=== PATIENT | female | born 1995 | race Caucasian/White ===

== ENCOUNTER 2024-07-17 09:52 | Outpatient (OUT) | payer BC, SELFPAY ==
--- NOTE | 2024-07-16 14:01 | VEINCLINIC_ITS ---
Vital Signs 07/16/24 14:17 07/17/24 10:15 Height 5 ft 8 in Weight 155 kg BP 138/88 BP Location Right Brachial BP Position Supine BP Cuff Size Large Adult BP Source Automatic Cuff Respiration 18 Pulse 88 Pulse Source Monitor Pulse Oximetry (%) 98 Oxygen Delivery Method Room Air Comment The patient's blood pressure is elevated. Varicose Veins Patient in this day as a referral from Dr. Yanez secondary to wound to right mid medial lower leg which occurred approximately 3 years ago presumably from a bug bite. Patient has had 5 skin grafts since this time along with a wound vac and is still unable to achieve full wound healing. Patient c/o bilateral leg pain and edema. 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 Patient has worn bilateral knee high compression stockings for approximately 3 months with some relief. Patient has not been treated for varicose vein disease in the past, but does have a family history of varicose veins. Patient has a history of DVT and P.E. Jewel Hines MD personally performed the services described in this documentation, as scribed by Oj Garibay RN in my presence and it is both accurate and complete. Oj Hines RN, am scribing for, and in the presence of, Dr. Jewel Ngo and in the presence of the patient. . thigh: bilateral (symptoms equally bilateral), knee: bilateral, calf: bilateral, ankle: bilateral and andersen: bilateral aching, burning, cramping, dull and tender 8 6 months Worsened in recent months: Yes standing compression stockings and exercise Reports muscle spasms of leg, fatigue, heaviness, restless legs, limb pain, edema and leg edema History of lower extremity trauma: No Superficial thrombophlebitis: Yes Family history of varicose veins: yes Has patient had previous lower extremity venous surgery: No Patient has previously received the following treatment(s) for lower extremity varicose veins: Reports none Does patient have a history of : no Does patient intend to have future pregnancies: no Has patient had lower extremity venous scan with relux testing: No Support hose used: Yes Problems walking or doing physical activity: Yes How does it affect you: often has to sit and rest due to pain Do you walk much: Yes Do you stand much: Yes Review of Systems ROS Narrative I, Jewel Ngo MD personally performed the services described in this documentation, as scribed by Oj Garibay RN in my presence and it is both accurate and complete. I, Oj Garibay RN, am scribing for, and in the presence of, Dr. Jewel Ngo and in the presence of the patient. Status of ROS 10 or more systems reviewed and unremark able except as noted in history and below Cardiovascular Reports: edema Integumentary/Breast Reports: skin pain, skin tenderness, skin swelling, non- healing lesion and changes in skin color Neurological Reports: weakness in extremities [facility] Medical History (Updated 07/17/24 @ 10:27 by Oj Garibay) Arthritis of neck ?M47.812 - Spondylosis without myelopathy or radiculopathy, cervical region (ICD-10) Morbid obesity due to excess calories ?E66.01 - Morbid (severe) obesity due to excess calories (ICD-10) Pulmonary embolism ?I26.99 - Other pulmonary embolism without acute cor pulmonale (ICD-10) Anxiety ?F41.9 - Anxiety disorder, unspecified (ICD-10) Depression ?F32.A - Depression, unspecified (ICD-10) Factor 5 Leiden mutation, heterozygous ?D68.51 - Activated protein C resistance (ICD-10) Lymphedema due to venous disease ?I89.0 - Lymphedema, not elsewhere classified (ICD-10) ?I99.9 - Unspecified disorder of circulatory system (ICD-10) Venous insufficiency ?I87.2 - Venous insufficiency (chronic) (peripheral) (ICD-10) Wound of right leg ?S81.801A - Unspecified open wound, right lower leg, initial encounter (ICD- 10) Surgical History (Updated 07/17/24 @ 10:27 by Oj Garibay) H/O skin graft ?Z94.5 - Skin transplant status (ICD-10) Family History (Updated 07/17/24 @ 10:28 by Oj Garibay) Other Family history of cancer Family history of hypertension Family history of stroke Pain due to varicose veins of both lower extremities Social History (Updated 07/17/24 @ 10:29 by Oj Garibay) Within the past year, how often did you have a drink containing alcohol: 2-4 times a month Smoking status: Never smoker Non-prescribed substance use: denies use Meds Home Medications and Allergies Home Medications ?Medication ?Instructions ?Recorded ?Confirmed ?Type cyclobenzaprine 10 mg tablet 10 mg PO BID 07/17/24 07/17/24 History escitalopram oxalate 20 mg tablet 10 mg PO DAILY 07/17/24 07/17/24 History (Lexapro) gabapentin 600 mg tablet 300 mg PO TID 07/17/24 07/17/24 History Allergies Allergy/AdvReac Type Severity Reaction Status Date / Time No Known Drug Allergies Allergy Verified 07/16/24 14:16 Exam Narrative Exam Narrative: Wound to right mid [id number] lower leg [id number] deep Jewel Hines MD personally performed the services described in this documentation, as scribed by Oj Garibay RN in my presence and it is both accurate and complete. Oj Hines RN, am scribing for, and in the presence of, Dr. Jewel Ngo and in the presence of the patient. Constitutional Documenting provider has reviewed patient's vital signs: yes Common normals: oriented x3 Nutritional appearance: overweight Cardio Peripheral pulses: posterior tibial pulses present and dorsalis pedis pulses present Extremity Common normals: normal capillary refill General: calf tenderness and edema Right lower extremity: lower leg Right lower leg: inspection and palpation Left lower extremity: lower leg Left lower leg: inspection and palpation Neuro Common normals: oriented x3 Results Additional Findings Additional findings: Bilateral leg reflux u/s reveals moderate right and severe left great saphenous vein disease along with severe right and milk left small saphenous vein insufficiency along with severe left anterior accessory saphenous vein insufficinecy with dilation in all these vessels. Incompetent perforating vein at wound site, and lastly bilateral leg branch saphenous truncal tributary varicosities. Jewel Hines MD personally performed the services described in this documentation, as scribed by Oj Garibay RN in my presence and it is both accurate and complete. Oj Hines RN, am scribing for, and in the presence of, Dr. Jewel Ngo and in the presence of the patient. Assessment and Plan Assessment and Plan Plan Patient to continue use of bilateral leg knee high compression stockings, rest, and elevation. Patient to return for EVLT of right GSV followed by left GSV followed by right SSV followed by left SSV, followed by left AASV and lastly EVLT of perforating vein to right lower leg at wound site. Once EVLTs are complete, move forward with micorofoam chemical ablation bilateral leg branch saphenous varicosities. IJewel MD personally performed the services described in this documentation, as scribed by Oj Garibay RN in my presence and it is both accurate and complete. I, Oj Garibay RN, am scribing for, and in the presence of, Dr. Jewel Ngo and in the presence of the patient.
--- NOTE | 2024-07-16 14:11 | P.DS_ITS ---
Discharge Plan Discharge Disposition: Home, Self-Care Outpatient Diagnostics: VC Endovenous Ablation 1VeinRT (Routine) Timeframe: 2 Weeks Facility: [facility] - Location: [facility] Center Ordered By: Jameson Seo Plan of Treatment: EVLT of right GSV Patient Instructions: Endovenous Ablation (GEN) Print Language: Lao Discharge Date/Time: 07/17/24 13:55
--- NOTE | 2024-07-17 | VEIN_ITS ---
Patient Name: DARLINE PRESCOTT MR#: [id number] : 1995 Exam Date: 07/17/2024 Ordering Doctor: DR JAMESON SEO M.D. RADIOLOGY REPORT PROCEDURE: [facility] - OFFICE VISIT INITIAL COMPARISON: None. PROGRESS NOTES: 29-year-old female who presents with a 3 year nonhealing wound on her right posterior medial mid calf. The patient has been treated in the wound clinic with 5 vein grafts. 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 She complains of varicose veins pain and swelling. Her symptoms are exacerbated by the prolonged standing and are partially relieved by rest and leg elevation. The patient has worn compression stockings without much relief. The patient has a history of DVT with pulmonary embolus in 2014 thought to be related to an injury and provoked from lack of movement. The patient is not on anticoagulant at this time. The patient denies any signs and symptoms to suggest arterial ischemia. The patient describes a family history significant for varicose veins, cancer, hypertension and stroke. The patient drinks alcohol 2-4 times per month. The patient has never smoked. No illicit drug use. Past medical history significant for arthritis, morbid obesity, anxiety, depression, factor 5 Leiden mutation, lymphedema, venous insufficiency. See separate history and physical for medication list. No prior treatment for varicose or spider veins. The patient has used compression stockings for years. After review of nurse notes, history and physical exam I discussed at length the pathophysiology of venous hypertension and possible treatments, therapies and strategies available. We discussed at length the importance of elevating the lower extremities above the level of the heart, increased physical activity and compression stocking use. We discussed alternatives including conservative therapy with compression stockings surgical intervention with ligation stripping and phlebectomy. We discussed intravenous laser ablation, micro foam chemical ablation length. Risks benefits and alternatives were discussed Ultrasound venous reflux study performed the same day was discussed at length with the patient. The report demonstrates bilateral great, small and left anterior accessory saphenous vein venous insufficiency with dilatation and saphenofemoral/saphenous popliteal junction reflux. Large incompetent perforating vein in the right calf corresponding to the patient's ulceration period bilateral incompetent varicose veins PHYSICAL EXAM: The right leg demonstrates scattered varicose reticular and spider veins. Mild subcutaneous edema below the knee. There is a 6 cm ulceration along the right mid posterior medial calf through the epidermis and dermis with exposed fat layer. The left leg demonstrates scattered varicose, reticular spider veins. Mild subcutaneous edema below the knee. No active ulceration. No hemosiderin staining Both thighs, legs and feet were symmetrically warm to the touch. Good posterior tibial and dorsalis pedis pulses were present bilaterally. VEIN/VC Facility NEW Comprehensive IMPRESSION: 1. Extensive venous insufficiency, bilateral great, bilateral small and left anterior accessory saphenous veins with dilatation and saphenofemoral/saphenous popliteal junction reflux 2. Incompetent perforating vein subjacent to the right calf ulceration. Bilateral incompetent lower extremity varicose veins 3. Mild bilateral lower extremity subcutaneous edema 4. No definite flow significant arterial disease 5. CEAP: C6, Ep, Asp, Pr PLAN: 1. Endovenous laser ablation right great saphenous vein followed by right small saphenous vein followed by right perforating vein. Subsequent treatment of the left great saphenous vein, left small saphenous vein and left anterior accessory saphenous vein 2. Bilateral micro foam chemical ablation of incompetent varicose veins 3. Long-term use of bilateral 20-30 mm compression stockings 4. Leg elevation, weight loss and increased physical activity for symptomatic relief Nurse notes, history and physical were reviewed and confirmed, see attached forms. The nurse was present throughout the physical exam and consultation Dictated by: Jameson Seo MD on 07/17/2024 at 12:12 Approved by: Jameson Seo MD on 07/17/2024 at 12:18
--- NOTE | 2024-07-17 | VEIN_ITS ---
Patient Name: DARLINE PRESCOTT MR#: [id number] : 1995 Exam Date: 07/17/2024 Ordering Doctor: DR JAMESON SEO M.D. RADIOLOGY REPORT PROCEDURE: VC EXT VENOUS REFLUX FRANCESCA LMTD COMPARISON: None. INDICATIONS: I83.813 Bilateral painful varicose veins TECHNIQUE: Duplex imaging of the lower extremity to assess the deep and superficial venous system for the presence of deep or superficial venous incompetence and to document the location and severity of disease. The study includes evaluation of the great saphenous vein (GSV), anterior accessory saphenous vein (AASV) and small saphenous vein (SSV). Patient scanned in reverse Trendelenburg and standing. FINDINGS: RIGHT LOWER EXTREMITY: Saphenofemoral Junction Reflux: Yes 9.9mm 1.3 sec GSV: Diam (mm) Reflux/ Time (sec) Proximal Thigh 10.8 Yes 0.7 Mid Thigh 9.0 Yes 0.6 Distal Thigh 7.6 Yes 0.4 Prox Calf 8.0 Yes 2.3 Mid Calf 5.7 Yes 0.4 Saphenopopliteal Junction Reflux: 8.8mm Yes 2.8 SSV: Proximal Calf 6.2 Yes 3.4 Mid Calf 5.6 Yes 0.9 AASV: Proximal Thigh 4.5 No Mid Thigh 2.8 Yes 0.3 Distal Thigh Thrombi: Remnants of chronic thrombus in popliteal vein. Compressibility: Normal. Flow: Mild deep venous reflux. Preforator: Distal medial lower leg 4.4 mm, 0.6s reflux. Mid posterior calf near wound 4.5 mm with 2.4s reflux. Tech Note: Incompetent varicose vein mid posterior calf near wound measures 5.4 mm with 0.5s reflux. Varicose vein mid medial thigh measures 4.5 mm with 3.6s reflux. Varicose vein proximal medial lower leg measures 4.7 mm with 0.6s reflux. LEFT LOWER EXTREMITY: Saphenofemoral Junction Reflux: Yes 13.3 mm 1.9 sec GSV: Diam (mm) Reflux/Time (sec) Proximal Thigh 9.7 Ye 1.5 Mid Thigh 6.8 Yes 0.5 Distal Thigh 6.4 Yes 0.9 Prox Calf 5.1 Yes 4.7 Mid Calf 4.0 Yes 0.3 Saphenopopliteal Junction Relux 6.9 mm Yes 1.9 SSV: Proximal Calf 5.6 Yes 0.5 Mid Calf 3.3 Yes 0.6 AASV: Proximal Thigh 7.9 Yes 4.0 Mid Thigh 5.1 Yes 3.3 Distal Thigh Thrombi: No acute or chronic thrombus. Compressibility: Normal. Flow: Mild deep venous reflux. Record Systems Analyst: Distal medial lower leg 4.6mm with 0.7s reflux. Tech Note: AASV becomes tortuous approximately 6-8 cm from SFJ. Incompetent varicose vein proximal medial lower leg measures 4.7 mm with 0.8s reflux. Varicose vein mid medial thigh measures 5.2 mm with 0.7s reflux. Varicose vein proximal anterior thigh off of AASV measures 4.5 mm with 3.1s reflux. Varicose vein lateral knee measures 5.8 mm with 1.0s reflux. CONCLUSION: 1. Moderate right and severe left great saphenous vein venous insufficiency with dilatation and saphenofemoral junction reflux 2. Severe right and mild left small saphenous vein venous insufficiency with saphenous popliteal junction reflux 3. Severe left anterior accessory saphenous vein venous insufficiency with dilatation 4. Incompetent perforating vein on the right calf in the region of the patient's large ulceration 5. Bilateral incompetent varicose veins Dictated by: Jameson Seo MD on 07/17/2024 at 11:39 Approved by: Jameson Seo MD on 07/17/2024 at 12:09
[2024-07-17 10:15] VITALS: BP 138/88; PULSE 88; O2SAT 98
--- NOTE | 2024-07-17 15:01 | V.VEINS.HP ---
Vital Signs 07/16/24 14:17 07/17/24 10:15 Height 5 ft 8 in Weight 155 kg BP 138/88 BP Location Right Brachial BP Position Supine BP Cuff Size Large Adult BP Source Automatic Cuff Respiration 18 Pulse 88 Pulse Source Monitor Pulse Oximetry (%) 98 Oxygen Delivery Method Room Air Comment The patient's blood pressure is elevated. [facility] Medical History (Updated 07/17/24 @ 13:54 by Oj Garibay) Varicose veins of bilateral lower extremities with pain ?I83.813 - Varicose veins of bilateral lower extremities with pain (ICD-10) Arthritis of neck ?M47.812 - Spondylosis without myelopathy or radiculopathy, cervical region (ICD-10) Morbid obesity due to excess calories ?E66.01 - Morbid (severe) obesity due to excess calories (ICD-10) Pulmonary embolism ?I26.99 - Other pulmonary embolism without acute cor pulmonale (ICD-10) Anxiety ?F41.9 - Anxiety disorder, unspecified (ICD-10) Depression ?F32.A - Depression, unspecified (ICD-10) Factor 5 Leiden mutation, heterozygous ?D68.51 - Activated protein C resistance (ICD-10) Lymphedema due to venous disease ?I89.0 - Lymphedema, not elsewhere classified (ICD-10) ?I99.9 - Unspecified disorder of circulatory system (ICD-10) Venous insufficiency ?I87.2 - Venous insufficiency (chronic) (peripheral) (ICD-10) Wound of right leg ?S81.801A - Unspecified open wound, right lower leg, initial encounter (ICD-10) Surgical History (Updated 07/17/24 @ 10:27 by Oj Garibay) H/O skin graft ?Z94.5 - Skin transplant status (ICD-10) Family History (Updated 07/17/24 @ 10:28 by Oj Garibay) Other Family history of cancer Family history of hypertension Family history of stroke Pain due to varicose veins of both lower extremities Social History (Updated 07/17/24 @ 10:29 by Oj Garibay) Within the past year, how often did you have a drink containing alcohol: 2-4 times a month Smoking status: Never smoker Non-prescribed substance use: denies use Meds Home Medications and Allergies Home Medications ?Medication ?Instructions ?Recorded ?Confirmed ?Type cyclobenzaprine 10 mg tablet 10 mg PO BID 07/17/24 07/17/24 History escitalopram oxalate 20 mg tablet 10 mg PO DAILY 07/17/24 07/17/24 History (Lexapro) gabapentin 600 mg tablet 300 mg PO TID 07/17/24 07/17/24 History Allergies Allergy/AdvReac Type Severity Reaction Status Date / Time No Known Drug Allergies Allergy Verified 07/16/24 14:16 Exam Constitutional Vital Signs, click to edit/add: Last Vital Signs Pulse 88 07/17/24 10:15 Resp 18 07/17/24 10:15 BP 138/88 07/17/24 10:15 Pulse Ox 98 07/17/24 10:15 Assessment and Plan Assessment and Plan Plan Patient to continue use of bilateral leg knee high compression stockings, rest, and elevation. Patient to return for EVLT of right GSV followed by left GSV followed by right SSV followed by left SSV, followed by left AASV and lastly EVLT of perforating vein to right lower leg at wound site. Once EVLTs are complete, move forward with micorofoam chemical ablation bilateral leg branch saphenous varicosities. IJewel MD personally performed the services described in this documentation, as scribed by Oj Garibay RN in my presence and it is both accurate and complete. IOj RN, am scribing for, and in the presence of, Dr. Jewel Ngo and in the presence of the patient.
[2024-07-17 15:34] VITALS: BP 154/75; PULSE 84; O2SAT 97
== END 2024-07-17 13:55 | disposition home or self-care (01) ==
PROVIDERS: PCP Podiatrist Foot & Ankle Surgery; Visit Provider Radiology Diagnostic Radiology
DX: I83.813 Varicose veins of bilateral lower extremities with pain (principal)
CPT/HCPCS: 93970; G0463

== ENCOUNTER 2024-09-13 09:05 | Outpatient (OUT) | payer BC, SELFPAY ==
--- NOTE | 2024-09-13 07:24 | V.VEINS.HP ---
Vital Signs 09/13/24 09:10 BP 154/77 H BP Location Left Brachial BP Position Sitting BP Cuff Size Large Adult BP Source Automatic Cuff Respiration 18 Pulse 83 Pulse Source Monitor Pulse Oximetry (%) 98 Oxygen Delivery Method Room Air Comment The patient's blood pressure is elevated. Varicose Veins Patient in this day for EVLT of right GSV Jewel Hines MD personally performed the services described in this documentation, as scribed by Oj Garibay RN in my presence and it is both accurate and complete. Oj Hines RN, am scribing for, and in the presence of, Dr. Jewel Ngo and in the presence of the patient. thigh: bilateral (symptoms equally bilateral), knee: bilateral, calf: bilateral, ankle: bilateral and andersen: bilateral aching, burning, cramping, dull and tender 8 6 months Worsened in recent months: Yes standing compression stockings and exercise Reports muscle spasms of leg, fatigue, heaviness, restless legs, limb pain, edema and leg edema History of lower extremity trauma: No Superficial thrombophlebitis: Yes Family history of varicose veins: yes Has patient had previous lower extremity venous surgery: No Patient has previously received the following treatment(s) for lower extremity varicose veins: Reports none Does patient have a history of : no Does patient intend to have future pregnancies: no Has patient had lower extremity venous scan with relux testing: No Support hose used: Yes Problems walking or doing physical activity: Yes How does it affect you: often has to sit and rest due to pain Do you walk much: Yes Do you stand much: Yes Review of Systems ROS Narrative Jewel Hines MD personally performed the services described in this documentation, as scribed by Oj Garibay RN in my presence and it is both accurate and complete. Oj Hines RN, am scribing for, and in the presence of, Dr. Jewel Ngo and in the presence of the patient. Status of ROS 10 or more systems reviewed and unremarkable except as noted in history and below Cardiovascular Reports: edema Integumentary/Breast Reports: skin pain, skin tenderness, skin swelling, non-healing lesion and changes in skin color Neurological Reports: weakness in extremities [facility] Medical History (Updated 09/13/24 @ 07:32 by Oj Garibay) Phlebitis of superficial vein of right lower extremity ?I80.01 - Phlebitis and thrombophlebitis of superficial vessels of right lower extremity (ICD-10) Varicose veins of bilateral lower extremities with pain ?I83.813 - Varicose veins of bilateral lower extremities with pain (ICD-10) Arthritis of neck ?M47.812 - Spondylosis without myelopathy or radiculopathy, cervical region (ICD-10) Morbid obesity due to excess calories ?E66.01 - Morbid (severe) obesity due to excess calories (ICD-10) Pulmonary embolism ?I26.99 - Other pulmonary embolism without acute cor pulmonale (ICD-10) Anxiety ?F41.9 - Anxiety disorder, unspecified (ICD-10) Depression ?F32.A - Depression, unspecified (ICD-10) Factor 5 Leiden mutation, heterozygous ?D68.51 - Activated protein C resistance (ICD-10) Lymphedema due to venous disease ?I89.0 - Lymphedema, not elsewhere classified (ICD-10) ?I99.9 - Unspecified disorder of circulatory system (ICD-10) Venous insufficiency ?I87.2 - Venous insufficiency (chronic) (peripheral) (ICD-10) Wound of right leg ?S81.801A - Unspecified open wound, right lower leg, initial encounter (ICD-10) Surgical History (Updated 09/13/24 @ 09:22 by Oj Garibay) Status post laser ablation of incompetent vein ?Z98.890 - Other specified postprocedural states (ICD-10) S/P sclerotherapy of varicose veins ?Z98.890 - Other specified postprocedural states (ICD-10) ?Z86.79 - Personal history of other diseases of the circulatory system (ICD-10) H/O skin graft ?Z94.5 - Skin transplant status (ICD-10) Family History (Updated 07/17/24 @ 10:28 by Oj Garibay) Other Family history of cancer Family history of hypertension Family history of stroke Pain due to varicose veins of both lower extremities Social History (Updated 07/17/24 @ 10:29 by Oj Garibay) Within the past year, how often did you have a drink containing alcohol: 2-4 times a month Smoking status: Never smoker Non-prescribed substance use: denies use Meds Home Medications and Allergies Home Medications ?Medication ?Instructions ?Recorded ?Confirmed ?Type cyclobenzaprine 10 mg tablet 10 mg PO BID 07/17/24 07/17/24 History escitalopram oxalate 20 mg tablet 10 mg PO DAILY 07/17/24 07/17/24 History (Lexapro) gabapentin 600 mg tablet 300 mg PO TID 07/17/24 07/17/24 History Allergies Allergy/AdvReac Type Severity Reaction Status Date / Time No Known Drug Allergies Allergy Verified 07/16/24 14:16 Results Additional Findings Additional findings: Bilateral leg reflux u/s reveals moderate right and severe left great saphenous vein disease along with severe right and milk left small saphenous vein insufficiency along with severe left anterior accessory saphenous vein insufficinecy with dilation in all these vessels. Incompetent perforating vein at wound site, and lastly bilateral leg branch saphenous truncal tributary varicosities. Jewel Hines MD personally performed the services described in this documentation, as scribed by Oj Garibay RN in my presence and it is both accurate and complete. Oj Hines RN, am scribing for, and in the presence of, Dr. Jewel Ngo and in the presence of the patient. Assessment and Plan Assessment and Plan (1) Varicose veins of bilateral lower extremities with pain: Plan F/u evaluation with physician along with right leg limited u/s Jewel Hines MD personally performed the services described in this documentation, as scribed by Oj Garibay RN in my presence and it is both accurate and complete. Oj Hines RN, am scribing for, and in the presence of, Dr. Jewel Ngo and in the presence of the patient. Procedures Procedure Instructions Procedures Plan of care: Risks and benefits of the procedure were discussed at length and informed written consent was obtained.? Time-out completed for verification of correct patient, procedure and site.? Staff present during time-out: Oj Garibay RN,? Jameson Seo MD, Latosha Anthony RDMS, Time Out Time__909 Patient prepped and procedure performed in usual sterile fashion. Risk of injury related to use of Diode laser and/or laser devices__CR___ ? Serial number of laser used :? [id number] Control panel self test performed, electrical cords in good condition, floor is dry, basin of water available, fire extinguisher in close proximity_CR__ Polycarbonate goggles available and Laser warning signs outside of doors___CR__ Eye protection provided to patient and staff in room_CR___ Use of laser retardant drapes and dull blackened instruments as directed__CR___ Use of nonflammable prep solutions and use of saline soaked sponges to protect tissues as indicated _CR___ Length ___66 cm Laser operated by __Dr. Ngo Physician verbal confirmation laser locked in place__CR__ Laser start time (date and time) __09/13/2024@_0956 Laser stop time(date and time) _09/13/2024@__1003 Chen _8.0___ Average laser use __3280 Joules Average laser use___410 seconds Pulse continuous ___CR_? Pulse intermittent ___ Amount of Tumescent used __275cc____ Evaluated patient for signs and symptoms of electrical injury __CR___ ? Skin clear at insertion site __CR___ Patient tolerated procedure well.? Right leg Coban dressing applied to access site.? Applied right thigh high leg compression stocking. Will return on 09/17/2024 for right leg limited venous ultrasound and exam. IJewel MD personally performed the services described in this documentation, as scribed by Oj Garibay RN in my presence and it is both accurate and complete. I, Oj Garibay RN, am scribing for, and in the presence of, Dr. Jewel Ngo and in the presence of the patient.
--- NOTE | 2024-09-13 07:31 | W.VEIN ---
Discharge Plan Discharge Disposition: Home, Self-Care Outpatient Diagnostics: [facility] Facility EST LMTD (Routine) Timeframe: 2 Weeks Facility: [facility] - Location: [facility] Ordered By: Jameson Seo VC EXT Venous RT LMTD (Routine) Timeframe: 2 Weeks Facility: [facility] - Location: Vein Center Ordered By: Jameson Seo Follow Up Appointments: 09/18/2024 Plan of Treatment: f/u evaluation with physician along with right leg limited u/s Patient Instructions: Endovenous Ablation (DC) Print Language: Hungarian Discharge Date/Time: 09/13/24 09:29
[2024-09-13] MEDS: LIDOCAINE HCL 1% 100 MG/10 ML MDV INJ (09:03)
[2024-09-13] MEDS: 0.9 % SODIUM CHLORIDE 500 ML, LIDOCAINE HCL 20 ML, SODIUM BICARBONATE 10 MEQ INJ (09:04)
--- NOTE | 2024-09-13 09:06 | VEIN_ITS ---
[address] [address] Patient Name: DARLINE PRESCOTT MRN: [id number] date: 1995 Sex: F Assigned Patient Location: Current Patient Location: Accession/Order Number: [id number] Exam Date: 09/13/2024 09:08 Report Date: 09/13/2024 10:56 At the request of: RENA HOYT Procedure: VC Endovenous Ablation 1VeinRT EXAMINATION: VC Endovenous Ablation 1VeinRT HISTORY: I83.813 - Varicose veins of bilateral lower extremities w... The risks and benefits of the procedure had been previously discussed, and were rediscussed at length. Informed written consent was obtained. Oj Garibay RN and Latosha Ramey RDMS assisted. Time out procedure was performed. The right lower extremity was prepared and draped in the usual sterile fashion to allow knee flexion in the sterile field. Duplex ultrasound probe was draped in a sterile cover, sterile transmission gel was used. Venous mapping was performed with the areas of dilation and large tributaries marked. The total length was 66 cm from the entry distal calf to 3 cm below the Saphenofemoral junction. The diameter of the right great saphenous vein ranged from 10.8 mm. A 30 gauge needle and 1% buffered lidocaine was used to anesthetize the entry site. A 4 mm incision was made with a scalpel and the saphenous vein was entered percutaneously under direct ultrasound guidance with a micropuncture set, a single stick was successful in gaining access. A micro-guide wire was inserted and the needle removed. A micro-set including a dilator was inserted over the microwire and the needle and dilator were removed. A guide wire was inserted through the micro-set and guided through the saphenous vein to the saphenofemoral junction. The dilator was removed and an introducer sheath was inserted over the wire until the end of the sheath entered the saphenofemoral junction. The dilator and wire were removed and the 600 micron fiber was introduced and placed and positioned so that it extended beyond the sheath and was 3 cm distal to the saphenofemoral or saphenopopliteal junction. Final position of the fiber was determined by ultrasound guidance and duplex imaging. Tumescent anesthetic was delivered by ultrasound guidance. 275 cc of fluid was delivered along the entire course of the saphenous vein. The solution consisted of 1000 cc of normal saline with 40 mL of 1% lidocaine and 20 mL of sodium bicarbonate. A final positioning check was made. The energy source was turned on by means of the foot pedal and the fiber and sheath were withdrawn. The total number of Joules delivered was 3280. The laser was active for 410 seconds under continuous pulse, average laser use of 8 J. Laser start time: 9:56 AM Laser stop time: 10:03 AM Date: 09/13/2024. A duplex ultrasound revealed compressibility and flow at the saphenofemoral junction immediately after the procedure. Hemostasis at the access site was achieved. The skin incision of the saphenous vein was closed with a 4 x 4. A compression stocking was applied. Postop instructions were given. A follow up appointment was recommended and scheduled. The patient tolerated the procedure well. Electronically authenticated by: ANABELLA DAVISON Date: 09/13/2024 10:56
[2024-09-13 09:10] VITALS: BP 154/77; PULSE 83; O2SAT 98
--- OUTSIDE RECORDS SUMMARY | 2024-09-13 09:26 | XMS_ITS | CCD ---
Author Organization [facility] Care Team Providers Care Fingerprint Expert Name Role Phone RALPH TAN Referring Unavailable Unavailable Primary Care Provider UnavailJazzy Zaragoza Primary Care Provider ALICJA ., DR ESCOBAR Consulting Unavailable ALICJA ., DR ESCOBAR Attending Unavailable ALICJA ., DR ESCOBAR Admitting Unavailable ALICJA ., DR ESCOBAR Consulting Unavailable ALICJA ., DR ESCOBAR Attending Unavailable ALICJA ., DR ESCOBAR Admitting Unavailable Julieta Curtis Primary Care Physician Renata, Emre Charles Admitting Unavailable Dolce, Emre Charles Attending Unavailable KirstenJulieta Attending Unavailable Kirsten, Julieta C Admitting Unavailable Dolce, Emre Charles Admitting Unavailable Dolce, Emre Charles Attending Unavailable Kirsten, Julieta C Admitting Unavailable Kirsten, Julieta C Attending Unavailable Kirsten, Julieta C Referring Unavailable Kirsten, Julieta C Attending Unavailable Kirsten Julieta C Admitting Unavailable Dolce, Emre Charles Attending Unavailable Dolce, Emre Charles Admitting Unavailable Dolce, Emre Charles Admitting Unavailable Dolce, Emre Charles Referring Unavailable Dolce, Emre Charles Attending Unavailable Dolce, Emre Charles Referring Unavailable Dolce, Emre Charles Attending Unavailable Dolce, Emre Charles Admitting Unavailable Dolce, Emre Charles Referring Unavailable Dolce, Emre Charles Attending Unavailable Dolce, Emre Charles Admitting Unavailable POCOS, RENA Elizalde Referring Unavailable POCOS, RENA Elizalde Attending Unavailable SAMANTHA, RENA An Attending Unavailable POCOS, RENA Elizalde Referring Unavailable SAMANTHA, RENA An Attending Unavailable POCOS, RENA Elizalde Referring Unavailable POCOS, RENA Elizalde Attending Unavailable POCOS, RENA Elizalde Referring Unavailable SAMANTHA, RENA An Attending Unavailable POCOS, RENA Elizalde Referring Unavailable POCOS, RENA Elizalde Attending Unavailable POCOS, RENA Elizalde Referring Unavailable DOLCE, EMRE Charles Attending Unavailable DOLCE, EMRE Charles Attending Unavailable Julieta Curtis MD Primary Care Provider Renata, Emre Charles Attending Unavailable Dolce, Emre Charles Attending Unavailable Dolce, Emre Charles Attending Unavailable Dolce, Emre Charles Attending Unavailable Dolce, Rohit R Attending Unavailable Dolce, Emre Charles Attending Unavailable Dolce, Emre Charles Attending Unavailable Julieta Curtis Referring Unavailable Luis Felipe Mack Admitting Unavailable Luis Felipe Mack Attending Unavailable Luis Felipe Mack Attending Unavailable Luis Felipe Mack Referring Unavailable Dolce, Emre Charles Attending Unavailable Dolce, Emre Charles Attending Unavailable Dolce, Emre Charles Attending Unavailable Dolce, Emre Charles Attending Unavailable Dolce, Emre Charles Attending Unavailable Dolce, Rohit R Attending Unavailable Dolce, Rohit R Attending Unavailable Dolce, Rohit R Attending Unavailable Dolce, Rohit R Attending Unavailable Dolce, Rohit R Attending Unavailable Dolce, Rohit R Attending Unavailable Dolce, Rohit R Attending Unavailable April Daniels Admitting Unavailable Frances, April Attending Unavailable Julieta Curtis Referring Unavailable Luis Felipe Mack Attending Unavailable Luis Felipe Mack Referring Unavailable Karthik Johnson Admitting Unavailable Karthik Johnson Attending Unavailable Karthik Johnson Attending Unavailable Dolhermann, Rohit R Attending Unavailable Dolce, Emre Charles Attending Unavailable MoKarthik william Attending Unavailable Dolhermann, Emre Charles Attending Unavailable Dolce, Rohit R Attending Unavailable Dolhermann, Emre Charles Attending Unavailable Luis Felipe Mack Attending Unavailable Luis Felipe Mack Referring Unavailable April Daniels Attending Unavailable Julieta Curtis Referring Unavailable April Daniels Admitting Unavailable Medications Current Medications Medication Drug Class(es) Dates Sig (Normalized) Sig (Original) acetaminophen 325 mg oral tablet (11 sources) Start: 06-26-2024 take 2 tablets by mouth twice daily as needed for pain Tylenol 325 mg Tab 650 mg, Oral, BID, PRN as needed for pain, Refills(s) 0 Start Date: 06/26/24 Status: Ordered acetaminophen 325 mg / oxyCODONE hydrochloride 5 mg oral tablet (8 sources) Opioid Agonist Start: 04-01-2024 take 1 tablet by mouth every six hours as needed for pain Percocet 5 mg-325 mg oral tablet 1 tab(s), Oral, q6hr as needed for pain, Refill(s) 0 Start Date: 04/01/24 Status: Ordered bifidobacterium animalis [id number] unt / lactobacillus acidophilus [id number] unt oral capsule (5 sources) take 1 capsule by mouth once daily Probiotic Product (Probiotic Daily) capsule Take by mouth Active ciprofloxacin 500 mg oral tablet (4 sources) Quinolone Antimicrobial Start: 08-19-2024 End: 08-29-2024 ciprofloxacin 500 mg Tab 500 mg = 1 tab(s), Refills(s) 0 Start Date: 08/27/24 Status: Ordered cyclobenzaprine hydrochloride 10 mg oral tablet (12 sources) Muscle Relaxant Start: 07-01-2024 End: 07-11-2024 take 1 tablet by mouth three times daily as needed for muscle spasms cyclobenzaprine 10 mg Tab 10 mg = 1 tab(s), Oral, TID, PRN for spasm, take as needed for muscle spasms, X 10 day(s), # 30 tab(s), Refills(s) 0, Pharmacy: [facility], 172, cm, 06/26/24 11:30:00 EDT, Height/Length Dosing, 154.4, kg, 06/26/24 11:30:00 EDT, Weight Dosing Start Date: 07/01/24 Stop Date: 07/11/24 Status: Ordered Start: 06-03-2024 End: 06-13-2024 take 1 tablet by mouth three times daily as needed for muscle spasms cyclobenzaprine 10 mg Tab 10 mg = 1 tab(s), Oral, TID, PRN for spasm, take as needed for muscle spasms, X 10 day(s), # 30 tab(s), Refills(s) 0, Pharmacy: [facility] 1986, 172, cm, 05/21/24 12:36:00 EDT, Height/Length Dosing, 154.2, kg, 04/01/24 8:35:00 EDT, Weight Dosing Start Date: 06/03/24 Stop Date: 06/13/24 Status: Ordered Start: 04-26-2024 End: 05-06-2024 take 1 tablet by mouth three times daily as needed for muscle spasms cyclobenzaprine 10 mg Tab 10 mg = 1 tab(s), Oral, TID, PRN for spasm, take as needed for muscle spasms, X 10 day(s), # 30 tab(s), Refills(s) 0, Pharmacy: [facility] 1986, 172, cm, 04/01/24 8:35:00 EDT, Height/Length Dosing, 154.2, kg, 04/01/24 8:35:00 EDT, Weight Dosing Start Date: 04/26/24 Stop Date: 05/06/24 Status: Ordered Start: 04-01-2024 End: 04-11-2024 take 1 tablet by mouth three times daily as needed for muscle spasms cyclobenzaprine 10 mg Tab 10 mg = 1 tab(s), Oral, TID, PRN for spasm, take as needed for muscle spasms, X 10 day(s), # 30 tab(s), Refills(s) 0, Pharmacy: [facility] 1986, 172, cm, 04/01/24 8:35:00 EDT, Height/Length Dosing, 154.2, kg, 04/01/24 8:35:00 EDT, Weight Dosing Start Date: 04/01/24 Stop Date: 04/11/24 Status: Ordered Start: 06-04-2019 take 1 tablet by jerod th three times daily cyclobenzaprine 10 mg Tab 10 mg = 1 tab(s), Oral, TID, # 30 tab(s), Refills(s) 0, Pharmacy: [facility]/pharmacy #[id number] Start Date: 06/04/19 Status: Ordered escitalopram 20 mg oral tablet (20 sources) Serotonin Reuptake Inhibitor Start: 08-27-2024 take 1 tablet by mouth once daily escitalopram 20 mg Tab 20 mg = 1 tab(s), Oral, Daily, Refills(s) 0 Start Date: 08/27/24 Status: Ordered Start: 02-05-2024 take 1 tablet by jerod th once daily escitalopram 5 mg oral tablet 5 mg = 1 tab(s), Oral, Daily, Anxiety Start Date: 02/26/24 Status: Ordered gabapentin 600 mg oral tablet (20 sources) Anti-epileptic Agent Start: 08-02-2024 take 1 tablet by mouth three times daily gabapentin 600 mg Tab 600 mg = 1 tab(s), Oral, TID, # 90 tab(s), Refills(s) 0, Pharmacy: [facility] 1986, 172, cm, 07/22/24 10:56:00 EST, Height/Length Dosing, 154.4, kg, 06/26/24 11:30:00 EDT, Weight Dosing Start Date: 08/02/24 Status: Ordered Start: 06-03-2024 End: 07-31-2024 take 2 capsules by mouth three times daily gabapentin 300 mg Cap 600 mg = 2 cap(s), Oral, TID, X 30 day(s), # 180 cap(s), Refills(s) 0, Pharmacy: Replaced By [facility] 1986, 172, cm, 06/26/24 11:30:00 EDT, Height/Length Dosing, 154.4, kg, 06/26/24 11:30:00 EDT, Weight Dosing Start Date: 07/01/24 Stop Date: 07/31/24 Status: Ordered Start: 04-01-2024 End: 05-26-2024 take 2 capsules by mouth three times daily gabapentin 300 mg Cap 600 mg = 2 cap(s), Oral, TID, X 30 day(s), # 180 cap(s), Refills(s) 0, Pharmacy: Replaced By [facility] 1986, 172, cm, 04/01/24 8:35:00 EDT, Height/Length Dosing, 154.2, kg, 04/01/24 8:35:00 EDT, Weight Dosing Start Date: 04/26/24 Stop Date: 05/26/24 Status: Ordered ibuprofen 800 mg oral tablet (5 sources) Nonsteroidal Anti-inflammatory Drug Start: 06-04-2019 take 1 tablet by mouth every eight hours ibuprofen 800 mg Tab 800 mg = 1 tab(s), Oral, q8hr, # 30 tab(s), Refills(s) 0, Pharmacy: [facility]/pharmacy #[id number] Start Date: 06/04/19 Status: Ordered naproxen sodium 220 mg oral capsule (20 sources) Nonsteroidal Anti-inflammatory Drug Start: 04-01-2024 take 1 capsule by mouth once daily as needed for pain Aleve Liquid Gels 220 mg oral capsule 220 mg = 1 cap(s), Oral, Daily, PRN as needed for pain, Refills(s) 0 Start Date: 04/01/24 Status: Ordered vitamin b6 100 mg oral tablet (5 sources) Start: 10-27-2023 pyridoxine (Vitamin B-6) 100 MG tablet 10/27/2023 Active Problems Active Problems Problem Classification Problem Date Documented Da te Episodic/Chronic Other nutritional; endocrine; and metabolic disorders (20 sources) Morbid obesity 09-29-2014 Chronic Other screening for suspected conditions (not mental disorders or infectious disease) (20 sources) Encounter for screening for malignant neoplasm of cervix; Translations: [No current problems or disability] Onset: 11-14-2022 Episodic Phlebitis; thrombophlebitis and thromboembolism (20 sources) Deep venous thrombosis 06-09-2015 Episodic Pulmonary heart disease (20 sources) Pulmonary embolism 06-09-2015 Episodic Skin and subcutaneous tissue infections (1 source) Cellulitis of right lower limb; Translations: [Cellulitis of right lower limb] 08-19-2024 Episodic Past or Other Problems Problem Classification Problem Date Documented Date Episodic/Chronic Immunizations and screening for infectious disease (3 sources) Contact with or exposure to other viral diseases; Translations: [Encounter for screening for human papillomavirus (HPV)] Onset: 05-15-2022 Episodic Results Test Name Value Interpretation Reference Range Facility Main OR Intraoperative Recor don 09-05-2024 Main OR Intraoperative Record Main OR Intraoperative Record IntraOp Document Type FTPM Summary Primary Physician: Luis Felipe Mack DO Finalized Date/Time: 09/05/24 14:44:26 Pt. Name: CHAU MOISE/Sex: 1995 Female Med Rec #: [id number] Physician: Luis Felipe Mack DO Financial #: [id number] Pt. Type: P Room/Bed: / Admit/Disch: 09/05/24 13:55:29 - Institution: Case Times FTPM Entry 1 Patient Times In Room 09/05/24 14:38:00 Out Room 09/05/24 14:45:00 Procedure Times Start 09/05/24 14:41:00 Stop 09/05/24 14:44:00 Anesthesia Times Last Modified By: Caro Culp RN 09/05/24 14:44:20 Case Attendance FTPM Entry 1 Entry 2 Entry 3 Case Attendee Luis Felipe Mack DO, RN, Caro Balderrama RN, Marah Javier Role Performed Surgeon - Primary Estimator Jewelry - Primary Scrub - Primary Time In 09/05/24 14:38:00 09/05/24 14:38:00 09/05/24 14:38:00 Time Out 09/05/24 14:45:00 09/05/24 14:45:00 09/05/24 14:45:00 Procedure CERVICAL EPIDURAL CERVICAL EPIDURAL CERVICAL EPIDURAL STEROID INJECTION(.) STEROID INJECTION(.) STEROID INJECTION(.) Comments Last Modified By: Robbi NIELSEN, Caro Culp RN, Caro Culp RN, Caro Nails 09/05/24 14:44:21 09/05/24 14:44:21 09/05/24 14:44:21 Entry 4 Entry 5 Case Attendee Donavan NIELSEN, Kishore Frankel Role Performed Scrub - Relief Manager Deli Time In 09/05/24 14:38:00 09/05/24 14:38:00 Time Out 09/05/24 14:45:00 09/05/24 14:45:00 Procedure CERVICAL EPIDURAL CERVICAL EPIDURAL STEROID INJECTION(.) STEROID INJECTION(.) Comments Last Modified By: Robbi NIELSEN, Caro Culp RN, Caro Nails 09/05/24 14:44:21 09/05/24 14:44:21 Perioperative Protocols FTPM Pre-Care Text: Implements protective measures prior to operative or invasive procedure, confirms identity before the operative or invasive procedure, verifies operative procedure, surgical site, and laterality Entry 1 Procedure(s) CERVICAL EPIDURAL Patient Identity Birthday, ID Band STEROID INJECTION(.) Verified (select at Check, Patient least 2): Participation Consents / H and P H&P, Surgery/Procedure Operative Site Present Verified Consent Marking Verified Surgical Site Yes Laterality Verified Yes Verified Procedure Verified Yes Correct Patient Yes Position Verified Availability Equipment, Medication, Prep Dry Yes Verified (If X-ray Applicable) PreOp Antibiotic No Time Out Robbi NIELSEN, Dmitry Brice RN, Karena Zeng DO, Bradford A., Harvey RN, Roddy Ray Bryce Time Out Complete 09/05/24 14:38:00 Outcomes Met? Yes Last Modified By: Caro Culp RN 09/05/24 14:39:33 Post-Care Text: The patient is free from signs and symptoms of injury caused by extraneous objects Allergy Information FTPM Pre-Care Text: Verifies allergies Entry 1 Allergies Reviewed? Yes Allergies Reviewed Self/Patient With Outcomes Met? Yes Last Modified By: Caro Culp RN 09/05/24 14:37:24 Post-Care Text: The patient received appropriate medication(s) safely administered during the perioperative period Surgical Procedures FTPM Entry 1 Procedure Description Procedure CERVICAL EPIDURAL Modifiers . STEROID INJECTION Surgeon Description C6-7 CATIE Primary Procedure Yes Primary Surgeon Luis Felipe Mack DO Start 09/05/24 14:41:00 Stop 09/05/24 14:44:00 Anesthesia Type None Surgical Service Pain Management Wound Class 1 - Clean Last Modified By: Caro Culp RN 09/05/24 14:44:23 General Case Data FTPM Pre-Care Text: Classifies surgical wound, implements aseptic technique, initiates traffic control Entry 1 Case Information OR Pain Proc Room Case Level Level 2 Wound Class 1 - Clean Specialty Pain Management Preop Diagnosis M54.12 Postop Same As Preop Yes Postop Diagnosis M54.12 Outcomes Met? Yes Last Modified By: Caro Culp RN 09/05/24 14:40:00 Post-Care Text: The patient is free from signs and symptoms of infection Skin Assessment (Pre Procedure) FTPM Pre-Care Text: Implements protective measures to prevent skin/ tissue injury due to thermal or mechanical sources Evaluates for signs and symptoms of physical injury to skin and tissue Entry 1 Skin Integrity Intact, [place], Warm, & Skin Abnormality No Dry Outcomes Met? Yes Last Modified By: Caro Culp RN 09/05/24 14:37:31 Post-Care Text: The patient is free from signs and symptoms of injury caused by extraneous objects Patient Positioning FTPM Pre-Care Text: Identifies physical alterations that require additional precautions for procedure-specific positioning, verifies presence of prosthetics or corrective devices, positions the patient, evaluates the patient for signs and symptoms of injury as a result of positioning Entry 1 Procedure CERVICAL EPIDURAL Body Position Prone STEROID INJECTION(.) Feet Uncrossed? Yes Left Arm Position Resting at Side Right Arm Position Resting at Side Left Leg Position Ext (more content not included)... Normal [facility] Main OR Preoperative Recordo n 09-05-2024 Main OR Preoperative Record Main OR Preoperative Record Holding Area Document Type FTPM Summary Primary Physician: Luis Felipe Mack DO Finalized Date/Time: 09/05/24 14:01:14 Pt. Name: CLINT MOISELO Lema/Sex: 1995 Female Med Rec #: [id number] Physician: Luis Felipe Mack DO Financial #: [id number] Pt. Type: P Room/Bed: / Admit/Disch: 09/05/24 13:55:29 - Institution: Case Times Holding FTPM Pre-Care Text: Verifies consent for planned procedure, identifies individual values and wishes concerning care, includes family members in perioperative teaching Secures patient's records' belongings, and valuables, maintains patient's dignity and privacy, and maintains patient confidentiality Entry 1 In Holding 09/05/24 13:58:00 Outcomes Met? Yes Last Modified By: Amanda White RN 09/05/24 13:58:10 Post-Care Text: The patient participates in decisions affecting his or her perioperative plan of care The patient's right to privacy is maintained Surgery Checklist FTPM Entry 1 Patient Birthday, ID Band Procedure History and Physical, Identification: Check, Patient Verification: Surgical Consent, With Participation Patient NPO after Midnight: No Date/Time: 09/05/24 10:30:00 Personal Items: Glasses, Jewelry Personal Items earrings , bar Comment: Complaints of Pain: Yes Pain Comment: 05/07 right neck shoulder and arm Operative Site Yes Marked By: karena Marking: Location: neck Availability Equipment, X-Ray Verified: Does Patient Smoke No Patient states Yes Comment - Adult friend amanda postop adult Supervision supervision available Case Cancelled in No Holding Area see comments below for reason Last Modified By: Amanda White RN 09/05/24 14:01:09 General Comments: beef and energy drink Finalized By: Amanda White RN Document Signatures Signed By: Amanda White RN 09/05/24 14:01 Normal [facility] C WOUNDon 08-16-2024 [facility] WOUND CULTURE Microbiology PROCEDURE: Wound Culture [R1] SOURCE: Wound BODY SITE: Leg R COLLECTED DATE/TIME: 08/14/2024 11:15 EST RECEIVED DATE/TIME: 08/14/2024 14:26 EST START DATE/TIME: 08/14/2024 14:26 EST FREE TEXT SOURCE: Right Calf Dolce DPM, Rohit R Dolce DPM, Rohit R FINAL REPORTS Final Report [] Verified Date/Time: 08/16/2024 13:56 EST 2+ Staphylococcus aureus 1+ Gram Positive Rods resembling diphtheroids STAINS Gram Stain Report [] Verified Date/Time: 08/15/2024 11:55 EST 2+ White Blood Cells 2+ Gram Positive Cocci SUSCEPTIBILITY RESULTS LEGEND: S=Susceptible, N/R=Not Reported, Blank=Data not available, or drug not advisable or tested, I=Intermediate, ESBL=Extended spectrum beta-lactamase, R=Resistant, TFG=Thymidine-depende nt strain, KENNY=Beta-lactamase positive, GUERRERO=mcg/m;(mg/L), S*=Predicted susceptible interp, R*=Predicted resistant interp SA Antibiotic GUERRERO Dilutn GUERRERO Interp Amoxicillin/ <=4/2 S Clavulanate Ampicillin/ <=8/4 S Sulbactam Azithromycin <=2 S Cefazolin <=8 S Ceftaroline <=0.5 S Ciprofloxacin <=1 S Clindamycin 0.5 S Daptomycin <=1 S Erythromycin <=0.5 S Gentamicin <=4 S Levofloxacin <=1 S Linezolid <=2 S Oxacillin <=0.25 S Penicillin <=0.03 S Rifampin <=1 S Tetracycline <=4 S Trimethoprim/ <=0.5/9.5 S Sulfa Vancomycin 1 S Performing Locations R1: This test was performed at: [facility], [address] [place] [address], [id number] , , [facility] Original Ordering Provider: ZEFERINO MARTNIEZ [facility] Main OR Intraoperative Recor don 07-22-2024 Main OR Intraoperative Record Main OR Intraoperative Record IntraOp Document Type FTPM Summary Primary Physician: Luis Felipe Mack DO Finalized Date/Time: 07/22/24 11:50:08 Pt. Name: CHAU MOISE/Sex: 1995 Female Med Rec #: [id number] Physician: Luis Felipe Mack DO Financial #: [id number] Pt. Type: P Room/Bed: / Admit/Disch: 07/22/24 10:11:11 - Institution: Case Times FTPM Entry 1 Patient Times In Room 07/22/24 11:37:00 Out Room 07/22/24 11:49:00 Procedure Times Start 07/22/24 11:40:00 Stop 07/22/24 11:48:00 Anesthesia Times Last Modified By: Ryan Go RN 07/22/24 11:50:03 Case Attendance FTPM Entry 1 Entry 2 Entry 3 Case Attendee Luis Felipe Mack DO, RN, Ryan Mc RN, Mindi Elizalde Role Performed Surgeon - Primary Estimator Jewelry - Primary GUITAR INSTRUCTOR Time In 07/22/24 11:37:00 07/22/24 11:37:00 07/22/24 11:37:00 Time Out 07/22/24 11:49:00 07/22/24 11:49:00 07/22/24 11:49:00 Procedure MEDIAL BRANCH MEDIAL BRANCH MEDIAL BRANCH BLOCK(Bilateral) BLOCK(Bilateral) BLOCK(Bilateral) Comments Last Modified By: Donavan NIELSEN, Ryan Go RN, Ryan Morton RN 07/22/24 11:50:04 M 07/22/24 11:50:04 07/22/24 11:50:04 Entry 4 Case Attendee Amanda Patel Role Performed Manager Deli Time In 07/22/24 11:37:00 Time Out 07/22/24 11:49:00 Procedure MEDIAL BRANCH BLOCK(Bilateral) Comments Last Modified By: Ryan Go RN 07/22/24 11:50:04 Perioperative Protocols FTPM Pre-Care Text: Implements protective measures prior to operative or invasive procedure, confirms identity before the operative or invasive procedure, verifies operative procedure, surgical site, and laterality Entry 1 Procedure(s) MEDIAL BRANCH Patient Identity Birthday, ID Band BLOCK(Bilateral) Verified (select at Check, Patient least 2): Participation Consents / H and P H&P, Surgery/Procedure Operative Site Present Verified Consent Marking Verified Surgical Site Yes Laterality Verified Yes Verified Procedure Verified Yes Correct Patient Yes Position Verified Availability Equipment, Medication, Prep Dry Yes Verified (If X-ray Applicable) PreOp Antibiotic No Time Out Ryan Go RN , Luis Felipe Mack DO, Ott, Amy Time Out Complete 07/22/24 11:37:00 Outcomes Met? Yes Last Modified By: Ryan Go RN 07/22/24 11:38:32 Post-Care Text: The patient is free from signs and symptoms of injury caused by extraneous objects Allergy Information FTPM Pre-Care Text: Verifies allergies Entry 1 Allergies Reviewed? Yes Allergies Reviewed Self/Patient With Outcomes Met? Yes Last Modified By: Ryan Go RN 07/22/24 11:38:39 Post-Care Text: The patient received appropriate medication(s) safely administered during the perioperative period Surgical Procedures FTPM Entry 1 Procedure Description Procedure MEDIAL BRANCH BLOCK Modifiers Bilateral Surgeon Description MBB COVERING C3-5 FACET JTS Primary Procedure Yes Primary Surgeon Luis Felipe Mack DO Start 07/22/24 11:40:00 Stop 07/22/24 11:48:00 Anesthesia Type None Surgical Service Pain Management Wound Class 1 - Clean Last Modified By: Ryan Go RN 07/22/24 11:50:05 General Case Data FTPM Pre-Care Text: Classifies surgical wound, implements aseptic technique, initiates traffic control Entry 1 Case Information OR Pain Proc Room Case Level Level 2 Wound Class 1 - Clean Specialty Pain Management Preop Diagnosis M47.812 Postop Same As Preop Yes Postop Diagnosis M47.812 Outcomes Met? Yes Last Modified By: Ryan Go RN 07/22/24 11:38:53 Post-Care Text: The patient is free from signs and symptoms of infection Skin Assessment (Pre Procedure) FTPM Pre-Care Text: Implements protective measures to prevent skin/ tissue injury due to thermal or mechanical sources Evaluates for signs and symptoms of physical injury to skin and tissue Entry 1 Skin Integrity Intact, [place], Warm, & Skin Abnormality Yes Dry Outcomes Met? Yes Last Modified By: Ryan Go RN 07/22/24 11:39:05 Post-Care Text: The patient is free from signs and symptoms of injury caused by extraneous objects Patient Positioning FTPM Pre-Care Text: Identifies physical alterations that require additional precautions for procedure-specific positioning, verifies presence of prosthetics or corrective devices, positions the patient, evaluates the patient for signs and symptoms of injury as a result of positioning Entry 1 Procedure MEDIAL BRANCH Body Position Prone BLOCK(Bilateral) Feet Uncrossed? Yes Left Arm Position Resting at Side Right Arm Position Resting at Side Left Leg Position Extended Right Leg Position Extended Positioning Device Pillow Under Head Large, Safety Strap, Pillow Large Under Knees Press Points Checked Yes By Ryan Go RN Outcomes Met? Yes Last Modified (more content not included)... Normal [facility] Main OR Preoperative Recordo n 07-22-2024 Main OR Preoperative Record Main OR Preoperative Record Holding Area Document Type FTPM Summary Primary Physician: Luis Felipe Mack DO Finalized Date/Time: 07/22/24 10:52:30 Pt. Name: CHAU MOISE/Sex: 1995 Female Med Rec #: [id number] Physician: Luis Felipe Mack DO Financial #: [id number] Pt. Type: P Room/Bed: / Admit/Disch: 07/22/24 10:11:11 - Institution: Case Times Holding FTPM Pre-Care Text: Verifies consent for planned procedure, identifies individual values and wishes concerning care, includes family members in perioperative teaching Secures patient's records' belongings, and valuables, maintains patient's dignity and privacy, and maintains patient confidentiality Entry 1 In Holding 07/22/24 10:49:00 Outcomes Met? Yes Last Modified By: Carmella Sol RN 07/22/24 10:49:25 Post-Care Text: The patient participates in decisions affecting his or her perioperative plan of care The patient's right to privacy is maintained Surgery Checklist FTPM Entry 1 Patient Birthday, ID Band Procedure History and Physical, Identification: Check, Patient Verification: Surgical Consent, With Participation Patient NPO after Midnight: Yes Date/Time: 07/22/24 10:49:00 Results Reviewed 914 wolof toast and Personal Items: Jewelry Comments: gatorade Personal Items Pt. wearing three Complaints of Pain: Yes Comment: earrings. Pain Comment: 03/06 upper back pain Operative Site Yes that radiates down left Marking: arm Marked By: Dr. Mack Location: C3-C5 Availability Equipment, X-Ray Verified: Does Patient Smoke No Patient states Yes Comment - Adult Friend-Amanda postop adult Supervision supervision available Case Cancelled in No Holding Area see comments below for reason Last Modified By: Carmella Sol RN 07/22/24 10:52:23 Finalized By: Carmella Sol RN Document Signatures Signed By: Carmella Sol RN 07/22/24 10:52 Normal [facility] XR Chest 2 Viewson XR Chest 2 Views Exam Date/Time: 05/24/2024 08:40 EDT Reason for Exam: I87.2 Report IMPRESSION: NO RADIOGRAPHIC EVIDENCE OF ACTIVE DISEASE IN THE CHEST. CLINICAL INFORMATION: I87.2 COMPARISON: None available. FINDINGS: Two views of the chest were obtained. Heart and mediastinum appear normal. The lungs appear clear. Visualized bony thorax and remainder of the chest appears unremarkable. Ordering Provider: Karthik Johnson FINAL REPORT Dictated: 05/24/2024 11:26 am Jacob Padilla MD Signed (Electronic Signature): 05/24/2024 11:26 am Signed by: Jacob Padilla MD Transcribed by: SANGEETA Technologist: EDMUND Technical Comments Radiation Dose: Ka,r in mGy = na DAP = na Normal [facility] C WOUNDon 05-23-2024 [facility] WOUND CULTURE Microbiology PROCEDURE: Wound Culture [R1] SOURCE: Wound BODY SITE: Leg R COLLECTED DATE/TIME: 05/21/2024 15:30 EDT RECEIVED DATE/TIME: 05/21/2024 16:09 EDT START DATE/TIME: 05/21/2024 16:09 EDT FREE TEXT SOURCE: Wound Culture Right Leg Dolce DPM, Emre D Dolce DPM, Emre D FINAL REPORTS Final Report [] Verified Date/Time: 05/23/2024 08:57 EDT 1+ Staphylococcus aureus 1+ Gram Positive Rods resembling diphtheroids STAINS Gram Stain Report [] Verified Date/Time: 05/22/2024 12:56 EDT Occasional White Blood Cells Occasional Gram Positive Cocci Occasional Gram Positive Rods SUSCEPTIBILITY RESULTS LEGEND: S=Susceptible, N/R=Not Reported, Blank=Data not available, or drug not advisable or tested, I=Intermediate, ESBL=Extended spectrum beta-lactamase, R=Resistant, TFG=Thymidine-depende nt strain, KENNY=Beta-lactamase positive, GUERRERO=mcg/m;(mg/L), S*=Predicted susceptible interp, R*=Predicted resistant interp SA Antibiotic GUERRERO Dilutn GUERRERO Interp Amoxicillin/ <=4/2 S Clavulanate Ampicillin/ <=8/4 S Sulbactam Azithromycin <=2 S Cefazolin <=8 S Ceftaroline <=0.5 S Ciprofloxacin <=1 S Clindamycin <=0.25 S Daptomycin <=1 S Erythromycin <=0.5 S Gentamicin <=4 S Levofloxacin <=1 S Linezolid <=2 S Oxacillin <=0.25 S Penicillin <=0.03 S Rifampin <=1 S Tetracycline <=4 S Trimethoprim/ <=0.5/9.5 S Sulfa Vancomycin 1 S Performing Locations R1: This test was performed at: [facility], [address] [place] [address], [address] [place] [address], [facility] Original Ordering Provider: ZEFERINO Pina [facility] Main OR Intraoperative Recor don 05-21-2024 Main OR Intraoperative Record Main OR Intraoperative Record IntraOp Document Type FTPM Summary Primary Physician: Luis Felipe Mack DO Finalized Date/Time: 05/21/24 13:43:12 Pt. Name: CHAU MOISE/Sex: 1995 Female Med Rec #: [id number] Physician: Luis Felipe Mack DO Financial #: [id number] Pt. Type: P Room/Bed: / Admit/Disch: 05/21/24 12:12:26 - Institution: Case Times FTPM Entry 1 Patient Times In Room 05/21/24 13:35:00 Out Room 05/21/24 13:43:00 Procedure Times Start 05/21/24 13:38:00 Stop 05/21/24 13:42:00 Anesthesia Times Last Modified By: Caro Culp RN 05/21/24 13:42:57 Case Attendance FTPM Entry 1 Entry 2 Entry 3 Case Attendee Luis Felipe Mack DO, RN, Caro White RN, Amanda Role Performed Surgeon - Primary Estimator Jewelry - Primary Scrub - Primary Time In 05/21/24 13:35:00 05/21/24 13:35:00 05/21/24 13:35:00 Time Out 05/21/24 13:43:00 05/21/24 13:43:00 05/21/24 13:43:00 Procedure CERVICAL EPIDURAL CERVICAL EPIDURAL CERVICAL EPIDURAL STEROID INJECTION(.) STEROID INJECTION(.) STEROID INJECTION(.) Comments Last Modified By: Caro Culp RN, RN, Caro Ndiaye RN 05/21/24 13:42:59 05/21/24 13:42:59 05/21/24 13:42:59 Entry 4 Case Attendee Kishore Pereyra Role Performed Manager Deli Time In 05/21/24 13:35:00 Time Out 05/21/24 13:43:00 Procedure CERVICAL EPIDURAL STEROID INJECTION(.) Comments Last Modified By: Caro Culp RN 05/21/24 13:42:59 Perioperative Protocols FTPM Pre-Care Text: Implements protective measures prior to operative or invasive procedure, confirms identity before the operative or invasive procedure, verifies operative procedure, surgical site, and laterality Entry 1 Procedure(s) CERVICAL EPIDURAL Patient Identity Birthday, ID Band STEROID INJECTION(.) Verified (select at Check, Patient least 2): Participation Consents / H and P H&P, Surgery/Procedure Operative Site Present Verified Consent Marking Verified Surgical Site Yes Laterality Verified Yes Verified Procedure Verified Yes Correct Patient Yes Position Verified Availability Equipment, Medication, Prep Dry Yes Verified (If X-ray Applicable) PreOp Antibiotic No Time Out Caro Culp RN, Dmitry White RN, Karena Patel DO, Bradford A., Hargrove, Bryce Time Out Complete 05/21/24 13:35:00 Outcomes Met? Yes Last Modified By: Caro Culp RN 05/21/24 13:35:48 Post-Care Text: The patient is free from signs and symptoms of injury caused by extraneous objects Allergy Information FTPM Pre-Care Text: Verifies allergies Entry 1 Allergies Reviewed? Yes Allergies Reviewed Self/Patient With Outcomes Met? Yes Last Modified By: Caro Culp RN 05/21/24 13:35:10 Post-Care Text: The patient received appropriate medication(s) safely administered during the perioperative period Surgical Procedures FTPM Entry 1 Procedure Description Procedure CERVICAL EPIDURAL Modifiers . STEROID INJECTION Surgeon Description C7/T1 CATIE Primary Procedure Yes Primary Surgeon Luis Felipe Mack DO Start 05/21/24 13:38:00 Stop 05/21/24 13:42:00 Anesthesia Type None Surgical Service Pain Management Wound Class 1 - Clean Last Modified By: Caro Culp RN 05/21/24 13:43:10 General Case Data FTPM Pre-Care Text: Classifies surgical wound, implements aseptic technique, initiates traffic control Entry 1 Case Information OR Pain Proc Room Case Level Level 2 Wound Class 1 - Clean Specialty Pain Management Preop Diagnosis M54.12 Postop Same As Preop Yes Postop Diagnosis M54.12 Outcomes Met? Yes Last Modified By: Caro Culp RN 05/21/24 13:36:05 Post-Care Text: The patient is free from signs and symptoms of infection Skin Assessment (Pre Procedure) FTPM Pre-Care Text: Implements protective measures to prevent skin/ tissue injury due to thermal or mechanical sources Evaluates for signs and symptoms of physical injury to skin and tissue Entry 1 Skin Integrity Intact, [place], Warm, & Skin Abnormality No Dry Outcomes Met? Yes Last Modified By: Caro Culp RN 05/21/24 13:35:17 Post-Care Text: The patient is free from signs and symptoms of injury caused by extraneous objects Patient Positioning FTPM Pre-Care Text: Identifies physical alterations that require additional precautions for procedure-specific positioning, verifies presence of prosthetics or corrective devices, positions the patient, evaluates the patient for signs and symptoms of injury as a result of positioning Entry 1 Procedure CERVICAL EPIDURAL Body Position Prone STEROID INJECTION(.) Feet Uncrossed? Yes Left Arm Position Resting at Side Right Arm Position Resting at Side Left Leg Position Extended Right Leg Position Extended Positioning Device Pillow Under Head Large, Safety Strap, Pillow Large Under Knees Press Points Checked Yes By Caro Culp RN Outcomes Met? Y (more content not included)... Normal [facility] Main OR Preoperative Recordo n 05-21-2024 Main OR Preoperative Record Main OR Preoperative Record Holding Area Document Type FTPM Summary Primary Physician: Luis Felipe Mack DO Finalized Date/Time: 05/21/24 12:46:37 Pt. Name: CHAU MOISE/Sex: 1995 Female Med Rec #: [id number] Physician: Luis Felipe Mack DO Financial #: [id number] Pt. Type: P Room/Bed: / Admit/Disch: 05/21/24 12:12:26 - Institution: Case Times Holding FTPM Pre-Care Text: Verifies consent for planned procedure, identifies individual values and wishes concerning care, includes family members in perioperative teaching Secures patient's records' belongings, and valuables, maintains patient's dignity and privacy, and maintains patient confidentiality Entry 1 In Holding 05/21/24 12:42:00 Outcomes Met? Yes Last Modified By: Carmella Sol RN 05/21/24 12:42:41 Post-Care Text: The patient participates in decisions affecting his or her perioperative plan of care The patient's right to privacy is maintained Surgery Checklist FTPM Entry 1 Patient Birthday, ID Band Procedure History and Physical, Identification: Check, Patient Verification: Surgical Consent, With Participation Patient NPO after Midnight: No Date/Time: 05/21/24 12:42:00 Results Reviewed 0900 cup of coffee and Personal Items: Jewelry Comments: muffin Personal Items Pt. wearing a pair of Complaints of Pain: Yes Comment: earrings. Pain Comment: 04/06 upper back pain Operative Site Yes Marking: Marked By: Dr. Mack Location: C7-T1 Availability Equipment, X-Ray Verified: Does Patient Smoke No Patient states Yes Comment - Adult aunt-Reina postop adult Supervision supervision available Case Cancelled in No Holding Area see comments below for reason Last Modified By: Carmella Sol RN 05/21/24 12:44:39 Finalized By: Carmella Sol RN Document Signatures Signed By: Carmella Sol RN 05/21/24 12:46 Normal [facility] Operative Reporton Operative Report Operative Report SURGERY DATE: 02/27/2024 PULP HOUSE SUPERVISOR: None PREOPERATIVE DIAGNOSES: 1. Nonhealing wound right leg measuring 2.5 x 3 x 1 cm deep to the level of muscle 2. Venous stasis disease right 3. Diabetes with neuropathy POSTOPERATIVE DIAGNOSES: 1. Nonhealing wound right leg measuring 2.5 x 3 x 1 cm deep to the level of muscle 2. Venous stasis disease right 3. Diabetes with neuropathy OPERATION: 1. Wound preparation for wound VAC right leg via the Versajet 2. Wound biopsy right leg 3. Application of Mack compressive dressing ANESTHESIA: Monitored anesthesia care with local sedation of 10 cc 2% lidocaine plain PACKIN/4-inch iodoform NuGauze COMPLICATIONS: None ESTIMATED BLOOD LOSS: Minimal HEMOSTASIS: None INDICATION FOR PROCEDURE: The patient has had a nonhealing wound at the posterior aspect of the right leg complicated by diabetes and venous stasis disease. The wound has been opened greater than two years according to the patient. She underwent debridement in the office but will require a wound VAC. Today we are planning to prep and irrigate the wound for a wound VAC in the Operating Room today as well as biopsy the wound for malignant transformation as the patient has had this wound greater than two years. All possible risks and complications were explained to the patient including but not limited to pain, swelling, numbness, tingling, infection, need for additional surgery, recurrence of the condition, deep vein thrombosis, development of complex regional pain syndrome, limb loss. She understood all possible risks and complications and she has consented for the above-stated procedure. PROCEDURE: The patient was taken from the Preoperative Holding Area and placed on the Operating Room table in a supine position. After the administration of general anesthesia, a block to the wound itself of the right leg was performed with 10 cc of 2% lidocaine plain. The right foot and leg were prepped and draped in the usual sterile manner. At this time, utilizing a curette and a #15 blade, the wound was debrided to remove any fibrosis noted in the wound itself. At this time we took a large sample of the wound down to the level of muscle and sent it for pathological examination as a biopsy. We then utilized the Versajet to irrigate, debride, and prepare the wound for a wound VAC which will be performed. We also refreshed all the wound edges as well in preparation for the wound VAC. We then took cultures and sensitivities after irrigation and packed the wound with 1/4-inch iodoform NuGauze, Betadine-soaked Adaptic, 4x4's, Opal, Kerlix, and a below-knee Mack compressive dressing. The patient tolerated the procedure and anesthesia well and left the Operating Room for Post-Anesthesia Care Unit with vital signs stable and vascular status intact. In the Postanesthesia Care Unit the patient was given written and homegoing instructions and will follow up in the office in four days. Emre Pina DPM ca Dictated: 02/27/2024 [id number] Transcribed: 02/27/2024 [facility] Comment on above: Result Comment: Elec tronically Signed By: Emre Pina DPM\.br\Date and Time Signed: 03/05/24 13:23 EDT Surgical Pathology Reporton 03-05-2024 Surgical Pathology Report [facility] [address] [place] [address]- Surgical Pathology Report Collected Date/Time: 02/27/2024 13:15 EDT Pathologist: Aravind Collins MD Received Date/Time: 02/28/2024 08:27 EDT Emre Pina DPM, DPM, Marc D 07 Surgical Pathology Report - 03/05/2024 09:37 EDT - Auth (Verified) Final Diagnosis RIGHT LEG, WOUND/DEBRIDEMENT, BIOPSY: - Consistent with venous stasis dermatitis with ulcer, neovascular proliferation and hemosiderin deposits. - No evidence of malignancy identified. - See Comment. (Electronic Signature) Yan. Karina MD 03/05/2024 09:37 Diagnosis Comment Immunohistochemical stains were performed on the tissue block with appropriate staining controls. AE1/AE3, Melan A, S100, SOX-10 and P63 stain negatively in the ulcer while CD34 highlights neovascular proliferation. Immunostains support the above diagnosis. Recommend clinical correlation. Clinical Information Wound right leg Pre-Op Diagnosis: Wound right leg Procedure: I & D right leg wound and biopsy Post-Op Diagnosis: 1. Nonhealing wound right leg measuring 2.5 x 3 x 1 cm deep to the level of muscle 2. Venous stasis disease right 3. Diabetes with neuropathy Specimen(s) Received Biopsy wound right leg Gross Description Received in formalin labeled with patient name, number, and biopsy wound right leg are four fragments of arevalo/pink/reddish-brow n skin and soft tissue fragments measuring in aggregate 1.5 x 1.2 x 0.5 cm. The skin surface has a arevalo, wrinkled, rough, thickened appearance. Skin segment is serially sectioned and the specimen is entirely submitted in one cassette. (DC) DC:[facility] Microscopic Description Microscopic examination performed unless gross only specified. The use of one or more reagents in the above tests is regulated as an analyte specific reagent (ASR). The test or tests are ordered following initial H&E microscopic examination. The performance characteristics were determined by the Laboratory of [facility]. They have not been cleared or approved by the US Food and Drug Administration. The FDA has determined that such clearance or approval is not necessary. These tests are used for clinical purposes. They should not be regarded as investigational or for research. Appropriate positive and negative controls are performed and are acceptable. Normal [facility] Comment on above: Performed By: #### [id number] #### [facility] [address] [place] [address] Main OR Intraoperative Recor don 02-28-2024 Main OR Intraoperative Record Main OR Intraoperative Record IntraOp Document Type FT Summary Primary Physician: Emre Pina DPM Finalized Date/Time: 02/28/24 13:57:27 Pt. Name: MOISECHAU/Sex: 1995 Female Med Rec #: [id number] Physician: Emre Pina DPM Financial #: [id number] Pt. Type: A Room/Bed: [place] [address] Admit/Disch: 02/27/24 10:12:05 - 02/27/24 15:05:00 Institution: Case Times FT Entry 1 Patient Times In Room 02/27/24 12:36:00 Out Room 02/27/24 13:29:00 Procedure Times Start 02/27/24 13:11:00 Stop 02/27/24 13:19:00 Anesthesia Times Start 02/27/24 12:36:00 Stop 02/27/24 13:29:00 Last Modified By: Alo Sims 02/27/24 13:37:45 General Comments: 02/28/24 Chart opened to review and send charges [facility]oth [facility]FA Case Attendance FT Entry 1 Entry 2 Entry 3 Case Attendee aKrthik Martinez DPM, Marc D Percevel CST, Wolf M Role Performed Anesthesiologist Surgeon - Primary AMPOULE EXAMINER/SA Senior Net Developer Time In 02/27/24 12:36:00 02/27/24 12:36:00 02/27/24 12:36:00 Time Out 02/27/24 13:29:00 02/27/24 13:20:00 02/27/24 13:29:00 Procedure FOOT I and D OF FOOT I and D OF FOOT I and D OF WOUND(Right) WOUND(Right) WOUND(Right) Comments DR JADE SUPERVISING Last Modified By: Alo Sims Terry T Sweene, Terry T 02/27/24 13:37:46 02/27/24 13:37:46 02/27/24 13:37:46 Entry 4 Entry 5 Entry 6 Case Attendee Alo Sims Alejandro Dellinger, Sydney A Role Performed Estimator Jewelry - Primary Staff - Other Scrub - Primary Time In 02/27/24 12:36:00 02/27/24 12:36:00 02/27/24 12:36:00 Time Out 02/27/24 13:29:00 02/27/24 13:29:00 02/27/24 13:29:00 Procedure FOOT I and D OF FOOT I and D OF FOOT I and D OF WOUND(Right) WOUND(Right) WOUND(Right) Comments ROOM ASSIST HAZEL KLEIN - STUDENT Last Modified By: Alo Sims Terry T Sweene, Terry T 02/27/24 13:37:46 02/27/24 13:37:46 02/27/24 13:37:46 Perioperative Protocols FT Pre-Care Text: Implements protective measures prior to operative or invasive procedure, confirms identity before the operative or invasive procedure, verifies operative procedure, surgical site, and laterality Entry 1 Procedure(s) FOOT I and D OF Patient Identity Birthday, ID Band WOUND(Right) Verified (select at Check, Patient least 2): Participation Consents / H and P Anesthesia Consent, Operative Site Present Verified HandP, Surgery/Procedure Marking Verified Consent Surgical Site Yes Laterality Verified Yes Verified Procedure Verified Yes Correct Patient Yes Position Verified Availability Equipment, Medication Prep Dry n/a Verified (If Applicable) PreOp Antibiotic Yes Time Out Karthik Martinez, Given Participants Renata MCGARRY, Emre Charles, Zayra AMPOULE EXAMINER, Edel Wan Alejandro, Sweene, Terry T, Dellinger, Sydney A Time Out Complete 02/27/24 13:09:00 Outcomes Met? Yes Last Modified By: Alo Sims 02/27/24 13:38:16 Post-Care Text: The patient is free from signs and symptoms of injury caused by extraneous objects Allergy Information FT Pre-Care Text: Verifies allergies Entry 1 Allergies Reviewed? Yes Allergies Reviewed Self/Patient With Outcomes Met? Yes Last Modified By: Alo Sims 02/27/24 12:56:37 Post-Care Text: The patient received appropriate medication(s) safely administered during the perioperative period Surgical Procedures FT Entry 1 Procedure Description Procedure FOOT I and D OF WOUND Modifiers Right Surgeon Description RIGHT LEG I and D WOUND PREPARATION FOR WOUND VAC AND BIOPSY Primary Procedure Yes Primary Surgeon Emre Pina DPM Start 02/27/24 13:11:00 Stop 02/27/24 13:19:00 Anesthesia Type MAC Surgical Service Podiatry Wound Class 4 - Dirty Last Modified By: Alo Sims 02/27/24 13:50:14 General Case Data FT Pre-Care Text: Classifies surgical wound, implements aseptic technique, initiates traffic control Entry 1 Case Information OR OR 6 FT Case Level Level 2 Wound Class 4 - Dirty Specialty Podiatry ASA Class 3 Preop Diagnosis ABSCESS RIGHT LEG Postop Same As Preop Yes Postop Diagnosis ABSCESS RIGHT LEG Outcomes Met? Yes Last Modified By: Alo Sims 02/27/24 12:57:15 Post-Care Text: The patient is free from signs and symptoms of infection Skin Assessment (Pre Procedure) FT Pre-Care Text: Implements protective measures to prevent skin/ tissue injury due to thermal or mechanical sources Evaluates for signs and symptoms of physical injury to skin and tissue Entry 1 Skin Integrity Intact, [place], Warm, and Skin Abnormality No Dry Outcomes Met? Yes Last Modified By: Alo Sims 02/27/24 12:57:25 Post-Care Text: The patient is free from signs and symptoms of injury caused by extraneous objects Patient Positioning FT Pre-Care Text: Identifies physical alterations that require additional precautions for procedure-specific positioning, verifies presence of prosthetics or corrective devices, positions (more content not included)... Normal [facility] Discharge Instructionson Discharge Instructions Discharge Instructions CHAU MOISE :1995 Visit Date:02/27/2024 Inpatient Discharge Instructions Your Care Team Admitting Physician - Emre Pina DPM Referring Physician - Emre Pina DPM Reason for Your Visit ABSCESS RIGHT LEG Tests Performed Culture Wound -- Results Pending -- Pathology Tissue Exam -- Results Pending -- Please visit your patient portal for your results or contact your primary care physician. This Is Your Medications List escitalopram (escitalopram 5 mg oral tablet) Procedure History Denies. What to do next Previously Scheduled Follow-Up Appointments Monday 12:30 PM EDT With: Emre Pina DPM Where: [facility] Likely New Follow Up Appointments after Discharge Follow Up with Emre Pina When: In 1 week 03/05/2024 EDT Where: [facility] [address] [place] [address] [address] [facility] (1) [facility]: c/o [address] [place], [place] [address] (1) Medications What How Much When Instructions Next Dose Unchanged escitalopram (escitalopram 5 mg oral tablet) 1 Tablets By Mouth Every day [employer] [place], [place] Emre Pina DPM, FACFAS POST OPERATIVE INSTRUCTIONS Keep bandage clean and dry and DO NOT REMOVE Keep foot elevated on white foam pillow Apply cryocuff to top of ankle, one hour on one hour off, until first office visit Non weight bearing on operative foot. Take pain medications as directed Do not be alarmed if you notice slight bleeding on the bandage, this is normal Report any increase in swelling to Dr. Pina immediately Resume regular diet. Call the office if you develop: persistent bleeding temperature above 100 degrees persistent vomiting calf pain or shortness of breath redness or pus at operative site Call the office tomorrow for 1st post-operative dressing change appointment. If you have any problems or questions, feel free to call the doctor at: [phone] or [phone] Pina paged. Patient signature Date Dr. Emre Pina, DPM, FACFAS Date Revised: 10-05 Common Emergency Awareness Tips IS IT A STROKE? Act FAST and Check for these signs: FACE Does the face look uneven? ARM Does one arm drift down? SPEECH Does their speech sound strange? TIME Call at any sign of stroke Heart Attack Signs Chest discomfort: Most heart attacks involve discomfort in the center of the chest and lasts more than a few minutes, or goes away and comes back. It can feel like uncomfortable pressure, squeezing, fullness or pain. Discomfort in upper body: Symptoms can include pain or discomfort in one or both arms, back, neck, jaw or stomach. Shortness of breath: With or without discomfort. Other signs: Breaking out in a cold sweat, nausea, or lightheaded. Remember, MINUTES DO MATTER. If you experience any of these heart attack warning signs, call to get immediate medical attention! Patient Survey You may receive a survey in the mail asking you about your stay with us. We want to hear from you, please share your experience with us by completing your survey. Thank you for choosing [facility]. Jony Award Nomination The JONY (Diseases Attacking the Immune SYstem) Award is an international recognition program that honors and celebrates the skillful, compassionate care nurses provide every day. Anyone who experiences or observes amazing care being provided by a nurse is encouraged to submit a nomination. To nominate your nurse, use your smart phone to scan the QR code below. Patient Portal You may access all of your results and other medical record information on our secure patient portal. If you are not signed up for this yet, please contact [employer] at [phone] to get signed up today. Patient Name: CLINT MOISELO I have received this information and my questions have been answered. Patient/Representativ e Name: Patient/Representativ e Signature: Relationship to Patient: Witness Name/Signature: Date: Normal [facility] Comment on above: Result Comment: Elec tronically Signed By: Kalpesh NIELSEN, Maximilian Oconnor\.br\Date and Time Signed: 02/27/24 14:31 EDT Inpatient Patient Summaryon 02-27-2024 Inpatient Patient Summary Inpatient Patient Summary [address] [address] [facility] Clinical Discharge Instructions PERSON INFORMATION Name: CHAU MOISE [facility]#:[id number] PHYSICIANS Admitting Physician: Emre Pina DPM Attending Physician: Emre Pina DPM PCP: Julieta Curtis DO Discharge Diagnosis: Comment: PATIENT EDUCATION INFORMATION Instructions: Renata - Post Operative Instructions (Revised 04/24/14) (Custom) Medication Leaflets: Follow up: With: Address: When: Emre PULIDO - [facility], [facility], [address], [place] [address] 0 Business (1) [facility]: c/o [facility], [address] [place] [address], [place] [address] 0 Business (1) In 1 week 03/05/2024 Type Location Start [place] [place] New Patient 30 (FT) FT.WOUND CLINIC 03/05/2024 12:30 PM 03/05/2024 1:30 PM Confirmed MEDICATION LIST Medications to Continue with No Changes Other Medications escitalopram (escitalopram 5 mg oral tablet) 1 Tablets By Mouth every day. Comment: [facility] Main OR PACU I Recordon Main OR PACU I Record Main OR PACU I Rec ord PACU Phase I Document Type FT Summary Primary Physician: Emre Pina DPM Finalized Date/Time: 02/27/24 14:21:46 Pt. Name: CHAU MOISE./Sex: 1995 Female Med Rec #: [id number] Physician: Emre Pina DPM Financial #: [id number] Pt. Type: A Room/Bed: [place] [address] Admit/Disch: 02/27/24 10:12:05 - Institution: Case Times PACU I FT Pre-Care Text: Identifies barriers to communication and implements measures to provide psychological support Develops individualized plan of care, and ensures continuity of care Maintains patient's dignity and privacy, and maintains patient confidentiality Identifies and reports philosophical, cultural, and spiritual beliefs and values Identifies individual values and wishes concerning care Implements aseptic technique, and administers prescribed antibiotic therapy and immunizing agents as ordered Evaluates postoperative tissue perfusion Implements thermoregulation measures, and monitors body temperature Evaluates postoperative respiratory status Evaluates postoperative cardiac status Evaluates postoperative neurological status Assesses pain control, collaborated in initiating patient-controlled analgesia and implements alternative methods of pain control Verifies allergies, administers prescribed medications and solutions, evaluates response to medications Entry 1 In PACU I 02/27/24 13:30:00 Discharge from PACU 02/27/24 14:00:00 I Outcomes Met? Yes Last Modified By: Kathi Sánchez I 02/27/24 14:21:27 Post-Care Text: The patient demonstrates knowledge of the expected response to the operative or invasive procedure The patient's care is consistent with the individualized perioperative plan of care The patient's right to privacy is maintained The patient's value system, lifestyle, ethnicity, and culture are considered, respected, and incorporated into the perioperative plan of care The patient participates in decisions affecting his or her perioperative plan of care The patient is free from signs and symptoms of infection The patient has wound/tissue perfusion consistent with or improved from baseline levels established preoperatively The patient is at or returning to normothermia at the conclusion of the immediate postoperative period The patient's respiratory function is consistent with or improved from baseline levels established preoperatively The patient's cardiovascular status is consistent with or improved from baseline levels established preoperatively The patient's cardiovascular status is consistent with or improved from baseline levels established preoperatively The patient demonstrates and/or reports adequate pain control throughout the perioperative period The patient received appropriate medication(s), safely administered during the perioperative period Acuity Level PACU I FT Entry 1 Start Time 02/27/24 13:30:00 Stop Time 02/27/24 14:00:00 Acuity Level Acuity Level I Last Modified By: Kathi Sánchez I 02/27/24 14:21:41 Finalized By: Kathi Sánchez I Document Signatures Signed By: Kathi Sánchez I 02/27/24 14:21 Normal [facility] Main OR PACU II Recordon Main OR PACU II Record Main OR PACU II Record PACU Phase II Document Type FT Summary Primary Physician: Emre Pina DPM Finalized Date/Time: 02/27/24 15:14:43 Pt. Name: CHAU MOISE/Sex: 1995 Female Med Rec #: [id number] Physician: Emre Pina DPM Financial #: [id number] Pt. Type: A Room/Bed: [place] [address] Admit/Disch: 02/27/24 10:12:05 - Institution: Case Times PACU II FT Pre-Care Text: Identifies barriers to communication and implements measures to provide psychological support and determines knowledge level Develops individualized plan of care, and ensures continuity of care Maintains patient's dignity and privacy, and maintains patient confidentiality Identifies and reports philosophical, cultural, and spiritual beliefs and values Identifies individual values and wishes concerning care administers prescribed antibiotic therapy and immunizing agents as ordered, Evaluates postoperative tissue perfusion Implements thermoregulation measures, and monitors body temperature Evaluates postoperative respiratory status Evaluates postoperative cardiac status Evaluates postoperative neurological status Assesses pain control, collaborated in initiating patient-controlled analgesia and implements alternative methods of pain control Verifies allergies, administers prescribed medications and solutions, evaluates response to medications Entry 1 In PACU II 02/27/24 14:05:00 Discharge from PACU 02/27/24 13:05:00 II Outcomes Met? Yes Last Modified By: Maximilian Posey RN 02/27/24 15:14:42 Post-Care Text: The patient demonstrates knowledge of the expected response to the operative or invasive procedure The patient's care is consistent with the individualized perioperative plan of care The patient's right to privacy is maintained The patient's value system, lifestyle, ethnicity, and culture are considered, respected, and incorporated into the perioperative plan of care The patient participates in decisions affecting his or her perioperative plan of care. The patient is free from signs and symptoms of infection The patient has wound/tissue perfusion consistent with or improved from baseline levels established preoperatively The patient is at or returning to normothermia at the conclusion of the immediate postoperative period The patient's respiratory function is consistent with or improved from baseline levels established preoperatively The patient's cardiovascular status is consistent with or improved from baseline levels established preoperatively The patient's neurological status is consistent with or improved from baseline levels established preoperatively The patient demonstrates and/or reports adequate pain control throughout the perioperative period The patient received appropriate medication(s), safely administered during the perioperative period Finalized By: Maximilian Posey RN Document Signatures Signed By: Maximilian Posey RN 02/27/24 15:14 Normal [facility] Main OR Preoperative Recordo n 02-27-2024 Main OR Preoperative Record Main OR Preoperative Record PreOp Document Type FT Summary Primary Physician: Emre Pina DPM Finalized Date/Time: 02/27/24 12:45:36 Pt. Name: CHAU MOISE/Sex: 1995 Female Med Rec #: [id number] Physician: Emre Pina DPM Financial #: [id number] Pt. Type: A Room/Bed: [facility] Admit/Disch: 02/27/24 10:12:05 - Institution: Case Times PreOp FT Pre-Care Text: Verifies consent for planned procedure, identifies individual values and wishes concerning care, includes family members in perioperative teaching Entry 1 Patient Times. In Pre Surgery 02/27/24 10:15:00 Out Pre Surgery 02/27/24 12:34:00 Outcomes Met? Yes Last Modified By: Alo Sims 02/27/24 12:45:34 Post-Care Text: The patient participates in decisions affecting his or her perioperative plan of care Finalized By: Alo Sims Document Signatures Signed By: Alo Sims 02/27/24 12:45 Normal [facility] Outpatient Surgery Discharge Instructionon 02-27-2024 Outpatient Surgery Discharge Instruction Outpatient Surgery Discharge Instruction [address] [address] Patient Discharge Instructions PERSON INFORMATION Name: MOISECHAU Date of : 1995 Current Date: 02/27/2024 13:33:22 PHYSICIANS Admitting Physician: Emre Pina DPM Discharge Diagnosis: CHAU MOISE has been given the following list of follow-up instructions, prescriptions, and patient education materials: IF UNABLE TO CONTACT YOUR PHYSICIAN AND YOU FEEL IT IS AN EMERGENCY, GO TO THE NEAREST EMERGENCY ROOM OR CALL 911 IKENYON LEE-ANN, have received the attached patient education materials/instruction s and have verbalized understanding: May we do a follow up call? Yes No I was present when discharge instructions were given Patient Signature Date Clinican/Nurse Signature Date Follow up: With: Address: When: Emre PULIDO [facility], [facility], [address], [place] [address] 0 Business (1) [facility]: c/o [facility], [address] [place] [address], [place] [address] 0 Business (1) In 1 week 03/05/2024 Type Location Start [facility] New Patient 30 (FT) FT.WOUND CLINIC 03/05/2024 12:30 PM 03/05/2024 1:30 PM Confirmed Pharmacy Information: You may receive a survey from [employer] asking you to rate your care experience. Your feedback is important and will help us understand what we do well and how we can improve the quality of care we provide to you, your loved ones and our community. It?s an honor to serve you. Thank you for choosing [facility] HERE ARE THE MEDICATION CHANGES THAT OCCURRED DURING YOUR HOSPITAL STAY Medications to Continue with No Changes Other Medications escitalopram (escitalopram 5 mg oral tablet) 1 Tablets By Mouth every day. PATIENT EDUCATION INFORMATION Instructions: [place], [place] Emre Pina DPM, FACFAS POST OPERATIVE INSTRUCTIONS Keep bandage clean and dry and DO NOT REMOVE Keep foot elevated on white foam pillow Apply cryocuff to top of ankle, one hour on one hour off, until first office visit Non weight bearing on operative foot. Take pain medications as directed Do not be alarmed if you notice slight bleeding on the bandage, this is normal Report any increase in swelling to Dr. Pina immediately Resume regular diet. Call the office if you develop: persistent bleeding temperature above 100 degrees persistent vomiting calf pain or shortness of breath redness or pus at operative site Call the office tomorrow for 1st post-operative dressing change appointment. If you have any problems or questions, feel free to call the doctor at: [phone] or [phone] Renata carr. Patient signature Date Dr. Emre Pina, DPM, FACFAS Date Revised: 10-05 Medication Leaflets: Normal [facility] SEROLOGYOrdered By: Joan Tejada on 02-27-2024 HCG.beta subunit (U) [Moles/Vol] Negative Normal [facility] Man Sero U BetaHcg Qualon 02-27-2024 HCG.beta subunit (U) [Moles/Vol] Negative Normal [facility] Comment on above: Performed By: #### [id number] #### [facility] [address] [place] [id number] Coding Summary.on 02-21-2024 Coding Summary. BZXVGnoh10BRn0iHk+PG h lYWQ+CO1ETGCmO87qhICn rW4jJ4TNECyKAupbICTZC RkHSgQdjbCcZT3wxGUxOO Ju IC8+HA8lXIJhNrmkjTStc 6O0lEU8Y29maj7dHYyozQ Q6OWPeKtMuhgvbl4zwaQu 6IDcuNmluOyBt YUOrjS00NYE2oZ24Nn63g PZzdNPyc3lpxCi4PmCmYI TtMCV6eQcsDLrih3LmIKZ rU62pxMUqs0M8 RLBhsOlzcJCsJfEbtOX6q Y4vBLtggnkam6goajgfXc m3yk98tXWvx2J1dNI8P0W yqbK8TPEtvHSb AittdJDRjU0sgykuu1phx gsnSaKyMDVnRWi4QGv1GD YcoOhlHjDcII46CIQ5MPS bseQfD0CjZHNv ePsaYeQ0a6A9Ce5CC8ASO qbkN1QMPDQIFZbnbIT+PC 08ym69H9CuPkvhEpc0VGG oCLJ7qNU9qR9j OJSxQOtdy5I5yXD7T8Slk oPecs8cj8ztQCOxHScpU8 5imGNsa8V4HYQhlDH9QPM cvAykYnOewE99 Oyc+LUEwpOcoj0ObWsfda 3brc3catZc7BxscITWgkv FhvLswOAU4m8ElUz0mYMI txWM5hKC9rB7n SnPhWgZ6NDioA238SrWtj VMxEedpH50oF3GfvYF+PH DaCns4GKVodWmvJG6mZ3L hZGRpbmctbGVm wBsnJX2jGPWrvmdbNSTqj U2dMKMsX5k3BpKmAuA8TE ntH8ZsVYCpbluuAa50zV7 nSrHsGlU3REmj I7YntmG9FSNnhUXfVPktV MZ3R66ib4G5FWNpZYYwKN A7hKL4iW3irHksbkapnCX mdDsgdmVydGlj RLswWIaeO124XXCxcQphM kNvZGluZyBEYXRlOiAgMD YvMjYvMjAyNDwvdGQ+PHR vQJK7dRpaMQAv hCLxYBvoTv7pwAcifNfaE V5qPBIqgngiESDjoP8fZC ZkxLNhhHtwTB0nKRHffdq fg678QaFuNUS8 QVNfmMMgN5VakD3gSwMxQ WTfLPZaL2BbtQCaKFuyR9 12NZznQqT4LKEkaxNoQ8X sLWFsaWduOiB0 j4D2Sa4Bh0YstulwY5Zmq PLnVlBwHpioWXo4J9QrJi wvdHI+CY45ZYDlKX69WEp 3WTU9hRfeJPwk WLJhO1KayD0jWbPiOWZnR GRkOyc+PHRhYmxlIHdpZH RoPScxMDAlJyBzdHlsZT0 hNr8qAAEqLRMe jAagoQRtKpUmb6agFIZuW EtnBV1ivHngP5QwvEW0RO Lbo5b7He93A61gY5OtoSL +UDWbpUG7nAI0 xY8rAkJoMzA9NIaaO731K oGhzSFfRiimz4lon7uixO p0SnF7HGJvuvPheQgqDXG 2u5ZuBb27U28t IHdpZHRoPSIxNSUiIHZhb Goujo8baV3jMr9+PGNvbC D5mYP9oV9bEfBaLwR9AIf pT840XyMqnAKt Hjrxc3cis3cvwLw6FyFlY HMrogBgaMghGWP2m0GwXe 83D9RlgLtzt9VgQzu1mt9 3wTYsc9T2uBO5 S6SdSAMnipcnrTHwyHbbT W4hRRUieiwzCAKocZ5tST PdB4q0MjTdBhF8GTydY9T oppY7SAWpsCHo RQWasXYUoN0ycihjv7wrk ndqOkXgDYYgBAf3WHy9QC GzxUgkKxNaPVX0HgB4SJP 0cDQkhW4ctMmu caewpW6jTou+RCW5rGGry SHTSD2sFyphsGD+PHRkIH K8pIccZBtiYTWzxM3fIVT iE6d1SjMgRfR9 ACfoX5XlheF9NANhyRPlD MSyrNCQrX3nkdblc5umok wzPpDzKLRnWYg9QWq4ERO saWduOiBsZWZ0 UpR3FSC8uNZnhO2sxNavm clftJ2qDlm+QmlydGggRG R4GZk2F1NqJev8AQXgnIj yZN2ioDPhMWff Yu7mdSwrgBgbVB6mVMSwm rcnp549ObNcv6rnZKEldT YdUPslREU1H66ye2M1HXN zNFNiVDT4hHR7 mE0nsGvscfzjeAXrrFjsl pTqcYiyVQewLNkeJ842NB ZweTdlOwTsTTs2D9MePew 8OFIxvYtuKF2x pHCwGAwuIh7twXecvDooU I1nCHUxkazwm079XjPre4 gdSSTwmHWmCUnzZCM8T96 xn8L9OZMvUNDg QQS8uBN4tV8uvLgwxjrtl GVmdDsgdmVydGljYWwtYW gfK652JABuaHeuLeRzxEu 1O4AmUsf1UKZn sPrrTN6fcZFmOJktJj6eq WhymAsbKU0pVJKdaelkx4 24ZpEvz2bbBPQmfBAaYPq rBRG3S21vj6G4 ZNOgRYJwSZZ3gKX4gF5aj GlnbjogbGVmdDsgdmVydG ujOHbfFXpgM692ZAWpcTt nPlBhdGllbnQg CGksFEt9W9BrEconaAX+P G82ZRNcUS58iQHjhMOln6 kpkSv8GdBtZLQvSOI5bEl kHRlje6EiCFRp B86urWNom6M2VFKjzFdja QFxVwYuqQS6pF7oBUxjfz rlq2qazckhYszkf5qsjx0 6zP82Y32nMPbg ZHRoPSIzMCUiIHZhbGlnb f9fcL0lVu7+QJTltTJ0iO Y3tM5xUXEoMhZ5CVdtO74 9InRvcCIvPjxj s7itq2uxlAa0PdC4QEIty vNlvKdfCGR3p0WoFf38T2 9sIHdpZHRoPSIyMCUiIHZ hmHorwd8tkP0t Ii8+XYTcoPQ6tZC3qI2bN rFxArI5MIjsT162NaAabJ WyHamsV28bV0JyyKZ+PHR zHtv7SVGroUuw SX9usVKoMOxxPg6sJBL3W pLtHrYqQEkvC1KpUJSyrz npvjkttFY3HLLsKDTeeV3 3Rw6vnQzoAYNr oIAKqI8ltpicm2txufvbY pQaUGKnQKa1EPq9DTSytC aqYlGqCCW6QmF7JUB9pRG scJ0geAmiemlw dU6fR8RcXCIugqwqSi65j R1oChBmPfM8CQjeHmg+TU 9OVEdPTUVSWSwgTEVFLUF OTjwvdGQ+PHRk VGR0sCvxKNyfCFMzwD9pB QTcR4u4EoCzYaN8QXfsB8 AcPEPhcphjKn68iK0qZhO wAxK7YWqrK1Pq veO2UZVxlTXjRNpgKRG5T 38yg9T0SSHnVOKjOPW4oP X1aF0hwGhmbxysdKCtnMm gdmVydGljYWwt VZptR131CWHiyAboXnN1E aGiAwX7WNT5H7GjTjm7VD VmxSwgOP2jfKXnWIlaZe9 taLctuKodKE8s XBCzsrahGNOntX8tQSWgw PGqqYdpAG5qTGKbkhwxf3 87EiSoBCH4RSVtdXTzW6D rnA2aRkZvYGPo DCUbA9NrvODxBUvoR691E NyaIbQ8BETejmWjY4UaQA NliZhqWoP5b9U6Zf7aWQP ZZWFyczwvdGQ+ DOUlAFL3xUroEHhlBFMma D4cDAXcL7t6NmBmIbO8JQ gsW2JtBAJkprdvKh69dA7 jWdYwLqU0PZcy F2YsxaL1UDWdkTTfLGmnF UH0L28pp6H5HFVlGTJmAX N8fAR2oM8jsRrayrvhaSW mdDsgdmVydGlj VRohVWrlP470ANQnjKpdN kZlbWFsZTwvdGQ+PHRkIH P5rYecSFlpSYXlaK7kERA hM6e6WxRxJqI0 GZypH7KaQEFhxjcmHc51j T0jGuGbJaO5LGicW6Fvlv E0ZWKaqVAaHXqqWQB8A51 no1P2DUDcFHCn QOF4hYF7vP5qpTneztdjf GVmdDsgdmVydGljYWwtYW ioQ929FBIeeFrlDl73rPM aySpytnY2L1Ez PjwvdHI+QP64NGVgMS68d BTvlLUex1ddqIt7RiVwZU GtDJQ6oTjtOVvqj9WgBKQ cO73qoFOjy1R5 WLXycAfhfMJnJwVwzZT2h V2kNDvvniess8vjhkheZs hfj7ikag77sL57X89pJDt pZHRoPSIzMCUi EXKvuLlfka2wgJ8pWp2+P YEymKW4zZD7yS1zVwPmMl L6RYdrR756OmFioJBqRbd li6txe7wcjBn1 ElJqDUOxikCuxHmfEFL1y 0WgOt98T79aBExhVYVeKF SbLPEqWFBhjTewfo5saN0 wIi8+JT1um3cp fv35yT47sCF+YTHnXEM0q FaoUNgmOAJdpF6sEVswZp Y5CZBlNuCarP15cKJbAQn yGk1niUcerFxx DN3uOUGfpfshm458UuJxw 5wkTQDgzQDkTJrvCHG3S5 5bz1P5GVBsDNAiQSI0kGH 4wH4chJwlfqjh bGVmdDsgdmVydGljYWwtY RrxB263QTDtuPfwZzLncV XgU2ubamMVCZ1yIbuijIY +EEIeAIT4sMje FAfwAAWztO1cPOQvQ2h6H jQzJbN0SCnyG8MqawC2OJ WftCNpZSNwuRKGkK6usrx lg8hkjbalYvKk FRDySFf1KSf9VHQoqKkyW wUyQMT7ImK6TMP0bRFgcV 3dyUjhwocfaP0fYyw+Rkl OOjwvdGQ+PHRk RNM7rBuuYLxlTFLlgD4jY DSeZ6b9GcXhPnQ8TFyqW5 FxitM5WXMucETkKFKygDT ZiR9fijkmy7bf lggeNjZwWFGaQSu6APf9Q NQldVwlVeNuJFQ8GeN2ZJ T9hTZujA6ukMarzheunZ2 wOyc+TVJOOjwv dGQ+RFBjTAI2tNcqXRulP FUonP6qGTAqN7t7UbBxXt B9GVpfU4TbqfL8QIPltTV xAAQceOSWiG7n lnnwf4hrnhhqGsFyVMChX Dj1FYb0CWAxbZxpCjOyFJ G1RoS2GRM5wLVtaO6ywDz jbvhjaB7eUth+ HZQ7ORM4TX89BT41L5YkD jwvdGFibGU+PHRhYmxlIH dpZHRoPScxMDAlJyBzdHl cON4gXg8pJWZi LWNvbGxhcHNlO (more content not included)... Normal [facility] Coding Summary.on 02-20-2024 Coding Summary. GYGJQexa35NWl6cVt+PG h lYWQ+IE4SAKBsA21mrORx uE5cJ6UTLCyYSuujYKIBO AvWPhQmmzMsWL3lmEJuUG Ju IC8+GL4fCUEhGbeebYZjx 2N0hXT3L99yep4lCAufaD M7HHSsLsCzumpgt7rwrXv 6IDcuNmluOyBt SMJpkZ89AZJ5kA94Np76b MKfjGEvm9jmpKq5AjMmXA XbLIQ3eHgeHDxnt5SiMXV jU32lhFWve6V2 DSEyuWtyaYNmExMbaTQ4x B9fPAdxngmas7pqpuuuXb c0kv39eLBry2A9xQG0S2R iykX6YPKuhRDx OrakmGNBjL1iodpyc0chw ingMmUlIWTzWKr3WRr4NL FcbAbuVmKzUN94TAS1SWS imtXpR2ZbWXVg fJyxSzO4t0X5Qt3DF7BIA ffbF5PCLMYVQWlfmDF+PC 65qg35Q3JkGqhvSfn9TIL bDKX9yAR4xS2a UMAiMAdmb8V2bYZ1H5Wcn tFdsn1ti5qhDFDdWEckN6 3azTFwb3W4FQZwhYQ7KWD pfGyiPzCikQ00 Oyc+UMXqdShse0VfFwaoi 9bzx0hptXc4TgvpJNQqex WjzFveIJL0s0TsMo6hWEW xcCQ5hYZ5hR3z AnSkFpM7BFnhR284AvWvt CQnRgdlU71zB6QcjED+PH FcIry8REDowPbtEZ4rV6S hZGRpbmctbGVm jWewCF6rTOJfcpnkBXPuz F6hSIWiM7u1RzTgGlQ8MI qvF0PuRMMzimoyRn07jG3 nAaTtWxZ6SDfx U9FwysB4NEKzsTYdVGywH SM2V18jv2Y1GNIuVXMyZW J3xLQ9lA9hbPiysxxeuDU mdDsgdmVydGlj XZbdMNhzL718JUHxeBswJ kNvZGluZyBEYXRlOiAgMD YvMjUvMjAyNDwvdGQ+PHR hAHX8iWajVXFm vSUnDFdyNo2ltWofwNgxK Q1cLNSophftWCIxeQ7rRU SamHCyvCrfHB8zYJEadtz fe825IlDlIVX0 BDUcsQObW9ClpJ8mFyFcM VTwTXRfR0NccGSsBBpcF2 99TPptPmI2TAZsswLcT0C sLWFsaWduOiB0 w1H9Hv5Bk8NsofoyO5Vqw XYaPuEmXefsCNl0V7GuGi wvdHI+HT64NKUqGU46SVk 6VLT3fMymGTqa YZQtU7XylY4sIcLlOIRzG GRkOyc+PHRhYmxlIHdpZH RoPScxMDAlJyBzdHlsZT0 rLm0wFZMkWGHk uUwpdXYyDoAer8bxZIEgY JyrWY4ivJnzW1OmxYE3PG Omi1o3Hz12Z21iM1UfeRO +CFJhtJA5wRW5 wS3gNnZnCaQ7ARkaB340N uAqoSQrWnbgy8tgk4tiqA b1DuT8DEVldrNdmOyyQCU 9u0XtOm15F86j IHdpZHRoPSIxNSUiIHZhb Ldtjx4ajS9zSx3+PGNvbC A5vSJ0jU8jJhCmAhX4CRl nA761HsZnaVZi Ipdxw3iyu6iztOw6LtUbB RUicjAzmVxaIMX2h3HaDb 76B5BglKeot1ZeCfq2rf9 7tWEnl2E7bIJ1 U8MtXNZzevrxxEIowHtmD Z1oAJYneukuAGEvgM2dCP WxM2s9StTlSpI9USlwJ6T fjlI4VNFfhZEc RQGyaORSlD7azhzgg0zus fprFhAqFOLrISh6SXs2AI SupQoaCkBmSZF8ZvD0AVR 0yZQpmF3kiLmk mkpddI1pMhj+UUW6sSMtq QGEUE9pQulcnEN+PHRkIH B3dDdeZHufEADohY6pFFX xN6q4VpOpWfB7 YSfuK3WhrtH4VUEbtYHkS ZTtkVBJkD4poklzz6mbyq sbKsNvMLCjLSf1AXj2ZPF saWduOiBsZWZ0 MvG2UFS4kFFuaX9qjGmxs kiblB3nHjz+QmlydGggRG J6DDm8O9DhSud4YAXubEe vVW9myPWpXBhi Ug9lwFqreVppUI0fQMTcu lbus528DmDnj1akLSOclI SqDCsxVGN7Y96ap6A6DSQ pKOFtWER2hZD0 jP5swEjukwjgoTQepYvey zEpaHvhMBdcJHpiD313ZO VuoKdgTtQjTNy2I6EyYap 8KVRkdVgzJP3b fMOhUPejUr0ykByxmLzfG X7nFSVgabzut574UsImi6 sdKEQvrDXnXYkcAZN3F65 cf7T1IYWfTWPc KRQ3yCO4sQ5hkMivgaara GVmdDsgdmVydGljYWwtYW urJ223HAYrdAzpQcGkfBy 5F8RiNom3SUCy cBsmGL5bfUBrASoyXd9gp RrgeGjlLX7jPBZjafffb4 68EeZnt0vkRKFijSVeCRt oRVF0R19dw0S1 STXqBKUbUUN7uNC7xZ6jp GlnbjogbGVmdDsgdmVydG iwJRikUZvbG956RJOmcNe nPlBhdGllbnQg IByrMUi8U1LbLjlrjII+P F88QBPwTN66mVDkgXOgx5 vvgCh1MkWpISTrVHT0vQd tVLneo9BsHXVl I63yyMDhs0F1ESZzsIejw LSiZjTvgUJ8oA1kJOmrkv yso8xtynwwIgryp4dcbg1 5lG99H73wDDkv ZHRoPSIzMCUiIHZhbGlnb z0orV7lSy0+XFSfdMV0fK C7oT6pQZVnYbA6ONeuR36 9InRvcCIvPjxj u1nbm2lskZd8IsP1FIHcc fQutUpjHEJ1w8PkKv35C1 9sIHdpZHRoPSIyMCUiIHZ ibRlmvx5lvU6c Ii8+EUQkxTS9nZA5bD5eL yNkAzU1EHyoI214StCyqN BqQvgyF84oX4OuwJY+PHR wGjf4IAFuwDqf FH2jnADeOAdiDr8lMIT6M dRfPyXbIXyeP9SlFALcgd jjyxxlgJR2UORtDFZgwW7 6Iy6cvGdwXINt qLZArU9syitaj7qjqdauF dSoOUNaLYd6NOc2UMVhbS frIiViTAJ7BtW6AJC9dUK tyP7mzIxjcjby nR2rI6MqKKKgwrvhYo27c C6lEmVoRaQ3ACkrOoc+TU 9OVEdPTUVSWSwgTEVFLUF OTjwvdGQ+PHRk MHQ4rTcvYJvpOPRfgT2yC IRcC3k9PpOiWxD1FKbpV0 MuTNJczuzsPk98vU8kDcD wOiS1KRipI8Ox efK1WBOmmXVcNAxmEFH6S 16ef0X4IFLmFATfAPT3nE S2rY4ptRbvyhpbvDQirKt gdmVydGljYWwt ZOvzL725ZIEdhPfpVyR3O tOzWqC5PTR5A6TiEzl5GA QzuJgrRX2cvUKfQGsoJm9 ycNgicDxmWI3i JVXwldehBJBbdI9hXCZob WOpwQmuSP4nDMDuvlpyy0 42XpHzMWE7MLTuaCViL9G hvI8qKwUqBDYm FATzH5TtgPOhQFbkQ100R HzdMaP2WLYwkwCoE3WmON HgoIcsEdA7p4V7Vn2xRFV ZZWFyczwvdGQ+ NECnHIA7rSeoPPxhOFLws H1hOODwV8p2HqMkGnB7CS ajC2TzVGZnbwiyQi75wS9 zAkSbRwM6RLmj Z2TohbW3WMLajBEjQYzwF JF1E41vu5R7VXHwDVPsLI I4yHZ1sZ2vyJejoyzkwDD mdDsgdmVydGlj QSinSGsqQ326YKYgyOmkE kZlbWFsZTwvdGQ+PHRkIH O5yXidOEtpWSSvsQ8gKZP cZ8t7FrRfCbN7 FRelN6HpEETfebcjWw82o P9jXcAvCmI7SHgaI2Bppl X7DWAxyVRuDGjoTRU0F70 ud2B6QVCoZDQu OKG1qUM6hN2bxObpmbclp GVmdDsgdmVydGljYWwtYW eaO020RLLnyAndWx33bTG mpXqrclE5N0Yl PjwvdHI+AE06ADQpBB71f GFbgMSvh9gthAf3GeOjOP JmWUJ0kPplBDnxp3ZlNKF mT55lnYVhb1O5 SPFobXnenEMlXzUmgNC0p G9nJIgnclsrl8dcobntCr kvu8zsdh76sR73O11pULx pZHRoPSIzMCUi UJRxbNjvjv3vhM7zCg9+P GRgbVI0qFG1pW7bYvUcGp N9JWkjK356AxKhqCVhWey pe7fdx7txnXo2 TmExNNYbtpQhbQvdLMY5y 2AcQn21A52nXZvbEGRqNV PhYDXsJFJsoWukeq6oiZ9 wIi8+DH2ly5zd dy18lC29qPV+VMWhKTE3c DlpTFopPTUvkZ9xVRyxTb Q3KCVbBaCwdJ21wSDkAVz mYw9taDvcvWzw WS4zJLDkljzpp802MrUjn 0cmWXSueBBhTOfyJXF8C6 7hb3N9CEMiXPJdDLZ9rZS 9aB4hkYzsbbha bGVmdDsgdmVydGljYWwtY EpxE914UFEhxAggHvOlvA AbB6orziRTGE7bNilwaKD +CBZpUMP4cWfq VUtePNQwzV3wBXGbY7q0A hBsCxG0KIofH1HybjO4BO ZvbRHqKPPozXUEtA6gbnh hk1iabaebBbYp WJRhMUv2JKi8KMQclYziZ tSdWBK5PqZ0CEN9oDGtoI 6mlCkaqogekI6lJud+Rkl OOjwvdGQ+PHRk YDX7vIrvBWqhDNRalE5hP OSqV1h3XiNeUmN7CFcsF4 GwviC4TXIvuNDtWNIyvOP RsB5ccvral5ef jzmhYdFwDXMeKFy4SGq8U MFfwFnjQdUdFJK1IcS8ID C8gHOmbC6aeUxyfbtezB7 wOyc+TVJOOjwv dGQ+JVUfERB8sLokRNerG RVhsZ0xFJFiX0d1BhFuJe F1ZAtvE4SpgeL2KYPenMX iHQNtuNEEyW3b vzwbz8tlfnrdLfZsJZQiJ Xz2TYq7KITtgPgbVvAbLK P9YqF9TDM8vCJuxX8nwIk apacubW6tXkl+ RQY0ANF3UJ15KT01U3RrK jwvdGFibGU+PHRhYmxlIH dpZHRoPScxMDAlJyBzdHl hLR6vUm3lBPOp LWNvbGxhcHNlO (more content not included)... Normal [facility] Coding Summary. FHWMXebt04NJf1yWs+PG h lYWQ+ZA6GEJCcT39nsFFd hF8gH6SIISzQPlqiRHLTJ IwTEcHuooHgXI7mbLOdTL Ju IC8+PN5uLRFrMeatdBEpq 3B0yWB0R96drf6wEKyrnE V7IHBgTxGelozid7cejEj 6IDcuNmluOyBt REKyvJ50JRW9eW71Nl97g SIyaYIuf4zuqNh6IrAxDJ DnFIC9pIwgOBfnt2QmPVX hP56teJSsp2I0 ZNZvaBgciXHtEmAmtNY2o N2gDOtgzwatl6gphdkuSv q8bb76pRVyv3I7cAE8O2V jmxF6HTFddQUf KhndwNYNqY3pocmbp8xtn npjQyHkFZQrSMw6JOp3ZG OecSjfSjVvVJ17RNL8QOH andWqZ0JiMVSv vWkjIbD8l4O6Xv5MK7PEC lnoK3QLIFJFVRzzzLQ+PC 03zd36H2JhLlvsWob7OEN tOSH2zXX7iQ7s NMFyWYzwm1Z2xVE2R9Zcz oEzvo9uz6izQDFlMMrsF3 0jkDMml3Y6JXMdxGI0BUI uiDukOtOdlS31 Oyc+XLVpxDrxg8CfFyoxn 3jdr3iycEa9TbvrRJYnfw UmoRyeFGT1u2XuHr2wVBS qiFD3uVG1zN1b UjNvFwO9ZQwlQ210CpUjc UFbIxzhW78aM0IltBI+PH NaOdf8LZGuqAppUD0xD0I hZGRpbmctbGVm oUoxDB5fOUJlhamgMERyw R9oQTLkU9o3RfLrOdR3CE etB6YdLZCujhbxQa39wO2 kGzOsVfY3HSpv O2TfjxB2QOMwtNQeMUlvC AD7A87tb8M4ROCuTYRgHV Y0aUI0wN4tqKqrbewkaGS mdDsgdmVydGlj TJecSNyjL658CYPzuSrgJ kNvZGluZyBEYXRlOiAgMD YvMjUvMjAyNDwvdGQ+PHR pQVB9fGvnOJVl hEDsNGzkCz5iiIpdaRpmP O3kRYQqmszdOVRksE9dUV WtqBNcwGlnTY9lLOOsfbn pn000BxGgEZZ9 BYHeoCMvX2GcrK6oVtAzL YLjTNCjH1UhvNUyAPfzU6 80QAfcTpV7SRNvkcWmG5L sLWFsaWduOiB0 i0I4Sd6Sf7UlxdenI1Vai KGzXjShYcfkXQe6U3WsNv wvdHI+DE71LTLaXY41UZf 9MUM2qUegUTqv HQKdV1FdeO9yRdHyNDWlZ GRkOyc+PHRhYmxlIHdpZH RoPScxMDAlJyBzdHlsZT0 mGn0eMWXeUWCk lXavvGCfDpBqg6dsCVFgC VedGA1dqHerF5CqgRB3FS Bpp4b9Pk34Z14bR8DppOV +KFMiuEV8aVU8 dU0xYyNhPlG8OGogB506E rZagMAbNuhya2sug8togS s2GhU0GQYtesUvgLpkFER 8o9VuPd49I20i IHdpZHRoPSIxNSUiIHZhb Hztty6qxH7wBi1+PGNvbC H1gZI9fG3mEsCxPjX0YOn jC130TqSojNFm Yubec6diu4tkoGq6YlAkJ OBopyGagDnwULX7b8LvSm 20Z2FkiEgtw6CbKea0ph3 1dNYmi1Z6aVA4 P6XkCBFutpdldNHzhHruB M4yJPWugvkrTBOeeR8mAC NoL3n8JhKbRbL4MFhaE6I zsoB4YXDkoTYw SZEpmQMSkV5cnxvhy3xmn kosHoDdSNPvJJv4VCo4OP VamTidKcFfNBK4ZzA8DAK 1pGLraP6qbFgi cnwwxS4iSis+LGZ9rXExy HIRMX9xVlatrPC+PHRkIH X2jAezVZpgHFHwyM7wXNS lK9f5WeLfGeY7 CRziM5NqdmV2IVOtzLVaY FMruXHJxB9rjqcez5hahr meLpGoWBQoREn6VPg6EUV saWduOiBsZWZ0 NkK4ZVO4sBRuyJ4ikPeul wgsvS0pHwp+QmlydGggRG A0YAc7B9VsDlo8NUVsuQr xZQ8aaKKcFZzw Nf6ajZskbNxeWT9dUGMoo awid443RjRct7zdQBJdaD VhLNduWBG8E42yj2E5IDS dMSLfEMX8vVY4 iJ4spZchdskcoPZxpHjei jNozUxzWEojSNqhH341CK FriNdyMlLeNQd7U5DmVmi 0TDZjfMlzNY5g pKUmEZgsJh2sgEgrcWpcC V8eJHZhatnch947DqPqh5 ltSIAyfLWqHMbzSUU2X61 vo5R7TQFtSPKg WAX0tZA9yY9dkFagscktj GVmdDsgdmVydGljYWwtYW uhY348RJJdjXcbHlZvvZb 1F8CkOnl6KGBj fNxaNH9dvDZkJEuzDu0yw XchkPxmCA1mJZDrglomw6 94KzEjd2aqLHUtsXFqWHc pODC8J41ih1F7 TAQbYFUmTFI8rVT2yJ2lo GlnbjogbGVmdDsgdmVydG mlJIihXPgoY532NQVvlUu nPlBhdGllbnQg GBtpENl9J1XfUwquwHM+P R61OMNlIO37uSCchGBpt6 cqzVx3OxAgXITqIEK1rPb mSRjhy1HzFQJg O20lkYKdm2D7AYVcwSohk KSyTbIfjKC7fW1sSPncaw bas8ifvoioKgeuw1aylk0 7iV32M30dWUrn ZHRoPSIzMCUiIHZhbGlnb a1ubI3iMg3+GBIkaVT0aL Q6sM9bRTWyIjI8AJxaE83 9InRvcCIvPjxj v6rwk9fzjRi4GhR1TMTdq mQazYzhZLY7x1TdXs41E9 9sIHdpZHRoPSIyMCUiIHZ lmAgeuq9vpH8n Ii8+DVBpeXB0rMV9eV0wO sUmJhX9IHvvA236QaLdmO YhPnjsD62aC9AucHS+PHR tFdu9NSBegWad NV4tyMOgHTxtIo0tUYJ2A hGgDfReVKbbS5OuIASoyt ytmfjicQM8AXFwHIEgfR5 6Co6vlQkeEHIq gBZIwG0tpljuf5zoiednL lFfWRPcGLf2AFh8UXTwdI csNhPiVDN5XsQ7FOT2jST zwZ6hnDvsnbmw xP1sX5SfFPKucdtjTo36s B2rYkEqCyX6IKexQgo+TU 9OVEdPTUVSWSwgTEVFLUF OTjwvdGQ+PHRk DSD1lWvfOJuvIFRqmV8wI SGpL5r2XxPvVoI0QFctB3 ZvEQRtqvbkFp21vZ4rLgY nBdB0OYdkS2Bq zgA2PYJmfFLxLOrhHMG4Y 74ci5T2TFUkZSPwJKT6gF Y2zB8liXhcasrpjUSuuLz gdmVydGljYWwt FQicT231CYYjkThhLzP6S xSgRvI5KQH9D8LwBru7MI KimSewFI6ofAEdGDfsAg9 oaHmwsGdhYB8t NOOxeguqPJPryF1rYGIur GMscXfzIE9oXDSehjcsb9 05RyDxNRT5MZRnpWOyX3C qbY3xRwUyQWCi ZZQiS6KmlTVoWLumJ400W WcsLkF4GLDlrbYiS1GsPM FwsOioUyD1t6S8Xy8oQIY ZZWFyczwvdGQ+ NTYeHBP7jGqwQLfmEYGct J7yHYXjG0x4QmCvTaD9YL fjF6ZjBSKuabfeVy36oI9 cQyGyOiJ9WLhb I9BksbV5BGMzkZXdWVrhB CX7F85pg5X2FTNzUBNbFP S2wUM7gB8ldEszhcohcOG mdDsgdmVydGlj TVwaPDgeU061PFXauRudC kZlbWFsZTwvdGQ+PHRkIH O0fWdvFRlxTZOegU9hMUO hF2w3JfGjDsD8 TPpaW1OgENBfgqdzTu60b C8vLfQpZsR3ERlfK8Ffuy G5IMPfhXFjOTbxKUA9B50 kw8E3UVHrOZQy EOU2kMX4hM5neIccmcowj GVmdDsgdmVydGljYWwtYW dgH723NZOneLtbIcdpJwZ Zwb8gKD8vBbfm dGQ+ES98oa29R3UiEjyuA lh3TVNaODM8vJP4kG2hIJ SkPXjcf4Y4eVQ7Z7NmkcK pup2xe1fzIJSz WBuvM14hvTPog1W1MOCjx RS0LZHkdOdlJdDuiO98Df c+BPWtkEfxb1VmKlrmk7x id2femLx0GoFe ELBkglKciHjuION8h8AsN b96C42bIGogTUCkKMJqOH WrQHJmbBbwso6fwM4iMc5 +OGUjtZV0eAR2 pQ0zByPyQbJ5CSzeY555B zGtoRArZwqng6jym5geoY f3DbRtSLBzvmBmpExjZIH 8i0CyAh35G7Mu oGhxf5FiEls3mf08wBIal 5V5uPP7M8BkSAPhzkthnR CkpWvkNY5sMUBrbhiwMNS koU7iYIAgF9m1 ObJjQtX2RFuqN4TikuV4Z KPrdEAvSLJevHWSiU7btz vpw0xthmzrYlFtTCGhFTj 5ODl0JLIlnCpe IdUgKTB6KtM3UYN9dKYpt O1nsFmtajvrwZ2bMcc+UG m1s5zzxTVtJM2tmCV6RA1 1JX55bTHul8W1 bWW0G3ZcSVYjuecnqfabg SZ4VOYnKMXjcC95Vd7vnK igHt5eHKGwMFS3WTSulQN gF9LimU8jYgKe FMXhXONqR6YbrNDcUKshL 274HRfsWmM7ESMhqyRxQ3 VrLJOlvCwoDuJ5a2C5Qi3 HOD07NA63NA41 aEGym4I3aSN0C1DhPMBnt jmxcvbmaAV8LSYgEOUkzC 18Rd9ikMmyMy9oSWOxEII 1IJUusNVeX9Ut fO1lLfRvSSUhLFBqD0Vej SQrXPvqT153SUogVdZ3JW AujcXlN0DoCERghEyzQxB 5t1D7Ez3EFu29 KX37XZ37sPWyy4Z2hIJ9M 8GyWCUmgunvxjovqKZ6LA AvTDUpuS92Ns8stNkhYu7 pUXXqFRM8TEAd pHWiG7DlfM0nVxUmLHSeW LQdA2OltJXpGHznH745WD mcAfT0NFHyxeLeB4XgHUT pnPqlXqH5f2F8 Bm5TBKiivlg5L3ImZexti HI+KI95WQNkKZ62mCPolS Asc4wrzJy4VfErRVMqRYC 4hFguKSbfs2Of TIXtM50thNErf (more content not included)... Normal [facility] MRI Tibia/Fibula w/ + w/o Co ntrast Righton 02-19-2024 MRI Tibia/Fibula w/ + w/o Contrast Right Exam Date/Time: 02/15/2024 09:34 EDT Reason for Exam: [id number], [id number] Report IMPRESSION: No evidence for osteomyelitis. No loculated collection. HISTORY: Right lower leg and medial calf wound. TECHNIQUE: Routine MRI of the right tibia/fibula, with and without contrast. Given 10 mL of intravenous Vueway. COMPARISON: None RESULT: Bone Marrow: No evidence for fracture or marrow replacing process. Areas of heterogeneous marrow signal, suggestive of red marrow and may represent red marrow reconversion. No evidence for osteomyelitis. Joint: Large huqtb-vt-hakm imaging of the knee and ankle is grossly unremarkable within limitations of the study. Muscle: Grossly normal signal intensity and morphology of the visualized musculature. Tendon: Visualized tendons are intact. Subcutaneous Tissue: Areas of skin thickening with focal area of irregularity, within the mid calf medially/posteriorly, probably correlating with the reported ulceration/wound. No associated loculated collection. Areas of diffuse subcutaneous edema. Varicose vessels. Other: No other significant abnormality. Ordering Provider: Emre Pina FINAL REPORT Dictated: 02/19/2024 2:21 pm Gadiel Brooke MD Signed (Electronic Signature): 02/19/2024 2:21 pm Signed by: Gadiel Brooke MD Transcribed by: SANGEETA Technologist: BIRGIT Technical Comments Vueway Contrast amount in ml's: 10 Normal [facility] Consent for Treatmenton 01-27 Consent for Treatment [id number]#1 .00TIFF Normal [facility] RAD - MRI Screening Formon 0 02-15-2024 RAD - MRI Screening Form [id number]# 1.00TIFF Normal [facility] Physician Orderon 02-14-2024 Physician Order [id number]#1 .00TIFF Normal [facility] BMPon 02-13-2024 Anion gap [Moles/Vol] 12 mmol/L Normal 6-16 [facility] Comment on above: Performed By: #### 2 [id number] #### [facility] [address] [place] [address] Calcium [Mass/Vol] 8.8 mg/dL Low 8.9-11.1 [facility] Comment on above: Performed By: #### 2 [id number] #### [facility] [address] [place] [address] Chloride [Moles/Vol] 105 mmol/L Normal 101-111 [facility] Comment on above: Performed By: #### 2 [id number] #### [facility] [address] [place] [address] CO2 [Moles/Vol] 25 mmol/L Normal 21-31 [facility] Comment on above: Performed By: #### 2 [id number] #### [facility] [address] [place] [address] Creatinine [Mass/Vol] 0.8 mg/dL Normal 0.5-1.3 [facility] Comment on above: Performed By: #### 2 [id number] #### [facility] [address] [place] [address] Glucose [Mass/Vol] 106 mg/dL Normal 55-199 [facility] Comment on above: Performed By: #### 2 [id number] #### [facility] [address] [place] [address] Potassium [Moles/Vol] 4.1 mmol/L Normal 3.5-5.3 [facility] Comment on above: Performed By: #### 2 [id number] #### [facility] [address] [place] [address] Sodium [Moles/Vol] 138 mmol/L Normal 135-145 [facility] Comment on above: Performed By: #### 2 [id number] #### [facility] [address] [place] [address] Urea nitrogen [Mass/Vol] 17 mg/dL Normal 5-21 [facility] Comment on above: Performed By: #### 2 [id number] #### [facility] [address] [place] [address] Urea nitrogen/Creatinine [Mass ratio] 21 No Units High 10-20 [facility] Comment on above: Performed By: #### 2 [id number] #### [facility] [address] [place] [address] CBC w/ Auto Diffon 4 Basophils/100 WBC (Bld) 0.4 % Normal 0.0-2.0 [facility] Comment on above: Performed By: #### 2 [id number] #### [facility] [address] [place] [address] Basophils/Leukocytes Auto (Bld) [Pure # fraction] 0.0 E9/L Normal 0.0-0.2 [facility] Comment on above: Performed By: #### 2 [id number] #### [facility] [address] [place] [address] Eosinophils (Bld) [#/Vol] 0.3 E9/L Normal 0.0-0.5 [facility] Comment on above: Performed By: #### 2 [id number] #### [facility] [address] [place] [address] Eosinophils/100 WBC (Bld) 2.7 % Normal 0.0-8.0 [facility] Comment on above: Performed By: #### 2 [id number] #### [facility] [address] [place] [address] Erythrocyte distribution width (RBC) [Ratio] 13.6 % Normal 10.9-14.2 [facility] Comment on above: Performed By: #### 2 077921 #### [facility] [address] [place] [address] Hematocrit (Bld) [Volume fraction] 41.5 % Normal 34.0-46.0 [facility] Comment on above: Performed By: #### 2 [id number] #### [facility] [address] [place] [address] Hemoglobin (Bld) [Mass/Vol] 14.3 g/dL Normal 12.0-16.0 [facility] Comment on above: Performed By: #### 2 [id number] #### [facility] [address] [place] [address] Lymphocytes (Bld) [#/Vol] 2.7 E9/L Normal 1.0-4.0 [facility] Comment on above: Performed By: #### 2 [id number] #### [facility] [address] [place] [address] Lymphocytes/100 WBC (Bld) 23.8 % Normal 14.0-50.0 [facility] Comment on above: Performed By: #### 2 [id number] #### [facility] [address] [place] [address] MCH (RBC) [Entitic mass] 30.9 pg Normal 27.0-34.0 [facility] Comment on above: Performed By: #### 2 [id number] #### [facility] [address] [place] [address] MCHC (RBC) [Mass/Vol] 34.5 g/dL Normal 31.4-36.0 [facility] Comment on above: Performed By: #### 2 [id number] #### [facility] [address] [place] [address] MCV (RBC) [Entitic vol] 89.6 fL Normal 80.0-100.0 [facility] Comment on above: Performed By: #### 2 807404 #### [facility] [address] [place] [address] Monocytes (Bld) [#/Vol] 0.7 E9/L Normal 0.2-1.0 [facility] Comment on above: Performed By: #### 2 [id number] #### [facility] [address] [place] [address] Neutrophils (Bld) [#/Vol] 7.4 E9/L Normal 2.0-7.5 [facility] Comment on above: Performed By: #### 2 [id number] #### [facility] [address] [place] [address] Neutrophils/100 WBC (Bld) 66.5 % Normal 36.0-75.0 [facility] Comment on above: Performed By: #### 2 [id number] #### [facility] [address] [place] [address] Platelet mean volume (Bld) [Entitic vol] 8.5 fL Normal 6.4-10.8 [facility] Comment on above: Performed By: #### 2 [id number] #### [facility] [address] [place] [address] Platelets (Bld) [#/Vol] 234.0 E9/L Normal 150.0-500.0 [facility] Comment on above: Performed By: #### 2 [id number] #### [facility] [address] [place] [address] RBC (Bld) [#/Vol] 4.6 E12/L Normal 4.3-5.9 [facility] Comment on above: Performed By: #### 2 [id number] #### [facility] [address] [place] [address] WBC corrected for nucl RBC Auto (Bld) [#/Vol] 11.2 E9/L High 4.0-11.0 [facility] Comment on above: Performed By: #### 2 [id number] #### [facility] [address] [place] [address] CHEMISTRYOrdered By: SYSTEM SYSTEM on 02-13-2024 Anion gap [Moles/Vol] 12 mmol/L Normal 6 - 16 mEq/L [facility] Calcium [Mass/Vol] 8.8 mg/dL Low 8.9 - 11. 1 mg/dL [facility] Chloride [Moles/Vol] 105 mmol/L Normal 101 - 1 11 mmol/L [facility] CO2 [Moles/Vol] 25 mmol/L Normal 21 - 31 mmol/L [facility] Creatinine [Mass/Vol] 0.8 mg/dL Normal 0.5 - 1.3 mg/dL [facility] eGFR 102 mL/min/1.73 m2 Normal >=59mL/mi n/1. 73 m2 [facility] Free T4 [Mass/Vol] 0.78 ng/dL Normal 0.58 - 1. 64 ng/dL [facility] Glucose [Mass/Vol] 106 mg/dL Normal 55 - 199 mg/dL [facility] Potassium [Moles/Vol] 4.1 mmol/L Normal 3.5 - 5.3 mmol/L [facility] Sodium [Moles/Vol] 138 mmol/L Normal 135 - 145 mmol/L [facility] TSH Qn 13.62 m[IU]/L High 0.34 - 5.60 mcIU/mL [facility] Urea nitrogen [Mass/Vol] 17 mg/dL Normal 5 - 21 mg/dL [facility] Urea nitrogen/Creatinine [Mass ratio] 21 mg/mg High 10 - 20 [facility] Coding Summary.on 02-13-2024 Coding Summary. STSUOtbk78TWd2nPj+PG h lYWQ+GN5JNSOjD31jpCRc tW1zL1KOCLbFXvdfDDUZZ VtXDmCrbqDlGF0jbQAhYB Ju IC8+JN2gYMAyCktldLQjb 2C3rYS0F97jfk8jPJymtK Z7AJLmIiYfuzgsd6vcoFr 6IDcuNmluOyBt PIFvdA83GKE0jS86Ol84l BRpmPWhs1iduQn1VkQjGV AeEPT2yOemXSklg9CaRIM uF24zfTCbr1P5 HTMxsIpoiAEfMhJscYB5v V0sZSqaelyqg3xxmxavMu c6md93vEMfd6Q9pEA8C3F bhdS0MKRsbLXz VzxvvBIZdZ9rbpmbe7aus pruUkMgYJTbJVx8NSp9TT GobQnjMiWzXD19WHI3KSB ykrAzJ7KqIMHo aQmuUxN8y8V5Vm3NI4CBG ciiN2RKCFMNCSyljFX+PC 10bi42M3SpLgubPvf9SFR sVIS3bHC0eC8v DPHjPVpuf1B3bRR6E7Nzu vIzom3rh2ufOBFrKIkaJ9 1wkKUze2D5KYGgkVQ4XBP kqZbvReZweF07 Oyc+PNSqrXmah6OuMewsh 7zus7olqHd0BiigPCHgrp DneTtcCLZ2a8HuCs1sXVH wxZB7iIJ2hJ2d BwZbDyR6RVswA105YjQfx ZRkWbzrX19pZ7IitHG+PH ZfAxr1WOSusTnuGB6lS5C hZGRpbmctbGVm qXmmHN9pBTLfbuyeHWWfl T7nGNAhJ8r6GgUaLkD4VA koW3XfXFTzaluyQb67mC5 iVlCfFzG3HAcr Q7TnegL3CSKnlUOqVWqcQ YN3Z85ah4H7LYRaYNGmQS O1yXL0uQ7vgDlzbnjtqFA mdDsgdmVydGlj ERwcMShrD993KOLreLdvB kNvZGluZyBEYXRlOiAgMD YvMTgvMjAyNDwvdGQ+PHR rEBD8fAduCIJk xPVaFPqySv3ssWyqdIdbZ P9hEDEyzgiqYXElmM8oGF VrpFEkjZfiIA5nRQVypua yt157TbZkFAK0 IKMvoSUaS3DacC1kSyAsM CEvCJSvW9JmoTKzMMmlD9 77GSrqOaP9JSDxgiQdH6F sLWFsaWduOiB0 y9I4Sp6Kt9SftpjnP3Pyq EMnWnUqGvsnTLw1H4GcUw wvdHI+VI46TUQyPC88DOy 0KMK4sVqdZBev OECwY1FcfX6zLwBdNBLlV GRkOyc+PHRhYmxlIHdpZH RoPScxMDAlJyBzdHlsZT0 pOs1lCTSiIBLo kIcgcOThSvJzp4whDZPxZ OohMK1hzCvbK8XfyHO2NY Wkb9b6Og22F60lX1YwhVV +WWQrdUT3rKJ6 uY7oMgAtFaL2XZbmD489N rFwcWLsJbrma0ewg6uytX q8GyH2BBNfwxPxgGspUUS 4d7BzGy01E39l IHdpZHRoPSIxNSUiIHZhb Dpclw3xxA7jVy2+PGNvbC L3gTP6fG2pTcOdLtM1BDx eJ412QuPygIVw Khrpg9cil3hxzQn8MmXeZ UAmobGpqTirWQC1p7TqOg 81I3FjlFttn6SpZdy2dk1 9nEGgj9G1bWS2 L0JeNBTqnpocoKOxuXjnB V4eEYQzouwmUEVmkB7pBC SwB7g4OhGjJnH7HPaqD6O wmiS6LSNafEIa WYMrzDHQvH9wkpmiy1vra nvvFyQnJNMjPMg5TAn8AB JrvUunJeHuKGE8EyC0MMN 5mMRzfE8nmRpc fijrpB8jWip+RGT4eEMza UICBN4qOherkQU+PHRkIH Y9mAluQHduGGPgaS2aCEJ pL7d2HlChYiA8 QKyqR5QhbbK8IYKxhHRzQ XGtrSNNpX3vgsijc0fqdd vlTxVnKLTrPJq8EXn4JOH saWduOiBsZWZ0 MhP1KTR4ySHciL6fgOsdd jnbcV1gUbr+QmlydGggRG N1NEy2S5IfKtl1GXYmaGz cQG4qnJDeFUnv Xp4fyUyfdLdtLE3xZJCwd akuv401HeYlc5xjJPVqrY JtYUmhCBB6U86ky7J9HXX bJRKpNHE5eNQ2 jA6waQqqvyreeCGqjHixv yZpeFyrUSrzZIecD848HR CnsLlaZwTnHJy4E0BhBvj 8LNHvlLsoVX1y iHOuRZyoBd7ezCrucVqfM F6lPENhdmizc005MkKvh1 dwDHYcuEPnMSngXPL4H90 mo6Q8KNLsYAQb KZN4kTE2nB8anZteouapn GVmdDsgdmVydGljYWwtYW mtM877UIEucFrrZqDynZa 1T1CmDhs8VBKc bFvhAO7hzFDsTVokWn7cb TfxpLnqFJ5rUOOqxwith9 36WfGzm5ebQBMgmZHdNFh jRZC9T15sn7X7 WZXsTFFqQTO7jZR7vW9il GlnbjogbGVmdDsgdmVydG ulVTnmZEtrL580XFHuhPr nPlBhdGllbnQg SQeqLLy2S9DaWihafAO+P R95PVZxPA74hQQfnUKsh4 fitZe1RdZwVNOxGEC7bUt bEPypz2CfWSJg M33vtPTtd7V0HVJyqVkha IClUjGlyVL5xG1vRFoahb pyw8bkfjzwPajcu8mokc7 2vK33T09yRYeb ZHRoPSIzMCUiIHZhbGlnb l6uwG8dAf1+TRQdpZC5oN B5tZ8fKFNfXyH8GUvzM99 9InRvcCIvPjxj u9kwg9afhYf6FwY4YQUdg sDbgIppZDA1h3TsNt06O7 9sIHdpZHRoPSIyMCUiIHZ hjKxuog9luE9x Ii8+PJAwtWC6qJW9kC4pD xHxIeN0USxuX164ZfRpdB AcAjlmP02jE3NhlLK+PHR nXeg5RUKhdTle KS6ddQDpXEsuPi6cLAG0L lOfOlHuKUxeB0TiOFZprl vmcduosRH7LGJyPAAmkC6 7Kj0qzCztXJGx bGZTeC3gxnrwl0jgwayoE wSfQYHsYFh2BPg6ZSAfjM ekEbTySFP3SpJ5UCJ6kEP ceO9gpWndewks qB7fR5FqGLZmmyvbIv22n N4cQvZqQyJ4OEvuCsz+TU 9OVEdPTUVSWSwgTEVFLUF OTjwvdGQ+PHRk IRI5pNbhIDgiUVVquW4fQ QPmF8x2VwDqLkQ5UGxoY4 UfCQZpvaazQy69jC0tNvN zAbX5CXzfJ9Sl ihQ0GUVcjXXyPHpiHPZ5H 15jm5K3YIEzWYApDTV4zE X8mX7doXbpsurbmTGcpKk gdmVydGljYWwt NOzhE214IDZapOahXoA2S aLhUwY7YDU8O5RiIpf2DF FvxPjuLN6ihROkZSqiCk4 esGnbqTlyDS6h MJEarkvsWRAhlT9fODYhb EUhwAqoXV7rTIPrdziln1 36ZzEiKKI4JRDgpTJyI1X joO3nWvOpQIGy FTXpA9LdfBJfZSmbP092K YhpFhK8UJGlwsHjJ0VpHL HpuUxaIaS4p9K0Gm8hCON ZZWFyczwvdGQ+ AAEhFEY0cKzoHWjcWWGoy V4kGDFlP9e0CrUxNrQ5KM gsN1OxLVSvpwamXa09cQ2 aBbFuVjJ0WUrg X8OjdxN5WMCjaHBmLYezB LW0A27yy7V7DPZlDWYqES I3dDQ7pD3ffCjivfnccQM mdDsgdmVydGlj RQplZLixY953MMDwiGjdA kZlbWFsZTwvdGQ+PHRkIH S0qEtiDLaoYHDjdW9fBMU oG4x2SxYuEyA0 DAvmM6RdWYMtmexxJu15n Y0cWbPhRvX7VKjzG4Hxdl S4ONIzhBBaNIunWMU9P78 bg0R0TLHjDMVv BQD3wAB3sF6hlStgkeckf GVmdDsgdmVydGljYWwtYW fnE282OBQggFsnJm86hJX qwIiocjU3V8Uf PjwvdHI+UV14TIExXT93r WThgXOhr1daiYu2ZwVnZO YrRBV2gOmtIPvbc9LbASO fE64tbPNuu9V7 ECHbeUyceZIvEnTijTD2j U6vUVxrzqswn6dyugwwPy rkp6ztvc18wE25L44mSPf pZHRoPSIzMCUi IHSgvUysqy5uiM6qKw4+P JFqyKW3fLZ6bL1pOkHgOw W5GHtqR592QyOvmARdFcv uk5gel7xzwXo0 UcWmSSDvizVvhCkfMAZ5q 9AlKr11Z92rLBtmPQBkJI FdWICyNMLokXfzpn1ncE2 wIi8+MW2di4wl br40cT44aQV+KVZkUXE1b XtmCHooEMVknT8gVBnbBf W0RRQvAqNwcK19aEKtBZl yAr3biTccaXrd CB2vOGHsppgnw061IvLzz 7vhQJIojDDzHEftNNT9D3 8nd3B0LQFfZHLhFSE4sBJ 6vO9itDzylecq bGVmdDsgdmVydGljYWwtY EfuA376UQLkfFsoMfFpxS ObQ1ahbsWOXW3cOenmjTR +LTYbIKM4kXlg ZXsmXDRivN3cYFGwI1q0D rLgUxX3KRpcK6KojqC3XE WqdWPdUMNdnNPQgT1rlrq gy8isffvpPiVh IIDuAWo7RAa3RLNcfJeaX kByROE8LaX8FYA5dGIncM 9sdSfdjgcyrT1qUyh+Rkl OOjwvdGQ+PHRk QDK8nTikSMidYGMoqG9xL GVrE9n4SyZyKcM2NHskY8 YnqdO3GUIqvQZeJFYhaBB MrA3bgftcc3qa csmfLbQzPSBjVPx0OEu8B OOtgCcpTxXbNMF6PhD7RN T8jNEklB3gbBdzazgyyR8 wOyc+TVJOOjwv dGQ+JFEpJNP7zTmbLIdmV ODfdI0hUGBgW6d4AgDiMs Q4BQhxF4ZgxbZ4EFSbfNH gMFNdfLRPjS0e vfzzs7jjutxzSxBcNWPpQ Yl8CSd9ZCYnuUobMfAyRD L0HkK1ZYJ4oZNxbM5avRb wigpedV0xBvf+ XXJ6QDP0DU17GF71W8IxG jwvdGFibGU+PHRhYmxlIH dpZHRoPScxMDAlJyBzdHl dLO4nYw6iQBTg LWNvbGxhcHNlO (more content not included)... Normal [facility] Consent for Treatmenton 01-26 Consent for Treatment [id number]#1 .00TIFF Normal [facility] Consent for Treatment [id number]#1 .00TIFF Normal [facility] Free T4on 02-13-2024 Free T4 [Mass/Vol] 0.78 ng/dL Normal 0.58-1.64 [facility] Comment on above: Performed By: #### [id number] #### [facility] [address] [place] [id number] HEMATOLOGYOrdered By: SYSTEM SYSTEM on 02-13-2024 Basophils/100 WBC (Bld) 0.4 % Normal 0.0 - 2.0 % [facility] Basophils/Leukocytes Auto (Bld) [Pure # fraction] 0.0 E9/L Normal 0.0 - 0.2 E9/L [facility] Eosinophils (Bld) [#/Vol] 0.3 E9/L Normal 0.0 - 0.5 E9/L [facility] Eosinophils/100 WBC (Bld) 2.7 % Normal 0.0 - 8.0 % [facility] Erythrocyte distribution width (RBC) [Ratio] 13.6 % Normal 10.9 - 14.2 % [facility] Hematocrit (Bld) [Volume fraction] 41.5 % Normal 34.0 - 46.0 % [facility] Hemoglobin (Bld) [Mass/Vol] 14.3 g/dL Normal 12.0 - 16.0 gm/dL [facility] Lymphocytes (Bld) [#/Vol] 2.7 E9/L Normal 1.0 - 4.0 E9/L [facility] Lymphocytes/100 WBC (Bld) 23.8 % Normal 14.0 - 50.0 % [facility] MCH (RBC) [Entitic mass] 30.9 pg Normal 27.0 - 34.0 pg [facility] MCHC (RBC) [Mass/Vol] 34.5 g/dL Normal 31.4 - 36.0 gm/dL [facility] MCV (RBC) [Entitic vol] 89.6 fL Normal 80.0 - 100.0 fL [facility] Monocytes (Bld) [#/Vol] 0.7 E9/L Normal 0.2 - 1.0 E9/L [facility] Monocytes/100 WBC (Bld) 6.6 % Normal 4.0 - 14.0 % [facility] Neutrophils (Bld) [#/Vol] 7.4 E9/L Normal 2.0 - 7.5 E9/L [facility] Neutrophils/100 WBC (Bld) 66.5 % Normal 36.0 - 75.0 % [facility] Platelet mean volume (Bld) [Entitic vol] 8.5 fL Normal 6.4 - 10.8 fL [facility] Platelets (Bld) [#/Vol] 234.0 E9/L Normal 150.0 - 500.0 E9/L [facility] RBC (Bld) [#/Vol] 4.6 E12/L Normal 4.3 - 5.9 E12/L [facility] WBC corrected for nucl RBC Auto (Bld) [#/Vol] 11.2 E9/L High 4.0 - 11.0 E9/L [facility] Physician Orderon 02-13-2024 Physician Order [id number]#1. 00TIFF Normal [facility] Physician Order [id number]#1. 00TIFF Normal [facility] TSHon 02-13-2024 TSH Qn 13.62 m[IU]/L High 0.34-5.60 [facility] Comment on above: Performed By: #### [id number] #### [facility] [address] [place] [address] eGFRon 02-13-2024 eGFR 102 mL/min/1.73 m2 Normal >=59 [facility] Comment on above: Order Comment: Order added by Discern Expert. Performed By: #### [id number] #### [facility] [address] [place] [address] Physician Orderon 02-12-2024 Physician Order [id number]# 1.00TIFF Normal [facility] US LE Venous Duplex Righton 02-06-2024 US LE Venous Duplex Right Exam Date/Time: 02/05/2024 21:28 EDT Reason for Exam: [id number] Report IMPRESSION: NO RIGHT LOWER EXTREMITY DVT IDENTIFIED. EXAM: US LE Venous Duplex Right DATE: 02/05/2024 9:04 PM CLINICAL HISTORY: L97.918. COMPARISON: 05/07/2018. TECHNIQUE: Grayscale, compression, color and waveform Doppler analysis of the right lower extremity venous systems was performed with augmentation. Spectral Doppler waveforms were evaluated for spontaneity, phasicity and appropriate augmentation. FINDINGS: The study is limited by the patient's body habitus and lower extremity edema, with nonvisualization of the right calf veins. There is no deep or superficial venous thrombosis, abnormal masses, organized fluid collections, or other findings of concern identified within the right lower extremity. No DVT present within the visualized left common femoral vein. Ordering Provider: Julieta Curtis FINAL REPORT Dictated: 02/06/2024 7:46 am Joao Pepe MD Signed (Electronic Signature): 02/06/2024 7:46 am Signed by: Joao Pepe MD Transcribed by: SANGEETA Technologist: JAKE Normal [facility] Consent for Treatmenton 01-26 Consent for Treatment [id number]#1 .00TIFF [facility] Physician Orderon 02-05-2024 Physician Order [id number]#1 .00TIFF [facility] MR CERVICAL SPINE WO CONTRAS Ton 01-23-2024 MR CERVICAL SPINE WO CONTRAST EXAM: MR CERVICAL SPINE WO CONTRAST History: Neck pain with right-sided radiculopathy. Technique: Multiplanar multisequence MRI of the cervical spine was performed without contrast. Comparison: Cervical spine radiographs December 01, 2023 Findings: Craniocervical junction is within normal limits. No cervical cord signal abnormality is identified. No aggressive bone marrow signal abnormality. Slight straightening of the cervical lordosis. Intervertebral disc heights are preserved. C2-C3: No significant disc bulge. Mild right uncovertebral hypertrophy. Moderate right neuroforaminal stenosis. No spinal canal stenosis. C3-C4: No significant disc bulge. Mild uncovertebral hypertrophy. Mild bilateral neural foraminal stenosis. No spinal canal stenosis. C4-C5: Small disc bulge. Moderate bilateral uncovertebral hypertrophy. Moderate bilateral neural foraminal stenosis, right greater than left. No spinal canal stenosis. C5-C6: Small disc bulge. Mild uncovertebral hypertrophy. No neural foraminal or spinal canal stenosis. C6-C7: Small disc bulge. Mild spinal canal stenosis. No neuroforaminal stenosis. C7-T1: No significant disc bulge, spinal canal or neuroforaminal stenosis. Visualized paravertebral soft tissues are grossly unremarkable. IMPRESSION: Degenerative changes of the cervical spine as detailed. ELECTRONICALLY SIGNED BY: Francisco Bond, DO Normal Not Available Comment on above: Order Comment: Previ ous MRI - 12 years ago Pap IG, rfx Aptima HPV, rfx 16/18,45on 11-22-2022 . . Normal [facility] Comment on above: Result Comment: Perf ormed at: [facility] Performed By: #### P [id number] #### [facility] [facility] [address] [address] [address] Jaya Alan DIAGNOSIS: Comment Normal [facility] Comment on above: Result Comment: NEGA TIVE FOR INTRAEPITHELIAL LESION OR MALIGNANCY. Performed at: WB Performed By: #### P APHR2A #### [facility] [address] [address] [address] Jaya Alan HPV Aptima Negative Normal Negative [facility] Comment on above: Result Comment: This nucleic acid amplification test detects fourteen high-risk HPV types (16,18,31,33,35,39,45,51,52,56,58,59,66,68) without differentiation. Performed at: =G Performed By: #### P APHR2A #### [facility] [address] [address] [address] Jaya Alan HPV Genotype Reflex Comment Normal [facility] Comment on above: Result Comment: Crit eria not met, HPV Genotype not performed. Performed at: WB Performed By: #### P APHR2A #### [facility] [address] [address] [address] Jaya Alan Methodology: Comment Normal [facility] Comment on above: Result Comment: This liquid based ThinPrep(R) pap test was screened with the use of an image guided system. Performed at: WB Performed By: #### P APHR2A #### [facility] [address] [address] [address] Jaya Alan Note: Comment Normal [facility] Comment on above: Result Comment: The Pap smear is a screening test designed to aid in the detection of premalignant and malignant conditions of the uterine cervix. It is not a diagnostic procedure and should not be used as the sole means of detecting cervical cancer. Both false-positive and false-negative reports do occur. . Performed at: WB Performed By: #### P APHR2A #### [facility] [address] [address] [address] Jaya Alan Performed by: Comment Normal [facility] Comment on above: Result Comment: Anastasiya Patel, Disposal Operator (ASCP) Performed at: WB Performed By: #### P APHR2A #### [facility] [address] [address] [address] Jaya Alan Specimen adequacy: Comment Normal [facility] Comment on above: Result Comment: Sati sfactory for evaluation. Endocervical and/or squamous metaplastic cells (endocervical component) are present. Performed at: WB Performed By: #### P APHR2A #### [facility] [address] [place] [address] Dr. Jaya Alan Pap IG, rfx Aptima HPV ASCUo n 05-18-2022 . . Normal [facility] Comment on above: Performed By: #### P APHR7A #### [facility] [address] [place] [address] Dr. Jaya Alan DIAGNOSIS: Comment [facility] Comment on above: Result Comment: NEGA TIVE FOR INTRAEPITHELIAL LESION OR MALIGNANCY. Performed By: #### P APHR7A #### [facility] [address] [place] [address] Dr. Jaya Alan Methodology: Comment [facility] Comment on above: Result Comment: This liquid based ThinPrep(R) pap test was screened with the use of an image guided system. Performed By: #### P APHR7A #### [facility] [address] [place] [address] Dr. Jaya Alan Note: Comment [facility] Comment on above: Result Comment: The Pap smear is a screening test designed to aid in the detection of premalignant and malignant conditions of the uterine cervix. It is not a diagnostic procedure and should not be used as the sole means of detecting cervical cancer. Both false-positive and false-negative reports do occur. . Performed By: #### P APHR7A #### [facility] [address] [place] [address] Dr. Jaya Alan Performed by: Comment Normal [facility] Comment on above: Result Comment: Inocente Mcwilliams Disposal Operator (ASCP) Performed By: #### P APHR7A #### [facility] [address] [place] [address] Dr. Jaya Alan Reflex Criteria: Comment Normal [facility] Comment on above: Result Comment: The HPV DNA reflex criteria were not met with this specimen result therefore, no HPV testing was performed. . Performed By: #### P APHR7A #### [facility] [address] [address] [address] Jaya Alan Specimen adequacy: Comment Normal [facility] Comment on above: Result Comment: Sati sfactory for evaluation. Endocervical and/or squamous metaplastic cells (endocervical component) are present. Performed By: #### P APHR7A #### [facility] [address] [place] [address] Dr. [facility] CLINT MOISE ([id number]) 1995 F Date Time Provider Department 04/06/21 SUHAIL PANTOJA HEMASA During your visit today, we recorded the following information about you: Lawanda Gibbs MA 04/06/2021 1:55 PM Signed Please sign pending lab orders for 04/12/21, Thanks. Lawanda Gibbs MA Allergies As of Date: 04/06/2021 (No Known Allergies) Date Reviewed: 04/06/2021 Reviewed by: Jaquelin Tolentino APRN.RELAYS DRAFTSPERSON - Fully Assessed Reason for Visit: Lab Orders [9158] Primary Visit Diagnosis:Primary hypercoagulable state (HCC) [D68.59] Order(s):COMP METABOLIC PANEL [SQCMP] Order #: [id number] CBC + DIFF (FOR REMOTE [facility] USE) [[id number]] Order #: [id number] Prescriptions as of 04/06/2021 - acetaminophen (TYLENOL 8 HOUR ORAL) Take by mouth. Problem List As Of Date: 04/06/2021 (None) Encounter Status:Closed by JAQUELIN TOLENTINO on 04/06/21 [facility] Jose M 01-27-2021 CNPN Telephone (NCCAP) CLINT MOISE ([id number]) 1995 F Date Time Provider Department 01/27/21 SUHAIL PANTOJA During your visit today, we recorded the following information about you: Nabila Houston 01/27/2021 2:24 PM Signed Faxed referral to [facility] for Sleep study consult They will call the patient to schedule. Nabila Houston 01/28/2021 3:35 PM Signed Spoke with Sleep study at [facility]. They are waiting on precert from the insurance co and then they will call [facility] to schedule. Allergies As of Date: 01/27/2021 (No Known Allergies) Date Reviewed: 01/18/2021 Reviewed by: Suhail Pantoja MD - Fully Assessed Reason for Visit: Future Appointment [256] Prescriptions as of 01/27/2021 Sig: TYLENOL 8 HOUR ORAL Take by mouth. Problem List As Of Date: 01/27/2021 (None) Encounter Status:Closed by NABILA PASCUAL on 01/27/21 [facility] CNOVSPon 01-18-2021 CNOVSP Visit (SP) Office (HEMASA) CLINT MOISE ([id number]) 1995 F Date Time Provider Department 01/18/21 3:15 PM SUHAIL PANTOJA During your visit today, we recorded the following information about you: Temperature Pulse Respiration Blood pressure 97.2 degrees 70/minute 18/minute 127/76 Weight Height Last Period 138.9 kg 1.702 m 12/28/20 Suhail Pantoja MD 01/19/2021 9:49 AM Signed NAME: Clint Moise CLINIC NO.: [id number] DATE OF SERVICE: January 18, 2021 Referring Provider: Venkata Grajeda DO. Consultation requested by Dr. Grajeda for an opinion regarding Ms. Clint Moise, and my final recommendations will be communicated back to the requesting physician by way of shared medical record or letter via US mail. Additional Clinicians involved in Clint Moise's care: CC: History of DVT and pulmonary embolus in 2015, hypercoagulable state. 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 DVT was previously associated with oral contraceptive pills. She currently has plans for an IUD placement. PLAN: Overall, is to decrease her reversible risk factors. 1. Consult our [employer] for aggressive weight loss 2. Sleep Study [facility] 3. Compression socks - Try [employer] HPI: Initial Visit, January 18, 2021: Clint Moise presents today Hematology and Oncology evaluation. She is a 25 year old female who has a prior history of pulmonary embolus in 2015 was found to be heterozygous for factor V Leiden. It appears that she developed a right DVT lower extremities on 09/29/2014 when she developed swelling. Thrombosis involving popliteal vein of the right deep venous system. On the same date she had CT angiogram that demonstrated bilateral pulmonary emboli and follow-up CT scan in May 2015 showed resolution of the bilateral pulmonary emboli. 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 She has been referred from Dr. Grajeda's office because of her history as well as concern for needing control. Current plan is to place an IUD. Works at [employer] with [employer] recently and is starting to lose weight. Needs a sleep study - many people in her family have sleep apnea but she only snores and has variable wakefulness during the day. Understands that this will help mitigate her risk. REVIEW OF SYSTEMS Per HPI and otherwise negative by full review of organ systems. ECOG PERFORMANCE STATUS: 0 PHYSICAL EXAMINATION: Vitals: BP 127/76 Pulse 70 Temp (Src) 97.2 (Temporal) Resp 18 Ht 5' 7 (1.70m) Wt 306 lb 3.2 oz (138.9kg) SpO2 98% LMP 12/28/2020 BMI 47.95 kg/(m2). Body surface area is 2.56 meters squared. Exam limited to gross visualization where appropriate due to COVID-19. Gen.: This is an age-appropriate patient in no acute distress. Head: Appears atraumatic with no visible lesions. Eyes: Pupils equally round and reactive to light, extraocular muscles are intact. Neck: Supple. Mouth: Mucous membranes appeared to be moist. Respiratory: Appears to be respiring comfortably. Neurologic: Nonfocal to gross visualization. Alert and oriented ?3. Psychiatric: No evidence of inappropriate anxiety or depression. Skin: Visible areas of skin without rash, lesions, wounds or petechiae. ALLERGIES: ALLERGIES No Known Allergies MEDICATIONS: No prescriptions on file. LABORATORY VALUES: No results found for: WBC, RBC, HB, HCT, MCV, MCH, MCHC, RDWCV, PLT, MPV, GLUC, BUN, CREAT, NA, K, CHLOR, CO2, TPROT, ALB, CA, ALKPHOS, TBILI, AST, ALT, CHOL, TG, BETAMM DIAGNOSIS: (D68.59) Primary hypercoagulable state (HCC) (primary encounter diagnosis) Plan: CONSULT TO NUTRITION THERAPY, CONSULT TO SLEEP MEDICINE - ADULT, POLYSOMNOGRAM (PSG) (E66.01, Z68.42) Class 3 severe obesity due to excess calories with serious comorbidity and body mass index (BMI) of 45.0 to 49.9 in adult (HCC) Plan: CONSULT TO NUTRITION THERAPY, CONSULT TO SLEEP MEDICINE - ADULT, POLYSOMNOGRAM (PSG) PAST MEDICAL HISTORY Diagnosis Date - History of blood clots - Pulmonary embolism (HCC) No past surgical history on file. Social History Tobacco Use - Smoking status: Never Smoker - Smokeless tobacco: Never Used Substance Use Topics - Alcohol use: Not Currently - Drug use: Not Currently FAMILY HISTORY Problem Relation Age of Onset - Cancer Father - Cancer Paternal Grandfather Suhail Pantoja MD, CPE [place], [place] CC: Venkata Grajeda, DO [address] [place] [address] Jazzy Le, DO [address] [place] [address] Referring Provider: VENKATA GRAJEDA [[id number]] Allergies As of Date: 01/18/2021 (No Known Allergies) Date Reviewed: 01/18/2021 (more content not included)... Normal [facility] [id number] 09-13-2020 SARS-CoV-2 Detected Abnormal Not Detected [facility] Comment on above: Result Comment: (NOT E) This nucleic acid amplification test was developed and its performance characteristics determined by [employer]. Nucleic acid amplification tests include PCR and TMA. This test has not been FDA cleared or approved. This test has been authorized by FDA under an Emergency Use Authorization (EUA). This test is only authorized for the duration of time the declaration that circumstances exist justifying the authorization of the emergency use of in vitro diagnostic tests for detection of SARS-CoV-2 virus and/or diagnosis of COVID-19 infection under section 564(b)(1) of the Act, 21 U.S.C. 360bbb-3(b) (1), unless the authorization is terminated or revoked sooner. When diagnostic testing is negative, the possibility of a false negative result should be considered in the context of a patient's recent exposures and the presence of clinical signs and symptoms consistent with COVID-19. An individual without symptoms of COVID- 19 and who is not shedding SARS-CoV-2 virus would expect to have a negative (not detected) result in this assay. Performed At: [facility] [address] [facility], [place] [id number] Jose Luis Elizalde MD Ph:[phone] Performed By: #### A COV #### [facility] [address] [place] [address] Paper Machine Operator: Wesley Evans MD Vital Signs Date Time Vital Sign Value Performing Clinician Leydi segundo 09-05-2024 14:46-0500 Heart rate 79 /min Luis Felipe Mack [facility] 09-05-2024 14:46-0500 SaO2% (BldA) [Mass fraction] 98 % Luis Felipe Mack [facility] 09-05-2024 14:46-0500 Diastolic blood pressure 80 mm[Hg] Luis Felipe Mack [facility] 09-05-2024 14:46-0500 Mean blood pressure 96 mm[Hg] Luis Felipe Mack [facility] 09-05-2024 14:46-0500 Systolic blood pressure 129 mm[Hg] Luis Felipe Mack [facility] 09-05-2024 14:46-0500 Respiratory rate 20 /min Luis Felipe Mack [facility] 09-05-2024 14:41-0500 Diastolic blood pressure 68 mm[Hg] Luis Felipe Mack [facility] 09-05-2024 14:41-0500 Heart rate 84 /min Luis Felipe Mack [facility] 09-05-2024 14:41-0500 SaO2% (BldA) [Mass fraction] 97 % Luis Felipe Mack [facility] 09-05-2024 14:41-0500 Systolic blood pressure 130 mm[Hg] Luis Felipe Mack [facility] 09-05-2024 14:04-0500 Heart rate 79 /min Luis Felipe Mack [facility] 09-05-2024 14:04-0500 SaO2% (BldA) [Mass fraction] 96 % Briscoe Karena [facility] 09-05-2024 14:04-0500 Body temperature 97.88 [degF] Luis Felipe Mack [facility] 09-05-2024 14:04-0500 Diastolic blood pressure 82 mm[Hg] Luis Felipe Mack [facility] 09-05-2024 14:04-0500 Mean blood pressure 99 mm[Hg] Luis Felipe Mack [facility] 09-05-2024 14:04-0500 Systolic blood pressure 133 mm[Hg] Luis Felipe Mack [facility] 09-05-2024 14:03-0500 Respiratory rate 18 /min Luis Felipe Mack [facility] 08-27-2024 10:03-0500 Diastolic blood pressure 88 mm[Hg] April Daniels [facility] 08-27-2024 10:03-0500 Heart rate 86 /min April Daniels [facility] 08-27-2024 10:03-0500 Mean blood pressure 108 mm[Hg] April Daniels [facility] 08-27-2024 10:03-0500 Systolic blood pressure 149 mm[Hg] Aprilveronique Daniels [facility] 07-22-2024 11:54-0500 Heart rate 79 /min Luis Felipe Mack [facility] 07-22-2024 11:54-0500 SaO2% (BldA) [Mass fraction] 98 % Luis Felipe Mack [facility] 07-22-2024 11:54-0500 Diastolic blood pressure 70 mm[Hg] Luis Felipe Mack [facility] 07-22-2024 11:54-0500 Mean blood pressure 93 mm[Hg] Luis Felipe Mack [facility] 07-22-2024 11:54-0500 Systolic blood pressure 138 mm[Hg] Briscoe Mack [facility] 07-22-2024 11:54-0500 Respiratory rate 16 /min Briscoe Karena [facility] 07-22-2024 11:40-0500 Diastolic blood pressure 102 mm[Hg] Luis Felipe Mack [facility] 07-22-2024 11:40-0500 Heart rate 77 /min Luis Felipe Mack [facility] 07-22-2024 11:40-0500 Respiratory rate 18 /min Luis Felipe Mack [facility] 07-22-2024 11:40-0500 SaO2% (BldA) [Mass fraction] 97 % Luis Felipe Mack [facility] 07-22-2024 11:40-0500 Systolic blood pressure 113 mm[Hg] Luis Feliep Mack [facility] 07-22-2024 10:56-0500 Heart rate 85 /min Luis Felipe Mack [facility] 07-22-2024 10:56-0500 SaO2% (BldA) [Mass fraction] 97 % Luis Felipe Mack [facility] 07-22-2024 10:55-0500 Diastolic blood pressure 72 mm[Hg] Luis Felipe Mack [facility] 07-22-2024 10:55-0500 Mean blood pressure 82 mm[Hg] Luis Felipe Mack [facility] 07-22-2024 10:55-0500 Systolic blood pressure 101 mm[Hg] Luis Felipe Mack [facility] 07-22-2024 10:55-0500 Body temperature 98.24 [degF] Luis Felipe Mack [facility] 07-22-2024 10:54-0500 Respiratory rate 15 /min Luis Felipe Mack [facility] 06-26-2024 11:21-0400 Diastolic blood pressure 109 mm[Hg] April Daniels [facility] 06-26-2024 11:21-0400 Heart rate 90 /min April Daniels [facility] 06-26-2024 11:21-0400 Mean blood pressure 127 mm[Hg] April Daniels [facility] 06-26-2024 11:21-0400 Respiratory rate 18 /min April Daniels [facility] 06-26-2024 11:21-0400 Systolic blood pressure 162 mm[Hg] April Daniels [facility] 05-21-2024 13:47-0400 Heart rate 78 /min Luis Felipe Mack [facility] 05-21-2024 13:47-0400 SaO2% (BldA) [Mass fraction] 100 % Luis Felipe Mack [facility] 05-21-2024 13:47-0400 Diastolic blood pressure 83 mm[Hg] Luis Felipe Mack [facility] 05-21-2024 13:47-0400 Mean blood pressure 98 mm[Hg] Luis Felipe Mack [facility] 05-21-2024 13:47-0400 Systolic blood pressure 128 mm[Hg] Luis Felipe Mack [facility] 05-21-2024 13:47-0400 Respiratory rate 20 /min Luis Felipe Mack [facility] 05-21-2024 13:39-0400 Diastolic blood pressure 87 mm[Hg] Luis Felipe Mack [facility] 05-21-2024 13:39-0400 Heart rate 74 /min Luis Felipe Mack [facility] 05-21-2024 13:39-0400 SaO2% (BldA) [Mass fraction] 100 % Luis Felipe Mack [facility] 05-21-2024 13:39-0400 Systolic blood pressure 131 mm[Hg] Luis Felipe Mack [facility] 05-21-2024 12:35-0400 Heart rate 80 /min Luis Felipe Mack [facility] 05-21-2024 12:35-0400 SaO2% (BldA) [Mass fraction] 98 % Luis Felipe Mack [facility] 05-21-2024 12:35-0400 Diastolic blood pressure 83 mm[Hg] Luis Felipe Mack [facility] 05-21-2024 12:35-0400 Mean blood pressure 98 mm[Hg] Luis Felipe Mack [facility] 05-21-2024 12:35-0400 Systolic blood pressure 130 mm[Hg] Luis Felipe Mack [facility] 05-21-2024 12:35-0400 Body temperature 98.06 [degF] Luis Felipe Mack [facility] 05-21-2024 12:35-0400 Respiratory rate 20 /min Luis Felipe Mack [facility] 04-01-2024 08:32-0400 Diastolic blood pressure 97 mm[Hg] Luis Felipe Mack [facility] 04-01-2024 08:32-0400 Heart rate 75 /min Luis Felipe Mack [facility] 04-01-2024 08:32-0400 Mean blood pressure 110 mm[Hg] Luis Felipe Mack [facility] 04-01-2024 08:32-0400 Respiratory rate 20 /min Luis Felipe Mack [facility] 04-01-2024 08:32-0400 Systolic blood pressure 136 mm[Hg] Luis Felipe Mack [facility] 02-27-2024 14:57-0400 Heart rate 68 /min Em[facility] 02-27-2024 14:57-0400 SaO2% (BldA) [Mass fraction] 94 % Em[facility] 02-27-2024 14:56-0400 Diastolic blood pressure 89 mm[Hg] Emre [facility] 02-27-2024 14:56-0400 Mean blood pressure 108 mm[Hg] Emre [facility] 02-27-2024 14:56-0400 Systolic blood pressure 146 mm[Hg] Emre [facility] 02-27-2024 14:08-0400 Heart rate 63 /min Em[facility] 02-27-2024 14:08-0400 SaO2% (BldA) [Mass fraction] 97 % Em[facility] 02-27-2024 14:08-0400 Blood Pressure Location Emre [facility] 02-27-2024 14:08-0400 Diastolic blood pressure 88 mm[Hg] Em[facility] 02-27-2024 14:08-0400 Mean blood pressure 102 mm[Hg] Emre [facility] 02-27-2024 14:08-0400 Respiratory rate 18 /min Emre [facility] 02-27-2024 14:08-0400 Systolic blood pressure 130 mm[Hg] mEre [facility] 02-27-2024 13:55-0400 Body temperature 97.16 [degF] Em[facility] 02-27-2024 13:55-0400 Diastolic blood pressure 82 mm[Hg] Emre [facility] 02-27-2024 13:55-0400 Heart rate 68 /min [facility] 02-27-2024 13:55-0400 Mean blood pressure 96 mm[Hg] Emre [facility] 02-27-2024 13:55-0400 [facility] rate 16 /[facility] 02-27-2024 13:55-0400 SaO2% (BldA) [Mass fraction] 96 % [facility] 02-27-2024 13:55-0400 Systolic blood pressure 124 mm[Hg] [facility] 02-27-2024 13:45-0400 Mean blood pressure 99 mm[Hg] [facility] 02-27-2024 13:45-0400 Respiratory rate 20 /min [facility] 02-27-2024 13:40-0400 Mean blood pressure 87 mm[Hg] [facility] 02-27-2024 13:40-0400 Respiratory rate 19 /min [facility] 02-27-2024 13:30-0400 Body temperature 97.34 [degF] [facility] 02-27-2024 13:20-0400 Body temperature 96.8 [degF] [facility] 02-27-2024 10:37-0400 Mean blood pressure 101 mm[Hg] [facility] 02-27-2024 10:36-0400 Body temperature 98.06 [degF] [facility] Encounters Encounter Date Encounter Type Care Provider Facility Start: 09-05-2024 End: 09-05-2024 ambulatory Luis Felipe Mack Facility:[facility] Start: 09-05-2024 End: 09-05-2024 Pain Management Luis Felipe Mack [facility] Start: 09-04-2024 End: 09-04-2024 ambulatory Rohit Pina Facility:[facility] Start: 09-04-2024 End: 09-04-2024 Patient encounter procedure Rohitkelly Pina [facility] Start: 08-27-2024 End: 08-27-2024 ambulatory April Daniels Facility:[facility] Start: 08-27-2024 End: 08-27-2024 Patient encounter procedure April Daniels [facility] Start: 08-22-2024 End: 08-23-2024 Pre-admission assessment Rohit Pina [facility] Start: 08-19-2024 End: 08-19-2024 Telephone encounter Rohit R Dolce DPM [facility] Work Phone: [facility] Start: 08-14-2024 End: 08-16-2024 Clinisync Result Encounter Rohit R Dolce DPM [facility] Work Phone: [facility] Unsolicited Start: 08-14-2024 End: 08-16-2024 Clinisync Result Encounter Rohit R Dolce DPM [facility] Work Phone: [facility] Unsolicited Start: 08-14-2024 End: 08-14-2024 ambulatory Rohit R Dolce Facility:[facility] Start: 08-14-2024 End: 08-14-2024 Patient encounter procedure Rohit Tiffany Pina [facility] Start: 08-07-2024 End: 08-07-2024 ambulatory Rohit R Dolce Facility:[facility] Start: 07-31-2024 End: 07-31-2024 ambulatory Rohit R Dolce Facility:[facility] Start: 07-31-2024 End: 07-31-2024 Patient encounter procedure Rohit R Dolce [facility] Start: 07-22-2024 End: 07-22-2024 ambulatory Luis Felipe Mack Facility:[facility] Start: 07-22-2024 End: 07-22-2024 Pain Management Luis Felipe Mack [facility] Start: 07-10-2024 End: 07-10-2024 ambulatory Rohit R Dolce Facility:[facility] Start: 07-10-2024 End: 07-10-2024 Patient encounter procedure Rohit Pina [facility] Start: 07-03-2024 End: 07-03-2024 ambulatory Rohit Tiffany Pina Facility:[facility] Start: 07-03-2024 End: 07-03-2024 Patient encounter procedure Rohit Pina [facility] Start: 06-26-2024 End: 06-26-2024 ambulatory April Daniels Facility:[facility] Start: 06-26-2024 End: 06-26-2024 Patient encounter procedure April Daniels [facility] Start: 06-26-2024 End: 06-26-2024 ambulatory Rohit Tiffany Pina Facility:[facility] Start: 06-26-2024 End: 06-26-2024 Patient encounter procedure Rohit Pina [facility] Start: 06-19-2024 End: 06-19-2024 ambulatory Rohit R Renata [facility] [facility] Start: 06-19-2024 End: 06-19-2024 Patient encounter procedure Rohit Pina [facility] Start: 06-11-2024 End: 06-11-2024 ambulatory Emre D Efraince Facility:[facility] Start: 06-11-2024 End: 06-11-2024 Patient encounter procedure Emre Pina [facility] Start: 06-07-2024 End: 06-07-2024 Bamboo flowsheet Yuni Cisneros CCC-A Work Phone: [facility] Start: 06-07-2024 End: 06-07-2024 Bamboo flowsheet Yuni Cisneros CCC-A Work Phone: [facility] Start: 06-04-2024 End: 06-04-2024 ambulatory Emre D Efraince Facility:[facility] Start: 06-04-2024 End: 06-04-2024 Patient encounter procedure Emre Pina [facility] Start: 05-29-2024 End: 05-31-2024 ambulatory Karthik Johnson Facility:[facility] Start: 05-28-2024 End: 05-28-2024 ambulatory Emre Zunigahermann Facility:[facility] Start: 05-28-2024 End: 05-28-2024 Patient encounter procedure Emre Pina [facility] Start: 05-28-2024 End: 05-29-2024 Pre-admission assessment Karthik Johnson [facility] Start: 05-24-2024 End: 05-24-2024 ambulatory Karthik Johnson Facility:[facility] Start: 05-24-2024 End: 05-24-2024 Patient encounter procedure Karthik Johnson [facility] Start: 05-23-2024 End: 05-23-2024 ambulatory Karthik Johnson Facility:[facility] Start: 05-23-2024 End: 05-23-2024 Patient encounter procedure Karthik Johnson [facility] Start: 05-21-2024 End: 05-21-2024 ambulatory Emre Pina Facility:[facility] Start: 05-21-2024 End: 05-21-2024 Patient encounter procedure Emre Pina [facility] Start: 05-21-2024 End: 05-23-2024 Clinisync Result Encounter Emre Zunigahermann DPM FACFAS Work Phone: [facility] Unsolicited Start: 05-21-2024 End: 05-23-2024 Clinisync Result Encounter Emre Zunigahermann DPM FACFAS Work Phone: [facility] Unsolicited Start: 05-21-2024 End: 05-21-2024 ambulatory Luis Felipe Mack Facility:[facility] Start: 05-21-2024 End: 05-21-2024 Pain Management Luis Felipe Mack [facility] Start: 05-16-2024 End: 05-17-2024 Pre-admission assessment Emre Pina [facility] Start: 05-07-2024 End: 05-07-2024 ambulatory Emre Pina Facility:[facility] Start: 05-07-2024 End: 05-07-2024 Patient encounter procedure Emre Pina [facility] Start: 04-30-2024 End: 04-30-2024 ambulatory Emre Pina Facility:[facility] Start: 04-30-2024 End: 04-30-2024 Patient encounter procedure Emre Pina [facility] Start: 04-24-2024 End: 04-24-2024 ambulatory Rohit Tiffany Efrainhermann Facility:[facility] Start: 04-24-2024 End: 04-24-2024 Patient encounter procedure Rohit Tiffany Renata [facility] Start: 04-16-2024 End: 04-16-2024 ambulatory Emre Pina Facility:[facility] Start: 04-16-2024 End: 04-16-2024 Patient encounter procedure Emre Pina [facility] Start: 04-12-2024 End: 04-13-2024 ambulatory Emre Pina Facility:[facility] Start: 04-12-2024 End: 04-13-2024 Pre-admission assessment Emre Pina [facility] Start: 04-03-2024 End: 04-03-2024 ambulatory Rohit R Efraince Facility:[facility] Start: 04-03-2024 End: 04-03-2024 Patient encounter procedure Rohit Tiffany Renata [facility] Start: 04-01-2024 End: 04-01-2024 ambulatory Julieta Curtis Facility:[facility] Start: 04-01-2024 End: 04-01-2024 Pain Management Luis Felipe Mack [facility] Start: 03-26-2024 End: 03-26-2024 ambulatory Emre Pina Facility:[facility] Start: 03-26-2024 End: 03-26-2024 Patient encounter procedure Emre Pina [facility] Start: 03-22-2024 End: 03-23-2024 ambulatory Emre Pina Facility:[facility] Start: 03-22-2024 End: 03-23-2024 Pre-admission assessment Emre Pina [facility] Start: 03-19-2024 End: 03-19-2024 ambulatory Emre Pina Facility:[facility] Start: 03-19-2024 End: 03-19-2024 Patient encounter procedure Emre Pina [facility] Start: 03-15-2024 End: 03-16-2024 ambulatory Emre Pina Facility:[facility] Start: 03-15-2024 End: 03-16-2024 Pre-admission assessment Emre Pina [facility] Start: 03-12-2024 End: 03-12-2024 ambulatory Emre Pina Facility:[facility] Start: 03-12-2024 End: 03-12-2024 Patient encounter procedure Emre Pina [facility] Start: 03-08-2024 End: 03-09-2024 ambulatory Emre Pina Facility:[facility] Start: 03-08-2024 End: 03-09-2024 Pre-admission assessment Emre Pina [facility] Start: 03-05-2024 End: 03-05-2024 Patient encounter procedure Emre Pina [facility] Start: 02-27-2024 End: 02-27-2024 Admission to same day surgery center Emre Pina [facility] Start: 02-27-2024 End: 02-27-2024 ambulatory Emre Pina Facility:[facility] Start: 02-20-2024 End: 02-20-2024 ambulatory EMRE PINA Not Available Start: 02-15-2024 End: 02-15-2024 ambulatory Emre Pina Facility:[facility] Start: 02-15-2024 End: 02-15-2024 Patient encounter procedure Emre Pina [facility] Start: 02-13-2024 End: 02-13-2024 ambulatory Julieta Curtis Facility:[facility] Start: 02-13-2024 End: 02-13-2024 Patient encounter procedure Julieta Curtis [facility] Start: 02-12-2024 End: 02-12-2024 ambulatory EMRE PINA Not Available Start: 02-12-2024 End: 02-12-2024 ambulatory Emre Pina Facility:[facility] Start: 02-12-2024 End: 02-12-2024 Lab Drop off Emre Pina [facility] Start: 02-05-2024 End: 02-05-2024 ambulatory Julietatrey Curtis Facility:[facility] Start: 02-05-2024 End: 02-05-2024 Patient encounter procedure Julieta Concepcion Curtis [facility] Start: 01-23-2024 End: 01-23-2024 ambulatory RYLIE POCOS Not Available Start: 01-01-2024 End: 01-01-2024 ambulatory RYLIE POCOS Not Available Start: 12-20-2023 End: 12-20-2023 ambulatory RENA B SAMANTHA Not Available Start: 12-01-2023 End: 12-01-2023 ambulatory RENA Elizalde POCOS Not Available Start: 11-24-2023 End: 11-24-2023 ambulatory RENA An SAMANTHA Not Available Start: 11-16-2023 End: 11-16-2023 ambulatory RENA An SAAMNTHA Not Available Start: 10-30-2023 End: 10-30-2023 ambulatory RENA Elizalde POCOS Not Available Start: 10-30-2023 End: 10-30-2023 ambulatory RENA Elizalde POCOS Not Available Start: 11-14-2022 End: 11-14-[address] VENKATA GRAJEDA . Facility:[facility] Start: 05-15-2022 Encounter for cervic al smear to confirm findings of recent normal smear following initial abnormal smear DR VENKATA GRAJEDA . [facility] Start: 05-12-2022 End: 05-12-[address] VENKATA GRAJEDA . Facility:[facility] Start: 05-12-2022 End: 05-12-2022 Encounter for cervical smear to confirm findings of recent normal smear following initial abnormal smear DR VENKATA GRAJEDA . Facility: Start: 12-31-2020 End: 12-31-2020 Chart abstracting Suhail Pantoja MD Work Phone: Hematology/Oncology Start: 12-29-2020 End: 12-29-2020 Patient encounter procedure External Provider EXTERNAL-NON [facility] Start: 12-29-2020 Results Only External Provider Exter nal-Non[facility] Start: 09-10-2020 End: 09-11-2020 Patient encounter procedure [facility] Start: 09-10-2020 End: 09-10-2020 Subsequent hospital visit by physician [facility] Laboratory Comment on above: Suspected COVID-19 v irus infection; Exposure to COVID-19 virus Procedures Date Procedure Procedure Detail Performing Clinician Start: 08-14-2024 [facility] C WOUND Rohit stauffer DPM FACFAS Work Phone: Start: 07-22-2024 Injection of facet j oint using fluoroscopic guidance April Daniels Comment on above: Bilateral C3/4, C4/5 MBB Start: 05-21-2024 [facility] C WOUND Emre D Dol ce DPM FACFAS Work Phone: Start: 05-21-2024 Epidural injection o f cervical spine using fluoroscopic guidance Rohit Pina Comment on above: C7-T1 Start: 02-27-2024 Incision AND drainage Kelly Pina Start: 12-29-2020 End: 12-29-2020 EXTERNAL IMAGING External Provider Start: 12-29-2020 EXTERNAL LAB External P rovider Start: 08-28-2012 Structure of wisdom tooth (body structure) Luis Felipe Mack Idalia Curtis Plan of Treatment Date Care Activity Detail Author Start: 06-10-2024 End: 06-10-2024 Patient encounter procedure 06/10/2024 1:10 PM EDT Office Visit [facility] [address] [place] [address] Alondra Hernandez MD [address] [address] [place] [address] [facility] Start: 04-28-2021 Influenza vaccination INFLUENZ A (Season Ended) [facility] Start: 04-28-2020 Influenza vaccination Flu vaccine (# 1) [place], [place] Start: 2016 PAP TESTING PAP TESTING [facility] Start: 2016 Screening for malign ant neoplasm of cervix Cervical cancer screen [place], [place] Start: 2014 DTaP/Tdap/Td vaccine (1 - Tdap) DTaP/Tdap/Td vaccine (1 - Tdap) [place] Start: 2014 Urine microalbumin profile DTAP,TDAP,TD (1 - Tdap) [facility] Start: 2013 HEPATITIS C SCREENING HEPATITIS C SC BARBARA [facility] Start: 2013 HIV SCREENING HIV SCREENING [facility] Start: 2010 HIV screening HIV screen [place], [place] Start: 2007 Adult depression screening assessment DEPRESSION SCREENING [facility] Start: 2006 HPV vaccine (1 - 2-d ose series) HPV vaccine (1 - 2-dose series) [place], [place] Start: 1996 Varicella vaccine (1 of 2 - 2-dose childhood series) Varicella vaccine (1 of 2 - 2-dose childhood series) [place] Start: 1995 Hepatitis C screening Hepatitis C sc indiana [place] End: 09-10-2020 COVID-19 Ambulatory COVID-19 Ambulatory Lab Routine Suspected COVID-19 virus infection Exposure to COVID-19 virus 1 Occurrences starting 09/10/2020 until 09/10/2020 [place] Comment on above: 1 Occurrences starti ng 09/10/2020 until 09/10/2020 COVID-19 Ambulatory COVID-19 Amb ulatory Lab Routine Suspected COVID-19 virus infection Exposure to COVID-19 virus 09/10/2020 12:16 PM EST [facility] Payers Date Payer Category Payer [facility] BCBS [id number] 2023 Unknown [facility] BCBS [id number] 2023-Present [phone] [address] [place] [address] [id number] [id number] 2023 Unknown [id number] 2020 Private Health Insurance [facility] CHOICE PLUS [id number] 2020-Present HMO [id number] [id number] 1995 Unknown [id number] 2.16.840.1.044156.3.579. 2.174 1995 Unknown [id number] 2.16.840.1.421600.3.579. 2.593 1995 Unknown [id number] 2.16.840.1.322953.3.579. 2.593 1995 Unknown [id number] 2.16.840.1.049959.3.579. 2.727 1995 Unknown [id number] 2.16.840.1.881066.3.579. 2.72 1995 Unknown [id number] 2.16.840.1.753090.3.579. 2.72 1995 Unknown [id number] 2.16840.1.541611.3.579. 2.72 1995 Unknown [id number] 2.16840.1.477664.3.579. 2.72 1995 Unknown [id number] 2.16.840.1.077862.3.579. 2.72 1995 Unknown [id number] 2.16840.1.576439.3.579. 2.72 1995 Unknown [id number] 2.16840.1.419646.3.579. 2.125 1995 Unknown [id number] 2.16.840.1.204288.3.579. 2.1258 1995 Unknown [id number] 2.16.840.1.125069.3.579. 2.1258 1995 Unknown [id number] 2.16.840.1.904659.3.579. 2.1258 1995 Unknown [id number] 2.16.840.1.789776.3.579. 2.1258 1995 Unknown [id number] 2.16.840.1.137481.3.579. 2.1258 1995 Unknown [id number] 2.16.840.1.701720.3.579. 2.1258 1995 Unknown [id number] 2.16.840.1.486423.3.579. 2.1258 1995 Unknown [id number] 2.16.840.1.282872.3.579. 2.1258 1995 Unknown [id number] 2.16.840.1.010051.3.579. 2.1258 1995 Unknown [id number] 2.16.840.1.302257.3.579. 2.1258 1995 Unknown [id number] 2.16.840.1.383527.3.579. 2. 1995 Unknown [id number] 2.16.840.1.707962.3.579. 2. 1995 Unknown [id number] 2.16.840.1.559889.3.579. 2. 1995 Unknown [id number] 2.16.840.1.856396.3.579. 2. 1995 Unknown [id number] 2.16.840.1.040207.3.579. 2. 1995 Unknown [id number] 2.16.840.1.313892.3.579. 2. 1995 Unknown [id number] 2.16.840.1.713673.3.579. 2. 1995 Unknown [id number] 2.16.840.1.221774.3.579. 2. 1995 Unknown [id number] 2.16.840.1.263812.3.579. 2. 1995 Unknown [id number] 2.16.840.1.813285.3.579. 2. 1995 Unknown [id number] 2.16.840.1.851301.3.579. 2 1995 Unknown [id number] 2.16.840.1.987541.3.579. 2 1995 Unknown [id number] 2.16.840.1.772059.3.579. 2 1995 Unknown [id number] 2.16.840.1.006050.3.579. 2 1995 Unknown [id number] 2.16.840.1.848970.3.579. 2 1995 Unknown [id number] 2.16.840.1.475422.3.579. 2 1995 Unknown [id number] 2.16.840.1.704952.3.579. 2 1995 Unknown [id number] 2.16.840.1.852052.3.579. 2 1995 Unknown [id number] 2.16.840.1.411695.3.579. 2 1995 Unknown [id number] 2.16.840.1.441025.3.579. 2 1995 Unknown [id number] 2.16.840.1.701736.3.579. 2 1995 Unknown [id number] 2.16.840.1.236634.3.579. 2 1995 Unknown [id number] 2.16.840.1.842048.3.579. 2 1995 Unknown [id number] 2.16.840.1.082628.3.579. 2 1995 Unknown [id number] 2.16.840.1.046052.3.579. 2 1995 Unknown [id number] 2.16.840.1.377571.3.579. 2 1995 Unknown [id number] 2.16.840.1.609071.3.579. 2.727 1995 Unknown [id number] 2.16.840.1.352034.3.579. 2.727 1995 Unknown [id number] 2.16.840.1.907065.3.579. 2.727 1995 Unknown [id number] 2.16.840.1.918875.3.579. 2.727 1995 Unknown [id number] 2.16.840.1.616489.3.579. 2.727 1995 Unknown [id number] 2.16.840.1.600801.3.579. 2.727 1995 Unknown [id number] 2.16.840.1.264350.3.579. 2.727 1959 Private Health Insurance [id number] Social History Date Type Detail Facility Start: 06-04-2019 End: 09-10-2020 Tobacco smoking status NHIS Never smoker [facility] Comment on above: denies Start: 09-10-2020 End: 10-30-2023 Tobacco use and exposure Never used [place] Start: 09-10-2020 Alcohol intake Lifetime non-d boris (finding) [place] Start: 09-10-2020 History SDOH Alcohol Frequency 1 [place] Start: 09-10-2020 History SDOH Alcohol Std Drinks 99 [place], [place] Start: 1995 Sex Assigned At Not on file [place] Exposure to SARS-CoV -2 (event) Not sure [facility] Start: 12-31-2020 Alcohol intake Ex-drinker (finding) [facility] Start: 02-20-2024 Sex Assigned At Female F [facility] Start: 02-20-2024 Alcoholic beverage intake Current drinker of alcohol (finding) [facility] Start: 02-20-2024 Alcoholic beverage intake [facility] Start: 10-30-2023 Alcohol Comment monthly [facility] Start: 1995 Sex assigned at Female [facility] Start: 11-24-2023 Gender identity Identifies as female gender (finding) [facility] Start: 11-24-2023 Sexual orientation Heterosexual (fin ding) [facility] Functional Status Date Assessment Result Facility 09-05-2024 Functional Status N/A [facility] 08-27-2024 Functional Status N/A [facility] 07-22-2024 Functional Status N/A [facility] 06-26-2024 Functional Status N/A [facility] 05-21-2024 Functional Status N/A [facility] 04-01-2024 Functional Status N/A [facility] 02-26-2024 Functional Status No [facility] Clinical Notes 01-18-2021 to 09-05-2024 Note Date & Type Note Facility 09-05-2024 Note Operative Report Diagnosis: M54.12, cervical radiculopathy Procedure: C6/7 cervical interlaminar epidural steroid injection under fluoroscopic guidance Anesthesia: Local Complications: none A 5 inch Touhy needle was utilized to achieve appropriate anatomic positioning due to patient habitus. After informed consent was obtained, the patient was brought to the procedure suite and placed in the prone position. Pulse oximetry and blood pressure were monitored throughout. Upper neck/cervical areas prepped and draped in the usual sterile fashion. Using fluoroscopic guidance, the skin and subcutaneous tissue overlying the needle trajectory were anesthetized with 2% lidocaine. A 17-gauge Touhy needle was inserted and directed by fluoroscopy. Entry into the epidural space was confirmed using the fkcr-gx-lnanatgpyh technique and 2 cc of air. Injection of contrast revealed appropriate epidural spread without vascular uptake. Confirmation achieved with at least two fluoroscopic views. 3 mL of normal saline plus 40 mg of methylprednisolone was then injected. The needle was removed and the patient was then transferred to the cover room in stable condition. The patient tolerated the procedure well. There were no apparent complications. Follow-up: The patient will update us on the response to this procedure, and agrees to continue currently prescribed/recommended therapies. [facility] Comment on above: Result Comment: Elec tronically Signed By: Mack DO, Briscoe A.\.br\Date and Time Signed: 09/05/24 14:45 EST 09-05-2024 Evaluation + Plan note Extrac riccardo from: Title:C6/7 interlaminar epid ural steroid injection under fluoroscopic guidance Author:Luis Felipe Mack DO Date:09/05/24 Diagnosis: M54.12, cervical radiculopathy Procedure: C6/7 cervical interlaminar epidural steroid injection under fluoroscopic guidance Anesthesia: Local Complications: none A 5 inch Touhy needle was utilized to achieve appropriate anatomic positioning due to patient habitus. After informed consent was obtained, the patient was brought to the procedure suite and placed in the prone position. Pulse oximetry and blood pressure were monitored throughout. Upper neck/cervical areas prepped and draped in the usual sterile fashion. Using fluoroscopic guidance, the skin and subcutaneous tissue overlying the needle trajectory were anesthetized with 2% lidocaine. A 17-gauge Touhy needle was inserted and directed by fluoroscopy. Entry into the epidural space was confirmed using the kvwn-nt-ecubyxiiyz technique and 2 cc of air. Injection of contrast revealed appropriate epidural spread without vascular uptake. Confirmation achieved with at least two fluoroscopic views. 3 mL of normal saline plus 40 mg of methylprednisolone was then injected. The needle was removed and the patient was then transferred to the cover room in stable condition. The patient tolerated the procedure well. There were no apparent complications. Follow-up: The patient will update us on the response to this procedure, and agrees to continue currently prescribed/recommended therapies. Future Appointments Appointment Date:09/18/2024 10:30:00 AM Scheduled Provider:Rohit Pina DPM Location[facility] Appointment Type: Follow Up Visit (FT) Appointment Date:10/04/2024 10:30:00 AM Scheduled Provider:April Daniels PA-C Location:[facility] Appointment Type:Pain Management - Follow Up (FT) [facility] 12-31-2024 Evaluation + Plan noteExtracted from: Title:Pain Managment Follow up Author:April Wilder Date:08/27/24 Impression and Plan Patient is a 29-year-old female with a past medical history significant for neck pain, cervical spondylosis, cervical stenosis and cervical neuritis. Which, recent major branch block did not give her any significant relief. In fact, she is once again noticing neck pain but she is also once again noticing her radicular symptoms. These were previously improved with an epidural. At this time, based on her imaging finds, her pain pattern, her failure to improve with conservative treatment which has previously included a full course of physical therapy and the symptoms she is experiencing I recommended to patient a C6-7 epidural steroid injection to be done under fluoroscopy for both diagnostic and therapeutic purposes. Procedure was discussed. Risks of benefits were discussed. Patient is agreeable. She will follow-up 2 weeks after the injection for reevaluation. Call the clinic sooner if needed. ROSE Score 36%. OARRS was reviewed. In regard to her gabapentin due to a low bit of tiredness she is to start taking 600 mg morning and 900 mg at night. Future Appointments Appointment Date:09/04/2024 11:30:00 AM Scheduled Provider:Rohit Pina DPM [facility] Appointment Type: Follow Up Visit (FT) [facility] 12-31-2024 NoteConsultation Note Patient: CHAU MOISE Age: 29 years Sex: Female : 1995 Associated Diagnoses: None Author: April Daniels PA-C Subjective Chief complaint 08/27/2024 10:03 EST Cervical pain . Patient is a 29-year-old female. She is following up today after undergoing bilateral medial branchblock covering the C3-5 facet joints. She in fact did not feel that it gave her much by the way of relief. She still had a lot of neck pain. She then over last few weeks has started to notice that her bilateral hands have a lot of upper extremity weakness and tingling. She also is noticing some twitching. She had this before her previous C7-T1 epidural steroid injection. The previous injection done on 05/21/2024 gave her 95% relief up until recently when the pain started to return. She is here today to once again discuss her options. She has neck pain with hand and arm numbness, tingling and weakness. This affects her quality life. Affects her active. Therapy did not help. Anti-inflammatory medication did not help. Gabapentin does but she tends to miss the midday dose because she takes 600mg 3 times a day. Health Status Allergies: Allergic Reactions (Selected) No Known Allergies, Allergies (1) Active Severity Reaction No Known Allergies None Documented Current medications: (Selected) Prescriptions Prescribed gabapentin 600 mg Tab: 600 mg = 1 tab(s), Oral, TID, # 90 tab(s), Refills(s) 0, Pharmacy: [facility], 172, cm, 07/22/24 10:56:00 EST, Height/Length Dosing, 154.4, kg, 06/26/24 11:30:00 EDT, Weight Dosing Documented Medications Documented Tylenol 325 mg Tab: 650 mg, Oral, BID, PRN as needed for pain, Refills(s) 0 ciprofloxacin 500 mg Tab: 500 mg = 1 tab(s), Refills(s) 0 escitalopram 20 mg Tab: 20 mg = 1 tab(s), Oral, Daily, Refills(s) 0 Problem list: All Problems Extreme obesity / SNOMED CT [id number] / Confirmed Resolved: denies / SNOMED CT [id number] Resolved: Pulmonary embolism / SNOMED CT [id number] Resolved: DVT (deep venous thrombosis) / SNOMED CT [id number] Objective Vital Signs 08/27/2024 10:03 EST Peripheral Pulse Rate 86 bpm Systolic Blood Pressure 149 mmHg HI Diastolic Blood Pressure 88 mmHg Mean Arterial Pressure, Cuff 108 mmHg General: Alert and oriented, No acute distress. Eye: Normal conjunctiva. HENT: Normocephalic, Normal hearing. Cardiovascular: No edema. Musculoskeletal Normal range of motion. Normal strength. 5-5 strength Integumentary: Warm, Dry, [place]. Neurologic: Alert, Oriented. Psychiatric: Cooperative, Appropriate mood & affect. 14 point review of systems was negative unless otherwise noted. Results Review Cervical MRI report reviewed. Impression and Plan Patient is a 29-year-old female with a past medical history significant for neck pain, cervical spondylosis, cervical stenosis and cervical neuritis. Which, recent major branch block did not give herany significant relief. In fact, she is once again noticing neck pain but she is also once again noticing her radicular symptoms. These were previously improved with an epidural. At this time, based on her imaging finds, her pain pattern, her failure to improve with conservative treatment which haspreviously included a full course of physical therapy and the symptoms she is experiencing I recommended to patient a C6-7 epidural steroid injection to be done under fluoroscopy for both diagnostic and therapeutic purposes. Procedure was discussed. Risks of benefits were discussed. Patient is agreeable. She will follow-up 2 weeks after the injection for reevaluation. Call the clinic sooner if needed. ROSE Score 36%. OARRS was reviewed. In regard to her gabapentin due to a low bit of tiredness she is to start taking 600 mg morning and 900 mg at night.[facility] CampusComment on above:Result Comment: Electronically Signed By: April Daniels PA-C\.br\Date and Time Signed: 08/27/24 10:27 [id number] Telephone encounter Note* Telephone Encounter - ZEFERINO Bello - 08/19/2024 9:30 AM EST Culture results and management [facility] [id number] Miscellaneous Notes* Telephone Encounter - ZEFERINO Bello - 08/19/2024 9:30 AM EST Culture results and management documented in this encounterNOCass [facility] [id number] Telephone encounter Note* Telephone Encounter - ZEFERINO Bello - 08/19/2024 9:29 AM EST Will call in pt cipro from wound culture results [facility] [id number] Miscellaneous Notes* Telephone Encounter - ZEFERINO Bello - 08/19/2024 9:29 AM EST Will call in pt cipro from wound culture results documented in this [facility]12-20-2024 NoteMicrobiology PROCEDURE: Wound Culture [R1] SOURCE: Wound BODY SITE: Leg R COLLECTED DATE/TIME: 08/14/2024 11:15 EST RECEIVED DATE/TIME: 08/14/2024 14:26 EST START DATE/TIME: 08/14/2024 14:26 EST FREE TEXT SOURCE: Right Calf Rohit Pina DPM, DPM, Rohit Allen FINAL REPORTS Final Report [] Verified Date/Time: 08/16/2024 13:56 EST 2+ Staphylococcus aureus 1+ Gram Positive Rods resembling diphtheroids STAINS Gram Stain Report [] Verified Date/Time: 08/15/2024 11:55 EST 2+ White Blood Cells 2+ Gram Positive Cocci SUSCEPTIBILITY RESULTS LEGEND: S=Susceptible, N/R=Not Reported, Blank=Data not available, or drug not advisable or tested, I=Intermediate, ESBL=Extended spectrum beta-lactamase, R=Resistant, TFG=Thymidine-dependent strain, KENNY=Beta-lactamase positive, GUERRERO=mcg/m;(mg/L), S*=Predicted susceptible interp, R*=Predicted resistant interp SA Antibiotic GUERRERO Dilutn GUERRERO Interp Amoxicillin/ <=4/2 S Clavulanate Ampicillin/ <=8/4 S Sulbactam Azithromycin <=2 S Cefazolin <=8 S Ceftaroline <=0.5 S Ciprofloxacin <=1 S Clindamycin 0.5 S Daptomycin <=1 S Erythromycin <=0.5 S Gentamicin <=4 S Levofloxacin <=1 S Linezolid <=2 S Oxacillin <=0.25 S Penicillin <=0.03 S Rifampin <=1 S Tetracycline <=4 S Trimethoprim/ <=0.5/9.5 S Sulfa Vancomycin 1 S Performing Locations R1: This test was performed at: [facility], [address] [place] [address], [address], QriysaTrinity Health System [facility] CampusComment on above:Performed By: #### [id number] #### [facility] [address] [place] [address] [id number] Evaluation + Plan noteExtracted from: Title:Bilateral cervical med ial branch blocks target the C3/4 and C4/5 facets #1 Author:Luis Felipe Mack DO Date:07/22/24 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 The neck area is prepped and draped in usual sterile fashion. Using fluoroscopic guidance skin and subcutaneous tissue overlying needle trajectories to the target sites were anesthetized with 2% lidocaine. 22- gauge needles were advanced under fluoroscopic guidance to the appropriate anatomic landmarks. Needle tip position was confirmed on both sides. Injection of small amount of contrast each needle tip revealed appropriate spread without vascular take. Subsequently, 0.3 mL of 0.5% bupivacaine was injected at each needle tip. The needles were removed. The patient was then transferred to the recovery room in stable condition. Follow-up: Should the patient have pain relief, the patient may be a candidate for radiofrequency lesioning. The patient agrees to continue currently prescribed/recommended therapies. Addendum by Gabrielle Mack DO, rd on July 22, 2024 11:51 EST 5 inch spinal needles were utilized to achieve appropriate anatomic positioning due to patient habitus. 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 The neck area is prepped and draped in usual sterile fashion. Using fluoroscopic guidance skin and subcutaneous tissue overlying needle trajectories to the target sites were anesthetized with 2% lidocaine. 22-gauge needles were advanced under fluoroscopic guidance to the appropriate anatomic landmarks. Needle tip position was confirmed on both sides. Injection of small amount of contrast each needle tip revealed appropriate spread without vascular take. Subsequently, 0.3 mL of 0.5% bupivacaine was injected at each needle tip. The needles were removed. The patient was then gagnon sferred to the recovery room in stable condition. Follow-up: Should the patient have pain relief, the patient may be a candidate for radiofrequency lesioning. The patient agrees to continue currently prescribed/recommended therapies. 5 inch spinal needles were utilized to achieve appropriate anatomic positioning due to patient habitus.[facility] CampusComment on above:Result Comment: Electronically Signed By: Luis Felipe Mack DO\.br\Date and Time Signed: 07/22/24 11:51 [id number] NoteConsultation Note Diagnosis: M54.12, cervical radiculopathy Procedure: C7/T1 cervical interlaminar epidural steroid injection under fluoroscopic guidance Anesthesia: Local Complications: none 5 inch Touhy was utilized due to patient habitus. After informed consent was obtained, the patient was brought to the procedure suite and placed in the prone position. Pulse oximetry and blood pressure were monitored throughout. Upper neck/cervical areas prepped and draped in the usual sterile fashion. Using fluoroscopic guidance, the skin and subcutaneous tissue overlying the needle trajectory were anesthetized with 2% lidocaine. A 17-gauge Touhy needle was inserted and directed by fluoroscopy. Entry into the epidural space was confirmed using the rjit-vy-mgbnxrljjh technique and 2 cc of air. Injection of contrast revealed appropriate spread without vascular uptake. Confirmation achieved with at least two fluoroscopic views. 3 mL of normal saline plus 40 mg of methylprednisolone was then injected. The needle was removed and the patient was then transferred to the cover room in stable condition. The patient tolerated the procedure well. There were no apparent complications. Follow-up: The patient will update us on the response to this procedure, and agrees to continue currently prescribed/recommended therapies. Operative Report Note type [facility] HealthcareComment on above:Result Comment: Electronically Signed By: Luis Felipe Mack DO\.br\Date and Time Signed: 06/27/24 13:53 [id number] Evaluation + Plan noteExtracted from: Title:Pain Managment Follow up Author:April Wilder Date:06/26/24 Impression and Plan Patient is a 29-year-old female with a past medical history significant for cervical neuritis and cervical spondylosis. Her radicular symptoms are significantly improved following her recent C7-T1 epidural steroid injection. This has given her 95% relief. She states that her arm symptoms are much better. Unfortunate, she still having neck pain that on physical examination appears facet mediated. We reviewed her MRI. We discussed different options. It should be noted that she has previously trialed and failed all other reasonable conservative treatments. At this time, based on her MRI, her pain pattern and her failure to improve with conservative treatments I recommended to patient bilateral medial branch block covering the C3-5 facet joints. This will be done under fluoroscopy for diagnostic purposes. If she get significant short-term relief she may be a future candidate for RFA. Procedure was discussed. Risks and benefits were discussed. Patient is agreeable. She will follow-up 1 week after the injection for reevaluation. Call clinic sooner if necessary. ROSE score: 32%. Future Appointments Appointment Date:07/03/2024 11:00:00 AM Scheduled Provider:Rohit Pina DPM Location[facility] Appointment Type: Follow Up Visit (FT) [facility] 10-30-2024 NoteConsultation Note Patient: CHAU MOISE Age: 29 years Sex: Female : 1995 Associated Diagnoses: None Author: April Daniels PA-C Subjective Chief complaint 06/26/2024 11:21 EDT Neck pain . Patient is a 29-year-old female. She presents today for follow-up after undergoing a C7-T1 epiduralsteroid injection. This was done on 05/21/2024. It gave her 95% relief. Her radicular symptoms are better. Unfortunately, she still has a lot of neck pain. This goes up into her head. It affects her ability to turn her head. Affects her ability to do certain things. Affects her quality of life and affects her activities. She has done therapy in the past that has not helped. She has used meloxicam including Aleve in the past without relief. She uses gabapentin with some relief and not enough. Shewonders if there are any other options for the neck pain as this is her rate limiting factor at this time. She is pleased that her radicular symptoms are better now she is once to get her neck pain better under control. Health Status Allergies: Allergic Reactions (Selected) No Known Allergies, Allergies (1) Active Severity Reaction No Known Allergies None Documented Current medications: (Selected) Prescriptions Prescribed gabapentin 300 mg Cap: 600 mg = 2 cap(s), Oral, TID, X 30 day(s), # 180 cap(s), Refills(s) 0, Pharmacy: [facility], 172, cm, 05/21/24 12:36:00 EDT, Height/Length Dosing, 154.2, kg, 04/01/24 8:35:00 EDT, Weight Dosing Documented Medications Documented Tylenol 325 mg Tab: 650 mg, Oral, BID, PRN as needed for pain, Refills(s) 0 escitalopram 5 mg oral tablet: 5 mg = 1 tab(s), Oral, Daily, Anxiety Problem list: All Problems Extreme obesity / SNOMED CT [id number] / Confirmed Resolved: denies / SNOMED CT [id number] Resolved: Pulmonary embolism / SNOMED CT 14290650 Resolved: DVT (deep venous thrombosis) / SNOMED CT [id number] Objective Vital Signs 06/26/2024 11:21 EDT Peripheral Pulse Rate 90 bpm Respiratory Rate 18 br/min Systolic Blood Pressure 162 mmHg HI Diastolic Blood Pressure 109 mmHg HI Mean Arterial Pressure, Cuff 127 mmHg General: Alert and oriented, No acute distress. Eye: Normal conjunctiva. HENT: Normocephalic, Normal hearing. Cardiovascular: No edema. Musculoskeletal Normal range of motion. Normal strength. 5/5 strength Pain with compression of the bilateral cervical facet joints Increased neck pain with facet loading Integumentary: Warm, Dry, [place]. Neurologic: Alert, Oriented. Psychiatric: Cooperative, Appropriate mood & affect. 14 point review of systems was negative unless otherwise noted. Results Review Cervical MRI reviewed Impression and Plan Patient is a 29-year-old female with a past medical history significant for cervical neuritis and cervical spondylosis. Her radicular symptoms are significantly improved following her recent C7-T1 epidural steroid injection. This has given her 95% relief. She states that her arm symptoms are much better. Unfortunate, she still having neck pain that on physical examination appears facet mediated. We reviewed her MRI. We discussed different options. It should be noted that she has previously trialed and failed all other reasonable conservative treatments. At this time, based on her MRI, her pain pattern and her failure to improve with conservative treatments I recommended to patient bilateral medial branch block covering the C3-5 facet joints. This will be done under fluoroscopy for diagnostic purposes. If she get significant short-term relief she may be a future candidate for RFA. Procedure was discussed. Risks and benefits were discussed. Patient is agreeable. She will follow-up 1 week after the injection for reevaluation. Call clinic sooner if necessary. ROSE score: 32%.[facility] CampusComment on above:Result Comment: Electronically Signed By: April Daniels PA-C\.lucrecia\Date and Time Signed: 06/26/24 11:38 [id number] NoteMicrobiology PROCEDURE: Wound Culture [R1] SOURCE: Wound BODY SITE: Leg R COLLECTED DATE/TIME: 05/21/2024 15:30 EDT RECEIVED DATE/TIME: 05/21/2024 16:09 EDT START DATE/TIME: 05/21/2024 16:09 EDT FREE TEXT SOURCE: Wound Culture Right Leg Dolce DPM, Emre D Dolce DPM, Emre D FINAL REPORTS Final Report [] Verified Date/Time: 05/23/2024 08:57 EDT 1+ Staphylococcus aureus 1+ Gram Positive Rods resembling diphtheroids STAINS Gram Stain Report [] Verified Date/Time: 05/22/2024 12:56 EDT Occasional White Blood Cells Occasional Gram Positive Cocci Occasional Gram Positive Rods SUSCEPTIBILITY RESULTS LEGEND: S=Susceptible, N/R=Not Reported, Blank=Data not available, or drug not advisable or tested, I=Intermediate, ESBL=Extended spectrum beta-lactamase, R=Resistant, TFG=Thymidine-dependent strain, KENNY=Beta-lactamase positive, GUERRERO=mcg/m;(mg/L), S*=Predicted susceptible interp, R*=Predicted resistant interp SA Antibiotic GUERRERO Dilutn GUERRERO Interp Amoxicillin/ <=4/2 S Clavulanate Ampicillin/ <=8/4 S Sulbactam Azithromycin <=2 S Cefazolin <=8 S Ceftaroline <=0.5 S Ciprofloxacin <=1 S Clindamycin <=0.25 S Daptomycin <=1 S Erythromycin <=0.5 S Gentamicin <=4 S Levofloxacin <=1 S Linezolid <=2 S Oxacillin <=0.25 S Penicillin <=0.03 S Rifampin <=1 S Tetracycline <=4 S Trimethoprim/ <=0.5/9.5 S Sulfa Vancomycin 1 S Performing Locations R1: This test was performed at: [facility], [address] [place] [address], [id number] , , NmsvhuTr[facility] CampusComment on above:Performed By: #### [id number] #### [facility] [address] [place] [address] [id number] Evaluation + Plan noteExtracted from: Title:Cervical epidural steroid injection Author :Luis Felipe Mack DO Date:05/21/24 Diagnosis: M54.12, cervical radiculopathy Procedure: C7/T1 cervical interlaminar epidural steroid injection under fluoroscopic guidance Anesthesia: Local Complications: none 5 inch Touhy was utilized due to patient habitus. After informed consent was obtained, the patient was brought to the procedure suite and placed in the prone position. Pulse oximetry and blood pressure were monitored throughout. Upper neck/cervical areas prepped and draped in the usual sterile fashion. Using fluoroscopic guidance, the skin and subcutaneous tissue overlying the needle trajectory were anesthetized with 2% lidocaine. A 17-gauge Touhy needle was inserted and directed by fluoroscopy. Entry into the epidural space was confirmed using the uenw-oq-stywsrvjuf technique and 2 cc of air. Injection of contrast revealed appropriate spread without vascular uptake. Confirmation achieved with at least two fluoroscopic views. 3 mL of normal saline plus 40 mg of methylprednisolone was then injected. The needle was removed and the patient was then transferred to the cover room in stable condition. The patient tolerated the procedure well. There were no apparent complications. Follow-up: The patient will update us on the response to this procedure, and agrees to continue currently prescribed/recommended therapies. Future Appointments Appointment Date:05/23/2024 11:15:00 AM Scheduled Provider:Karthik Johnson MD Location:[facility] Appointment Type: HBO Eval - Established (FT) Appointment Date:05/28/2024 08:30:00 AM Scheduled Provider: Location:.[facility] Appointment Type: HBO (FT) Appointment Date:05/28/2024 09:00:00 AM Scheduled Provider: Location:.[facility] Appointment Type: Assessment (FT) Appointment Date:05/31/2024 08:30:00 AM Scheduled Provider: Location:[facility] Appointment Type: HBO (FT) Appointment Date:06/17/2024 08:00:00 AM Scheduled Provider:April Daniels PA-C Location:FT.[facility] [place] Appointment Type:Pain Management - Follow Up (FT) [facility] 09-24-2024 NoteConsultation Note Diagnosis: M54.12, cervical radiculopathy Procedure: C7/T1 cervical interlaminar epidural steroid injection under fluoroscopic guidance Anesthesia: Local Complications: none 5 inch Touhy was utilized due to patient habitus. After informed consent was obtained, the patient was brought to the procedure suite and placed in the prone position. Pulse oximetry and blood pressure were monitored throughout. Upper neck/cervical areas prepped and draped in the usual sterile fashion. Using fluoroscopic guidance, the skin and subcutaneous tissue overlying the needle trajectory were anesthetized with 2% lidocaine. A 17-gauge Touhy needle was inserted and directed by fluoroscopy. Entry into the epidural space was confirmed using the qbfz-ao-zthanqxrsp technique and 2 cc of air. Injection of contrast revealed appropriate spread without vascular uptake. Confirmation achieved with at least two fluoroscopic views. 3 mL of normal saline plus 40 mg of methylprednisolone was then injected. The needle was removed and the patient was then transferred to the cover room in stable condition. The patient tolerated the procedure well. There were no apparent complications. Follow-up: The patient will update us on the response to this procedure, and agrees to continue currently prescribed/recommended therapies.[facility] Comment on above:Result Comment: Electronically Signed By: Luis Felipe Mack DO\Date and Time Signed: 05/21/24 13:47 [id number] Evaluation + Plan note Extracted from: Title:chronic pain Author:Luis Felipe Mack DO. Date:04/01/24 Patient is presenting with c omplaints of neck pain and radicular symptoms worse on the right than the left in her bilateral upper extremities. She rates her neck pain as a 3/10 but be a 5-8/10 acutely when exacerbated. This is worse with twisting her head which causes axial pain only. However when she is active with her bilateral upper extremities causes shooting pain down upper extremities predominantly on the right all the way to her hand occasionally on the left. Her upper extremity pain is described as sharp/stabbing sensation that can be numbness/tingling as well. We did review her cervical spine MRI and discussed that she has a disc bulge at C5/6 that is likely causing mild to moderate central canal stenosis with foraminal stenosis at this level as well. She also has multilevel degenerative changes in her cervical spine at the facet level. She also has neck stiffness. She has tried a significant number of items in the past as this pain has been going on for over 1 year, she has tried a full course of physical therapy which actually made her symptoms worse. She is participating in home stretching and strengthening exercises unabated daily basis. 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 She has tried NSAIDs such as Aleve without relief. Tylenol is provided minimal relief. Muscle relaxants provided mild relief in the past. However nothing has helped most recently and she would like to know what else can be done at this time. ROSE Score: 26% PHQ-2: 3 Patient denies any symptoms of progressively worsening upper/lower extremity weakness, progressively worsening gait abnormality, new onset bowel/bladder incontinence/ urinary retention, or saddle anesthesia. No new or worsening symptoms of fever, chills, night sweats. 14 Point Review of systems negative unless otherwise noted. General: No acute distress. Patient appears well-nourished. HEENT: Head is normocephalic and external ears are normal in appearance. Cardiovascular: No signs of poor perfusion and no peripheral edema Pulmonary: Nonlabored breathing, symmetric chest movement. GI: Abdomen nondistended Integumentary: No lesions Neurologic: Alert, oriented x3. 5/5 strength grossly in the bilateral upper extremities. Sensation intact to light touch in the bilateral upper extremities. 5/5 strength grossly in the bilateral lower extremities. MSK/Special Testing: Negative Edna sign bilaterally, Spurling sign reproduces radicular symptoms bilaterally, facet loading in the cervical spine reproduce axial pain bilaterally. History, physical examination, and personal review of pertinent imaging results indicate a diagnosis of: -Cervical radiculopathy -Cervical spondyloarthropathy -Myofascial pain Plan: -We lengthy discussion about her current symptoms appears to the radicular component of her symptoms with most significant to her we will plan to perform a C7/T1 interlaminar epidural steroid injection fluoroscopic guidance -Will start her on gabapentin and titrate to a goal dose of 600 mg 3 times daily -Will add Flexeril 10 mg 3 times daily to be taken as needed for muscle spasms -We also discussed that component of her pain appears to be spondyloarthropathy in nature and if this axial pain persist and we can resolve her radicular symptoms we can consider cervical medial branch blocks to target the C3/4 and C4/5 facets under fluoroscopic guidance in anticipation of radiofrequency ablation effective -Follow-up in 1 month Patient was counseled on the above diagnosis and treatment, all questions were answered and patient agrees to adhere to the plan above. Risk and benefits of appropriate procedures and medications were reviewed as well with patient, who voiced understanding and agreeance. Patient was counseled on appropriate use of opioids if prescribed or renewed today and naloxone was offered to patient if opioids were prescribed or maintained at this visit. PHQ-2 scoring reviewed with patient and discussed seeking treatment for depression or mood disorder as appropriate. Patient was counseled on smoking cessation and/or continuing to abstain from nicotine/tobacco products as appropriate based on history; as smoking/nicotine can contribute to increased pain overall and decreased wound healing. Patient counseled on maintaining a healthy BMI as part of the total treatment of their pain and to reduce stress/strain on joints. Patient invited to return or call with any questions or concerns that arise. Future Appointments Appointment Date:04/03/2024 09:45:00 AM Scheduled Provider:Rohit Pina DPM Location[facility] Appointment Type: Follow Up Visit (FT) [facility] 08-05-2024 NoteConsultation Note Patient is presenting with complaints of neck pain and radicular symptoms worse on the right than the left in her bilateral upper extremities. She rates her neck pain as a 3/10 but be a 5-8/10 acutely when exacerbated. This is worse with twisting her head which causes axial pain only. However when she is active with her bilateral upper extremities causes shooting pain down upper extremities predominantly on the right all the way to her hand occasionally on the left. Her upper extremity pain is described as sharp/stabbing sensation that can be numbness/tingling as well. We did review her cervical spine MRI and discussed that she has a disc bulge at C5/6 that is likely causing mild to moderate central canal stenosis with foraminal stenosis at this level as well. She also has multilevel degenerative changes in her cervical spine at the facet level. She also has neck stiffness. She has tried a significant number of items in the past as this pain has been going on for over 1 year, she has tried a full course of physical therapy which actually made her symptoms worse. She is participatingin home stretching and strengthening exercises unabated daily basis. 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 She has tried NSAIDs such as Aleve without relief. Tylenol is providedminimal relief. Muscle relaxants provided mild relief in the past. However nothing has helped most r ecently and she would like to know what else can be done at this time. ROSE Score: 26% PHQ-2: 3 Patient denies any symptoms of progressively worsening upper/lower extremity weakness, progressively worsening gait abnormality, new onset bowel/bladder incontinence/ urinary retention, or saddle anesthesia. No new or worsening symptoms of fever, chills, night sweats. 14 Point Review of systems negative unless otherwise noted. General: No acute distress. Patient appears well-nourished. HEENT: Head is normocephalic and external ears are normal in appearance. Cardiovascular: No signs of poor perfusion and no peripheral edema Pulmonary: Nonlabored breathing, symmetric chest movement. GI: Abdomen nondistended Integumentary: No lesions Neurologic: Alert, oriented x3. 5/5 strength grossly in the bilateral upper extremities. Sensation intact to light touch in the bilateral upper extremities. 5/5 strength grossly in the bilateral lower extremities. MSK/Special Testing: Negative Edna sign bilaterally, Spurling sign reproduces radicular symptoms bilaterally, facet loading in the cervical spine reproduce axial pain bilaterally. History, physical examination, and personal review of pertinent imaging results indicate a diagnosis of: -Cervical radiculopathy -Cervical spondyloarthropathy -Myofascial pain Plan: -We lengthy discussion about her current symptoms appears to the radicular component of her symptoms with most significant to her we will plan to perform a C7/T1 interlaminar epidural steroid injection fluoroscopic guidance -Will start her on gabapentin and titrate to a goal dose of 600 mg 3 times daily -Will add Flexeril 10 mg 3 times daily to be taken as needed for muscle spasms -We also discussed that component of her pain appears to be spondyloarthropathy in nature and if this axial pain persist and we can resolve her radicular symptoms we can consider cervical medial branch blocks to target the C3/4 and C4/5 facets under fluoroscopic guidance in anticipation of radiofrequency ablation effective -Follow-up in 1 month Patient was counseled on the above diagnosis and treatment, all questions were answered and patientagrees to adhere to the plan above. Risk and benefits of appropriate procedures and medications were reviewed as well with patient, who voiced understanding and agreeance. Patient was counseled on appropriate use of opioids if prescribed or renewed today and naloxone was offered to patient if opioids were prescribed or maintained at this visit. PHQ-2 scoring reviewed with patient and discussed seeking treatment for depression or mood disorder as appropriate. Patient was counseled on smoking cessation and/or continuing to abstain from nicotine/tobacco products as appropriate based on history; as smoking/nicotine can contribute to increased pain overall and decreased wound healing. Patient counseled on maintaining a healthy BMI as part of the total treatment of their pain and to reduce stress/strain on joints. Patient invited to return or call with any questions or concerns that arise.[facility] CampusComment on above:Result Comment: Electronically Signed By: Luis Felipe Mack DO.br\Date and Time Signed: 04/01/24 09:34 [id number] Note Microbiology PROCEDURE: Wound Culture [R1] SOURCE: Wound BODY SITE: Leg R COLLECTED DATE/TIME: 02/27/2024 13:18 EDT RECEIVED DATE/TIME: 02/27/2024 14:29 EDT START DATE/TIME: 02/27/2024 14:29 EDT FREE TEXT SOURCE: Culture right leg wound Emre Pina DPM, DPM, Emre Charles FINAL REPORTS Final Report [] Verified Date/Time: 02/29/2024 10:35 EDT Scant growth of Staphylococcus species coagulase negative STAINS Gram Stain Report [] Verified Date/Time: 02/28/2024 08:25 EDT No organisms seen. Performing Locations R1: This test was performed at: [facility], [address] [place] [address], [id number] , , YltjwtTrinity Health System West CampusComment on above:Performed By: #### [id number] #### [facility] [address] [place] [address] [id number] Hospital Discharge instructions Patient Education 02/27/2024 14:30:11 Post Op Patient Instructions - FT (CUSTOM) 02/27/2024 13:33:18 Dolhermann - Post Operative Instructions (Revised 04/24/14) (Custom) [place], [place] Emre Pina, ZEFERINO, FACFAS POST OPERATIVE INSTRUCTIONS Keep bandage clean and dry and DO NOT REMOVE Keep foot elevated on white foam pillow Apply cryocuff to top of ankle, one hour on one hour off, until first office visit Non weight bearing on operative foot. Take pain medications as directed Do not be alarmed if you notice slight bleeding on the bandage, this is normal Report any increase in swelling to Dr. Pina immediately Resume regular diet. Call the office if you develop: persistent bleeding temperature above 100 degrees persistent vomiting calf pain or shortness of breath redness or pus at operative site Call the office tomorrow for 1st post-operative dressing change appointment. If you have any problems or questions, feel free to call the doctor at: [phone] or [phone] Pina paged. Patient signatureDate Dr. Emre Pina DPKelly, FACFASDate Revised: 208 Follow Up Care 02/21/2024 09:38:20 With:Emre Pina Address: [facility] [address] [place] [address]- 0 Business (1) [facility]: c/o [address] [place] [address]- 0 Business (1) When:03/05/2024 [facility]07-02-2024 NoteProgress Note-Physician Patient: CHAU MOISE Age: 28 years Sex: Female : 1995 Associated Diagnoses: None Author: Yasmany SEGOVIA, Joe Castellanos Postoperative Information Postoperative disposition: Postoperative disposition: To PACU. Optimetrix number: Optimetrix number [id number]. Anesthetic utilized: Monitored anesthesia care. Health Status Allergies: Allergic Reactions (Selected) No Known Allergies Physical Examination Vital Signs 02/27/2024 14:08 EDT Heart Rate Monitored 63 bpm SpO2 97 % 02/27/2024 14:08 EDT Respiratory Rate 18 br/min Systolic Blood Pressure 130 mmHg Diastolic Blood Pressure 88 mmHg Blood Pressure Location Right arm Mean Arterial Pressure, Monitered 102 mmHg 02/27/2024 13:55 EDT Temperature Temporal Artery 36.2 DegC LOW Heart Rate Monitored 68 bpm Respiratory Rate Monitored 16 br/min Systolic Blood Pressure 124 mmHg Diastolic Blood Pressure 82 mmHg Mean Arterial Pressure, Cuff 96 mmHg SpO2 96 % 02/27/2024 13:45 EDT Heart Rate Monitored 71 bpm Respiratory Rate Monitored 20 br/min Systolic Blood Pressure 123 mmHg Diastolic Blood Pressure 87 mmHg Mean Arterial Pressure, Cuff 99 mmHg SpO2 96 % 02/27/2024 13:40 EDT Heart Rate Monitored 81 bpm Respiratory Rate Monitored 19 br/min Systolic Blood Pressure 96 mmHg Diastolic Blood Pressure 82 mmHg Mean Arterial Pressure, Cuff 87 mmHg SpO2 95 % 02/27/2024 13:35 EDT Heart Rate Monitored 78 bpm Respiratory Rate Monitored 17 br/min Systolic Blood Pressure 119 mmHg Diastolic Blood Pressure 76 mmHg Mean Arterial Pressure, Cuff 90 mmHg SpO2 96 % 02/27/2024 13:30 EDT Temperature Axillary 36.3 DegC Heart Rate Monitored 75 bpm Respiratory Rate Monitored 19 br/min Systolic Blood Pressure 118 mmHg Diastolic Blood Pressure 75 mmHg Mean Arterial Pressure, Cuff 89 mmHg SpO2 98 % Pain Assessment: Controlled. General: Awake, Appropriate. Respiratory: Adequate air exchange. Cardiovascular: Stable. Neurological Assessment Anesthetic outcome No anesthetic complications noted. Adequate pain relief. Review / Management Condition: Stable. Plan Transfer/Discharge: Transfer/Discharge Discharge when meets criteria ( To home ).[facility] CampusComment on above:Result Comment: Electronically Signed By: Joe Jade MD\.br\Date and Time Signed: 02/27/24 14:30 EDT 02-27-2024 NotePatient Education - Text [place], [place] Emre Pina DPM, FACFAS POST OPERATIVE INSTRUCTIONS Keep bandage clean and dry and DO NOT REMOVE Keep foot elevated on white foam pillow Apply cryocuff to top of ankle, one hour on one hour off, until first office visit Non weight bearing on operative foot. Take pain medications as directed Do not be alarmed if you notice slight bleeding on the bandage, this is normal Report any increase in swelling to Dr. Pina immediately Resume regular diet. Call the office if you develop: persistent bleeding temperature above 100 degrees persistent vomiting calf pain or shortness of breath redness or pus at operative site Call the office tomorrow for 1st post-operative dressing change appointment. If you have any problems or questions, feel free to call the doctor at: [phone] or [phone] Pina paged. Patient signature Date Dr. Emre Pina DPM, FACFAS Date Revised: 10-05[facility] Evaluation + Plan note Extracted from: Title:ANES Post-operative Note---General Author: Joe Jade MD Date:02/27/24 Plan Transfer/Discharge: Transfer/Discharge Discharge when meets criteria ( To home ). Extracted from: Title:ANES Pre-operative Note 2022 Author:Joe Sifuentes. Date:02/27/24 Plan [place] [employer] Anesthesiologists (ASA) physical status classification: Class III. Anesthetic Preoperative Plan: Anesthesia Monitored anethesia care. Future Appointments Appointment Date:03/05/2024 12:30:00 PM Scheduled Provider:Emre Pina DPM Location:FT.WOUND CLINIC Appointment Type: New Patient 30 (FT) Diagnostic Tests Pending * Wound Culture 02/27/24 [facility]07-02-2024 NoteProgress Note-Physician Patient: CHAU MOISE Age: 28 years Sex: Female : 1995 Associated Diagnoses: None Author: Emre Pina DPM Postoperative Information Preoperative Diagnosis: non healing wound right leg > 2 years olce. Postoperative Diagnosis: same. Performed by: Emre Pina DPM Complications: None. wound prep for vac right leg wound biopsy right [facility]:Result Comment: Electronically Signed By: Emre Pina DPM\.br\Date and Time Signed: 02/27/24 13:32 [id number] NoteProgress Note-Physician Patient: CHAU MOISE Age: 28 years Sex: Female : 1995 Associated Diagnoses: None Author: Joe Jade MD Preoperative Information Anesthesia Preop Info: Time patient last ate or drank 01/30/2024 00:00:00. Anesthesia history: Patient history: None. Family history+: None. Informed consent: Signed by patient. Re-evaluation prior to induction: Initial evaluation reviewed: No significant change. Review of Systems Eye Ear/Nose/Mouth/Throat Respiratory: No shortness of breath, No cough. Cardiovascular: Negative, No chest pain. Gastrointestinal: No heartburn. Musculoskeletal Neurologic Health Status Allergies: Allergic Reactions (Selected) No Known Allergies, Allergies (1) Active Severity Reaction No Known Allergies None Documented Current medications: (Selected) Inpatient Medications Ordered Lactated Ringers IV Donna 1000 mL 1,000 mL: 1,000 mL, IV, 150 mL/hr, Routine, Start date 02/27/24 10:15:00 EDT, 6.7 hour(s), Total volume (mL): 1,000 Documented Medications Documented escitalopram 5 mg oral tablet: 5 mg = 1 tab(s), Oral, Daily, Anxiety, Home Medications (1) Active escitalopram 5 mg oral tablet 5 mg = 1 tab(s), Oral, Daily , Medications (1) Active Scheduled: (0) Continuous: (1) Lactated Ringers 1,000 mL 1,000 mL, IV, 150 mL/hr PRN: (0) Problem list: All Problems Extreme obesity / SNOMED CT [id number] / Confirmed Resolved: denies / SNOMED CT 401228286 Resolved: DVT (deep venous thrombosis) / SNOMED CT [id number] Resolved: Pulmonary embolism / SNOMED CT 26242014, Active Problems (1) Extreme obesity , Factor V Leiden deficiency Histories Past Medical History: Resolved denies (174778448): Resolved. Pulmonary embolism (86061668): Resolved. DVT (deep venous thrombosis) ([id number]): Resolved. Family History: Primary malignant neoplasm of lung Father Depression Father Mother Procedure history: Denies. Social History Social & Psychosocial Habits Alcohol 02/27/2024 Risk Assessment: No Risk Comment: dende - 05/07/2018 15:52 Padmaja Lara RN Substance Abuse 02/27/2024 Risk Assessment: No Risk Comment: idalia - 05/07/2018 15:Padmjaa Witt RN Tobacco 02/27/2024 Risk Assessment: Denies Tobacco Use 02/27/2024 Tobacco Use: Never (less than 100 in l Ready to change: No Concerns about tobacco use in household: No Comment: idalia - 05/07/2018 15:53 Padmaja Lara RN . Physical Examination No qualifying data available Airway: Mallampati classification: II (soft palate, fauces, uvula visible). Respiratory: Lungs are clear to auscultation, Respirations are non-labored, adequate air exchange. Cardiovascular: Regular rhythm, No murmur, no edema. Review / Management Results review: No qualifying data available . Plan [place] [employer] Anesthesiologists (ASA) physical status classification: Class III. Anesthetic Preoperative Plan: Anesthesia Monitored anethesia care.[facility] CampusComment on above:Result Comment: Electronically Signed By: Yasmany SEGOVIA, Joe Castellanos\.br\Date and Time Signed: 02/27/24 12:00 [id number] Note [id number] [place] [facility] NoteMicrobiology PROCEDURE: Wound Culture [R1] SOURCE: Abscess BODY SITE: Leg R COLLECTED DATE/TIME: 02/12/2024 08:35 EDT RECEIVED DATE/TIME: 02/12/2024 11:47 EDT START DATE/TIME: 02/12/2024 11:47 EDT FREE TEXT SOURCE: Renata MCGARRY, Emre Pina DPM, Emre Charles FINAL REPORTS Final Report [] Verified Date/Time: 02/14/2024 12:36 EDT 1+ Staphylococcus species coagulase negative STAINS Gram Stain Report [] Verified Date/Time: 02/13/2024 07:03 EDT No organisms seen. Performing Locations R1: This test was performed at: [facility], [address] [place] [address], [id number] [place] [address], YyvfcnTrinity Health System West CampusComment on above:Performed By: #### [id number] #### [facility] [address] [place] [address] [id number] Evaluation + Plan note Diagnostic Tests Pending * Wound Culture 02/12/24 [facility]06-02-2021 NoteHNO ID: [id number] Author: Michelle Purcell RD Service: ? Author Type: Registered Dietitian Type: Progress Notes Filed: 01/29/2021 1:13 PM Note Text: Nutrition Therapy Initial Assessment RECOMMENDED MALNUTRITION DIAGNOSIS: NO MALNUTRITION IDENTIFIED Patient states reason for visit: hypercoagulation, obesity Patient's symptoms are: GI: constipation and gas Behavioral: altered appetite Weight Concerns: weight loss Diet History: states trying to put more focus on fiber d/t hx of constipation Breakfast: peanut butter/almond cereal bar, bang (not typical) Lunch: varies- left over ribs, trail mix OR wrap (whole wheat) w/ cheese/meat, sometimes lettuce, water OR sugar free flavored water Dinner: varies- meat/starch/veg OR pastas OR homemade chicken pot pie Snack(s): n/a Fluids: 64 oz water Nutrition Diagnosis: Problem, Etiology and Signs/Symptoms: Obesity related to excessive energy intakes and lack of PA as evidenced by BMI 47.9 Nutrition Intervention: -continue with 3 meals/day and snacks as needed -discussed plate method for meals -select lean protein/fruit/vegetables/whole grains -discussed meal prep -continue with light activity such as yoga and walking -aim for 64 oz non-caffeine containing beverages -discussed keeping a food log -provider contact information provided for follow up questions/concerns Nutrition Monitoring AND Evaluation: 1. PO Intake 2. Wt status 3. Biochemical Markers 4. Plan of care HT/WT/BMI 01/18/2021 HEIGHT 5' 7 WEIGHT 138.891 kg BODY MASS INDEX 47.96 Per HPI: Clint Moise presents today Hematology and Oncology evaluation. She is a 25 year old female who has a prior history of pulmonary embolus in 2014 was found to be heterozygous for factor V Leiden. ? It appears that she developed a right DVT lower extremities on 09/29/2014 when she developed swelling. Thrombosis involving popliteal vein of the right deep venous system. On the same date she had CT angiogram that demonstrated bilateral pulmonary emboli and follow-up CT scan in May 2015 showed resolution of the bilateral pulmonary emboli. ? 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 She has been referred from Dr. Grajeda's office because of her history as well as concern for needing control. Current plan is to place an IUD. I have confirmed and edited as necessary the HPI obtained by Dr. Faustin on 01/18/2021 and all reflect current status. Anthropometrics: Height: Last 1 Encounter Ht Readings: Date: Ht: 01/18/2021 170.2 cm (5' 7 ) Current weight: Last 1 Encounter Wt Readings: Date: Wt: 01/18/2021 138.9 kg (306 lb 3.2 oz) Estimated body mass index is 47.96 kg/m? as calculated from the following: Height as of 01/18/21: 170.2 cm (5' 7 ). Weight as of 01/18/21: 138.9 kg (306 lb 3.2 oz). Resting Metabolic Rate: 2167 Weight Loss: Pt reports 15# in past 1 month. She states this was stressed induced and she had very little desire to eat. [place] Body Weight: 61.6kg Estimated kilocalorie needs: 1848 kilocalories determined by 30 kcal/kg Estimated protein needs: 62-74 grams determined by 1.0-1.2 g/kg [place] weight Estimated fluid needs: 1848 milliliters based on 1 mL per kcal Educational materials provided: Healthy Lunch/Dinner Plate, Healthy Snacks, Healthy Meal Options READINESS TO LEARN Cognitive ability: Alert and oriented Motivation to learn: Interested Family support: Unable to assess - Family not present Instruction provided to: Patient Patient learns best by: Individual Instruction Factors affecting learning: None Physical limitations affecting learning: None Pt presents for nutrition counseling for obesity. Pt with hx of hypercoagulable state. She states she has attempted wt loss in the past with the Keto diet, but feels this does not work well for her. She has also tried exercise, but admits she she inconsistent. She does state she gets discouraged easily. Pt reports during the month of December, she had a lot of stress and emotions after her and her fiance broke up. During this time she lost desire to eat and states she lost 15#. She does report now being in a better mental state and has started to consider how to make healthier choices and lifestyle changes for sustainable, healthy weight loss. Pt was educated on healthy, balanced diet to promote weight loss and healthy changes. Problem solved with pt on ways to meet recommendations. Pt receptive and verbalized understanding. Thank you for allowing me to participate in the care of this pt. Allergies: Patient has no known allergies. Medications: Current Outpatient Medications Medication Sig Dispense Refill - acetaminophen (TYLENOL 8 HOUR ORAL) Take by mouth. No current facility-administered medications for this visit. Need for Follow up: 1 month Referred/Supervised by: Dr. Faustin/Dr. Faustin MNT Billing Type: Ini (more content not included)...[facility] 01-27-2021 NoteEducation (NUTRSA) CLINT MOISE ([id number]) 1995 F Date Time Provider Department 01/27/21 9:45 AM MICHELLE PURCELL Reason for Visit: Nutrition Assessment [9601] Progress Notes: Michelle Purcell RD 01/29/2021 1:13 PM Signed Nutrition Therapy Initial Assessment RECOMMENDED MALNUTRITION DIAGNOSIS: NO MALNUTRITION IDENTIFIED Patient states reason for visit: hypercoagulation, obesity Patient's symptoms are: GI: constipation and gas Behavioral: altered appetite Weight Concerns: weight loss Diet History: states trying to put more focus on fiber d/t hx of constipation Breakfast: peanut butter/almond cereal bar, bang (not typical) Lunch: varies- left over ribs, trail mix OR wrap (whole wheat) w/ cheese/meat, sometimes lettuce, water OR sugar free flavored water Dinner: varies- meat/starch/veg OR pastas OR homemade chicken pot pie Snack(s): n/a Fluids: 64 oz water Nutrition Diagnosis: Problem, Etiology and Signs/Symptoms: Obesity related to excessive energy intakes and lack of PA as evidenced by BMI 47.9 Nutrition Intervention: -continue with 3 meals/day and snacks as needed -discussed plate method for meals -select lean protein/fruit/vegetables/whole grains -discussed meal prep -continue with light activity such as yoga and walking -aim for 64 oz non-caffeine containing beverages -discussed keeping a food log -provider contact information provided for follow up questions/concerns Nutrition Monitoring AND Evaluation: 1. PO Intake 2. Wt status 3. Biochemical Markers 4. Plan of care HT/WT/BMI 01/18/2021 HEIGHT 5' 7 WEIGHT 138.891 kg BODY MASS INDEX 47.96 Per HPI: Clint Moise presents today Hematology and Oncology evaluation. She is a 25 year old female who has a prior history of pulmonary embolus in 2015 was found to be heterozygous for factor V Leiden. ? It appears that she developed a right DVT lower extremities on 09/29/2014 when she developed swelling. Thrombosis involving popliteal vein of the right deep venous system. On the same date she had CT angiogram that demonstrated bilateral pulmonary emboli and follow-up CT scan in May 2015 showed resolution of the bilateral pulmonary emboli. ? 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 She has been referred from Dr. Grajeda's office because of her history as well as concern for needing control. Current plan is to place an IUD. I have confirmed and edited as necessary the HPI obtained by Dr. Faustin on 01/18/2021 and all reflect current status. Anthropometrics: Height: Last 1 Encounter Ht Readings: Date: Ht: 01/18/2021 170.2 cm (5' 7 ) Current weight: Last 1 Encounter Wt Readings: Date: Wt: 01/18/2021 138.9 kg (306 lb 3.2 oz) Estimated body mass index is 47.96 kg/m? as calculated from the following: Height as of 01/18/21: 170.2 cm (5' 7 ). Weight as of 01/18/21: 138.9 kg (306 lb 3.2 oz). Resting Metabolic Rate: 2167 Weight Loss: Pt reports 15# in past 1 month. She states this was stressed induced and she had very little desire to eat. [place] Body Weight: 61.6kg Estimated kilocalorie needs: 1848 kilocalories determined by 30 kcal/kg Estimated protein needs: 62-74 grams determined by 1.0-1.2 g/kg [place] weight Estimated fluid needs: 1848 milliliters based on 1 mL per kcal Educational materials provided: Healthy Lunch/Dinner Plate, Healthy Snacks, Healthy Meal Options READINESS TO LEARN Cognitive ability: Alert and oriented Motivation to learn: Interested Family support: Unable to assess - Family not present Instruction provided to: Patient Patient learns best by: Individual Instruction Factors affecting learning: None Physical limitations affecting learning: None Pt presents for nutrition counseling for obesity. Pt with hx of hypercoagulable state. She states she has attempted wt loss in the past with the Keto diet, but feels this does not work well for her. She has also tried exercise, but admits she she inconsistent. She does state she gets discouraged easily. Pt reports during the month of December, she had a lot of stress and emotions after her and her fiance broke up. During this time she lost desire to eat and states she lost 15#. She does report now being in a better mental state and has started to consider how to make healthier choices and lifestyle changes for sustainable, healthy weight loss. Pt was educated on healthy, balanced diet to promote weight loss and healthy changes. Problem solved with pt on ways to meet recommendations. Pt receptive and verbalized understanding. Thank you for allowing me to participate in the care of this pt. Allergies: Patient has no known allergies. Medications: Current Outpatient Medications Medication Sig Dispense Refill - acetaminophen (TYLENOL 8 HOUR ORAL) Take b (more content not included)... [facility]05-24-2021 NoteHNO ID: [id number] Author: Suhail Pantoja MD Service: ? Author Type: Physician Type: Progress Notes Filed: 01/19/2021 9:49 AM Note Text: NAME: Clint Moise [facility] NO.: [id number] DATE OF SERVICE: January 18, 2021 Referring Provider: Venkata Grajeda DO. Consultation requested by Dr. Grajeda for an opinion regarding Ms. Clint Moise, and my final recommendations will be communicated back to the requesting physician by way of shared medical record or letter via US mail. Additional Clinicians involved in Clint Moise's care: CC: History of DVT and pulmonary embolus in 2015, hypercoagulable state. 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 DVT was previously associated with oral contraceptive pills. She currently has plans for an IUD placement. PLAN: Overall, is to decrease her reversible risk factors. 1. Consult our [facility] for aggressive weight loss 2. Sleep Study [facility] 3. Compression socks - Try [employer] HPI: Initial Visit, January 18, 2021: Clint Moise presents today Hematology and Oncology evaluation. She is a 25 year old female who has a prior history of pulmonary embolus in 2015 was found to be heterozygous for factor V Leiden. It appears that she developed a right DVT lower extremities on 09/29/2014 when she developed swelling. Thrombosis involving popliteal vein of the right deep venous system. On the same date she had CT angiogram that demonstrated bilateral pulmonary emboli and follow-up CT scan in May 2015 showed resolution of the bilateral pulmonary emboli. 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 She has been referred from Dr. Grajeda's office because of her history as well as concern for needing control. Current plan is to place an IUD. Works at [employer] with [employer] recently and is starting to lose weight. Needs a sleep study - many people in her family have sleep apnea but she only snores and has variable wakefulness during the day. Understands that this will help mitigate her risk. REVIEW OF SYSTEMS Per HPI and otherwise negative by full review of organ systems. ECOG PERFORMANCE STATUS: 0 PHYSICAL EXAMINATION: Vitals: BP 127/76 Pulse 70 Temp (Src) 97.2 (Temporal) Resp 18 Ht 5' 7 (1.70m) Wt 306 lb 3.2 oz (138.9kg) SpO2 98% LMP 12/28/2020 BMI 47.95 kg/(m2). Body surface area is 2.56 meters squared. Exam limited to gross visualization where appropriate due to COVID-19. Gen.: This is an age-appropriate patient in no acute distress. Head: Appears atraumatic with no visible lesions. Eyes: Pupils equally round and reactive to light, extraocular muscles are intact. Neck: Supple. Mouth: Mucous membranes appeared to be moist. Respiratory: Appears to be respiring comfortably. Neurologic: Nonfocal to gross visualization. Alert and oriented ?3. Psychiatric: No evidence of inappropriate anxiety or depression. Skin: Visible areas of skin without rash, lesions, wounds or petechiae. ALLERGIES: ALLERGIES No Known Allergies MEDICATIONS: No prescriptions on file. LABORATORY VALUES: No results found for: WBC, RBC, HB, HCT, MCV, MCH, MCHC, RDWCV, PLT, MPV, GLUC, BUN, CREAT, NA, K, CHLOR, CO2, TPROT, ALB, CA, ALKPHOS, TBILI, AST, ALT, CHOL, TG, BETAMM DIAGNOSIS: (D68.59) Primary hypercoagulable state (HCC) (primary encounter diagnosis) Plan: CONSULT TO NUTRITION THERAPY, CONSULT TO SLEEP MEDICINE - ADULT, POLYSOMNOGRAM (PSG) (E66.01, Z68.42) Class 3 severe obesity due to excess calories with serious comorbidity and body mass index (BMI) of 45.0 to 49.9 in adult (HCC) Plan: CONSULT TO NUTRITION THERAPY, CONSULT TO SLEEP MEDICINE - ADULT, POLYSOMNOGRAM (PSG) PAST MEDICAL HISTORY Diagnosis Date - History of blood clots - Pulmonary embolism (HCC) No past surgical history on file. Social History Tobacco Use - Smoking status: Never Smoker - Smokeless tobacco: Never Used Substance Use Topics - Alcohol use: Not Currently - Drug use: Not Currently FAMILY HISTORY Problem Relation Age of Onset - Cancer Father - Cancer Paternal Grandfather Suhail Pantoja MD, CPE [place], [place] CC: Venkata Grajeda, DO [address] [place] [id number] Jazzy Le, DO [address] [place] [id number] + Plan note No data available for this section [facility] Future Appointments Appointment Date:03/08/2024 10:00:00 AM Scheduled Provider: [facility] Appointment Type:WC Assessment (FT) Appointment Date:03/12/2024 02:00:00 PM Scheduled Provider:Emre Pina DPM [facility] Appointment Type:WC [facility] (FT[facility] Future Appointments Appointment Date:03/12/2024 08:30:00 AM Scheduled Provider: [facility] Appointment Type:WC Assessment (FT) Appointment Date:03/12/2024 02:00:00 PM Scheduled Provider:Emre Pina DPM [facility] Appointment Type:WC Follow Up Visit (FT) Appointment Date:03/15/2024 08:30:00 AM Scheduled Provider: [facility] Appointment Date:03/15/2024 08:30:00 AM Scheduled Provider: [facility] Appointment Type:WC Assessment (FT) Appointment Date:03/19/2024 02:15:00 PM Scheduled Provider:Emre Pina DPM [facility] Appointment Type:WC Follow Up Visit (FT) Appointment Date:04/01/2024 08:45:00 AM Scheduled Provider:Luis Felipe Mack DO Location:[facility] Appointment Type:Pain Management - New (FT) [facility] Future App[facility]ments Appointment Date:03/19/2024 02:15:00 PM Scheduled Provider:Emre Pina DPM [facility] Appointment Type:WC Follow Up Visit (FT) Appointment Date:04/01/2024 08:45:00 AM Scheduled Provider:Luis Felipe Mack DO Location:[facility] Appointment Type:[facility] Management - New ([facility]) [facility] Future App[facility]ments Appointment Date:03/22/2024 08:30:00 AM Scheduled Provider: [facility] Appointment Type:WC Assessment (FT) Appointment Date:03/26/2024 08:30:00 AM Scheduled Provider: [facility] Appointment Type:WC Assessment (FT) Appointment Date:04/01/2024 08:45:00 AM Scheduled Provider:Luis Felipe Mack DO Location:[facility] Appointment Type:Pain Management - New (FT) Appointment Date:04/02/2024 12:30:00 PM Scheduled Provider:Emre Pina DPM [facility] Appointment Type:WC [facility] Up [facility] ([facility] Future App[facility]ments Appointment Date:03/26/2024 08:30:00 AM Scheduled Provider: [facility] Appointment Type:WC Assessment (FT) Appointment Date:04/01/2024 08:45:00 AM Scheduled Provider:Luis Felipe Mack DO Location:[facility] Appointment Type:Pain Management - New (FT) Appointment Date:04/02/2024 12:30:00 PM Scheduled Provider:Emre Pina DPM [facility] Appointment Type:WC Follow Up Visit (FT) [facility] Evaluation + Plan note Future Appointments Appointment Date:04/01/2024 08:45:00 AM Scheduled Provider:Luis Felipe Mack DO Location:[facility] [place] Appointment Type:Pain Management - New (FT) Appointment Date:04/02/2024 12:30:00 PM Scheduled Provider:Emre Pina DPM [facility] Appointment Type:WC Follow Up Visit (FT) [facility] evaluation + Plan note Future Appointments Appointment Date:04/12/2024 11:00:00 AM Scheduled Provider: [facility] Appointment Type:WC Assessment (FT) Appointment Date:04/16/2024 04:15:00 PM Scheduled Provider:Emre Pina DPM [facility] Appointment Type:WC Follow Up Visit (FT) [facility] Evaluation + Plan note Future Appointments Appointment Date:04/16/2024 04:15:00 PM Scheduled Provider:Emre Pina DPM [facility] Appointment Type:WC Follow Up Visit (FT) [facility] Evaluation + Plan note Future Appointments Appointment Date:04/24/2024 02:00:00 PM Scheduled Provider: [facility] Appointment Type:WC Assessment (FT) Appointment Date:04/30/2024 12:30:00 PM Scheduled Provider:Emre Pina DPM [facility] Appointment Type:WC Follow Up Visit (FT) [facility] Evaluation + Plan note Future Appointments Appointment Date:04/30/2024 12:30:00 PM Scheduled Provider:Emre Pina DPM [facility] Appointment Type:WC Follow Up Visit (FT) [facility] evaluation + Plan note Future Appointments Appointment Date:05/07/2024 01:45:00 PM Scheduled Provider:Emre Pina DPM [facility] Appointment Type:WC Follow Up Visit (FT) Appointment Date:05/21/2024 01:30:00 PM Scheduled Provider: Location:[facility] Appointment Type:Surgery FT Appointment Date:06/17/2024 08:00:00 AM Scheduled Provider:April Daniels PA-C Location:[facility] [place] Appointment Type:Pain Management - Follow Up (FT) [facility] + Plan note Future Appointments Appointment Date:05/15/2024 01:00:00 PM Scheduled Provider: [facility] Appointment Type:WC Assessment (FT) Appointment Date:05/21/2024 01:30:00 PM Scheduled Provider: Location:[facility] Appointment Type:Surgery FT Appointment Date:05/21/2024 03:00:00 PM Scheduled Provider:Emre Pina DPM [facility] Appointment Type:WC Follow Up Visit (FT) Appointment Date:06/17/2024 08:00:00 AM Scheduled Provider:April Daniels PA-C Location:[facility] [place] Appointment Type:Pain Management - Follow Up (FT) [facility] + Plan note Future Appointments Appointment Date:05/21/2024 01:30:00 PM Scheduled Provider: Location:[facility] Appointment Type:Surgery FT Appointment Date:05/21/2024 03:00:00 PM Scheduled Provider:Emre Pina DPM [facility] Appointment Type:WC Follow Up Visit (FT) Appointment Date:05/23/2024 11:45:00 AM Scheduled Provider:Karthik Johnson MD Location[facility] Appointment Type:WC HBO Eval - Established (FT) Appointment Date:05/28/2024 08:30:00 AM Scheduled Provider: [facility] Appointment Type:WC HBO (FT) Appointment Date:05/31/2024 08:30:00 AM Scheduled Provider: [facility] Appointment Type:WC HBO (FT) Appointment Date:06/17/2024 08:00:00 AM Scheduled Provider:April Daniels PA-C Location:[facility] [place] Appointment Type:Pain Management - Follow Up (FT) [facility] + Plan note Future Appointments Appointment Date:05/23/2024 11:15:00 AM Scheduled Provider:Karthik Johnson MD [facility] Appointment Type:WC HBO Eval - Established (FT) Appointment Date:05/28/2024 08:30:00 AM Scheduled Provider: [facility] Appointment Type:WC HBO (FT) Appointment Date:05/28/2024 09:00:00 AM Scheduled Provider: [facility] Appointment Type:WC Assessment (FT) Appointment Date:05/31/2024 08:30:00 AM Scheduled Provider: [facility] Appointment Type:WC HBO (FT) Appointment Date:06/17/2024 08:00:00 AM Scheduled Provider:April Daniels PA-C Location:[facility] [place] Appointment Type:Pain Management - Follow Up (FT) Diagnostic Tests Pending * Wound Culture 05/21/24 [facility] Evaluation + Plan note Future Appointments Appointment Date:05/28/2024 09:00:00 AM Scheduled Provider: [facility] Appointment Type:WC Assessment (FT) Appointment Date:05/31/2024 08:30:00 AM Scheduled Provider: [facility] Appointment Type:WC HBO (FT) Appointment Date:06/03/2024 08:30:00 AM Scheduled Provider: [facility] Appointment Type:WC HBO (FT) Appointment Date:06/04/2024 08:30:00 AM Scheduled Provider: [facility] Appointment Type:WC HBO (FT) Appointment Date:06/05/2024 01:00:00 PM Scheduled Provider: [facility] Appointment Type:WC HBO (FT) Appointment Date:06/07/2024 08:30:00 AM Scheduled Provider: [facility] Appointment Type:WC HBO (FT) Appointment Date:06/10/2024 11:45:00 AM Scheduled Provider:Karthik Johnson MD [facility] Appointment Type:WC HBO Re-Eval (FT) Appointment Date:06/12/2024 01:00:00 PM Scheduled Provider: [facility] Appointment Type:WC HBO (FT) Appointment Date:06/14/2024 08:30:00 AM Scheduled Provider: [facility] Appointment Type:WC HBO (FT) Appointment Date:06/17/2024 08:00:00 AM Scheduled Provider:April Daniels PA-C Location[facility] [place] Appointment Type:Pain Management - Follow Up (FT) Appointment Date:06/19/2024 01:00:00 PM Scheduled Provider: [facility] Appointment Type:WC HBO (FT) Appointment Date:06/21/2024 08:30:00 AM Scheduled Provider: [facility] Appointment Type:WC HBO (FT) Appointment Date:06/26/2024 01:00:00 PM Scheduled Provider: [facility] Appointment Type:WC HBO (FT) [facility] Evaluation + Plan note Future Appointments Appointment Date:05/31/2024 08:30:00 AM Scheduled Provider: [facility] Appointment Type:WC HBO (FT) Appointment Date:06/03/2024 08:30:00 AM Scheduled Provider: [facility] Appointment Type:WC HBO (FT) Appointment Date:06/04/2024 08:30:00 AM Scheduled Provider: [facility] Appointment Type:WC HBO (FT) Appointment Date:06/04/2024 03:30:00 PM Scheduled Provider:Emre Pina DPM [facility] Appointment Type:WC Follow Up Visit (FT) Appointment Date:06/05/2024 01:00:00 PM Scheduled Provider: [facility] Appointment Type:WC HBO (FT) Appointment Date:06/07/2024 08:30:00 AM Scheduled Provider: [facility] Appointment Type:WC HBO (FT) Appointment Date:06/10/2024 11:45:00 AM Scheduled Provider:Karthik Johnson MD Location[facility] Appointment Type:WC HBO Re-Eval (FT) Appointment Date:06/12/2024 01:00:00 PM Scheduled Provider: [facility] Appointment Type:WC HBO (FT) Appointment Date:06/14/2024 08:30:00 AM Scheduled Provider: [facility] Appointment Type:WC HBO (FT) Appointment Date:06/17/2024 08:00:00 AM Scheduled Provider:April Daniels PA-C Location:[facility] Appointment Type:Pain Management - Follow Up (FT) Appointment Date:06/19/2024 01:00:00 PM Scheduled Provider: [facility] Appointment Type:WC HBO (FT) Appointment Date:06/21/2024 08:30:00 AM Scheduled Provider: [facility] Appointment Type:WC HBO (FT) Appointment Date:06/26/2024 01:00:00 PM Scheduled Provider: [facility] Appointment Type:WC HBO (FT) [facility] Evaluation + Plan note Future Appointments Appointment Date:06/05/2024 01:00:00 PM Scheduled Provider: [facility] Appointment Type:WC HBO (FT) Appointment Date:06/07/2024 08:30:00 AM Scheduled Provider: [facility] Appointment Type:WC HBO (FT) Appointment Date:06/10/2024 11:45:00 AM Scheduled Provider:Karthik Johnson MD Location[facility] Appointment Type:WC HBO Re-Eval (FT) Appointment Date:06/11/2024 04:15:00 PM Scheduled Provider:Emre Pina DPM [facility] Appointment Type:WC Follow Up Visit (FT) Appointment Date:06/12/2024 01:00:00 PM Scheduled Provider: [facility] Appointment Type:WC HBO (FT) Appointment Date:06/14/2024 08:30:00 AM Scheduled Provider: [facility] Appointment Type:WC HBO (FT) Appointment Date:06/17/2024 08:00:00 AM Scheduled Provider:April Daniels PA-C Location:[facility] [place] Appointment Type:Pain Management - Follow Up (FT) Appointment Date:06/19/2024 01:00:00 PM Scheduled Provider: [facility] Appointment Type:WC HBO (FT) Appointment Date:06/21/2024 08:30:00 AM Scheduled Provider: [facility] Appointment Type:WC HBO (FT) Appointment Date:06/26/2024 01:00:00 PM Scheduled Provider: [facility] Appointment Type:WC HBO (FT) [facility] Evaluation + Plan note Future Appointments Appointment Date:06/17/2024 08:00:00 AM Scheduled Provider:April Daniels PA-C Location:[facility] Appointment Type:Pain Management - Follow Up (FT) Appointment Date:06/19/2024 11:30:00 AM Scheduled Provider:Rohit Pina DPM [facility] Appointment Type:WC Follow Up Visit (FT) [facility] evaluation + Plan note Future Appointments Appointment Date:06/26/2024 09:00:00 AM Scheduled Provider:Rohit Pina DPM [facility] Appointment Type:WC Follow Up Visit (FT) Appointment Date:06/26/2024 11:15:00 AM Scheduled Provider:April Daniels PA-C Location:[facility] Appointment Type:Pain Management - Follow Up (FT) [facility] Evaluation + Plan note Future Appointments Appointment Date:07/03/2024 11:00:00 AM Scheduled Provider:Rohit Pina DPM [facility] Appointment Type:WC Follow Up Visit (FT) [facility] Evaluation + Plan note Future Appointments Appointment Date:07/10/2024 08:45:00 AM Scheduled Provider:Rohit Pina DPM [facility] Appointment Type:WC Follow Up Visit (FT) Appointment Date:07/22/2024 11:15:00 AM Scheduled Provider: Location:[facility] Appointment Type:Surgery FT Appointment Date:08/06/2024 01:30:00 PM Scheduled Provider:April Daniels PA-C Location:[facility] Appointment Type:Pain Management - Follow Up (FT) [facility] evjared + Plan note Future Appointments Appointment Date:07/22/2024 11:15:00 AM Scheduled Provider: Location:[facility] Appointment Type:Surgery FT Appointment Date:07/31/2024 09:15:00 AM Scheduled Provider:Rohit Pina DPM [facility] Appointment Type:WC Follow Up Visit (FT) Appointment Date:08/06/2024 01:30:00 PM Scheduled Provider:April Daniels PA-C Location:[facility] Appointment Type:Pain Management - Follow Up (FT) [facility] evaluation + Plan note Future Appointments Appointment Date:08/06/2024 01:30:00 PM Scheduled Provider:April Daniels PA-C Location:[facility] Appointment Type:Pain Management - Follow Up (FT) Appointment Date:08/07/2024 10:00:00 AM Scheduled Provider:Rohit Pina DPM [facility] Appointment Type:WC Follow Up Visit (FT) [facility] evaluation + Plan note Future Appointments Appointment Date:08/22/2024 08:30:00 AM Scheduled Provider: [facility] Appointment Type:WC Assessment (FT) Appointment Date:08/27/2024 10:15:00 AM Scheduled Provider:April Daniels PA-C Location:[facility] Appointment Type:Pain Management - Follow Up (FT) Appointment Date:09/04/2024 11:30:00 AM Scheduled Provider:Rohit Pina DPM [facility] Appointment Type:WC Follow Up Visit (FT) Diagnostic Tests Pending * Wound Culture 08/14/24 [facility] + Plan note Future Appointments Appointment Date:08/27/2024 10:15:00 AM Scheduled Provider:April Daniels PA-C Location:[facility] [place] Appointment Type:Pain Management - Follow Up (FT) Appointment Date:09/04/2024 11:30:00 AM Scheduled Provider:Rohit Pina DPM [facility] Appointment Type:WC Follow Up Visit (FT) [facility] evaluation + Plan note Future Appointments Appointment Date:09/05/2024 03:00:00 PM Scheduled Provider: Location:[facility] Appointment Type:Surgery FT Appointment Date:09/18/2024 10:30:00 AM Scheduled Provider:Rohit Pina DPM [facility] Appointment Type:WC Follow Up Visit (FT) Appointment Date:10/04/2024 12:45:00 PM Scheduled Provider:April Daniels PA-C Location:[facility] [place] Appointment Type:Pain Management - Follow Up (FT) [facility] Evaluation note* Diagnosis Cellulitis of right leg- [facility] No data available for this section [facility] No data available for this section [facility] Summary Purpose Family History No Family History Records FoundNo Family History Records FoundNo Family History Records Found No data available for this section No Family History Records Found No data available for this section No data available for this section No data available for this section No Family History Records FoundNo Family History Records FoundNo Family History Records Found No data available for this section No Family History Records FoundNo Family History Records Found No data available for this section No Family History Records FoundNo Family History Records FoundNo Family History Records Found No data available for this section No data available for this section No data available for this section No data available for this section No data available for this section No data available for this section No data available for this section No data available for this section No data available for this section No data available for this section No data available for this section No data available for this section No data available for this section No data available for this section No data available for this section No data available for this section No data available for this section No data available for this section No data available for this section No data available for this section No data available for this section No data available for this section No Family History Records Found No data available for this section No data available for this section No data available for this section No data available for this section No Family History Records Found No data available for this section No data available for this section No data available for this section No data available for this section No data available for this section No data available for this section No data available for this section No data available for this section No data available for this section No Family History Records FoundNo Family History Records Found Advance Directives No Advanced Directives Records FoundNo Advanced Directives Records FoundNo Advanced Directives Records FoundNo Advanced Directives Records FoundNo Advanced Directives Records FoundNo Advanced Directives Records FoundNo Advanced Directives Records FoundNo Advanced Directives Records FoundNo Advanced Directives Records FoundNo Advanced Directives Records FoundNo Advanced Directives Records FoundNo Advanced Directives Records FoundNo Advanced Directives Records FoundNo Advanced Directives Records FoundNo Advanced Directives Records FoundNo Advanced Directives Records Found Assessments Diagnosis Suspected COVID-19 virus infection Exposure to COVID-19 virus Additional Source Comments INFORMATION SOURCE (unrecogn ized section and content) DATE CREATED AUTHOR 09/17/2020 [facility] DATE CREATED AUTHOR AUTHOR'S ORGANIZ ATION 09/28/2021 [facility] DATE CREATED AUTHOR AUTHOR'S ORGANIZ ATION 11/25/2022 [facility] DATE CREATED AUTHOR AUTHOR'S ORGANIZ ATION 02/13/2024 [facility] DATE CREATED AUTHOR AUTHOR'S ORGANIZ ATION 02/14/2024 [facility] DATE CREATED AUTHOR AUTHOR'S ORGANIZ ATION 02/15/2024 [facility] DATE CREATED AUTHOR AUTHOR'S ORGANIZ ATION 02/22/2024 [facility] DATE CREATED AUTHOR AUTHOR'S ORGANIZ ATION 02/23/2024 [facility] DATE CREATED AUTHOR AUTHOR'S ORGANIZ ATION 02/28/2024 [facility] DATE CREATED AUTHOR AUTHOR'S ORGANIZ ATION 03/01/2024 [facility] DATE CREATED AUTHOR AUTHOR'S ORGANIZ ATION 06/10/2024 [facility] DATE CREATED AUTHOR AUTHOR'S ORGANIZ ATION 06/29/2024 [facility] DATE CREATED AUTHOR AUTHOR'S ORGANIZ ATION 09/10/2024 [facility] Source Comments (unrecognize d section and content) In the event this informatio n is protected by the Federal Confidentiality of Alcohol and Drug Abuse Patient Records regulations: The Federal rules restrict any use of the information to criminally investigate or prosecute any alcohol or drug abuse patient.[facility] the event this information is protected by the Federal Confidentiality of Alcohol and Drug Abuse Patient Records regulations: The Federal rules restrict any use of the information to criminally investigate or prosecute any alcohol or drug abuse patient.[facility] Hospital[facility] the event this information is protected by the Federal Confidentiality of Alcohol and Drug Abuse Patient Records regulations: The Federal rules restrict any use of the information to criminally investigate or prosecute any alcohol or drug abuse patient.[facility] Hospital[facility] the event this information is protected by the Federal Confidentiality of Alcohol and Drug Abuse Patient Records regulations: The Federal rules restrict any use of the information to criminally investigate or prosecute any alcohol or drug abuse patient.[facility] Patient Care team informatio n (unrecognized section and content) Fingerprint Expert Relationship Specialty Start Date End Date Julieta Curtis MD [address] [place] [phone] PCP - [facility] 10/06/23 Fingerprint Expert Relationship Specialty Start Date End Date Julieta Curtis MD [address] [place] [phone] PCP - [facility] 10/06/23 Fingerprint Expert Relationship Specialty Start Date End Date Julieta Curtis MD [address] [place] [phone] PCP - [facility] 10/06/23 Fingerprint Expert Relationship Specialty Start Date End Date Julieta Curtis MD [address] [place] [phone] PCP - [facility] 10/06/23 FOR RECORDS PERTAINING TO PATIENTS WHO ARE OR HAVE BEEN ENROLLED IN A CHEMICAL DEPENDENCY/SUBSTANCEABUSE PROGRAM, SOME INFORMATION MAY BE OMITTED. This clinical summary was aggregated from multiple sources. Caution should be exercised in using it in the provision of clinical care. This summary normalizes information from multiple sources, and as a consequence, information in this document may materially change the coding, format and clinical context of patient data. In addition, data may be omitted in some cases. CLINICAL DECISIONS SHOULD BE BASED ON THE PRIMARY CLINICAL RECORDS. [facility] [employer] [facility]. provides no warranty or guarantee of the accuracy or completeness of information in this document.
== END 2024-09-13 09:29 | disposition home or self-care (01) ==
LOC: VC 09:05
PROVIDERS: PCP Podiatrist Foot & Ankle Surgery; Visit Provider Radiology Diagnostic Radiology
DX: I83.813 Varicose veins of bilateral lower extremities with pain (principal)
CPT/HCPCS: 36478

== ENCOUNTER 2024-09-18 09:10 | Outpatient (OUT) | payer BC, SELFPAY ==
[2024-09-18 07:47] VITALS: BMI 52.0
--- NOTE | 2024-09-18 07:47 | V.VEINS.HP ---
Vital Signs 09/18/24 07:47 Height 5 ft 8 in Weight 155 kg BMI 52.0 Varicose Veins Patient in today for follow up ultrasound of right lower extremity following EVLT of right GSV completed on 09/13/24. Jewel Hines MD personally performed the services described in this documentation, as scribed by Latosha Anthony RDMS in my presence and it is both accurate and complete. Latosha Hines RDMS, am scribing for, and in the presence of, Dr. Jewel Ngo and in the presence of the patient. thigh: bilateral (symptoms equally bilateral), knee: bilateral, calf: bilateral, ankle: bilateral and andersen: bilateral aching, burning, cramping, dull and tender 8 6 months Worsened in recent months: Yes standing compression stockings and exercise Reports muscle spasms of leg, fatigue, heaviness, restless legs, limb pain, edema and leg edema History of lower extremity trauma: No Superficial thrombophlebitis: Yes Family history of varicose veins: yes Has patient had previous lower extremity venous surgery: No Patient has previously received the following treatment(s) for lower extremity varicose veins: Reports none Does patient have a history of : no Does patient intend to have future pregnancies: no Has patient had lower extremity venous scan with relux testing: No Support hose used: Yes Problems walking or doing physical activity: Yes How does it affect you: often has to sit and rest due to pain Do you walk much: Yes Do you stand much: Yes Review of Systems ROS Narrative Jewel Hines MD personally performed the services described in this documentation, as scribed by Latosha Anthony RDMS in my presence and it is both accurate and complete. Latosha Hines RDMS, am scribing for, and in the presence of, Dr. Jewel Ngo and in the presence of the patient. Status of ROS 10 or more systems reviewed and unremarkable except as noted in history and below Cardiovascular Reports: edema Integumentary/Breast Reports: skin pain, skin tenderness, skin swelling, non-healing lesion and changes in skin color Neurological Reports: weakness in extremities [facility] Medical History (Updated 09/13/24 @ 07:32 by Oj Garibay) Phlebitis of superficial vein of right lower extremity ?I80.01 - Phlebitis and thrombophlebitis of superficial vessels of right lower extremity (ICD-10) Varicose veins of bilateral lower extremities with pain ?I83.813 - Varicose veins of bilateral lower extremities with pain (ICD-10) Arthritis of neck ?M47.812 - Spondylosis without myelopathy or radiculopathy, cervical region (ICD-10) Morbid obesity due to excess calories ?E66.01 - Morbid (severe) obesity due to excess calories (ICD-10) Pulmonary embolism ?I26.99 - Other pulmonary embolism without acute cor pulmonale (ICD-10) Anxiety ?F41.9 - Anxiety disorder, unspecified (ICD-10) Depression ?F32.A - Depression, unspecified (ICD-10) Factor 5 Leiden mutation, heterozygous ?D68.51 - Activated protein C resistance (ICD-10) Lymphedema due to venous disease ?I89.0 - Lymphedema, not elsewhere classified (ICD-10) ?I99.9 - Unspecified disorder of circulatory system (ICD-10) Venous insufficiency ?I87.2 - Venous insufficiency (chronic) (peripheral) (ICD-10) Wound of right leg ?S81.801A - Unspecified open wound, right lower leg, initial encounter (ICD-10) Surgical History (Updated 09/13/24 @ 09:22 by Oj Garibay) Status post laser ablation of incompetent vein ?Z98.890 - Other specified postprocedural states (ICD-10) S/P sclerotherapy of varicose veins ?Z98.890 - Other specified postprocedural states (ICD-10) ?Z86.79 - Personal history of other diseases of the circulatory system (ICD-10) H/O skin graft ?Z94.5 - Skin transplant status (ICD-10) Family History (Updated 07/17/24 @ 10:28 by Oj Garibay) Other Family history of cancer Family history of hypertension Family history of stroke Pain due to varicose veins of both lower extremities Social History (Updated 07/17/24 @ 10:29 by Oj Garibay) Within the past year, how often did you have a drink containing alcohol: 2-4 times a month Smoking status: Never smoker Non-prescribed substance use: denies use Meds Home Medications and Allergies Home Medications ?Medication ?Instructions ?Recorded ?Confirmed ?Type cyclobenzaprine 10 mg tablet 10 mg PO BID 07/17/24 07/17/24 History escitalopram oxalate 20 mg tablet 10 mg PO DAILY 07/17/24 07/17/24 History (Lexapro) gabapentin 600 mg tablet 300 mg PO TID 07/17/24 07/17/24 History aspirin 325 mg capsule 325 mg PO DAILY 09/18/24 09/18/24 History Allergies Allergy/AdvReac Type Severity Reaction Status Date / Time No Known Drug Allergies Allergy Verified 07/16/24 14:16 Exam Narrative Exam Narrative: Tenderness and swelling to medial right foot. Jewel Hines MD personally performed the services described in this documentation, as scribed by Latosha Anthony RDMS in my presence and it is both accurate and complete. Latosha Hines RDMS, am scribing for, and in the presence of, Dr. Jewel Ngo and in the presence of the patient. Constitutional Documenting provider has reviewed patient's vital signs: yes Common normals: oriented x3 Nutritional appearance: overweight Cardio Peripheral pulses: posterior tibial pulses present and dorsalis pedis pulses present Extremity Common normals: normal capillary refill General: calf tenderness and edema Right lower extremity: lower leg Right lower leg: inspection and palpation Left lower extremity: lower leg Left lower leg: inspection and palpation Neuro Common normals: oriented x3 Results Imaging Venous US: Radiologist's impression: Heat induced thrombus in right GSV 0.5 cm from SFJ and extends to mid foot. Jewel Hines MD personally performed the services described in this documentation, as scribed by Latosha Anthony RDMS in my presence and it is both accurate and complete. Latosha Hines RDMS, am scribing for, and in the presence of, Dr. Jweel Ngo and in the presence of the patient. Assessment and Plan Assessment and Plan (1) Phlebitis of superficial vein of right lower extremity: Plan Plan is for patient to start on Aspirin therapy (325 mg PO daily) and to return for EVLT of right SSV on 09/23/24. Jewel Hines MD personally performed the services described in this documentation, as scribed by Latosha Anthony RDMS in my presence and it is both accurate and complete. I, Latosha Anthony RDMS, am scribing for, and in the presence of, Dr. Jewel Ngo and in the presence of the patient.
--- NOTE | 2024-09-18 09:12 | VEIN_ITS ---
Patient Name: DARLINE PRESCOTT MR#: [id number] : 1995 Exam Date: 09/18/2024 Ordering Doctor: DR RENA HOYT M.D. RADIOLOGY REPORT PROCEDURE: FACILITY EST LMTD VEIN CENTER - OFFICE VISIT FOLLOW UP COMPARISON: None. PROGRESS NOTES: The patient reports improvement in leg symptoms. There has been interval reduction in varicosities. The patient has followed our recommendations to walk 20-30 minutes once or twice per day since the procedure. Physical exam demonstrates decrease in varicosities of the leg. Persistent varicosities are identified along the legs bilaterally. Large medial right calf ulcer, but slightly improved in appearance. Review of the ultrasound performed the same day demonstrates occlusive thrombus extending throughout the treated vein(s), see separate report, consistent with a successful ablation. Thrombus extends slightly more proximal and distal than expected (patient has factor 5 deficiency). No thrombus extending into or beyond the saphenofemoral junction. The patient expressed a desire to proceed with treatment of remaining incompetent varicosities. The patient was informed that treatment was a process and would require several procedures/sessions. VEIN/ Facility EST LMTD IMPRESSION: 1. Successful ablation of the right great saphenous vein(s). 2. Slightly greater proximally distal extension of bland thrombus. 3. Persistent superficial varicose veins and lower extremity symptoms. 4. Persistent medial right calf ulcer; slightly improved in appearance. PLAN: 1. 325 mg aspirin once per day for 2 weeks. 2. Endovenous laser ablation of right small saphenous vein. Nurse notes, history and physical were reviewed and confirmed, see attached forms. The nurse was present throughout the physical exam and consultation Dictated by: Jewel Ngo M.D. on 09/18/2024 at 09:50 Approved by: Jewel Ngo M.D. on 09/18/2024 at 09:53
--- NOTE | 2024-09-18 09:12 | VEIN_ITS ---
Patient Name: DARLINE PRESCOTT MR#: [id number] : 1995 Exam Date: 09/18/2024 Ordering Doctor: DR RENA HOYT M.D. RADIOLOGY REPORT PROCEDURE: VC EXT VENOUS RT LMTD COMPARISON: None. INDICATIONS: I80.01 - Phlebitis and thrombophlebitis of superficial veins right leg TECHNIQUE: Lower extremity spring scale and Duplex Doppler evaluation of the deep venous system from the inguinal ligament through the calf veins. FINDINGS: REGION: Right lower extremity. THROMBI: Negative for DVT. Heat induced thrombus in right GSV 5.1 mm from SFJ and extends to medial foot. COMPRESSIBILITY: Non-compressible segments corresponding to thrombus FLOW: Areas of no flow corresponding to thrombus OTHER: CONCLUSION: 1. Successful post ablation occlusion of right great saphenous vein. 2. Slightly greater proximal and distal extension of the clot than expected. Patient has factor 5 deficiency. Dictated by: Jewel Ngo M.D. on 09/18/2024 at 09:49 Approved by: Jewel Ngo M.D. on 09/18/2024 at 09:50
--- NOTE | 2024-09-18 09:53 | W.VEIN ---
Discharge Plan Discharge Disposition: Home, Self-Care Outpatient Diagnostics: VC Endovenous Ablation 1VeinRT (Routine) Timeframe: 2 Weeks Facility: [facility] - Location: Vein Center Ordered By: Jewel Ngo Follow Up Appointments: 09/23/24 Plan of Treatment: EVLT of right SSV EVLT Tumescent Anesthesia: 500 mL 0.9% NS with 20 mL 1% Lidocaine and 10 mL 8.4% NAHCO3 Buffered Local Anesthesia: 10 mL of 1% Lidocaine Buffered Print Language: Cuban Discharge Date/Time: 09/18/24 09:54
== END 2024-09-18 09:54 | disposition home or self-care (01) ==
PROVIDERS: PCP Podiatrist Foot & Ankle Surgery; Visit Provider Radiology Diagnostic Radiology
DX: I80.01 Phlebitis and thrombophlebitis of superficial vessels of right lower extremity (principal)
CPT/HCPCS: 93971; G0463

== ENCOUNTER 2024-09-23 14:16 | Outpatient (OUT) | payer BC, SELFPAY ==
--- NOTE | 2024-09-20 08:20 | V.VEINS.HP ---
Vital Signs 09/23/24 14:23 BP 134/78 BP Location Left Brachial BP Position Sitting BP Cuff Size Large Adult BP Source Automatic Cuff Respiration 18 Pulse 100 H Pulse Source Monitor Pulse Oximetry (%) 98 Oxygen Delivery Method Room Air Comment The patient's blood pressure is elevated. Varicose Veins Patient in today for EVLT of right SSV Jewel Hines MD personally performed the services described in this documentation, as scribed by Oj Garibay RN in my presence and it is both accurate and complete. IOj RN, am scribing for, and in the presence of, Dr. Jewel Ngo and in the presence of the patient. thigh: bilateral (symptoms equally bilateral), knee: bilateral, calf: bilateral, ankle: bilateral and andersen: bilateral aching, burning, cramping, dull and tender 8 6 months Worsened in recent months: Yes standing compression stockings and exercise Reports muscle spasms of leg, fatigue, heaviness, restless legs, limb pain, edema and leg edema History of lower extremity trauma: No Superficial thrombophlebitis: Yes Family history of varicose veins: yes Has patient had previous lower extremity venous surgery: No Patient has previously received the following treatment(s) for lower extremity varicose veins: Reports none Does patient have a history of : no Does patient intend to have future pregnancies: no Has patient had lower extremity venous scan with relux testing: No Support hose used: Yes Problems walking or doing physical activity: Yes How does it affect you: often has to sit and rest due to pain Do you walk much: Yes Do you stand much: Yes Review of Systems ROS Narrative Jameson Hines MD personally performed the services described in this documentation, as scribed by Oj Garibay RN in my presence and it is both accurate and complete. Oj Hines RN, am scribing for, and in the presence of, Dr. Jameson Seo and in the presence of the patient. Status of ROS 10 or more systems reviewed and unremarkable except as noted in history and below Cardiovascular Reports: edema Integumentary/Breast Reports: skin pain, skin tenderness, skin swelling, non-healing lesion and changes in skin color Neurological Reports: weakness in extremities [facility] Medical History (Updated 09/13/24 @ 07:32 by Oj Garibay) Phlebitis of superficial vein of right lower extremity ?I80.01 - Phlebitis and thrombophlebitis of superficial vessels of right lower extremity (ICD-10) Varicose veins of bilateral lower extremities with pain ?I83.813 - Varicose veins of bilateral lower extremities with pain (ICD-10) Arthritis of neck ?M47.812 - Spondylosis without myelopathy or radiculopathy, cervical region (ICD-10) Morbid obesity due to excess calories ?E66.01 - Morbid (severe) obesity due to excess calories (ICD-10) Pulmonary embolism ?I26.99 - Other pulmonary embolism without acute cor pulmonale (ICD-10) Anxiety ?F41.9 - Anxiety disorder, unspecified (ICD-10) Depression ?F32.A - Depression, unspecified (ICD-10) Factor 5 Leiden mutation, heterozygous ?D68.51 - Activated protein C resistance (ICD-10) Lymphedema due to venous disease ?I89.0 - Lymphedema, not elsewhere classified (ICD-10) ?I99.9 - Unspecified disorder of circulatory system (ICD-10) Venous insufficiency ?I87.2 - Venous insufficiency (chronic) (peripheral) (ICD-10) Wound of right leg ?S81.801A - Unspecified open wound, right lower leg, initial encounter (ICD-10) Surgical History (Updated 09/23/24 @ 14:42 by Oj Garibay) Status post laser ablation of incompetent vein ?Z98.890 - Other specified postprocedural states (ICD-10) Status post laser ablation of incompetent vein ?Z98.890 - Other specified postprocedural states (ICD-10) S/P sclerotherapy of varicose veins ?Z98.890 - Other specified postprocedural states (ICD-10) ?Z86.79 - Personal history of other diseases of the circulatory system (ICD-10) H/O skin graft ?Z94.5 - Skin transplant status (ICD-10) Family History (Updated 07/17/24 @ 10:28 by Oj Garibay) Other Family history of cancer Family history of hypertension Family history of stroke Pain due to varicose veins of both lower extremities Social History (Updated 07/17/24 @ 10:29 by Oj Garibay) Within the past year, how often did you have a drink containing alcohol: 2-4 times a month Smoking status: Never smoker Non-prescribed substance use: denies use Meds Home Medications and Allergies Home Medications ?Medication ?Instructions ?Recorded ?Confirmed ?Type cyclobenzaprine 10 mg tablet 10 mg PO BID 07/17/24 07/17/24 History escitalopram oxalate 20 mg tablet 10 mg PO DAILY 07/17/24 07/17/24 History (Lexapro) gabapentin 600 mg tablet 300 mg PO TID 07/17/24 07/17/24 History aspirin 325 mg capsule 325 mg PO DAILY 09/18/24 09/18/24 History Allergies Allergy/AdvReac Type Severity Reaction Status Date / Time No Known Drug Allergies Allergy Verified 07/16/24 14:16 Exam Narrative Exam Narrative: Jewel Hines MD personally performed the services described in this documentation, as scribed by Oj Garibay RN in my presence and it is both accurate and complete. Oj Hines RN, am scribing for, and in the presence of, Dr. Jewel Ngo and in the presence of the patient. Constitutional Documenting provider has reviewed patient's vital signs: yes Common normals: oriented x3 Nutritional appearance: overweight Cardio Peripheral pulses: posterior tibial pulses present and dorsalis pedis pulses present Extremity Common normals: normal capillary refill General: calf tenderness and edema Right lower extremity: lower leg Right lower leg: inspection and palpation Left lower extremity: lower leg Left lower leg: inspection and palpation Neuro Common normals: oriented x3 Assessment and Plan Assessment and Plan (1) Varicose veins of bilateral lower extremities with pain: Plan f/u evaluation with physician along with right leg limited u/s Jewel Hines MD personally performed the services described in this documentation, as scribed by Oj Garibay RN in my presence and it is both accurate and complete. Oj Hines RN, am scribing for, and in the presence of, Dr. Jewel Ngo and in the presence of the patient. Procedures Procedure Instructions Procedures Plan of care: Risks and benefits of the procedure were discussed at length and informed written consent was obtained.? Time-out completed for verification of correct patient, procedure and site.? Staff present during time-out: Oj Garibay RN,? Jameson Seo MD, Latosha Anthony RDMS, Time Out Time_[id number] Patient prepped and procedure performed in usual sterile fashion. Risk of injury related to use of Diode laser and/or laser devices__CR___ ? Serial number of laser used :? [id number] Control panel self test performed, electrical cords in good condition, floor is dry, basin of water available, fire extinguisher in close proximity_CR__ Polycarbonate goggles available and Laser warning signs outside of doors___CR__ Eye protection provided to patient and staff in room_CR___ Use of laser retardant drapes and dull blackened instruments as directed__CR___ Use of nonflammable prep solutions and use of saline soaked sponges to protect tissues as indicated _CR___ Length ___26___ cm Laser operated by __Dr. Ngo Physician verbal confirmation laser locked in place__CR__ Laser start time (date and time) __09/23/2024@_1457 Laser stop time(date and time) 09/23/2024@_1500 Chen _8.0___ Average laser use __1409 Joules Average laser use__176 seconds Pulse continuous ___CR_? Pulse intermittent ___ Amount of Tumescent used _125cc Evaluated patient for signs and symptoms of electrical injury __CR___ ? Skin clear at insertion site __CR___ Patient tolerated procedure well.? Right leg Coban dressing applied to access site.? Applied right thigh high leg compression stocking. Will return on 09/27/2024 for right leg limited venous ultrasound and exam. IJewel MD personally performed the services described in this documentation, as scribed by Oj Garibay RN in my presence and it is both accurate and complete. I, Oj Garibay RN, am scribing for, and in the presence of, Dr. Jewel Ngo and in the presence of the patient..
--- NOTE | 2024-09-20 08:30 | W.VEIN ---
Discharge Plan Discharge Disposition: Home, Self-Care Outpatient Diagnostics: VC Facility EST LMTD (Routine) Timeframe: 2 Weeks Facility: [facility] - Location: Vein Center Ordered By: Jameson Seo VC EXT Venous RT LMTD (Routine) Timeframe: 2 Weeks Facility: [facility] - Location: Vein Center Ordered By: Jameson Seo Follow Up Appointments: 09/27/2024 Plan of Treatment: f/u evaluation with physician along with right leg limited u/s Patient Instructions: Endovenous Ablation (DC) Print Language: Latvian Discharge Date/Time: 09/23/24 14:50
--- NOTE | 2024-09-23 14:17 | VEIN_ITS ---
The [address] [address] Patient Name: DARLINE PRESCOTT MRN: [id number] date: 1995 Sex: F Assigned Patient Location: Current Patient Location: Accession/Order Number: [id number] Exam Date: 09/23/2024 14:21 Report Date: 09/23/2024 15:09 At the request of: ANABELLA DAVISON Procedure: VC Endovenous Ablation 1VeinRT EXAMINATION: VC Endovenous Ablation 1VeinRT HISTORY: I83.813 - Varicose veins of bilateral lower extremities w... The risks and benefits of the procedure had been previously discussed, and were rediscussed at length. Informed written consent was obtained. Oj Garibay RN and Latosha Ramey RDMS assisted. Time out procedure was performed. The right lower extremity was prepared and draped in the usual sterile fashion to allow knee flexion in the sterile field. Duplex ultrasound probe was draped in a sterile cover, sterile transmission gel was used. Venous mapping was performed with the areas of dilation and large tributaries marked. The total length was 26 cm from the entry 4 cm above the ankle to 3 cm below the thigh extension junction. The diameter of the right small saphenous vein ranged from 6.2 mm. A 30 gauge needle and 1% buffered lidocaine was used to anesthetize the entry site. A 4 mm incision was made with a scalpel and the saphenous vein was entered percutaneously under direct ultrasound guidance with a micropuncture set, a single stick was successful in gaining access. A micro-guide wire was inserted and the needle removed. A micro-set including a dilator was inserted over the microwire and the needle and dilator were removed. A guide wire was inserted through the micro-set and guided through the saphenous vein to the saphenofemoral junction. The dilator was removed and an introducer sheath was inserted over the wire until the end of the sheath entered the saphenofemoral junction. The dilator and wire were removed and the 600 micron fiber was introduced and placed and positioned so that it extended beyond the sheath and was 3 cm distal to the saphenofemoral or saphenopopliteal junction. Final position of the fiber was determined by ultrasound guidance and duplex imaging. Tumescent anesthetic was delivered by ultrasound guidance. 125 cc of fluid was delivered along the entire course of the saphenous vein. The solution consisted of 1000 cc of normal saline with 40 mL of 1% lidocaine and 20 mL of sodium bicarbonate. A final positioning check was made. The energy source was turned on by means of the foot pedal and the fiber and sheath were withdrawn. The total number of Joules delivered was 1409. The laser was active for 176 seconds under continuous pulse, average laser use of 8 J. Laser start time: 2:57 PM Laser stop time: 3:00 PM Date: 09/23/2024. A duplex ultrasound revealed compressibility and flow at the saphenofemoral junction immediately after the procedure. Hemostasis at the access site was achieved. The skin incision of the saphenous vein was closed with a 4 x 4. A compression stocking was applied. Postop instructions were given. A follow up appointment was recommended and scheduled. The patient tolerated the procedure well. Electronically authenticated by: ANABELLA DAVISON Date: 09/23/2024 15:09
[2024-09-23] MEDS: 0.9 % SODIUM CHLORIDE 500 ML, LIDOCAINE HCL 20 ML, SODIUM BICARBONATE 10 MEQ INJ (14:18)
[2024-09-23] MEDS: LIDOCAINE HCL 1% 100 MG/10 ML MDV INJ (14:18)
[2024-09-23 14:23] VITALS: BP 134/78; PULSE 100; O2SAT 98
== END 2024-09-23 14:50 | disposition home or self-care (01) ==
LOC: VC 14:16
PROVIDERS: PCP Podiatrist Foot & Ankle Surgery; Visit Provider Radiology Diagnostic Radiology
DX: I83.813 Varicose veins of bilateral lower extremities with pain (principal)
CPT/HCPCS: 36478

== ENCOUNTER 2024-09-27 08:58 | Outpatient (OUT) | payer BC, SELFPAY ==
--- NOTE | 2024-09-27 08:58 | VEIN_ITS ---
Patient Name: DARLINE PRESCOTT MR#: [id number] : 1995 Exam Date: 09/27/2024 Ordering Doctor: DR JAMESON SEO M.D. RADIOLOGY REPORT PROCEDURE: [facility] - OFFICE VISIT FOLLOW UP [facility] PROGRESS NOTES: The patient reports some right leg swelling following intravenous laser ablation of the right small saphenous vein. The patient has continued to use her lymphatic pumps and wear her compression stocking. The patient has continued her daily 325 milligram aspirin. She has not required additional oral analgesics. Stable right subcutaneous edema below the knee. There is a 3 cm full-thickness wound medial posterior mid right lower leg with surrounding erythema this appears improved from her initial exam. The small saphenous and great saphenous vein cannot be palpated likely related to patient body habitus. No areas of erythema or warmth to suggest cellulitis or thrombophlebitis. Review of the ultrasound performed the same day demonstrates occlusive thrombus extending throughout the treated right small saphenous vein extending to but not into the popliteal vein. There has been interval retraction of clot in the right great saphenous vein now 1.7 cm from the saphenofemoral junction. The patient expressed a desire to proceed with treatment of the left great saphenous vein with intravenous laser ablation. VEIN/[facility] EST LMTD IMPRESSION: 1. Successful ablation of the right small saphenous vein 2. Persistent incompetent left great saphenous. PLAN: Intravenous laser ablation left great saphenous vein Nurse notes, history and physical were reviewed and confirmed, see attached forms. The nurse was present throughout the physical exam and consultation Dictated by: Jameson Seo MD on 09/27/2024 at 09:39 Approved by: Jameson Seo MD on 09/27/2024 at 09:41
--- NOTE | 2024-09-27 08:58 | VEIN_ITS ---
Patient Name: DARLINE PRESCOTT MR#: [id number] : 1995 Exam Date: 09/27/2024 Ordering Doctor: DR JAMESON SEO M.D. RADIOLOGY REPORT PROCEDURE: [facility] EXT VENOUS RT LMTD COMPARISON: [facility] EXT VENOUS RT LMTD, 09/18/2024. INDICATIONS: I80.01 - Phlebitis and thrombophlebitis of superficial veins right leg TECHNIQUE: Lower extremity spring scale and Duplex Doppler evaluation of the deep venous system from the inguinal ligament through the calf veins. FINDINGS: REGION: Right lower extremity. THROMBI: Negative for DVT. Heat induced thrombus in right SSV up to but not into the popliteal vein and extends to the posterior/lateral part of the heel. COMPRESSIBILITY: Non-compressible segments corresponding to thrombus FLOW: Areas of no flow corresponding to thrombus CONCLUSION: Post ablation occlusion of the small saphenous vein up to but not into popliteal vein Retraction of clot in the great saphenous vein now 1.7 cm from the saphenofemoral junction Dictated by: Jameson Seo MD on 09/27/2024 at 09:29 Approved by: Jameson Seo MD on 09/27/2024 at 09:33
--- OUTSIDE RECORDS SUMMARY | 2024-09-27 09:11 | XMS_ITS | CCD ---
Author Organization [facility] Care Team Providers Care Puppet Maker Name Role Phone RALPH TAN Referring Unavailable Unavailable Primary Care Provider UnavailJazzy Zaragoza Primary Care Provider [phone] ALICJA ., DR ESCOBAR Consulting Unavailable ALICJA [...] Unavailable Julieta Curtis MD Primary Care Provider [phone] Renata, Emre Charles Attending Unavailable Dolce, Emre [...] Attending Unavailable Dolce, Rohit R Attending Unavailable pAril Daniels Admitting Unavailable Frances, April Attending Unavailable Julieta Curtis Referring Unavailable Luis Felipe Mack Attending Unavailable Luis Felipe Mack Referring Unavailable Karthik Johnson Admitting Unavailable Karthik Johnson Attending Unavailable Karthik Johnson Attending Unavailable Dolhermann, Rohit R Attending Unavailable Dolce, Emre Charles Attending Unavailable MoKarthik william Attending Unavailable Dolce, Emre Charles Attending Unavailable Dolce, Rohit R Attending Unavailable Dolhermann, Emre Charles Attending Unavailable Luis Felipe Mack Referring Unavailable Luis Felipe Mack Attending Unavailable Renata, Rohit R Attending Unavailable Julieta Curtis Referring Unavailable April Daniels Attending Unavailable April Daniels Admitting Unavailable Medications Current Medications Medication Drug Class(es) Dates Sig (Normalized) Sig (Original) acetaminophen 325 mg oral tablet (12 sources) Start: 06-26-2024 take 2 tablets by [...] Start Date: 04/01/24 Status: Ordered bifidobacterium animalis [id number] unt / lactobacillus acidophilus [id number] unt oral capsule (5 sources) take 1 [...] day(s), # 30 tab(s), Refills(s) 0, Pharmacy: [facility], 172, cm, 06/26/24 11:30:00 EDT, Height/Length [...] day(s), # 30 tab(s), Refills(s) 0, Pharmacy: [facility], 172, cm, 05/21/24 12:36:00 [...] day(s), # 30 tab(s), Refills(s) 0, Pharmacy: [facility], 172, cm, 04/01/24 8:35:00 [...] day(s), # 30 tab(s), Refills(s) 0, Pharmacy: [facility], 172, cm, 04/01/24 8:35:00 EDT, Height/Length Dosing, 154.2, kg, 04/01/24 8:35:00 EDT, Weight Dosing Start Date: 04/01/24 Stop Date: 04/11/24 Status: Ordered Start: 06-04-2019 take 1 tablet by jerod th three times daily cyclobenzaprine 10 mg Tab 10 mg = 1 tab(s), Oral, TID, # 30 tab(s), Refills(s) 0, Pharmacy: [facility]/pharmacy #[id number] Start Date: 06/04/19 Status: Ordered [...] oral tablet (20 sources) Anti-epileptic Agent Start: 09-23-2024 End: 10-23-2024 take 1 tablet by mouth three times daily gabapentin 600 mg Tab 600 mg = 1 tab(s), Oral, TID, X 30 day(s), # 90 tab(s), Refills(s) 0, Pharmacy: [facility], 172, cm, 09/05/24 14:04:00 EST, Height/Length Dosing, 161.2, kg, 08/27/24 10:16:00 EST, Weight Dosing Start Date: 09/23/24 Stop Date: 10/23/24 Status: Ordered Start: 08-02-2024 take 1 tablet by jerod th three times daily gabapentin 600 mg Tab 600 mg = 1 tab(s), Oral, TID, # 90 tab(s), Refills(s) 0, Pharmacy: [facility], 172, cm, 07/22/24 10:56:00 EST, Height/Length Dosing, 154.4, kg, 06/26/24 11:30:00 EDT, Weight Dosing Start Date: 08/02/24 Status: Ordered Start: 06-03-2024 End: 07-31-2024 take 2 capsules by mouth three times daily gabapentin 300 mg Cap 600 mg = 2 cap(s), Oral, TID, X 30 day(s), # 180 cap(s), Refills(s) 0, Pharmacy: [facility], 172, cm, 06/26/24 11:30:00 EDT, Height/Length Dosing, 154.4, kg, 06/26/24 11:30:00 EDT, Weight Dosing Start Date: 07/01/24 Stop Date: 07/31/24 Status: Ordered Start: 04-01-2024 End: 05-26-2024 take 2 capsules by mouth three times daily gabapentin 300 mg Cap 600 mg = 2 cap(s), Oral, TID, X 30 day(s), # 180 cap(s), Refills(s) 0, Pharmacy: [facility], 172, cm, 04/01/24 8:35:00 EDT, Height/Length Dosing, 154.2, kg, 04/01/24 8:35:00 EDT, Weight Dosing Start Date: 04/26/24 Stop Date: 05/26/24 Status: Ordered ibuprofen 800 mg oral tablet (5 sources) Nonsteroidal Anti-inflammatory Drug Start: 06-04-2019 take 1 tablet by mouth every eight hours ibuprofen 800 mg Tab 800 mg = 1 tab(s), Oral, q8hr, # 30 tab(s), Refills(s) 0, Pharmacy: [facility]/pharmacy #[id number] Start Date: 06/04/19 Status: Ordered [...] CHAU MOISE/Sex: 1995 Female Med Rec #: [id number] Physician: Luis Felipe Mack DO Financial #: [id number] Pt. Type: P Room/Bed: / Admit/Disch: 09/05/24 13:55:29 - Institution: Case Times FTPM Entry 1 Patient Times In Room 09/05/24 14:38:00 Out Room 09/05/24 14:45:00 Procedure Times Start 09/05/24 14:41:00 Stop 09/05/24 14:44:00 Anesthesia Times Last Modified By: Robbi NIELESN, Caro Nails 09/05/24 14:44:20 Case Attendance FTPM Entry 1 Entry 2 Entry 3 Case Attendee Karena CHAVIS, Luis Felipe Culp RN, Caro Balderrama RN, Marah Javier Role Performed Surgeon - Primary Dredge Mechanic - Primary Scrub - Primary Time In [...] Kishore Frankel Role Performed Scrub - Relief Electrocardiographic Technician Time In 09/05/24 14:38:00 09/05/24 14:38:00 Time [...] Antibiotic No Time Out Caro Culp RN, Given Participants Tacos NIELSEN, Karena Zeng DO, Bradford A., Donavan NIELSEN, Roddy Ray Bryce Time Out Complete 09/05/24 [...] Class 1 - Clean Last Modified By: Crao Culp RN 09/05/24 14:44:23 General Case Data [...] and tissue Entry 1 Skin Integrity Intact, Cedro, Warm, & Skin Abnormality No Dry Outcomes [...] Position Ext (more content not included)... Normal [facility] Main OR Preoperative Recordo n 09-05-2024 Main OR Preoperative Record Main OR Preoperative Record Holding Area Document Type FTPM Summary Primary Physician: Luis Felipe Mack DO Finalized Date/Time: 09/05/24 14:01:14 Pt. Name: CHAU MOISE/Sex: 1995 Female Med Rec #: [id number] Physician: Luis Felipe Mack DO Financial #: [id number] Pt. Type: P Room/Bed: / Admit/Disch: 09/05/24 [...] Signed By: Amanda White RN 09/05/24 14:01 [facility] C WOUNDon 08-16-2024 [facility] WOUND CULTURE Microbiology PROCEDURE: Wound [...] Locations R1: [facility] at: [facility], [address] [place] [address], [address] [place] [address], [facility] Original [facility]ing [facility]: [facility] Main [facility] Intraoperative Recor don 07-22-2024 Main OR Intraoperative Record Main OR Intraoperative Record IntraOp Document Type FTPM Summary Primary Physician: Luis Felipe Mack DO Finalized Date/Time: 07/22/24 11:50:08 Pt. Name: CHAU MOISE/Sex: 1995 Female Med Rec #: [id number] Physician: Luis Felipe Mack DO Financial #: [id number] Pt. Type: P Room/Bed: / Admit/Disch: 07/22/24 [...] Mindi Elizalde Role Performed Surgeon - Primary Dredge Mechanic - Primary HYDRAULIC CORRUGATING MACHINE OPERATOR Time In 07/22/24 11:37:00 07/22/24 11:37:00 07/22/24 11:37:00 Time Out 07/22/24 11:49:00 07/22/24 11:49:00 07/22/24 11:49:00 Procedure MEDIAL BRANCH MEDIAL BRANCH MEDIAL BRANCH BLOCK(Bilateral) BLOCK(Bilateral) BLOCK(Bilateral) Comments Last Modified By: Ryan Go RN, RN, Ryan Morton RN 07/22/24 11:50:04 M 07/22/24 11:50:04 07/22/24 11:50:04 Entry 4 Case Attendee Amanda Patel Role Performed Electrocardiographic Technician Time In 07/22/24 11:37:00 Time Out 07/22/24 [...] PreOp Antibiotic No Time Out Ryan Go RN, Jones DO, Bradford A., Ott, Amy Time Out Complete 07/22/24 11:37:00 [...] and tissue Entry 1 Skin Integrity Intact, Cedro, Warm, & Skin Abnormality Yes Dry Outcomes [...] Last Modified (more content not included)... Normal [facility] Main OR Preoperative Recordo n 07-22-2024 Main OR Preoperative Record Main OR Preoperative Record Holding Area Document Type FT Summary Primary Physician: Luis Felipe Mack DO Finalized Date/Time: 07/22/24 10:52:30 Pt. Name: CLINT MOISELO Ron./Sex: 1995 Female Med Rec #: [id number] Physician: Luis Felipe Mack DO Financial #: [id number] Pt. Type: P Room/Bed: / Admit/Disch: 07/22/24 [...] Midnight: Yes Date/Time: 07/22/24 10:49:00 Results Reviewed 0915 afghan toast and Personal Items: Jewelry Comments: gatorade [...] Signed By: Carmella Sol RN 07/22/24 10:52 [facility] XR Chest 2 Viewson XR Chest 2 [...] mGy = na DAP = na Normal [facility] C WOUNDon 05-23-2024 [facility] WOUND CULTURE Microbiology PROCEDURE: Wound Culture [R1] SOURCE: Wound BODY SITE: Leg R COLLECTED DATE/TIME: 05/21/2024 15:30 EDT RECEIVED DATE/TIME: 05/21/2024 16:09 EDT START DATE/TIME: 05/21/2024 16:09 EDT FREE TEXT SOURCE: Wound Culture Right Leg Renata MCGARRY, Emre Yanez DPM, Emre Charles FINAL REPORTS Final Report [...] Locations R1: This test was performed at: [facility], [address] [place] [address], [facility] Original Ordering Provider: ZEFERINO Yanez [facility] Main OR Intraoperative Recor don 05-21-2024 Main OR Intraoperative Record Main OR Intraoperative Record IntraOp Document Type FTPM Summary Primary Physician: Luis Felipe Mack DO Finalized Date/Time: 05/21/24 13:43:12 Pt. Name: CHAU MOISE/Sex: 1995 Female Med Rec #: [id number] Physician: Luis Felipe Mack DO Financial #: [id number] Pt. Type: P Room/Bed: / Admit/Disch: 05/21/24 12:12:26 - Institution: Case Times FTPM Entry 1 Patient Times In Room 05/21/24 13:35:00 Out Room 05/21/24 13:43:00 Procedure Times Start 05/21/24 13:38:00 Stop 05/21/24 13:42:00 Anesthesia Times Last Modified By: Caro Culp RN 05/21/24 13:42:57 Case Attendance FTPM Entry 1 Entry 2 Entry 3 Case Attendee Karena CHAVIS, Luis Felipe Culp RN, Caro White RN, Amanda Role Performed Surgeon - Primary Dredge Mechanic - Primary Scrub - Primary Time In 05/21/24 13:35:00 05/21/24 13:35:00 05/21/24 13:35:00 Time Out 05/21/24 13:43:00 05/21/24 13:43:00 05/21/24 13:43:00 Procedure CERVICAL EPIDURAL CERVICAL EPIDURAL CERVICAL EPIDURAL STEROID INJECTION(.) STEROID INJECTION(.) STEROID INJECTION(.) Comments Last Modified By: Robbi NIELSEN, Caro Culp RN, Caro Ndiaye RN 05/21/24 13:42:59 05/21/24 13:42:59 05/21/24 13:42:59 Entry 4 Case Attendee Kishore Pereyra Role Performed Electrocardiographic Technician Time In 05/21/24 13:35:00 Time Out 05/21/24 [...] Out Robbi NIELSEN, Dmitry Brice RN, Karena Patel DO, Bradford A., [place], [...] and tissue Entry 1 Skin Integrity Intact, Cedro, Warm, & Skin Abnormality No Dry Outcomes [...] Met? Y (more content not included)... Normal [facility] Main OR Preoperative Recordo n 05-21-2024 Main OR Preoperative Record Main OR Preoperative Record Holding Area Document Type FTPM Summary Primary Physician: Luis Felipe Mack DO Finalized Date/Time: 05/21/24 12:46:37 Pt. Name: CLINT MOISELO Lema/Sex: 1995 Female Med Rec #: [id number] Physician: Luis Felipe Mack DO Financial #: [id number] Pt. Type: P Room/Bed: / Admit/Disch: 05/21/24 [...] By: Carmella Sol RN 05/21/24 12:46 Normal [facility] Operative Reporton 07-09-202 4 Operative Report Operative Report SURGERY DATE: 02/27/2024 PUTTY TINTER MAKER: None PREOPERATIVE DIAGNOSES: 1. Nonhealing wound right [...] in the office in four days. Emre Yanez DPM ca Dictated: 02/27/2024 [id number] Transcribed: 02/27/2024 Normal [facility] Comment on above: Result Comment: Elec tronically Signed By: Renata MCGARRY, Emre Charles\.br\Date and Time Signed: 03/05/24 13:23 EDT Surgical Pathology Reporton 03-05-2024 Surgical Pathology Report [facility] [address] [place] [address]- Surgical Pathology Report Collected Date/Time: 02/27/2024 13:15 EDT Pathologist: Aravind Collins MD Received Date/Time: 02/28/2024 08:27 EDT Emre Yanez DPM, DPM, Emre Charles 07 Surgical Pathology Report - 03/05/2024 09:37 [...] is entirely submitted in one cassette. (DC) DC:[facility] Microscopic Description Microscopic examination performed unless gross only specified. The use of one or more reagents in the above tests is regulated as an analyte specific reagent (ASR). The test or tests are ordered following initial H&E microscopic examination. The performance characteristics were determined by the Laboratory of [facility]. They have not been cleared or approved by the US Food and Drug Administration. The FDA has determined that such clearance or approval is not necessary. These tests are used for clinical purposes. They should not be regarded as investigational or for research. Appropriate positive and negative controls are performed and are acceptable. Normal [facility] Comment on above: Performed By: #### [id number] #### [facility] Laboratory [address] [place] [address] Main OR Intraoperative Recor don 02-28-2024 Main OR Intraoperative Record Main OR Intraoperative Record IntraOp Document Type FT Summary Primary Physician: Emre Yanez DPM Finalized Date/Time: 02/28/24 13:57:27 Pt. Name: CHAU MOISE/Sex: 1995 Female Med Rec #: [id number] Physician: Emre Yanez DPM Financial #: [id number] Pt. Type: A Room/Bed: [place] [address] Admit/Disch: 02/27/24 10:12:05 - 02/27/24 15:05:00 Institution: [...] 1 Entry 2 Entry 3 Case Attendee Karthik Martinez DPM, Felipe Pierce CST Role Performed Anesthesiologist Surgeon - Primary LVN HOME [facility] Home Health Billing Specialist Time In 02/27/24 12:36:00 02/27/24 12:36:00 02/27/24 [...] Sims Alejandro Dellinger, Sydney A Role Performed Dredge Mechanic - Primary Staff - Other Scrub - [...] Yes Time Out Karthik Martinez, Given Participants Emre Yanez DPM, Zayra MENDES, Felipe Arora, Nico Hollingsworth Sweene, Terry T, [place] Time Out Complete 02/27/24 13:09:00 Outcomes Met? [...] BIOPSY Primary Procedure Yes Primary Surgeon Emre Yanez DPM Start 02/27/24 13:11:00 Stop 02/27/24 13:19:00 [...] and tissue Entry 1 Skin Integrity Intact, Cedro, Warm, and Skin Abnormality No Dry Outcomes Met? Yes Last Modified By: Alo Sims 02/27/24 12:57:25 Post-Care Text: The patient is free from signs and symptoms of injury caused by extraneous objects Patient Positioning FT Pre-Care Text: Identifies physical alterations that require additional precautions for procedure-specific positioning, verifies presence of prosthetics or corrective devices, positions (more content not included)... Normal [facility] Discharge Instructionson Discharge Instructions Discharge Instructions CHAU MOISE :1995 Visit Date:02/27/2024 Inpatient Discharge Instructions Your Care Team Admitting Physician - Emre Yanez DPM Referring Physician - Emre Yanez DPM Reason for Your Visit ABSCESS RIGHT [...] Appointments Monday 12:30 PM EDT With: Emre Yanez DPM Where: [facility] New Follow Up Appointments after Discharge Follow Up with Emre Yanez When: In 1 week 03/05/2024 EDT Where: [facility]le [address] [facility] [place] [place] [employer] (1) [facility]: c/o [address] [place], [place] [address] Business (1) Medications What How Much When Instructions Next Dose Unchanged escitalopram (escitalopram 5 mg oral tablet) 1 Tablets By Mouth Every day [employer] [place], [place] Emre Yanez DPM, FACFAS POST OPERATIVE INSTRUCTIONS Keep bandage [...] Report any increase in swelling to Dr. Yanez immediately Resume regular diet. Call the office if you develop: persistent bleeding temperature above 100 degrees persistent vomiting calf pain or shortness of breath redness or pus at operative site Call the office tomorrow for 1st post-operative dressing change appointment. If you have any problems or questions, feel free to call the doctor at: [phone] or [phone] Yanez paged. Patient signature Date Dr. Emre Yanez, DPM, FACFAS Date Revised: 10-05 Common Emergency [...] signed up for this yet, please contact Health Information Management at [phone] to get signed up today. Patient Name: CHAU MOISE I have received this information and my questions have been answered. Patient/Representativ e Name: Patient/Representativ e Signature: Relationship to Patient: Witness Name/Signature: Date: Normal [facility] Comment on above: Result Comment: Elec tronically Signed By: Kalpesh NIELSEN, Maximilian Oconnor\.br\Date and Time Signed: 02/27/24 14:31 EDT Inpatient Patient Summaryon 02-27-2024 Inpatient Patient Summary Inpatient Patient Summary [place] [id number] [facility] Clinical Discharge Instructions PERSON INFORMATION Name: CHAU MOISE [facility]#:[id number] PHYSICIANS Admitting Physician: Emre Yanez DPM Attending Physician: Emre Yanez DPM PCP: Julieta Curtis DO Discharge Diagnosis: Comment: PATIENT EDUCATION INFORMATION Instructions: Renata - Post Operative Instructions (Revised 04/24/14) (Custom) Medication Leaflets: Follow up: With: Address: When: Emre PULIDO - [facility] Foot [facility] Ankle, [facility], [address], [place] [address] 0 Business (1) [facility]: c/o [facility], [address] [facility], [place] [address] 0 Business (1) In 1 week 03/05/2024 Type Location Start [facility] New Patient 30 (FT) FT.WOUND CLINIC 03/05/2024 12:30 PM 03/05/2024 1:30 PM Confirmed MEDICATION LIST Medications to Continue with No Changes Other Medications escitalopram (escitalopram 5 mg oral tablet) 1 Tablets By Mouth every day. Comment: [facility] Main OR PACU I Recordon Main OR PACU I Record Main OR PACU I Rec ord PACU Phase I Document Type FT Summary Primary Physician: Emre Yanez DPM Finalized Date/Time: 02/27/24 14:21:46 Pt. Name: CHAU MOISE/Sex: 1995 Female Med Rec #: [id number] Physician: Emre Yanez DPM Financial #: [id number] Pt. Type: A Room/Bed: [place] [address] Admit/Disch: 02/27/24 10:12:05 - Institution: Case Times [...] By: Kathi Sánchez I 02/27/24 14:21 Normal [facility] Main OR PACU II Recordon Main OR PACU II Record Main OR PACU II Record PACU Phase II Document Type FT Summary Primary Physician: Emre Yanez DPM Finalized Date/Time: 02/27/24 15:14:43 Pt. Name: CHAU MOISE/Sex: 1995 Female Med Rec #: [id number] Physician: Emre Yanez DPM Financial #: [id number] Pt. Type: A Room/Bed: [facility] Admit/Disch: 02/27/24 10:12:05 - Institution: Case [...] By: Maximilian Posey RN 02/27/24 15:14 Normal [facility] Main OR Preoperative Recordo n 02-27-2024 Main OR Preoperative Record Main OR Preoperative Record PreOp Document Type FT Summary Primary Physician: Emre Yanez DPM Finalized Date/Time: 02/27/24 12:45:36 Pt. Name: CLINT MOISERossSEBASTIÁN /Sex: 1995 Female Med Rec #: [id number] Physician: Emre Yanez DPM Financial #: [id number] Pt. Type: A Room/Bed: [place] [address] Admit/Disch: 02/27/24 10:12:05 - Institution: Case Times [...] Signed By: Alo Sims 02/27/24 12:45 Normal [facility] Outpatient Surgery Discharge Instructionon 02-27-2024 Outpatient Surgery Discharge Instruction Outpatient Surgery Discharge Instruction [place] [id number] Patient Discharge Instructions PERSON INFORMATION Name: CHAU MOISE Date of : 1995 Current Date: 02/27/2024 13:33:22 PHYSICIANS Admitting Physician: Emre Yanez DPM Discharge Diagnosis: MOISE, LEELO has been given the following list of follow-up instructions, prescriptions, and patient education materials: IF UNABLE TO CONTACT YOUR PHYSICIAN AND YOU FEEL IT IS AN EMERGENCY, GO TO THE NEAREST EMERGENCY ROOM OR CALL 911 I, CHAU MOISE, have received the attached patient education materials/instruction s and have verbalized understanding: May we do a follow up call? Yes No I was present when discharge instructions were given Patient Signature Date Clinican/Nurse Signature Date Follow up: With: Address: When: Emre PULIDO - [facility] Foot [facility] Ankle, [facility], [address], [place] [address] 0 Business (1) [facility]: c/o [facility], [address] [place] [address], [place] [address] 0 Business (1) In 1 week 03/05/2024 Type Location Start [facility] New Patient 30 (FT) FT.WOUND CLINIC 03/05/2024 [...] to serve you. Thank you for choosing [facility] HERE ARE THE MEDICATION CHANGES THAT OCCURRED DURING YOUR HOSPITAL STAY Medications to Continue with No Changes Other Medications escitalopram (escitalopram 5 mg oral tablet) 1 Tablets By Mouth every day. PATIENT EDUCATION INFORMATION Instructions: [place], [place] Emre Yanez DPM, FACFAS POST OPERATIVE INSTRUCTIONS Keep bandage [...] Report any increase in swelling to Dr. Yanez immediately Resume regular diet. Call the office if you develop: persistent bleeding temperature above 100 degrees persistent vomiting calf pain or shortness of breath redness or pus at operative site Call the office tomorrow for 1st post-operative dressing change appointment. If you have any problems or questions, feel free to call the doctor at: [phone] or [phone] Yanez paged. Patient signature Date Dr. Emre Yanez, DPM, FACFAS Date Revised: 10-05 Medication Leaflets: Normal [facility] SEROLOGYOrdered By: Joan Tejada on 02-27-2024 HCG.beta subunit (U) [Moles/Vol] Negative Normal [facility] Man Sero U BetaHcg Qualon 02-27-2024 HCG.beta subunit (U) [Moles/Vol] Negative Normal [facility] Comment on above: Performed By: #### [id number] #### [facility] Laboratory [address] [place] [address] Coding Summary.on 02-21-2024 Coding Summary. EFXJIidd65VRm3gVa+PG h lYWQ+LG9NUAViR19mfQIu sM8gE7DUGGwYBxomQJKMY TsOCaLvkfRwWH3pcJQuKB Ju IC8+DJ1vGSYkWeyjwQYqk 4L8gAD8K00mdq0zPWevjC T8IVChReKqoemck5xnmGe 6IDcuNmluOyBt LBIleR55DEW1sI31Gh78e XOkaXJct2caiSk5XvQaSJ RlJAB0vUggSAwan3PxGFQ nK15fbPAui6W2 XCXsoCcebKKwPnOoeHG3y N1qTTdginwcd9dobycxPh y6mf09yTHrc7A5bFL8J1G adwH8FRHedCAc LoxgaRTMeO7xndvmu2tcg kahEuGeHEHkRXt1REl1XA HwaChuOhOyGK56BSM4EOZ afbFnW5ZiEGPm yHivOlE7s4S5Vd5NS8QOW qirF9DMUEOKMZeduQM+PC 77sb73H5BvZlslPch0YGY qRYK3vSX6fW9h OWOpNDuvu1G7aOG4T3Wsa nAbgk4bh1keUOQaFFieN9 3pdXJqy7Z1TDXasKC1MMU nsJqvIuExzR93 Oyc+UAQdfTqae2MeXbrat 8rcq3ovfJr1RacjQVKihz DzmBefCDI0p8LiHq8dLOE zfGB1kJL3aL4g PmSsXfR8VZyrV936FaDlh DMtKvykM26fH2PogZK+PH ErMay5URTxvPjcNZ3xS9L hZGRpbmctbGVm nBukZX3uEOQldpywUTAyk X5qLXBzH0j4AgBqVfI1PQ xgX3DtROYqsvxfMt29oM3 eGdHcKnQ4GQbo I2VmpeC2LDMkmYAsQEakM QE2M49rl5F5ONMxZBPpFV P2rOW7tC8wuWygbosunJF mdDsgdmVydGlj EPzxTGnsT225MJFqjRsmR kNvZGluZyBEYXRlOiAgMD YvMjYvMjAyNDwvdGQ+PHR tXTK4iLbtWCWe sCOoITrcZo4wgFjtlLxfD F0oKVApkokjFWFuoG6tUL MczNHovKejCV9jSHEniyb cv479ToUzHUK1 FMYubVVvY6LruX0bMkMzX AKaRBRfS8JwmRCiRFbpF3 65DWyzSyK7PCNywrOlC4O sLWFsaWduOiB0 u2R5Sm0Vn1ZnpjplS4Lwl NIsMhHlPypvQNy6U1BwLz wvdHI+AZ07ZYFzOV99PJi 9QTE5fAlnZGxd BPFaQ0RhsQ9lEgAgLWDmJ GRkOyc+PHRhYmxlIHdpZH RoPScxMDAlJyBzdHlsZT0 uBq4aUSJqRAGu yIdkkILjOiYon2wuAODrF XeoTY5qeJqoK8EqxBM3QG Ddd2x7Se12F00eC4CyvFM +VGLrvKK3qPJ0 aP6wTpIhMwC8ONltO763C kUozYOgOszho7kvi3jgaI m1EcR4CFMqbwKygFwnURL 9x9RbDz66Z22v IHdpZHRoPSIxNSUiIHZhb Qswzx4ipU4kHk6+PGNvbC B6aWB4uA7uFdCeMaG8RUi yV252WfVhoVBn Fnowb1tif0ekjUa3JvCyQ MGvxiNqzSaaRZL4i3CsZa 21C2RejFuln3QdZxb2bm1 8eALbn9H1jKU5 P4IoYPPavoomkJDemXcvT Z0tYWMksczsJYRexN9tKK EaZ5m8NiHxCfQ3MPvjJ0F lfaZ4DKGonMWx INTabAXSxI7drctfw2ggf swiPwVlVNKaTKh9UMr7LM IjxKirMyMpZUW1HmC1ILR 4kXOveC8niHjt oqrlkM2qXgs+LAX4vLPhm EODWN3xVzkbiXM+PHRkIH T0zHmnISjmPVAwcV7lPJJ pV6l5VcWaXqQ5 HXrbB4BpuvO5AFQhlVNfQ GCeoAWQcS2metyur2mkdr csChVsGCNwKKr3OHk0RFY saWduOiBsZWZ0 CnU9OZF6rYCxkT2waYqid ftmnY3xOrd+QmlydGggRG L4CCe4R8ApWxp9DELyhDy nTD1juLHcLJzi Mp1zuYfmzTjlBD1hPLHzv myji309FaCnb9fxLNQtgU SmAWwoVBM1X98vl3D6ZSY eSUGbJFQ1qYM1 aM5ygIxrsfzagROdcEopb iGiyWodMIewBUoyO757AY ZpdLpmJnOsMYt0U0NmKva 7BZFrvZhuAL9a aGCmHScdBj7fkTyugVhqG K1vOKUnpkfxd162IqGte0 rsIBOocAAdIXemKDC5C95 it9A3AGZjFHOz BHC4uKW1eV8nnIrbliqxv GVmdDsgdmVydGljYWwtYW rkU935YHGtjSqeUoMoaBg 1P6MbDzp2INSv wDiuED1cqXOgADlhBw7zw LbenUtmHT8wSHNgjvfig0 56GsPio3eeSUOzpIEaAMs aAKF2N09ue2W7 NMAhPTHaBVA2eVX8sA8io GlnbjogbGVmdDsgdmVydG krJAmlIGhxZ610UMZhcLp nPlBhdGllbnQg EWqcWOu2Q1BvFpjduZW+P T97LYTvOQ29pSXrlCEhd4 eukJx5IdNpVVPyPZV3uWr aLQpve8HeSGLw G26aaDFky5X1WEKevWwdq TJfFzTnwJX8sV5vKHstyk llc4vtvmitUxmpq9jadh0 4iL07P41hBZnm ZHRoPSIzMCUiIHZhbGlnb h2tqV0xBa3+VURfwBA0aY A4kZ8vXUXsHpX6LRrhB91 9InRvcCIvPjxj d7hzp0clnKk1QnI6AIAvo bEqoUdtJEX9b2VhGc41W1 9sIHdpZHRoPSIyMCUiIHZ hgSeenf6fzX6d Ii8+QKSlaIO6kOJ3fT6bC gGgXyA5XZleY299PxNmfT PyJxhcX97sM9UhlVD+PHR fDmz1RGAtoVgl WF5opEEoKOqlLc1wROO4L fVsQuHsGRyrW5LyQJUbra gqjcwxlZN8ETRoLWPtcK4 4Rz4opOocWKAz nCTIkZ9osngpr2pusnywK eBvDLDpKBh4XBb7SOGcjL ylOiZrLEH9IzA2SZQ1jXH noG9eoPpxzpet yD4vB9DaHSLkdlgnYw13z E5vZzSsTvW6ZVznOsv+TU 9OVEdPTUVSWSwgTEVFLUF OTjwvdGQ+PHRk QJQ7pEkzPClsKOBklG0rV KShZ2z6FiSgQmR1JZliR3 RbHHPstuepUf15sK4tQfG uLkO8ANxyT8Tr zcX4SGDhmJPvGNdvRPV2A 92zu1O7ARVnQBFfIXH5cB M3nD9yvOjxaxhdhTWaeKr gdmVydGljYWwt OBscP713TVCdyGnrWsB1L hZdLaI0RFZ7F1RrWfr6HL BicPihTV1fvSKyEVaqCa6 xwDtmgIkdQP0h OBLtaoejRZHovO8nGCTkj CMolIzlJN3hVHXnddiyg6 34HaZdFQU2EXTnuCCnJ9E krJ4pXhBfWCAe XQTgO3AebYXdANuyL983V NjqRtG9UTGgleLzQ6EgUK EyyCrcNrY2z2H4Lt8jCUS ZZWFyczwvdGQ+ ODMvKUK2wAcxODenFKSwj W4lBGLbD6m7KiMbYeA7QR qgQ1QlXSUosoayJv64zY3 qNzDgGsL0ZLnc L4CeeoN2AMIjrWAuDIqqT NW0M67nz7D2IEMuFEWiPA E3oQX5pG0xkTbrihlicYY mdDsgdmVydGlj SZarJHyvM605XBHyhWukS kZlbWFsZTwvdGQ+PHRkIH N5tJdbTMygNDOhzW0oLZA mJ7x3JzUfSyY1 JUgxK2UcJZOgplwpXl93i J6vHiWfHgZ2NGmyO7Msix G8FGNicBGeVGoxSJR9N02 ql7L7PBFwUKPk GNW7cOP0dB4pbEvccekhv GVmdDsgdmVydGljYWwtYW qqB759LRUwmEoyCg24vKQ iaDwgejS4I1Tn PjwvdHI+SQ86YROwZU10a PLwlBSrq8jgmUf8YuEiVH HvWBB5cCxnOSotg6VdURW vS82eeECdd0N9 CLSaoZvkbEWaQwHhkCC9y V9pGQpzgokvk2huqshvLu gbk9pmvh85hO52Z96bHEk pZHRoPSIzMCUi BDYlzTsgql4wbS1eZg9+P VKlkBD0uFL2uO6yYlVtPy P7GSweL431KvMkfSJoBrq xt5bck9kvqVj6 UqLlVYMyxwQccZirZOH9o 5KtBs07K33kCDuhARBaVE HaVTYrDMEuoFgyuu2kaO2 wIi8+BB5qt8vn eh43vI51kES+WBGiJDS2p JveWUkkVDGcxI6dLZgqSh G2YKWkZtByqA47xKGqDDs uZz6vcSzboOwm MU6gKWPbrbomn497MoDwm 3yqZGVnyPKqWFvgSRG8K8 9ww5A4KOGdWRFhNYE5zWV 8uI4ynVbvvcoi bGVmdDsgdmVydGljYWwtY EzaI171MUXkaUviBcXtnV SnI9lcqpTSEH2cZkovuXP +GYSwASV6ePbn ZQxdUCIjbU4oHVMnL2m8C lVrLwV5HAwfX5KwssT8PD ZjqIZtRITihZZGuM5jnql bw0xankvbDxGq YROgMFk5SGe3HQGsqWmbX eQgOQP8ObH0FJH7vMPaaI 7zjJrgwsfodP7rUid+Rkl OOjwvdGQ+PHRk ZAZ6jQjeDVrxMBUzzW8nJ PMbK2f7VsXcZvH8VIhxF6 EncnF3QPAicEAfDPTqdRB VkD8yrwgbi0ke bmymHdEkKSSqFNr0RRc9S ALvdJfpVlFoJNG1SeN4TX T3jHLuyV6dxSexcaiesA2 wOyc+TVJOOjwv dGQ+ZSUgUMT6rBbkKNotO YSpxC3jRLApD4u5WjHzFn G9TJggR3LobzQ6EBWbdFB oSCXhtPUAzM6x ubrie0oqnbmjPpWsHWPvC Vi0IAv1SDLezNgzPeDoIZ H7FdI9LLI0xPRgbD2leDp ekwapxF5sEpg+ AZN7KNL2EV96BP95X2RwW jwvdGFibGU+PHRhYmxlIH dpZHRoPScxMDAlJyBzdHl bOE1rHp3uJYKg LWNvbGxhcHNlO (more content not included)... Normal [facility] Coding Summary.on 02-20-2024 Coding Summary. VAMGWioi68XBb4tWm+PG h lYWQ+QO9EVQPuV61tdYDt lR7tC0XACSnBIpnjYYNLM AgSGeDftuKaJX3foNKqGR Ju IC8+SJ7qHIApXtqjzCAla 0C4eQP8V67ymh8wDAertV A3FTAeWgCfmoavc1blmRz 6IDcuNmluOyBt QEAbiK98MHY6jG14Tk13y JDqbYOcr3rxuAc1ZjJzUB TuCJX3pItfTVieb2XwRLN eT30mbFTzj0V4 UJYriXndiAFjBpTngUF0y U8iEIubavijp0zlwhvhPw h4qv72wDPsf1Z6bLZ5B7N eriI9GVMqqDBh FboayVRPuN7ijheiy9jyt uipYlRcHLAoUYv4JFt9FV BvsOkiSeNnAR75NGE4KSG llxEzR7EnMWUh fLhjKcB3i3Q7Ob0QR0RMX shiK6LPKBTYVTynbBJ+PC 13qc24M2UpMpquNxi5BOU iNCZ0tKM9xU2b AWCdBLtsk8B3iSC1P3Ttp rEpik7zq6ivXEIcJYppJ3 9odQUie9L5XYDfoQM7LHB szOaeJvZqfP11 Oyc+VWVmpOvxw9EbQtyim 0dgf2jgeTa9LyarNDSaas OgzHstYTX6x4IpDf6gTUL orCT8lAU9gH5f GhNuKrE7HAbeK246ByIsg IJrGyrqQ50zE2VjpXW+PH TfEmi2RXNzrGrfTY4iD2Z hZGRpbmctbGVm mOkhGG9kWKXzzexzEZOvs I5cOLUzN7f1VrKjNwY8KN qgT7MzXLLuvjhrAi80fW4 oNdJgKeW6MTht I6JldeP7GZEssZQuADqcV CI1S08av5H3ROItXDNtNE R9wQG3wG1jrKjphqcjqLW mdDsgdmVydGlj XQowZAcxI655TZFibEnpC kNvZGluZyBEYXRlOiAgMD YvMjUvMjAyNDwvdGQ+PHR zTUF2sYqeDFKw pXTfOCvrAs8ccSrovCwcL H3nVNKbkughQGOukN4vHV QomGMjzZapOJ8qIZZybva yc828KkVbQWW0 VMGckUTtT5NzxC4nGkPzR ZPpDTJxO3GhuFUlPLtnG4 08BUujLsZ1PLIebrZiK6K sLWFsaWduOiB0 w8H8Gh7Wm3BrspgkN3Wzi JYyErBeLnubPMd5L6PuHk wvdHI+JY36DKPmNK09ADy 3OTN2cTjaSBsi QXWdV0SscZ1wLdKdOBNwD GRkOyc+PHRhYmxlIHdpZH RoPScxMDAlJyBzdHlsZT0 vCk0jOCKjYIWs hTvjoLViDtYng0fhVQJyQ HgaQF1naFluM6UsgEQ2ZA Rlt1w3Sk58B92lG7KbvMW +NAEgwQZ3jLX6 rA6vLjXyDqM1NVmmW289J fDaxSGtHellm5kkn4hldD e4RoU0IVIxrsJorFjfFWT 0i7QqTb63L25n IHdpZHRoPSIxNSUiIHZhb Iiskt3qaY2mAe5+PGNvbC A1yHR5sO7bNxSsBuW2KLb tN029CkSevSAv Tembk7vji0feiXz6FwAiG NUpebDddFqkNFF1a6KzYv 54M9VjaCzay6QtVim2eb2 4wLMbk9K7dMV9 L3MeEAAgluuleANjtFyoQ G4mMGVcxucqNQUjkQ3hEY TbJ6w6WcCmZmW0XTskM0O hgqV2MFSmxZOo HGEuwSRIwJ7xkprxu9tta cuuInWjGORlDWc9UMy0WU WowMueEmSvIOM4LmK8IGZ 8tMVgzJ3hlVpe bkumoT4hHgq+LXG2aHZxl PHUKF4rRflljHM+PHRkIH C8gOvdKAraPVJrhJ4sZPM fD8e2HdNuGyO7 SXyrE0PmqxS9VHAsaFThQ UMpsXIUkP1mojtgn5nzni sdTiGsZTIaLCj7MCe1PFF saWduOiBsZWZ0 RqA0RJZ5eTLfpL1utPyfq dvgmV3qKvr+QmlydGggRG J1VLv2S2YqIfo0XPFjjKh qDK3asOGeUMng Jh4puGehqJwmIS2qSSCck bxbh983EbYsa9ytZAIhkS VmBGmbNFS1F45af1C1WFV hAWFwHAF6sDL3 qM9loLhearmvgRUtpFiql kJgxNngQNjmRIpyY198HK KnzNhqFyFsBFy4U8VaTty 8FWHokWspBB3w uUQtWZmvCd8boXuivXkcB F5oSMZxozevs496YnCla6 baLNFfmMMdEMhkEGR9P35 mc8L7SJVmFCVs WIR9vKW4pG8vqMoimxzze GVmdDsgdmVydGljYWwtYW csG311DSHqjMtaGnIiqWw 2J8BhGvo6SHKx hYlxCZ1gmZMzTZfpIj4rn GqduOapEU0bXRVtvapvy1 11WsYyw9rjNPAgxEScYHc vVTT1T64ar1X7 MJQaTURmOTV1tOS2vP9eh GlnbjogbGVmdDsgdmVydG deMMssOUgwS664GJZhgZd nPlBhdGllbnQg EPmvZYj1B0TgPnpybUJ+P C52OBEbOK19uWDikCJwa6 wvuSy5EiJiHDIlROR7uOr gLNrdc8RqJGKx L04pwYBrl4N3OPWuuXapg CNnQzSqsTV2vH7rKQonpd uom8kvsjqfQgywb0vayg0 9vZ67E28xWVkj ZHRoPSIzMCUiIHZhbGlnb l4ukU5gCr8+HBDzcWL2eD B2lJ1nELRvWuP6EKawA53 9InRvcCIvPjxj e2zbk5nseFa5PmL5UMFpy kTfxPtkWAF1p6UyWh81I9 9sIHdpZHRoPSIyMCUiIHZ ryFsnfy9wmG7e Ii8+AAMmjTZ3kMW6dM8nP cSiYoI0QZawX496RwJqzA FzMtynV84pS0ZhvCI+PHR uTad4ZUNelOqn WJ1eoPNoJJrjJz4aIDH9G cBgWkYcMNnmI3QsZQGojb ovtzdwkBQ9ODJaQZBhvG4 8Br5muZqvGPKk vMFEqA8npsnmy2jxzdslP uQgQFNfECn5EEz1ZTYhjK jrLhQgTLF9CkJ3QCT3wSV gzF7adFndhgmk eQ6tS4RqJEOtcqshKo69g B5kDeGrTkM1KUnnZly+TU 9OVEdPTUVSWSwgTEVFLUF OTjwvdGQ+PHRk DRA9iUaeLQyrPEVdxI7nQ PThO6m4VoXiWfQ6QJbaL2 UkTBEbgvduMb55xS6wBeG dQpU4ZGamG3Ty odD7AWVuoWIlNFxkYOL7U 71pn1R0MNRrAGGgQEK2uW W8iX7yfQemikfvqHBsxTg gdmVydGljYWwt YGwdC497CPQdwBzoWgM5F aUkBcR4WZE5U0LpDxb7BG UknXmiOO8qkOZtVYguFu2 qpAcldIfqVB6i CXVuxtwvQDQinS6sBZDrs NSerCwoWR3pDXCizwmvs7 21UvKjOCM4IPMxvYJqY1P qaC0zPlIgQHLz DNXcC3QyiUXnQEgpI311K YbbUsS7JDVkowZyD0TvFH AshVwkAlN2n4H9Sp3fPMS ZZWFyczwvdGQ+ YCKsDSH5pJzhLSbkRLQqm T9eDJGoG1j9OsWaEiE3EZ vyC6AhORUzkcrpRp01gI4 qToErHeH6AXpr Y9OzqyM3XNZhmRImYFqdA EX7T94ta1D0MPGuLLQrOC G5zMB9dR0ybRjsyzmbaSK mdDsgdmVydGlj SYlfHKghT273OXGfwQdkO kZlbWFsZTwvdGQ+PHRkIH R6pYjwQPleOAIhlC9aANY eB9j0EfFtWjI9 DOcsF7TgDCWzkdeaNf14h F2yTrAiMeQ9QTplE7Xzsf J8JAHedQDxZWsqGFH2S46 lu0D4ZOPfFVIq NOD5iYN2tG4fbTbrlaoos GVmdDsgdmVydGljYWwtYW bjT770EMBeoAtzOi36pIQ qcIrqntU0K0Jn PjwvdHI+AF56DEIkTH85z BSfiMCft1nvjFr5MsLrPX McIOL6lOdnOOoip8CpPMG hF71fhBLvn1H8 BJKclEyitUIrCgHnsOF1v C8zZZlnqxtiq3gwobypEr dno6hcha56yI98W03dNVh pZHRoPSIzMCUi XURdjXlwgl4jtA4mWu2+P LVpaIQ4bSD6vA1rWjQwIg D7WSfaV103QgQruHXrMsj mh8kxh7bviZa4 DkJfXXRtodOymMyzYSN1x 2VeMk04T60sZZeqEASsHF SfXDEtZYSxxCcnzj2xbF5 wIi8+VV9tv2eh nq99nV74sEV+LYQvJAW4o AxhYNndRXFsvP6mEXhaPa Z8TFByTaAuyU02dZGaIRw kIb5cvTjuzTto MH0hLOBaynvsj933KwJrr 8bdZBQncULbJFspUAR3F1 6et2M3OSKeFBYdXOM8rYL 5vR8axOilgubp bGVmdDsgdmVydGljYWwtY KboS338SULmiTipOdFzcW KnB8vtheADMZ6zOcdwtAL +RPExMHN2iAya LHllWXGgrP1zMXLgF8q6L gMiMmO0HNorK9EzeuO8ZT HryIFxSUOofBSOkK0paon as6mlnmszZlVm BOLgEEd4AJk5VCQthQqhZ zZgIIF7GpL3NXF7vZGrxX 4hgRmhqdgnkZ4hWdf+Rkl OOjwvdGQ+PHRk UVA5aMsaKOijXZAcmA1mW AZyB7z3RuZuIuH0UWriE4 MrqfB3PWGruJDkLXMksJC RkW7wnercb0wo yoltPhBeTFWhHHt3FMm0U RQsdDwdCsKlSEJ3CrD2TQ T1kZZnoT4jiNyaftmdmP9 wOyc+TVJOOjwv dGQ+PVYvLRW0rUjhQAgeE ZIfbV6kUZLvQ4q8UvKmFf W8HQokG0NlezD3FFKnfJE mVOSlhRBFoI6t fqftf5oalzikYzZqUKFtI Bu8OVj6CYKqoOjpFsCqTA C4CsJ7PHD9pCLmsM4nyBn rxsqbeH2fYpx+ IDF7WCQ6UQ02ES33X6EyA jwvdGFibGU+PHRhYmxlIH dpZHRoPScxMDAlJyBzdHl rFN6hUq6lVMSl LWNvbGxhcHNlO (more content not included)... Normal [facility] Coding Summary. MNTJYbdd89EQd8jRx+PG h lYWQ+KX3UYLQyQ41aaKKg xA7wE8WNLAxXBkkoFVBTR TiJKyBghqAdJM1ynCJtDF Ju IC8+GO7cAIZtOwrqrXZzz 8G4xYW0T49xvo3aGOpuxZ L3DBQbOhNzajyqk9nvyFv 6IDcuNmluOyBt DPUjhT00AGY6yX13We89e VUxqQZxo3lypSg4UoZgKO PzCAS5mPyqCKudu2BjOSC eK84bhLDaf6S3 XRTwdRujzUYaQyExiXB6f H8kGJdwzlrhl0cyxzbdUi j1bg15sTVli1N8kQN6G4X absN0PRMjzKAc AzttyHQXzZ7rlcvln3clj unzJdJfAOPgXAk2CKd1WJ HdfUihNvGoVN89LEU5CCO awrIpM1UkSUJw mOciAkR3p1L2Dy0RK3MMN dbuO0MRXIGLRRakqIL+PC 90gm63P6TvJukzVcd9FJW dVKI0fAY9qH2j FBEfJFfqc8K7cHD7R4Pic sUdpd9id2goKCCrBHncT0 7vhPSif8I0WSFtbWU4CZY yvLvbBgDudL59 Oyc+UVCnjKnlp1YpBmkre 2qzi8hftXd9WrekFOLcgg EqyItxYYX5f8VwQt3mQNX etCN4gNY4cZ4f HjBxLsL3YZtxT937CxShw UHlXdogY88cS3NtrZP+PH KgAnf6NYCijMvoYY8lU3S hZGRpbmctbGVm mZcgMA1fOVKqlfihQRPqb E4hCWBfX4h1PxNcKkC7VV nlF0BuWHQlvfloLr11mS7 oZmGyZaI1OFid B1YiqfF3DQBilAOlCPflT JL4D19ge1J8QMQeNHUvJM X2tPV9pO6foTppgxtsmCG mdDsgdmVydGlj ZTigCAwwD662HSRdiUplW kNvZGluZyBEYXRlOiAgMD YvMjUvMjAyNDwvdGQ+PHR bETD6jDrcXIFe vFWeWYppFo9dyNqqmUkrP R1mSUKayztzCUXuxK4yQP LkcNKbnCfiMM8gDWQzidk wz824JjEdDUA7 JPHavOSiA4PolT1mTwQuZ MZhXMAsF9LiiYNlBXxwN8 94BSpsLlS3BBWgrsFeS5L sLWFsaWduOiB0 t1T1Hz0Ds8EkqqhrC6Bov HEjOySfIqvmRMp4R8IoDw wvdHI+KE09NAEgSH42BTb 1QOY8gDtvQGyv CKLlT5ZibU8lBxDoQBXxU GRkOyc+PHRhYmxlIHdpZH RoPScxMDAlJyBzdHlsZT0 yZn4fJUZrQVLr lRwziQPfLgKqp4lkUOFlD YzsVF6lgMhpT0SlwCE8FE Zwq2d9Pl05F71gF5MsaGW +FYJtvXO0uXQ9 tU8bEbKpPdS3AZlzM272F iQhiSNtJhqcm5ajb6btnF t4HvU4EXSdnbWsgPhdYIZ 7v9ZnLv40G30a IHdpZHRoPSIxNSUiIHZhb Qbjui7lhK5oNi4+PGNvbC U6tKZ4cM7tShOsRfZ7UGc mS029CrRiePUx Xrqkm5yln2hcrNz6NiSoI ZFlsxRifRjnJBG0o3IvSx 25L5DwoNeao4QsPvt2rj3 8iWLyj5U4yLL7 S0UwZHUwcbjxhVIbmKtxS D9nIJIuxpyeZJOtxL1dMA OzK4m2WeFoMuB9UZjlO2J ygsP9KTLgvSZo YBMdkKYDcD1oglpdj6hdu jprDrSgVTUsWRu1NKl6EF CgxQvqUeOrFAG5MiR0CZL 0yAXxzZ8brVot iikrpE0vRuu+QEF2yYXrq DJZWL7rFvsmiRA+PHRkIH G1sSmaVFiiAUMzuY5xMFA hG8p1CvVpWtB0 OYncG7TojkD7SAWfcFDvZ UJkgGZSfJ3tspxxq3irxe qfAvSiLENtJNj0WKh0JQW saWduOiBsZWZ0 InD8ITU3hOUpvL6bkYjhw shxzV3aDlf+QmlydGggRG B0HQg4V2XfIlj8VDInnRb yVA0foBGvROla Jb7ysGivfCxbRU5jJMOgc xinq278VxCcr6tmVHXkoQ FhQZvuPCZ5G24qy3A2NQY sEKKbSEQ2dFZ0 rZ8dzHanwsrjpAUqvEzzv sLmwYdfXHaaZYfgS494KX XorZjmHfZmYMu8F7ToWqp 0MMRduQlmQB3q ySGaXVtgRg7iwUqdbQisO A9mATTejbowp164ZxJzl8 tvBOKeyERnPWwhHFJ3N03 xl7Y0NKNcPHKu NYX2yKF9iD6ztLxcwwnfy GVmdDsgdmVydGljYWwtYW opL037IPUzbKrcFzCzzSy 3P7HtKvs8BHJz bYfmBJ1mqUWjCVynEc0cj TtruInuYA4hHSSoharyf7 81VgLkl7adETEfuRZvXZz sWWG8M50ui1F2 BDFwDESaAXO4kIQ4tU0gf GlnbjogbGVmdDsgdmVydG snTRbiJIxeD766WKKuzAv nPlBhdGllbnQg MRhzEEc5R7PjLvxloFE+P F58VINkRW80zTTxhCYdk7 zbfTi7NnVcSSUvILN8uRw aADoth4ZhXFUx T17wuUSii9R7EQUxsNopc WAcCvGcbAI3fK9iJArckj ktt0nashqeWbhyk2wbzc2 5fP84I33mPOuy ZHRoPSIzMCUiIHZhbGlnb m4smX4gKp6+EVOrdJB2aH L6uE8jTHDnKpT1ZYmxT47 9InRvcCIvPjxj z0fyp7rmrWh7McT7DNGqo wShhPaxYSM0l8KcPv98A3 9sIHdpZHRoPSIyMCUiIHZ gyAwsda9hdH9c Ii8+QXDlhVT0lRF0pN8vM lJfTqE0TVmcS920KtCkfI BvNjbbV18uO2MqiHK+PHR cNos8FLRetXfs HH9oaAEpDPiwKd8vBUR9B aGaJdVzUFvbH3WrCAWbsf yccwebyRQ1MUQrYJGneB1 6An2cyUeqYSGb lYNVpY8atzuok0nyodlyQ dSuRFEmRPs4TPr1HLGznD odRiKsYEE9YjH1DHN4xWT tbY7ptYcevxyx mC9lR9KgGOGwhtafDq54x L4rIsSgAbB3FTbwHux+TU 9OVEdPTUVSWSwgTEVFLUF OTjwvdGQ+PHRk HTO7pFbcZEjsWUXktL1rM EOxD8n4JzRjCwD2SEbtD0 SpKIQckpjiYx65zG3tVqV lCoD0FFotP3Sj npW6EZFaiSYaHTggRYW7U 32qi0U5KZTpYHKcQFE8aC F7yN6jeIogdsukaKHrxUh gdmVydGljYWwt QMuvA099ZVWhlRojGtI6K qQoHyM8AFH8Y9TkUxp8BK IjuEkcKC7mdYXvOBzcDr0 fuMxxkOcvNR5b PHSesafdOVCgxX2xMZHwh BAysVarOI7uTZLecfztq1 23KxBdEEV8LTMvcXXoV5F ggD0uCzYpZVZh BGCuP8WhtOIcLFtjV094P YxeOoD5VRCsfsPvN6BcJK RkrUqyViI1z8W5Zz5qWJD ZZWFyczwvdGQ+ YSLqUHF0jPeyBOxlXXSpb Y2tNTMeP8g1JoHcXgG4JI trW7NiRLKwqjmjTu06sE8 oTaHpThW6XTkk M2DoghP9JFVyeSVxIQpjF UM7W92em4U5ATTfCJYtRB S1gYN5gB3jzKiirkpndSF mdDsgdmVydGlj UWbfJLokE826HILtgTkwC kZlbWFsZTwvdGQ+PHRkIH N9zSsuMSfyNJEpfP7sOGF dO7i1LcNcReL1 PChlZ2ZtWRUdroltOk68g K7tHcIuMbB5JVnpM3Pvho G5PZBziHFzQWpwNTP0A02 zv9Q4DIYvYSTv ZLW2wUF6zZ1hjUaehrofr GVmdDsgdmVydGljYWwtYW vkD802NIKumJsjNrjvSgR Pjy2wNG6qHoht dGQ+PZ57tp25U6NoDbhtK wg4DNIoTIP6vMZ9fF1pOE WrOSlze6W3jPF3W5RfmjR soj7rq3nqAWYn RQntA80drMBvk9E7PTKaj XO5MWWduJrpCbUfbO33Fn c+RTJmnQugd5UbHuwvy8r mq5uesWt7XvCz GENzyxDnjKfgLRJ1c9JbJ r64X91qSRpaMUWzOUCnTH ErVUTybTnrob5cpN7oWu2 +QIKliPT0jUD3 hZ5oCyKlDxP4DKxoE299Y bFgzLLxYrkdq9upz0gqaS n4GuSkIATtjwMznSvcPRN 9u9TuIk33M6Ed bSvjn0SuElx6ev13gKRbv 1T6yMH0Q9RzGPRtmdzloT AplMgkWG9qVFJdiswxIZX lxV7pLEMtL0s9 YhBqMcR4DUwdG0CfnwS7N HVtaHCxVDZscPITgV0gmf wgc4tzwcbnIjSnUNUgRKc 0DRm8ZBRkyHwh YoIbAFU8IeM5JYV3wWClm S1mpAumwkatqY2iXtf+UG i6t9kepXLnFE5seAM3MH3 1SE30fJZfj1M1 oIG4O7EfRCBexsihsxmqk QV3DKKcHLGhwB40Ah5ugM iyPk4rILUgTDL6KHBzuHX iO9FowX6zOhMn UJKsTZGrR4XpaGEvMSvcN 104ZKiaCaN4FFOtyjNoA2 ArETJlzDrqKmW5z9W5Uq3 XYI43KZ36MM37 bTHda4L7xSU8Q5SrTJTcu mhvqowsqBE4VDTnSPOqjJ 09Bs9wrKruJw5xRJDhNRF 5UBNrwIGyG2Oz rU6eTlFyCBUeHIPeM2Hfj ZCvGJzvI397DWafWnC1UF DkagQkK4TyLUYlwLhiGrS 7f6B1Eh6XWz59 TZ66VU80xIZky9X5mLE3D 6JvQFVtistprfpanMA2AK FfPJLhfE61Za2rvDhqUc7 wXHUiFOQ3LWFd tTTkI0WdqO8mCuDxMZJpB HCvA5UxsBAdFWlcB045RJ dbMqS1CRDukfKhT2OyZXJ mqFrtDyO8a2V1 Si6TSPznwir1H6QrHcbgx HI+HG63WNPtZG80tDGheB Efq4tcrEz1XmDpKGQuQXO 4yMasSXvvh3Ot BMAoR14euUBzs (more content not included)... Normal [facility] MRI Tibia/Fibula w/ + w/o Co ntrast [...] reconversion. No evidence for osteomyelitis. Joint: Large ywzrv-ob-wnht imaging of the knee and ankle is [...] No other significant abnormality. Ordering Provider: Emre Yanez FINAL REPORT Dictated: 02/19/2024 2:21 pm Gadiel Brooke MD Signed (Electronic Signature): 02/19/2024 2:21 pm Signed by: Gadiel Brooke MD Transcribed by: SANGEETA Technologist: BIRGIT Technical Comments [employer] Contrast amount in ml's: 10 Normal [facility] Consent for Treatmenton 01-27 Consent for Treatment [id number] .[id number] Normal [facility] RAD - MRI Screening Formon 0 02-15-2024 RAD - MRI Screening Form [id number] 1.00TIFF Normal [facility] Physician Orderon 02-14-2024 Physician Order [id number]#1 .00TIFF Normal [facility] BMPon 02-13-2024 Anion gap [Moles/Vol] 12 mmol/L Normal - [facility] Comment on above: Performed By: #### 2 [id number] #### [facility] [address] [place] [address] Calcium [Mass/Vol] 8.8 mg/dL Low 8.9-11.1 [facility] Comment on above: Performed By: #### 2 [id number] #### [facility] [address] [place] [address] Chloride [Moles/Vol] 105 mmol/L Normal 101-111 [facility] Comment on above: Performed By: #### 2 [id number] #### [facility] [address] [place] [address] CO2 [Moles/Vol] 25 mmol/L Normal 21-31 [facility] Comment on above: Performed By: #### 2 [id number] #### [facility] [address] [place] [address] Creatinine [Mass/Vol] 0.8 mg/dL Normal 0.5-1.3 [facility] Comment on above: Performed By: #### 2 [id number] #### [facility] [address] [place] [address] Glucose [Mass/Vol] 106 mg/dL Normal 55-199 [facility] Comment on above: Performed By: #### 2 [id number] #### [facility] [address] [place] [address] Potassium [Moles/Vol] 4.1 mmol/L Normal 3.5-5.3 [facility] Comment on above: Performed By: #### 2 [id number] #### [facility] [address] [place] [address] Sodium [Moles/Vol] 138 mmol/L Normal 135-145 [facility] Comment on above: Performed By: #### 2 [id number] #### [facility] [address] [place] [address] Urea nitrogen [Mass/Vol] 17 mg/dL Normal 5-21 [facility] Comment on above: Performed By: #### 2 [id number] #### [facility] [address] [place] [address] Urea nitrogen/Creatinine [Mass ratio] 21 No Units High 10-20 [facility] Comment on above: Performed By: #### 2 [id number] #### [facility] [address] [place] [address] CBC w/ Auto Diffon 4 Basophils/100 WBC (Bld) 0.4 % Normal 0.0-2.0 [facility] Comment on above: Performed By: #### 2 [id number] #### [facility] [address] [place] [address] Basophils/Leukocytes Auto (Bld) [Pure # fraction] 0.0 E9/L Normal 0.0-0.2 [facility] Comment on above: Performed By: #### 2 [id number] #### [facility] [address] [place] [address] Eosinophils (Bld) [#/Vol] 0.3 E9/L Normal 0.0-0.5 [facility] Comment on above: Performed By: #### 2 [id number] #### [facility] [address] [place] [address] Eosinophils/100 WBC (Bld) 2.7 % Normal 0.0-8.0 [facility] Comment on above: Performed By: #### 2 [id number] #### [facility] [address] [place] [address] Erythrocyte distribution width (RBC) [Ratio] 13.6 % Normal 10.9-14.2 [facility] Comment on above: Performed By: #### 2 [id number] #### [facility] [address] [place] [address] Hematocrit (Bld) [Volume fraction] 41.5 % Normal 34.0-46.0 [facility] Comment on above: Performed By: #### 2 [id number] #### [facility] [address] [place] [address] Hemoglobin (Bld) [Mass/Vol] 14.3 g/dL Normal 12.0-16.0 [facility] Comment on above: Performed By: #### 2 [id number] #### [facility] [address] [place] [address] Lymphocytes (Bld) [#/Vol] 2.7 E9/L Normal 1.0-4.0 [facility] Comment on above: Performed By: #### 2 [id number] #### [facility] [address] [place] [address] Lymphocytes/100 WBC (Bld) 23.8 % Normal 14.0-50.0 [facility] Comment on above: Performed By: #### 2 [id number] #### [facility] [address] [place] [address] MCH (RBC) [Entitic mass] 30.9 pg Normal 27.0-34.0 [facility] Comment on above: Performed By: #### 2 [id number] #### [facility] [address] [place] [address] MCHC (RBC) [Mass/Vol] 34.5 g/dL Normal 31.4-36.0 [facility] Comment on above: Performed By: #### 2 [id number] #### [facility] [address] [place] [address] MCV (RBC) [Entitic vol] 89.6 fL Normal 80.0-100.0 [facility] Comment on above: Performed By: #### 2 [id number] #### [facility] [address] [place] [address] Monocytes (Bld) [#/Vol] 0.7 E9/L Normal 0.2-1.0 [facility] Comment on above: Performed By: #### 2 [id number] #### [facility] [address] [place] [address] Neutrophils (Bld) [#/Vol] 7.4 E9/L Normal 2.0-7.5 [facility] Comment on above: Performed By: #### 2 239692 #### [facility] [address] [place] [address] Neutrophils/100 WBC (Bld) 66.5 % Normal 36.0-75.0 [facility] Comment on above: Performed By: #### 2 [id number] #### [facility] [address] [place] [address] Platelet mean volume (Bld) [Entitic vol] 8.5 fL Normal 6.4-10.8 [facility] Comment on above: Performed By: #### 2 [id number] #### [facility] [address] [place] [address] Platelets (Bld) [#/Vol] 234.0 E9/L Normal 150.0-500.0 [facility] Comment on above: Performed By: #### 2 550358 #### [facility] [address] [place] [address] RBC (Bld) [#/Vol] 4.6 E12/L Normal 4.3-5.9 [facility] Comment on above: Performed By: #### 2 [id number] #### [facility] [address] [place] [address] WBC corrected for nucl RBC Auto (Bld) [#/Vol] 11.2 E9/L High 4.0-11.0 [facility] Comment on above: Performed By: #### 2 [id number] #### [facility] [address] [place] [address] CHEMISTRYOrdered By: SYSTEM SYSTEM on 02-13-2024 Anion [...] Remisol Chem Coding Summary.on 02-13-2024 Coding Summary. TMLQViqx40XDz0jEe+PG h lYWQ+FT7BYRYjO73xgNQr gX3eD2XPORaIPwfeEVHDS JpNKzZjevStXA4drDLmGB Ju IC8+MM3aTUZmQcbynPCte 9B5wCI8W30nza7gTZtabT Y3JPAqCrJapqyzg1yexUl 6IDcuNmluOyBt INYfoR74FSL8sB11Vb31c WLshGRlx2htoUt9LwFtFL QfKVV6eFgfDTdne3RuSHV nW59xhXNyt6J9 UOStmBolyTBpKrKnhOC1g W1cMRtsvcgbi1gfgppsTl e5yu67mHIci4J4gZQ1X5W vzpT8ZYLnkRXc VcnncPWCmK1ugebsz0ulz pbxLjGdXWNiMGq6EKu2EL MufTpsAgHdYG60JDR1GPQ gbeOgN1UaTEVg aZimPmF7z6L1Uw1UI8COM wikU0VYEWBFMYlupAT+PC 66iy42I2JkOsamTxv0NGZ qIFK0kMJ7aW7a KSWwYRyzo4R3dYF0C7Fjc aKqcw6ph8ihAUKpDJlaD9 2wcLCeq4U5YVXkuEJ9FRO fiZtyOdBfdY49 Oyc+HWFczAydq7AoLhxkr 5hkr1jffVg1WberTCTkgz OgjGikPUL4k5YhGs3kILE yhOB9nNX6oY4a VkWmKuN7TNzcK458MuWnb PUiJyazH44cN3DigLX+PH JjQeu1GGIqoBieIZ8xD2L hZGRpbmctbGVm nPrfAH3jKCLcfzqdGYKkw P5pAZVfD5f6VtAeLvN9XO vaW2WgXZXcedtfDq80pL9 cPsHyFiL9EIjo S2VzqaD2VBRvxLHcQRixF FL7T94pb9C5HOObSWUrRY H0xWZ2wX8jiCgnjdhqmMR mdDsgdmVydGlj AGcaGJamO233NZZgkBcmR kNvZGluZyBEYXRlOiAgMD YvMTgvMjAyNDwvdGQ+PHR lVOK1wStiDUUg cRUfCMisRv5qsKiooUskC P5eXLHibynfRAMduW8kFX EhbZGtjDroGN4pUZLmcwr vf163WvGpREW3 TJDckTZhC3DwuE3cXfWpT ZBsXNCjU3MhrIAzODwyI4 44XXgfKgV1ZCVdupJiZ8O sLWFsaWduOiB0 i5B0Ip7Qh5XgzujaR3Rpd OJuKoQnFskwTUk8R1MwCx wvdHI+TM47RARkGU18ZVu 5WYV8lUsvMXfj RSAmR7KpiH3jVoGgKSFzC GRkOyc+PHRhYmxlIHdpZH RoPScxMDAlJyBzdHlsZT0 nNx5cHUBmLQUj qNigfKZiDwFzu8wcATAaV TopUH4qmTsaX3GdbOV1CR Gfg2c4Pd77U66bQ4MmpSA +TCEauBK6vPF5 xX4nEiUtYrK9BZepK559M gXwbFBhDtsrs2vny8vcqH o9ScG8WGToueBrzKwcIWY 3k5SfVb59X48n IHdpZHRoPSIxNSUiIHZhb Kbahm6ixA3sWw4+PGNvbC V4fVI4qV5bTuNbGwU3DOt cU400NtQnjQNx Jpcjd2lxm2wsyQq8WgHjH FKlgzNciRapNBI0n7PdVh 34Q8TahWxil1UdHce0ty8 5uAXun8K7aPG9 L9NqZULixrmnkUOpsTtfG G0rZRXoiaosDTLiqX7rRH VmV0u8CqJoJxD3YYtzT9H bbuJ1LXFifUSo WUKqzUIDnO0srodva2cyy eltXjAwLVPyPIh5GAp3EG NxhNksMbKgHLL6ZoL2PQZ 8yOSgzJ0oxKbc snmebB9uNeo+EYZ5yLKat JSWPN8lVsnljMJ+PHRkIH K6tGihYQdfWKJsrI7sMXB lM5o2CeUgFoI9 OGggT7YdhvL7VBVgxHGvS ZSgwZAVyS5bcmhqc0wpzq dbUjQzWXNaATk7YYn9ZJT saWduOiBsZWZ0 SfL3SHU9bHNztQ9kcDpjd vlirI1eRkn+QmlydGggRG I2OYx0E6JkOqb0ZKGblIu wLM0cuRDrVKvi Fb3piSgypJgpHO9tGTLaw nxqj917TnDcy5wyMNGxnH ExWOluLIZ4V65ny6L7RDK sGCXpNUN7kNF1 xD0vyEpzxrbdxNNkuIhwn dSeaZecPWcwPQulT651MN MgdYdnJyHkYTj1K9JiLxa 4FTYaxQbqZE4g iWDiVYwoKv7iqEsvuEsqW B0yQDNffmavd277BqVkp8 mrJYTjxGGeFAmqHFC3W77 tu1W9ACEbDWFi BVF0nOM6iM1ceNgmypjga GVmdDsgdmVydGljYWwtYW thO422RVKufPupRlTfkPh 0Q0MrEfx5BZOd sEecSX9ufEBoZJwtFw0pw NqqsEtbFZ8rNPWpfcrtq5 14SfLyw1ftGDEasVNcURt jSMC5M53rd5O5 FDBhXEIpMGK1pEW8uJ3tc GlnbjogbGVmdDsgdmVydG rxRTftZFsrZ921ZJXuaDw nPlBhdGllbnQg MWxgZCa6U7VcJcctaFF+P I72IPHlZJ24hHFxrDBom8 lyzRf3GiUqULYuRYW7xHl bOVxkv1UrMOVl F96wpKVzd6H8YPSefYbmk UGpYpYlwNW6lC2cKEgfym jke3znigkmQpbua6estx2 4xN28M87aFGbf ZHRoPSIzMCUiIHZhbGlnb z9bdF5vEn4+HEAajTJ8xY R3yX7bBRWjQwN5LTryI58 9InRvcCIvPjxj w5emh3vutQg2ThT1EVDff uAalHnkCVC4q3VyWh30U3 9sIHdpZHRoPSIyMCUiIHZ sySbdzc7hdW6h Ii8+XSTydJE9fVW7mR8qP vNwQvY8IRskA544WvMpcF KxJtkvA47dH6TuvCU+PHR xKdv4YRSdlHmp HY0vfWBmSCqmMb8uARK9L fGqXcRzPIsfT6JnVCTszt mqtccecQN1PQGtBAGrlL8 8Em7lsJslAKJf hNTGuS3nemvug4ikaxcwJ zPbKXAqHZy1EYo3VQJvgJ zlVmFdAXG7OxS7XCZ4bUJ pxA9grQvdeojw cW2aX3YaXVPcumtxNl47f M0eMeIoMhM8PTslVbt+TU 9OVEdPTUVSWSwgTEVFLUF OTjwvdGQ+PHRk URI4xKlsOVkdXXSjkT0cF RBiJ0i4YaRhJxK9LZnpX1 GeBREjyjomNi28fA0kWjX hIjU8ESfmL6Kw uxG3UDVsxXLkRIhkGVX4B 93yu7L1SRFfDKPbGDT7aG O2oX0jjTjzrvogrZOleUf gdmVydGljYWwt QTytQ460RNTsnWlqIhH7E fMlFjI3KDX3C7WdAdc4ZI EjmXmaIH4xpEGiMErjOk1 uhZvjmNozLX9y FXSetkxwPWRmhE0wWETfo PLbqXbgPH2uSUBjqmqts9 67VsApDGD7QMFlbAFaG0S fkK8kBsRaZKCv TPOfL4MlrAXtSPolP205E DbsEeV6CGQybhThE2OgKP SisAyaCzC4p6O3Aw2zIZO ZZWFyczwvdGQ+ IEVdPEW0xIlaRYgjGVObh W3cITClC8x5GnPzQaI2TH anI2NyYVIgjatzNx28rY2 eTnJwTwT6ZGrl W0RgleQ1JLPlnQHlCQrgC MZ6Z64rb9Z0ZHMrCNQiPT W5kWL8eW4gkFyrimyrsRD mdDsgdmVydGlj VJxoEZcoT508WICwyNwoL kZlbWFsZTwvdGQ+PHRkIH Q6kVmkVTitBWQnhW7zXWU aI2t7YuSjYtA8 BJjqV5JvBGLqppljSo82y P0sGjBuRsL0TOpkA9Ibut Z7UOAceCBzCMtsBIT7U57 re5Q8ULQpYHNc IIN8uJU8rC6kbIqlxwcnn GVmdDsgdmVydGljYWwtYW lcH809AXIdcLdvUw72mNB eqVizzmA3Y7Pw PjwvdHI+AP54YAXqBP10b POsuWBam0wbgPr6MsDsDW FkRZO4oCvxPRita7YlGMR tF61ngWEnm0C5 FQDyxRivfYUcDrLwbQC5j B9qYUzbdgdab2lnheqkTe pzx3hjbo54wW23B52tQXk pZHRoPSIzMCUi FIZdaCqitm6jeV6sPi5+P RRazEZ4tQC6gV0nMnRxEq N2RBmbC198OjHdcDQjPuf ru2sxa2fveQw9 SpGiYAYynkRzlNoaVXC9x 1MzSk07G25yWKtrMQWcDB MzOUAlPMBbkVgmvu2ztR7 wIi8+PD1zc6jf va83fN67sVO+MFCgSKZ2z QgmJJnxOONotE2xVZmnGf Q3VVDmKtGefF73eMVoGLd tSw6lhKznhQhi NE3bIYQqdwvaq543HcUwp 4nmZECprJWeMNvvIUT3A4 8fd6M2WKQiNEQyMIK8fHN 1wO5rcBmmmiev bGVmdDsgdmVydGljYWwtY GycY145KAVmaOblFhKhiL XpZ0aaldUGCQ1rHqfzzPK +AJSoMYO2bWrh LJbbIWUfyJ9eSKEsV3b1T nCzRaK8LDdwA7XlxhC8CF QurWOpORJyqKPUeP8avtf ms0nbjunkMhUf MESeZKj7CBw6PTRetWaqY vEvDWV5AtM9EYE2lLIjxS 4rsPouqrknfJ5sSph+Rkl OOjwvdGQ+PHRk SBQ1fLycXVceWEGmjL6cA WKaU8g7TsWeUxW6HVhgV6 QcipY3AYUwrPWrBLDwnGY SbO1bvfrvj1vi jwqdPxOaMAUiTGl4PSp1H ZTkaGvaSdYjWKC4SiM5NT N6xYSacP6lpNlrejfsmY3 wOyc+TVJOOjwv dGQ+COKjWQE3gPgcITcsY JZalE3zGNXjH4p9LfUfSo Y8FDlpC1AlbpK9PAQbhVX fBUIudBTYkE4n hpjwe9ibxzfhHfYvJTLwO Yy9TGw8BEUpbVhzZzQwJS X2DrA1VBB9bWSirV4qyIi nownsqX2eWlb+ HND4UHD2IF94MY42P2MzL jwvdGFibGU+PHRhYmxlIH dpZHRoPScxMDAlJyBzdHl sGJ2mYk8xDMHe LWNvbGxhcHNlO (more content not included)... Normal [facility] Consent for Treatmenton 01-26 Consent for Treatment [id number]#1 .00TIFF Normal [facility] Consent for Treatment [id number]#1 .00TIFF Normal [facility] Free T4on 02-13-2024 Free T4 [Mass/Vol] 0.78 ng/dL Normal 0.58-1.64 [facility] Comment on above: Performed By: #### 2 [id number] #### [facility] [address] [place] [address] HEMATOLOGYOrdered By: SYSTEM SYSTEM on 02-13-2024 Basophils/100 [...] Remisol Heme Physician Orderon 02-13-2024 Physician Order [id number]#1. 00TIFF Normal [facility] Physician Order [id number]#1. 00TIFF Normal [facility] TSHon 02-13-2024 TSH Qn 13.62 m[IU]/L High 0.34-5.60 [facility] Comment on above: Performed By: #### 2 [id number] #### [facility] [address] [place] [address] eGFRon 02-13-2024 eGFR 102 mL/min/1.73 m2 Normal >=59 [facility] Comment on above: Order Comment: Order added by Discern Expert. Performed By: #### 1 [id number] #### [facility] [address] [place] [address] Physician Orderon 02-12-2024 Physician Order [id number]# 1.00TIFF Normal [facility] US LE Venous Duplex Righton 02-06-2024 US [...] Pepe MD Transcribed by: SANGEETA Technologist: JAKE [facility] Consent for Treatmenton 01-26 Consent for Treatment [id number]#1 .00TIFF [facility] Physician Orderon 02-05-2024 Physician Order [id number]#1 .00TIFF [facility] MR CERVICAL SPINE WO CONTRAS Ton 01-23-2024 [...] HPV, rfx 16/18,45on 11-22-2022 . . Normal [facility] Comment on above: Result Comment: Perf ormed at: WB Performed By: #### P APHR2A #### [facility] [address] [address] [address] Jaya Alan DIAGNOSIS: Comment Normal [facility] Comment on above: Result Comment: NEGA TIVE FOR INTRAEPITHELIAL LESION OR MALIGNANCY. Performed at: WB Performed By: #### P APHR2A #### [facility] [address] [address] [address] Jaya Alan HPV Aptima Negative Normal Negative [facility] Comment on above: Result Comment: This nucleic acid amplification test detects fourteen high-risk HPV types (16,18,31,33,35,39,45,51,52,56,58,59,66,68) without differentiation. Performed at: =G Performed By: #### P APHR2A #### [facility] [address] [address] [address] Jaya Alan HPV Genotype Reflex Comment Normal [facility] Comment on above: Result Comment: Crit eria not met, HPV Genotype not performed. Performed at: WB Performed By: #### P APHR2A #### [facility] [address] [address] [address] Jaya Alan Methodology: Comment Normal [facility] Comment on above: Result Comment: This liquid based ThinPrep(R) pap test was screened with the use of an image guided system. Performed at: WB Performed By: #### P APHR2A #### [facility] [address] [place] [address] Dr. Jaya Alan Note: Comment Normal [facility] Comment on above: Result Comment: The Pap smear is a screening test designed to aid in the detection of premalignant and malignant conditions of the uterine cervix. It is not a diagnostic procedure and should not be used as the sole means of detecting cervical cancer. Both false-positive and false-negative reports do occur. . Performed at: WB Performed By: #### P APHR2A #### [facility] [address] [place] [address] Dr. Jaya Alan Performed by: Comment Normal [facility] Comment on above: Result Comment: Anastasiya Patel, Double Cut Sawyer (ASCP) Performed at: WB Performed By: #### P APHR2A #### [facility] [address] [place] [address] Dr. Jaya Alan Specimen adequacy: Comment Normal [facility] Comment on above: Result Comment: Sati sfactory for evaluation. Endocervical and/or squamous metaplastic cells (endocervical component) are present. Performed at: WB Performed By: #### P APHR2A #### [facility] [address] [place] [address] Dr. Jaya Alan Pap IG, rfx Aptima HPV ASCUo n 05-18-2022 . . Normal [facility] Comment on above: Performed By: #### P APHR7A #### [facility] [address] [place] [address] Dr. Jaya Alan DIAGNOSIS: Comment [facility] Comment on above: Result Comment: NEGA TIVE FOR INTRAEPITHELIAL LESION OR MALIGNANCY. Performed By: #### P APHR7A #### [facility] [address] [place] [address] Dr. Jaya Alan Methodology: Comment [facility] Comment on above: Result Comment: This liquid based ThinPrep(R) pap test was screened with the use of an image guided system. Performed By: #### P APHR7A #### [facility] [address] [place] [address] Dr. Jaya Alan Note: Comment Normal [facility] Comment on above: Result Comment: The Pap smear is a screening test designed to aid in the detection of premalignant and malignant conditions of the uterine cervix. It is not a diagnostic procedure and should not be used as the sole means of detecting cervical cancer. Both false-positive and false-negative reports do occur. . Performed By: #### P APHR7A #### [facility] [address] [place] [address] Dr. Jaya Alan Performed by: Comment Normal [facility] Comment on above: Result Comment: Inocente Mcwilliams Double Cut Sawyer (ASCP) Performed By: #### P APHR7A #### [facility] [address] [place] [address] Dr. Jaya Alan Reflex Criteria: Comment Normal [facility] Comment on above: Result Comment: The HPV DNA reflex criteria were not met with this specimen result therefore, no HPV testing was performed. . Performed By: #### P APHR7A #### [facility] [address] [place] [address] Dr. Jaya Alan Specimen adequacy: Comment Normal [facility] Comment on above: Result Comment: Sati sfactory for evaluation. Endocervical and/or squamous metaplastic cells (endocervical component) are present. Performed By: #### P APHR7A #### [facility] [address] [place] [address] Dr. Jaya Salguero 04-06-2021 MARCE Telephone (HealthTell) CLINT MOISE ([id number]) 1995 F Date Time Provider Department 04/06/21 SUHAIL PANTOJA During your visit today, we recorded the following information about you: Lawanda Gibbs MA 04/06/2021 1:55 PM Signed Please sign pending lab orders for 04/12/21, Thanks. Lawanda Gibbs MA Allergies As of Date: 04/06/2021 (No Known Allergies) Date Reviewed: 04/06/2021 Reviewed by: Jaquelin Tolentino APRN.BAR AND FILLER ASSEMBLER - Fully Assessed Reason for Visit: Lab Orders [1688] Primary Visit Diagnosis:Primary hypercoagulable state (HCC) [D68.59] Order(s):COMP METABOLIC PANEL [SQCMP] Order #: [id number] CBC + DIFF (FOR REMOTE [facility] USE) [SQRCBCDF] Order #: [id number] Prescriptions as of 04/06/2021 - acetaminophen (TYLENOL 8 HOUR ORAL) Take by mouth. Problem List As Of Date: 04/06/2021 (None) Encounter Status:Closed by JAQUELIN TOLENTINO on 04/06/21 [facility] 01-27-2021 CNPN Telephone (NCCAP) CLINT MOISE ([id number]) 1995 F Date Time Provider Department 01/27/21 SUHAIL PANTOJA NCCAP During your visit today, we recorded the following information about you: Nabila Anderson Sec 01/27/2021 2:24 PM Signed Faxed referral to [facility] for Sleep study consult They will call the patient to schedule. Nabila Anderson Sec 01/28/2021 3:35 PM Signed Spoke with Sleep study at [facility]. They are waiting on precert from the insurance co and then they will call [facility] to schedule. Allergies As of Date: 01/27/2021 (No Known Allergies) Date Reviewed: 01/18/2021 Reviewed by: Suhail Pantoja MD - Fully Assessed Reason for Visit: Future Appointment [256] Prescriptions as of 01/27/2021 Sig: TYLENOL 8 HOUR ORAL Take by mouth. Problem List As Of Date: 01/27/2021 (None) Encounter Status:Closed by NABILA PASUCAL on 01/27/21 [facility] CNOVSPon 01-18-2021 CNOVSP Visit (SP) Office (HEMASA) CLINT MOISE ([id number]) 1995 F Date Time Provider Department 01/18/21 3:15 PM SUHAIL PANTOJA During your visit today, we recorded the following information about you: Temperature Pulse Respiration Blood pressure 97.2 degrees 70/minute 18/minute 127/76 Weight Height Last Period 138.9 kg 1.702 m 12/28/20 Suhail Pantoja MD 01/19/2021 9:49 AM Signed NAME: Clint Moise CLINIC NO.: [id number] DATE OF SERVICE: January 18, 2021 Referring Provider: Venkata Grajeda DO. Consultation requested by Dr. Grajeda for an opinion regarding Ms. Clint Teague Moise, and my final recommendations will be [...] her reversible risk factors. 1. Consult our Degreaser Operator for aggressive weight loss 2. Sleep Study [...] is to place an IUD. Works at [employer] Broke Up with [employer] recently and is starting to lose weight. [...] Cancer Paternal Grandfather Suhail Pantoja MD, CPE [place], [place] CC: Venkata Grajeda, DO [address] [place] [address] Jazzy Le, DO [address] [place] [address] Referring Provider: VENKATA GRAJEDA [[id number]] Allergies As of Date: 01/18/2021 (No Known Allergies) Date Reviewed: 01/18/2021 (more content not included)... Normal [facility] [id number] 09-13-2020 SARS-CoV-2 Detected Abnormal Not Detected [facility] Comment on above: Result Comment: (NOT E) This nucleic acid amplification test was developed and its performance characteristics determined by [employer]. Nucleic acid amplification tests include PCR and [...] detected) result in this assay. Performed At: [facility] [address] [facility] [place] [id number] Jose Luis Elizalde MD Ph:[phone] Performed By: #### A COV #### [facility] [address] [place], [place] [id number] Wind Turbine Erector: Wesley Evans MD Vital Signs Date Time Vital Sign Value Performing Clinician Leydi segundo 09-05-2024 14:46-0500 Heart rate 79 /min Luis Felipe Mack [facility] 09-05-2024 14:46-0500 SaO2% (BldA) [Mass fraction] 98 % Luis Felipe Mack [facility] 09-05-2024 14:46-0500 Diastolic blood pressure 80 mm[Hg] Luis Felipe Karena [facility] 09-05-2024 14:46-0500 Mean blood pressure 96 mm[Hg] Briscoe Karena [facility] 09-05-2024 14:46-0500 Systolic blood pressure 129 mm[Hg] Luis Felipe Karena [facility] 09-05-2024 14:46-0500 Respiratory rate 20 /min Briscoe Karena [facility] 09-05-2024 14:41-0500 Diastolic blood pressure 68 mm[Hg] Luis Felipe Karena [facility] 09-05-2024 14:41-0500 Heart rate 84 /min Luis Felipe Karena [facility] 09-05-2024 14:41-0500 SaO2% (BldA) [Mass fraction] 97 % Luis Felipe Mack [facility] 09-05-2024 14:41-0500 Systolic blood pressure 130 mm[Hg] Luis Felipe Mack [facility] 09-05-2024 14:04-0500 Heart rate 79 /min Luis Felipe Mack [facility] 09-05-2024 14:04-0500 SaO2% (BldA) [Mass fraction] 96 % Luis Felipe Mack [facility] 09-05-2024 14:04-0500 Body temperature 97.88 [degF] Luis Felipe Mack [facility] 09-05-2024 14:04-0500 Diastolic blood pressure 82 mm[Hg] Luis Felipe Mack [facility] 09-05-2024 14:04-0500 Mean blood pressure 99 mm[Hg] Luis Felipe Mack [facility] 09-05-2024 14:04-0500 Systolic blood pressure 133 mm[Hg] Luis Felipe Mack [facility] 09-05-2024 14:03-0500 Respiratory rate 18 /min Luis Felipe Mack [facility] 08-27-2024 10:03-0500 Diastolic blood pressure 88 mm[Hg] April Daniels [facility] 08-27-2024 10:03-0500 Heart rate 86 /min April Daniels [facility] 08-27-2024 10:03-0500 Mean blood pressure 108 mm[Hg] April Daniels [facility] 08-27-2024 10:03-0500 Systolic blood pressure 149 mm[Hg] April Daniels [facility] 07-22-2024 11:54-0500 Heart rate 79 /min Luis Felipe Mack [facility] 07-22-2024 11:54-0500 SaO2% (BldA) [Mass fraction] 98 % Luis Felipe Mack [facility] 07-22-2024 11:54-0500 Diastolic blood pressure 70 mm[Hg] Luis Felipe Mack [facility] 07-22-2024 11:54-0500 Mean blood pressure 93 mm[Hg] Luis Felipe Mack [facility] 07-22-2024 11:54-0500 Systolic blood pressure 138 mm[Hg] Luis Felipe Mack [facility] 07-22-2024 11:54-0500 Respiratory rate 16 /min Luis Felipe Mack [facility] 07-22-2024 11:40-0500 Diastolic blood pressure 102 mm[Hg] Luis Felipe Mack [facility] 07-22-2024 11:40-0500 Heart rate 77 /min Luis Felipe Mack [facility] 07-22-2024 11:40-0500 Respiratory rate 18 /min Luis Felipe Mack [facility] 07-22-2024 11:40-0500 SaO2% (BldA) [Mass fraction] 97 % Luis Felipe Karena [facility] 07-22-2024 11:40-0500 Systolic blood pressure 113 mm[Hg] Briscoe Karena [facility] 07-22-2024 10:56-0500 Heart rate 85 /min Luis Felipe Karena [facility] 07-22-2024 10:56-0500 SaO2% (BldA) [Mass fraction] 97 % Luis Felipe Mack [facility] 07-22-2024 10:55-0500 Diastolic blood pressure 72 mm[Hg] Luis Felipe Mack [facility] 07-22-2024 10:55-0500 Mean blood pressure 82 mm[Hg] Luis Felipe Mack [facility] 07-22-2024 10:55-0500 Systolic blood pressure 101 mm[Hg] Luis Felipe Mack [facility] 07-22-2024 10:55-0500 Body temperature 98.24 [degF] Luis Felipe Mack [facility] 07-22-2024 10:54-0500 Respiratory rate 15 /min Luis Felipe Karena [facility] 06-26-2024 11:21-0400 Diastolic blood pressure 109 mm[Hg] April Daniels [facility] 06-26-2024 11:21-0400 Heart rate 90 /min Aprilveronique Daniels [facility] 06-26-2024 11:21-0400 Mean blood pressure 127 mm[Hg] April Daniels [facility] 06-26-2024 11:21-0400 Respiratory rate 18 /min Aprilveronique Daniels [facility] 06-26-2024 11:21-0400 Systolic blood pressure 162 mm[Hg] April Daniels [facility] 05-21-2024 13:47-0400 Heart rate 78 /min Luis Felipe Mack [facility] 05-21-2024 13:47-0400 SaO2% (BldA) [Mass fraction] 100 % Luis Felipe Mack [facility] 05-21-2024 13:47-0400 Diastolic blood pressure 83 mm[Hg] Luis Felipe Mack [facility] 05-21-2024 13:47-0400 Mean blood pressure 98 mm[Hg] Luis Felipe Mack [facility] 05-21-2024 13:47-0400 Systolic blood pressure 128 mm[Hg] Briscoe Karena [facility] 05-21-2024 13:47-0400 Respiratory rate 20 /min Briscoe Karena [facility] 05-21-2024 13:39-0400 Diastolic blood pressure 87 mm[Hg] Briscoe Mack [facility] 05-21-2024 13:39-0400 Heart rate 74 /min Luis Felipe Mack [facility] 05-21-2024 13:39-0400 SaO2% (BldA) [Mass fraction] 100 % Luis Felipe Mack [facility] 05-21-2024 13:39-0400 Systolic blood pressure 131 mm[Hg] Luis Felipe Mack [facility] 05-21-2024 12:35-0400 Heart rate 80 /min Luis Felipe Mack [facility] 05-21-2024 12:35-0400 SaO2% (BldA) [Mass fraction] 98 % Luis Felipe Karena [facility] 05-21-2024 12:35-0400 Diastolic blood pressure 83 mm[Hg] Luis Felipe Mack [facility] 05-21-2024 12:35-0400 Mean blood pressure 98 mm[Hg] Luis Felipe Mack [facility] 05-21-2024 12:35-0400 Systolic blood pressure 130 mm[Hg] Luis Felipe Mack [facility] 05-21-2024 12:35-0400 Body temperature 98.06 [degF] Luis Felipe Mack [facility] 05-21-2024 12:35-0400 Respiratory rate 20 /min Luis Felipe Mack [facility] 04-01-2024 08:32-0400 Diastolic blood pressure 97 mm[Hg] Luis Felipe Mack [facility] 04-01-2024 08:32-0400 Heart rate 75 /min Luis Felipe Mack [facility] 04-01-2024 08:32-0400 Mean blood pressure 110 mm[Hg] Luis Felipe Mack [facility] 04-01-2024 08:32-0400 Respiratory rate 20 /min Luis Felipe Mack [facility] 04-01-2024 08:32-0400 Systolic blood pressure 136 mm[Hg] Luis Felipe Mack [facility] 02-27-2024 14:57-0400 Heart rate 68 /min [facility] 02-27-2024 14:57-0400 SaO2% (BldA) [Mass fraction] 94 % [facility] 02-27-2024 14:56-0400 Diastolic blood pressure 89 mm[Hg] [facility] 02-27-2024 14:56-0400 Mean blood pressure 108 mm[Hg] Emre [facility] 02-27-2024 14:56-0400 Systolic blood pressure 146 mm[Hg] Emre [facility] 02-27-2024 14:08-0400 Heart rate 63 /min Emre [facility] 02-27-2024 14:08-0400 SaO2% (BldA) [Mass fraction] 97 % [facility] 02-27-2024 14:08-0400 Blood Pressure Location [facility] 02-27-2024 14:08-0400 Diastolic blood pressure 88 mm[Hg] [facility] 02-27-2024 14:08-0400 Mean blood pressure 102 mm[Hg] [facility] 02-27-2024 14:08-0400 Respiratory rate 18 /min [facility] 02-27-2024 14:08-0400 Systolic blood pressure 130 mm[Hg] [facility] 02-27-2024 13:55-0400 Body temperature 97.16 [degF] [facility] 02-27-2024 13:55-0400 Diastolic blood pressure 82 mm[Hg] [facility] 02-27-2024 13:55-0400 Heart rate 68 /min [facility] 02-27-2024 13:55-0400 Mean blood pressure 96 mm[Hg] [facility] 02-27-2024 13:55-0400 Respiratory rate 16 /min [facility] 02-27-2024 13:55-0400 SaO2% (BldA) [Mass fraction] 96 % [facility] 02-27-2024 13:55-0400 Systolic blood pressure 124 mm[Hg] [facility] 02-27-2024 13:45-0400 Mean blood pressure 99 mm[Hg] [facility] 02-27-2024 13:45-0400 Respiratory rate 20 /min [facility] 02-27-2024 13:40-0400 Mean blood pressure 87 mm[Hg] [facility] 02-27-2024 13:40-0400 Respiratory rate 19 /min [facility] 02-27-2024 13:30-0400 Body temperature 97.34 [degF] [facility] 02-27-2024 13:20-0400 Body temperature 96.8 [degF] Emre [facility] 02-27-2024 10:37-0400 Mean blood pressure 101 mm[Hg] [facility] 02-27-2024 10:36-0400 Body temperature 98.06 [degF] [facility] Encounters Encounter Date Encounter Type Care Provider Facility Start: 09-25-2024 End: 09-25-2024 ambulatory Rohit Yanez Facility:[facility] Start: 09-25-2024 End: 09-25-2024 Patient encounter procedure Rohit Yanez [facility] Start: 09-05-2024 End: 09-05-2024 ambulatory Luis Felipe Mack Facility:[facility] Start: 09-05-2024 End: 09-05-2024 Pain Management Luis Felipe Mack [facility] Start: 09-04-2024 End: 09-04-2024 ambulatory Rohit Yanez Facility:[facility] Start: 09-04-2024 End: 09-04-2024 Patient encounter procedure Rohit Yanez [facility] Start: 08-27-2024 End: 08-27-2024 ambulatory Julieta Curtis Facility:[facility] Start: 08-27-2024 End: 08-27-2024 Patient encounter procedure April Daniels [facility] Start: 08-22-2024 End: 08-23-2024 Pre-admission assessment Rohit Yanez [facility] Start: 08-19-2024 End: 08-19-2024 Telephone encounter Rohit Tiffany Zunigace DPM [facility]AC[facility]AS Work Phone: [facility] Start: 08-14-2024 End: 08-16-2024 Clinisync Result Encounter Rohit Tiffany Dolce DPM [facility]AC[facility] Work Phone: [facility] External Department Unsolicited Start: 08-14-2024 End: 08-16-2024 Clinisync Result Encounter Rohit R Dolce DPM [facility]AC[facility] Work Phone: [facility] External Department Unsolicited Start: 08-14-2024 End: 08-14-2024 ambulatory Rohit Tiffany Yanez Facility:[facility] Start: 08-14-2024 End: 08-14-2024 Patient encounter procedure Rohit Yanez [facility] Start: 08-07-2024 End: 08-07-2024 ambulatory Rohit R Dolce Facility:[facility] Start: 07-31-2024 End: 07-31-2024 ambulatory Rohit R Dolce Facility:[facility] Start: 07-31-2024 End: 07-31-2024 Patient encounter procedure Rohit R Dolce [facility] Start: 07-22-2024 End: 07-22-2024 ambulatory Luis Felipe Mack Facility:[facility] Start: 07-22-2024 End: 07-22-2024 Pain Management Luis Felipe Mack [facility] Start: 07-10-2024 End: 07-10-2024 ambulatory Rohit R Dolce Facility:[facility] Start: 07-10-2024 End: 07-10-2024 Patient encounter procedure Rohit R Dolce [facility] Start: 07-03-2024 End: 07-03-2024 ambulatory Rohit R Dolce Facility:[facility] Start: 07-03-2024 End: 07-03-2024 Patient encounter procedure Rohit R Dolce [facility] Start: 06-26-2024 End: 06-26-2024 ambulatory April Dnaiels Facility:[facility] Start: 06-26-2024 End: 06-26-2024 Patient encounter procedure April Daniels [facility] Start: 06-26-2024 End: 06-26-2024 ambulatory Rohit R Dolce Facility:[facility] Start: 06-26-2024 End: 06-26-2024 Patient encounter procedure Rohit R Dolce [facility] Start: 06-19-2024 End: 06-19-2024 ambulatory Rohit R Dolce Facility:[facility] Start: 06-19-2024 End: 06-19-2024 Patient encounter procedure Rohit R Dolce [facility] Start: 06-11-2024 End: 06-11-2024 ambulatory Emre Yanez Facility:[facility] Start: 06-11-2024 End: 06-11-2024 Patient encounter procedure Emre Yanez [facility] Start: 06-07-2024 End: 06-07-2024 [facility] Start: 06-07-2024 End: 06-07-2024 Bamboo PLDTheet [facility] Work Phone: [facility] Start: 06-04-2024 End: 06-04-2024 ambulatory Emre Yanez Facility:[facility] Start: 06-04-2024 End: 06-04-2024 Patient encounter procedure Emre Yanez [facility] Start: 05-29-2024 End: 05-31-2024 ambulatory Karthik Johnson Facility:[facility] Start: 05-28-2024 End: 05-28-2024 ambulatory Emre Yanez Facility:[facility] Start: 05-28-2024 End: 05-28-2024 Patient encounter procedure Emre Yanez [facility] Start: 05-28-2024 End: 05-29-2024 Pre-admission assessment Karthik Johnson [facility] Start: 05-24-2024 End: 05-24-2024 ambulatory Karthik Johnson Facility:[facility] Start: 05-24-2024 End: 05-24-2024 Patient encounter procedure Karthik Johnson [facility] Start: 05-23-2024 End: 05-23-2024 ambulatory Karthik Johnson Facility:[facility] Start: 05-23-2024 End: 05-23-2024 Patient encounter procedure Karthik Johnson [facility] Start: 05-21-2024 End: 05-21-2024 ambulatory Emre Melvin Yanez Facility:[facility] Start: 05-21-2024 End: 05-21-2024 Patient encounter procedure Emre Yanez [facility] Start: 05-21-2024 End: 05-23-2024 Clinisync Result Encounter Emre Yanez DPM [facility] Work Phone: [facility] Unsolicited Start: 05-21-2024 End: 05-23-2024 Clinisync Result Encounter Emre Yanez DPM [facility]AS Work Phone: [facility] Unsolicited Start: 05-21-2024 End: 05-21-2024 ambulatory Luis Felipe Mack Facility:[facility] Start: 05-21-2024 End: 05-21-2024 Pain Management Luis Felipe Mack [facility] Start: 05-16-2024 End: 05-17-2024 Pre-admission assessment Emre Yanez [facility] Start: 05-07-2024 End: 05-07-2024 ambulatory Emre Melvin Yanez Facility:[facility] Start: 05-07-2024 End: 05-07-2024 Patient encounter procedure Emre Yanez [facility] Start: 04-30-2024 End: 04-30-2024 ambulatory Emre Melvin Yanez Facility:[facility] Start: 04-30-2024 End: 04-30-2024 Patient encounter procedure Emre Melvin Yanez [facility] Start: 04-24-2024 End: 04-24-2024 ambulatory Rohit Yanez Facility:[facility] Start: 04-24-2024 End: 04-24-2024 Patient encounter procedure Rohit Yanez [facility] Start: 04-16-2024 End: 04-16-2024 ambulatory Emre Yanez Facility:[facility] Start: 04-16-2024 End: 04-16-2024 Patient encounter procedure Emre Yanez [facility] Start: 04-12-2024 End: 04-13-2024 ambulatory Emre Yanez Facility:[facility] Start: 04-12-2024 End: 04-13-2024 Pre-admission assessment Emre Yanez [facility] Start: 04-03-2024 End: 04-03-2024 ambulatory Rohit Yanez Facility:[facility] Start: 04-03-2024 End: 04-03-2024 Patient encounter procedure Rohit Yanez [facility] Start: 04-01-2024 End: 04-01-2024 ambulatory Julieta Curtis Facility:[facility] Start: 04-01-2024 End: 04-01-2024 Pain Management Luis Felipe Mack [facility] Start: 03-26-2024 End: 03-26-2024 ambulatory Emre Yanez Facility:[facility] Start: 03-26-2024 End: 03-26-2024 Patient encounter procedure Emre Yanez [facility] Start: 03-22-2024 End: 03-23-2024 ambulatory Emre Yanez Facility:[facility] Start: 03-22-2024 End: 03-23-2024 Pre-admission assessment Emre Melvin Yanez [facility] Start: 03-19-2024 End: 03-19-2024 ambulatory Emre Melvin Yanez Facility:[facility] Start: 03-19-2024 End: 03-19-2024 Patient encounter procedure Emre Yanez [facility] Start: 03-15-2024 End: 03-16-2024 ambulatory Emre Yanez Facility:[facility] Start: 03-15-2024 End: 03-16-2024 Pre-admission assessment Emre Yanez [facility] Start: 03-12-2024 End: 03-12-2024 ambulatory Emre Yanez Facility:[facility] Start: 03-12-2024 End: 03-12-2024 Patient encounter procedure Emre Yanez [facility] Start: 03-08-2024 End: 03-09-2024 ambulatory Emre Yanez Facility:[facility] Start: 03-08-2024 End: 03-09-2024 Pre-admission assessment Emre Yanez [facility] Start: 03-05-2024 End: 03-05-2024 Patient encounter procedure Emre Yanez [facility] Start: 02-27-2024 End: 02-27-2024 Admission to same day surgery center Emre Yanez [facility] Start: 02-27-2024 End: 02-27-2024 ambulatory Emre Yanez Facility:[facility] Start: 02-20-2024 End: 02-20-2024 ambulatory EMRE Charles DOLCE Not Available Start: 02-15-2024 End: 02-15-2024 ambulatory Emre Yanez Facility:[facility] Start: 02-15-2024 End: 02-15-2024 Patient encounter procedure Emre Yanez [facility] Start: 02-13-2024 End: 02-13-2024 ambulatory Julieta Curtis Facility:[facility] Start: 02-13-2024 End: 02-13-2024 Patient encounter procedure Julieta Curtis [facility] Start: 02-12-2024 End: 02-12-2024 ambulatory EMRE D DOLCE Not Available Start: 02-12-2024 End: 02-12-2024 ambulatory Emre Yanez Facility:[facility] Start: 02-12-2024 End: 02-12-2024 Lab Drop off Emre Yanez [facility] Start: 02-05-2024 End: 02-05-2024 ambulatory Julieta Curtis Facility:[facility] Start: 02-05-2024 End: 02-05-2024 Patient encounter procedure Julieta C Kirsten [facility] Start: 01-23-2024 End: 01-23-2024 ambulatory RYLIE POCOS Not Available Start: 01-01-2024 End: 01-01-2024 ambulatory RYLIE POCOS Not Available Start: 12-20-2023 End: 12-20-2023 ambulatory RENA B SAMANTHA Not Available Start: 12-01-2023 End: 12-01-2023 ambulatory RYLIE POCOS Not Available Start: 11-24-2023 End: 11-24-2023 ambulatory RENA B SAMANTHA Not Available Start: 11-16-2023 End: 11-16-2023 ambulatory RENA B SAMANTHA Not Available Start: 10-30-2023 End: 10-30-2023 ambulatory RYLIE POCOS Not Available Start: 10-30-2023 End: 10-30-2023 ambulatory RYLIE POCOS Not Available Start: 11-14-2022 End: 11-14-[address] VENKATA GRAJEDA . Facility: Start: 05-15-2022 Encounter for cervic al smear to confirm findings of recent normal smear following initial abnormal smear DR VENKATA GRAJEDA . [facility] Start: 05-12-2022 End: 05-12-[address] VENKATA GRAJEDA . Facility: Start: 05-12-2022 End: 05-12-2022 Encounter for cervical smear to confirm findings of recent normal smear following initial abnormal smear DR VENKATA GRAJEDA . Facility: Start: 12-31-2020 End: 12-31-2020 Chart abstracting Suhail Pantoja MD Work Phone: Hematology/Oncology Start: 12-29-2020 End: 12-29-2020 Patient encounter procedure External Provider EXTERNAL-NON [facility] Start: 12-29-2020 Results Only External Provider Exter nal-Non[facility] Start: 09-10-2020 End: 09-11-2020 Patient encounter procedure RALPH TAN [facility] Start: 09-10-2020 End: 09-10-2020 Subsequent hospital visit by physician [facility] Comment on above: Suspected COVID-19 v irus infection; Exposure to COVID-19 virus Procedures Date Procedure Procedure Detail Performing Clinician Start: 08-14-2024 [facility] C WOUND Rohit R Melvin olce DPM FAC[facility]AS Work Phone: Start: 07-22-2024 Injection of facet j oint using fluoroscopic guidance April Daniels Comment on above: Bilateral C3/4, C4/5 MBB Start: 05-21-2024 [facility] C WOUND Emre D Dol ce DPM FAC[facility]AS Work Phone: Start: 05-21-2024 Epidural injection o f cervical spine using fluoroscopic guidance Rohit Yanez Comment on above: C7-T1 Start: 02-27-2024 Incision AND drainage M walt Yanez Start: 12-29-2020 End: 12-29-2020 EXTERNAL IMAGING External Provider Start: 12-29-2020 EXTERNAL LAB External P rovider Start: 08-28-2012 Structure of wisdom tooth (body structure) Luis Felipe Mack Idalia Curtis Plan of Treatment Date Care Activity Detail Author Start: 06-10-2024 End: 06-10-2024 Patient encounter procedure 06/10/2024 1:10 PM EDT Office Visit [facility] [address] [facility] [address] [place] [address] Alondra Hernandez MD [address] [facility] [address] [place] [address] [facility] Start: 04-28-2021 Influenza vaccination INFLUENZ A (Season Ended) [facility] Start: 04-28-2020 Influenza vaccination Flu vaccine (# 1) [place], [place] Start: 2016 PAP TESTING PAP TESTING [facility] Start: 2016 Screening for malign ant neoplasm of cervix Cervical cancer screen [place], [place] Start: 2014 DTaP/Tdap/Td vaccine (1 - Tdap) DTaP/Tdap/Td vaccine (1 - Tdap) [place] Start: 2014 Urine microalbumin profile DTAP,TDAP,TD (1 - Tdap) [facility] Start: 2013 HEPATITIS C SCREENING HEPATITIS C SC [facility] Start: 2013 HIV SCREENING HIV SCREENING [facility] Start: 2010 [facility] [place] [place] Start: 2007 Adult depression screening assessment DEPRESSION SCREENING [facility] Start: 2006 HPV vaccine (1 - 2-d ose series) HPV vaccine (1 - 2-dose series) [place] Start: 1996 Varicella vaccine (1 of 2 - 2-dose childhood series) Varicella vaccine (1 of 2 - 2-dose childhood series) [place] Start: 1995 Hepatitis C screening [facility]atitis [facility] [place] End: 09-10-2020 COVID-19 Ambulatory COVID-19 Ambulatory Lab Routine Suspected COVID-19 virus infection Exposure to COVID-19 virus 1 Occurrences starting 09/10/2020 until 09/10/2020 [place] Comment on above: 1 Occurrences starti ng 09/10/2020 until 09/10/2020 COVID-19 Ambulatory COVID-19 Amb ulatory Lab Routine Suspected COVID-19 virus infection Exposure to COVID-19 virus 09/10/2020 12:16 PM EST [facility] Payers Date Payer Category Payer [facility] [id number] 2023 Unknown BCBS BCBS [id number] 2023-Present [phone] [address] [place] [address] [id number] 2023 Unknown [id number] 2020 Private Health Insurance [facility] CHOICE PLUS [id number] 2020-Present HMO [id number]. [id number] 1995 Unknown [id number] 2.16840.1.579260.3.579. 2.174 1995 Unknown [id number] 2.16840.1.656273.3.579. 2.593 1995 Unknown [id number] 2.16840.1.688808.3.579. 2.593 1995 Unknown [id number] 2.16840.1.573707.3.579. 2.727 1995 Unknown [id number] 2.16840.1.828023.3.579. 2.727 1995 Unknown [id number] 2.16840.1.242206.3.579. 2.727 1995 Unknown [id number] 2.16840.1.249129.3.579. 2.727 1995 Unknown [id number] 2.16840.1.601349.3.579. 2.727 1995 Unknown [id number] 2.16.840.1.563704.3.579. 2.72 1995 Unknown [id number] 2.16.840.1.020489.3.579. 2. 1995 Unknown [id number] 2.16.840.1.728266.3.579. 2.1258 1995 Unknown [id number] 2.16.840.1.500874.3.579. 2.1258 1995 Unknown [id number] 2.16.840.1.310144.3.579. 2.1258 1995 Unknown [id number] 2.16.840.1.132291.3.579. 2.1258 1995 Unknown [id number] 2.16.840.1.336629.3.579. 2.1258 1995 Unknown [id number] 2.16.840.1.289093.3.579. 2.1258 1995 Unknown [id number] 2.16.840.1.097673.3.579. 2.1258 1995 Unknown [id number] 2.16.840.1.494411.3.579. 2.1258 1995 Unknown [id number] 2.16.840.1.165996.3.579. 2.1258 1995 Unknown [id number] 2.16.840.1.675917.3.579. 2.1258 1995 Unknown [id number] 2.16.840.1.180571.3.579. 2.1258 1995 Unknown [id number] 2.16.840.1.944224.3.579. 2. 1995 Unknown [id number] 2.16.840.1.172192.3.579. 2. 1995 Unknown [id number] 2.16.840.1.817056.3.579. 2. 1995 Unknown [id number] 2.16.840.1.440437.3.579. 2 1995 Unknown [id number] 2.16.840.1.766585.3.579. 2 1995 Unknown [id number] 2.16.840.1.313057.3.579. 2 1995 Unknown [id number] 2.16.840.1.040014.3.579. 2 1995 Unknown [id number] 2.16.840.1.283488.3.579. 2 1995 Unknown [id number] 2.16.840.1.057484.3.579. 2 1995 Unknown [id number] 2.840.1.917884.3.579. 2 1995 Unknown [id number] 2.840.1.669870.3.579. 2 1995 Unknown [id number] 2.16840.1.849750.3.579. 2 1995 Unknown [id number] 2.840.1.171537.3.579. 2 1995 Unknown [id number] 2.16840.1.551278.3.579. 2 1995 Unknown [id number] 2840.1.405681.3.579. 2 1995 Unknown [id number] 2.16.840.1.996786.3.579. 2 1995 Unknown [id number] 2.16840.1.897028.3.579. 2 1995 Unknown [id number] 2.16840.1.229576.3.579. 2 1995 Unknown [id number] 2.16840.1.746202.3.579. 2 1995 Unknown [id number] 2.16.840.1.524003.3.579. 2. 1995 Unknown [id number] 2.16.840.1.600608.3.579. 2. 1995 Unknown [id number] 2.16.840.1.113349.3.579. 2. 1995 Unknown [id number] 2.16.840.1.245208.3.579. 2. 1995 Unknown [id number] 2.16.840.1.938611.3.579. 2. 1995 Unknown [id number] 2.16.840.1.859209.3.579. 2. 1995 Unknown [id number] 2.16.840.1.804646.3.579. 2. 1995 Unknown [id number] 2.16.840.1.800090.3.579. 2. 1995 Unknown [id number] 2.16.840.1.010544.3.579. 2. 1995 Unknown [id number] 2.16.840.1.085775.3.579. 2. 1995 Unknown [id number] 2.16.840.1.083841.3.579. 2. 1995 Unknown [id number] 2.16.840.1.504381.3.579. 2. 1995 Unknown [id number] 2.16.840.1.160803.3.579. 2. 1995 Unknown [id number] 2.16.840.1.219868.3.579. 2. 1995 Unknown [id number] 2.16.840.1.786434.3.579. 2.727 1959 Private Health Insurance [id number] Social History Date Type Detail Facility Start: 06-04-2019 End: 09-10-2020 Tobacco smoking status NHIS Never smoker [facility] Comment on above: denies Start: 09-10-2020 End: 10-30-2023 Tobacco use and exposure Never used [place], [place] Start: 09-10-2020 Alcohol intake Lifetime non-d boris (finding) [place] Start: 09-10-2020 History SDOH Alcohol Frequency 1 [place] Start: 09-10-2020 History SDOH Alcohol Std Drinks 99 [place] Start: 1995 Sex Assigned At Not on file M [place] Exposure to SARS-CoV -2 (event) Not sure [facility] Start: 12-31-2020 Alcohol intake Ex-drinker (finding) [facility] Start: 02-20-2024 Sex Assigned At Female F [facility] Start: 02-20-2024 Alcoholic beverage intake Current drinker of alcohol (finding) [facility] Start: 02-20-2024 Alcoholic beverage intake [facility] Start: 10-30-2023 Alcohol Comment [facility] Start: 1995 Sex assigned at Female [facility] Start: 11-24-2023 Gender identity Identifies as female gender (finding) [facility] Start: 11-24-2023 Sexual orientation Heterosexual (fin ding) [facility] Functional Status Date Assessment Result Facility 09-05-2024 Functional Status N/A [facility] 08-27-2024 Functional Status N/A [facility] 07-22-2024 Functional Status N/A [facility] 06-26-2024 Functional Status N/A [facility] 05-21-2024 Functional Status N/A [facility] 04-01-2024 Functional Status N/A [facility] 02-26-2024 Functional Status No [facility] Clinical Notes 01-18-2021 to 09-05-2024 Note Date [...] the epidural space was confirmed using the cmgl-bs-efcefjtpii technique and 2 cc of air. Injection [...] and agrees to continue currently prescribed/recommended therapies. [facility] Comment on above: Result Comment: Elec tronically Signed By: Luis Felipe Mack DO\.br\Date and Time Signed: 09/05/24 14:45 EST 09-05-2024 [...] the epidural space was confirmed using the utpa-ab-dthztwqqir technique and 2 cc of air. Injection [...] Appointments Appointment Date:09/18/2024 10:30:00 AM Scheduled Provider:Rohit Yanez DPM Location:[facility] Appointment Type: Follow Up Visit (FT) Appointment Date:10/04/2024 10:30:00 AM Scheduled Provider:April Daniels PA-C Location:[facility] Appointment Type:Pain Management - Follow Up (FT) [facility] 12-31-2024 Evaluation + Plan noteExtracted from: Title:Pain [...] Appointments Appointment Date:09/04/2024 11:30:00 AM Scheduled Provider:Rohit Yanez DPM Location:[facility] Appointment Type: Follow Up Visit (FT) [facility] 12-31-2024 NoteConsultation Note Patient: CHAU MOISE Age: [...] TID, # 90 tab(s), Refills(s) 0, Pharmacy: [facility], 172, cm, 07/22/24 10:56:00 [...] All Problems Extreme obesity / SNOMED CT [id number] / Confirmed Resolved: denies / SNOMED CT 430381521 Resolved: Pulmonary embolism / SNOMED CT 57686869 [id number] Objective Vital Signs 08/27/2024 10:03 EST Peripheral Pulse Rate 86 bpm Systolic Blood Pressure 149 mmHg HI Diastolic Blood Pressure 88 mmHg Mean Arterial Pressure, Cuff 108 mmHg General: Alert and oriented, No acute distress. Eye: Normal conjunctiva. HENT: Normocephalic, Normal hearing. Cardiovascular: No edema. Musculoskeletal Normal range of motion. Normal strength. 5-5 strength Integumentary: Warm, Dry, Cedro. Neurologic: Alert, Oriented. Psychiatric: Cooperative, Appropriate mood [...] 600 mg morning and 900 mg at night.[facility]:Result Comment: Electronically Signed By: April Daniels PA-C\.lucrecia\Date and Time Signed: 08/27/24 10:27 [id number] Telephone encounter Note* Telephone Encounter - Rohit Yanez DPM FACFAS - 08/19/2024 9:30 AM EST [facility] Miscellaneous Notes* Telephone Encounter - ZEFERINO Bello - 08/19/2024 9:30 AM EST Culture results and management documented in [facility] encounterSaint [facility] HospitalKtonqvdhqe40-21-0208 Telephone encounter Note* Telephone Encounter - ZEFERINO Bello - 08/19/2024 9:29 AM EST Will call in pt cipro from wound culture results [facility]bg[facility]jjt24-28-6056 Miscellaneous Notes* Telephone Encounter - ZEFERINO Bello - 08/19/2024 9:29 AM EST Will call in pt cipro from wound culture results documented in [facility] encounterSaint [facility] HospitalLuavxkoxzk60-11-1062 NoteMicrobiology PROCEDURE: Wound Culture [R1] SOURCE: Wound BODY SITE: Leg R COLLECTED DATE/TIME: 08/14/2024 11:15 EST RECEIVED DATE/TIME: 08/14/2024 14:26 EST START DATE/TIME: 08/14/2024 14:26 EST FREE TEXT SOURCE: Right Calf Renata MCGARRY, Rohit Yanez DPM, Rohit Allen FINAL REPORTS Final Report [...] Locations R1: This test was performed at: [facility], [address] [place] [address], [phone]- , , TsdaqmWvumedicine [facility] Community HospitalComment on above:Performed By: #### [id number] #### [facility] [address] [place] [address] [id number] Evaluation + Plan noteExtracted from: Title:Bilateral cervical [...] Appointments Appointment Date:07/31/2024 09:15:00 AM Scheduled Provider:Rohit Yanez DPM Location:[facility] Appointment Type: Follow Up Visit (FT) Appointment Date:08/06/2024 01:30:00 PM Scheduled Provider:April Daniels PA-C Location:.[facility] Appointment Type:Pain Management - Follow Up (FT) [facility] 11-25-2024 NoteOperative Report Diagnosis: 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 Injection [...] currently prescribed/recommended therapies. Operative Report Note type changedWvumedicine [facility] Community HospitalComment on above:Result Comment: Electronically Signed By: Luis Felipe Mack DO\Date and Time Signed: 06/27/24 13:53 [id number] Evaluation + Plan noteExtracted from: Title:Pain Managment [...] Appointments Appointment Date:07/03/2024 11:00:00 AM Scheduled Provider:Rohit Yanez DPM Location[facility] Appointment Type: Follow Up Visit (FT) [facility] 10-30-2024 NoteConsultation Note Patient: CHAU MOISE Age: [...] day(s), # 180 cap(s), Refills(s) 0, Pharmacy: [facility], 172, cm, 05/21/24 12:36:00 EDT, Height/Length Dosing, 154.2, kg, 04/01/24 8:35:00 EDT, Weight Dosing Documented Medications Documented Tylenol 325 mg Tab: 650 mg, Oral, BID, PRN as needed for pain, Refills(s) 0 escitalopram 5 mg oral tablet: 5 mg = 1 tab(s), Oral, Daily, Anxiety Problem list: All Problems Extreme obesity / SNOMED CT [id number] / Confirmed Resolved: denies / SNOMED CT 542375316 Resolved: Pulmonary embolism / SNOMED CT 18978832 Resolved: DVT (deep venous thrombosis) / SNOMED CT [id number] Objective Vital Signs 06/26/2024 11:21 EDT Peripheral [...] pain with facet loading Integumentary: Warm, Dry, Cedro. Neurologic: Alert, Oriented. Psychiatric: Cooperative, Appropriate mood [...] Call clinic sooner if necessary. ROSE score: 32%.[facility] HospitalComment on above:Result Comment: Electronically Signed By: Frances WHITE, April\.br\Date and Time Signed: 06/26/24 11:38 [id number] NoteMicrobiology PROCEDURE: Wound Culture [R1] SOURCE: Wound BODY SITE: Leg R COLLECTED DATE/TIME: 05/21/2024 15:30 EDT RECEIVED DATE/TIME: 05/21/2024 16:09 EDT START DATE/TIME: 05/21/2024 16:09 EDT FREE TEXT SOURCE: Wound Culture Right Leg Emre Yanez DPM, DPM, Emre Charles FINAL REPORTS Final [...] Locations R1: This test was performed at: [facility], [address] [place] [address], [phone]- , , PoqhloWvumedicine Harrison Community HospitalComment on above:Performed By: #### [id number] #### [facility] [address] [place] [address] [phone] Evaluation + Plan noteExtracted from: Title:Cervical epidural [...] the epidural space was confirmed using the dncr-ft-xkllgtbpfh technique and 2 cc of air. Injection [...] Date:05/23/2024 11:15:00 AM Scheduled Provider:Karthik Johnson MD Location[facility] Appointment Type: HBO Eval - Established () Appointment Date:05/28/2024 08:30:00 AM Scheduled Provider: Location[facility] Appointment Type: HBO () Appointment Date:05/28/2024 09:00:00 AM Scheduled Provider: Location[facility] Appointment Type: Assessment () Appointment Date:05/31/2024 08:30:00 AM Scheduled Provider: Location[facility] Appointment Type: HBO () Appointment Date:06/17/2024 08:00:00 AM Scheduled Provider:April Daniels PA-C Location[facility] Appointment Type:Pain Management - Follow Up (FT) [facility] 09-24-2024 NoteConsultation Note Diagnosis: M54.12, cervical radiculopathy [...] the epidural space was confirmed using the tqob-qn-[id number] technique and 2 cc of air. Injection [...] procedure, and agrees to continue currently prescribed/recommended therapies.[facility] Comment on above:Result Comment: Electronically Signed By: Luis Felipe Mack DO\.br\Date and Time Signed: 05/21/24 13:47 [id number] Evaluation + Plan note Extracted from: Title:chronic pain Author:Luis Felipe Mack DO Date:04/01/24 Patient is presenting with c omplaints [...] exercises unabated daily basis. She has tried manager urgent care with very temporary relief. She has tried [...] Appointments Appointment Date:04/03/2024 09:45:00 AM Scheduled Provider:Rohit Yanez DPM Location[facility] Appointment Type: Follow Up Visit (FT) [facility] 08-05-2024 NoteConsultation Note Patient is presenting with [...] exercises unabated daily basis. She has tried [facility] urgent care with very temporary relief. She has tried [...] call with any questions or concerns that arise.[facility] on [facility]:Result Comment: Electronically Signed By: Luis Felipe Mack DO.br\Date and Time Signed: 04/01/24 09:34 [id number] Note Microbiology PROCEDURE: Wound Culture [R1] SOURCE: Wound BODY SITE: Leg R COLLECTED DATE/TIME: 02/27/2024 13:18 EDT RECEIVED DATE/TIME: 02/27/2024 14:29 EDT START DATE/TIME: 02/27/2024 14:29 EDT FREE TEXT SOURCE: Culture right leg wound Emre Yanez DPM, DPM, Emre Charles FINAL REPORTS Final Report [] Verified Date/Time: 02/29/2024 10:35 EDT Scant growth of Staphylococcus species coagulase negative STAINS Gram Stain Report [] Verified Date/Time: 02/28/2024 08:25 EDT No organisms seen. Performing Locations R1: This test was performed at: [facility], [address] [place] [address], [id number] [place] [address], VcxgfuWvumedicine Harrison Community HospitalComment on above:Performed By: #### [id number] #### [facility] [address] [place] [address] [id number] Hospital Discharge instructions Patient Education 02/27/2024 14:30:11 Post Op Patient Instructions - FT (CUSTOM) 02/27/2024 13:33:18 Dolce - Post Operative Instructions (Revised 04/24/14) (Custom) [place], [place] Emre Yanez DPM, FACFAS POST OPERATIVE INSTRUCTIONS Keep bandage [...] Report any increase in swelling to Dr. Yanez immediately Resume regular diet. Call the office if you develop: persistent bleeding temperature above 100 degrees persistent vomiting calf pain or shortness of breath redness or pus at operative site Call the office tomorrow for 1st post-operative dressing change appointment. If you have any problems or questions, feel free to call the doctor at: [phone] or [phone] Yanez paged. Patient signatureDate Dr. Emre Yanez, ZEFERINO, FACFASDate Revised: 10-05 Follow Up Care 02/21/2024 09:38:20 With:Emre Yanez Address: [facility] [place] [address]- 2 Business (1) [facility]: c/o [address] [place] [address]- 3 Business (1) When:03/05/2024 [facility]07-02-2024 NoteProgress Note-Physician Patient: CHAU MOISE Age: 28 years Sex: Female : 1995 Associated Diagnoses: None Author: Yasmany SEGOVIA, Joe Castellanos Postoperative Information Postoperative disposition: Postoperative disposition: To PACU. Optimetrix number: Optimetrix number [id number]. Anesthetic utilized: Monitored anesthesia care. Health Status [...] Discharge when meets criteria ( To home ).[facility] on above:Result Comment: Electronically Signed By: Yasmany SEGOVIA, Joe Castellanos\.br\Date and Time Signed: 02/27/24 14:30 EDT 02-27-2024 NotePatient Education - Text [place], [place] Emre Yanez DPM, FACFAS POST OPERATIVE INSTRUCTIONS Keep bandage [...] Report any increase in swelling to Dr. Yanez immediately Resume regular diet. Call the office if you develop: persistent bleeding temperature above 100 degrees persistent vomiting calf pain or shortness of breath redness or pus at operative site Call the office tomorrow for 1st post-operative dressing change appointment. If you have any problems or questions, feel free to call the doctor at: [phone] or [phone] Yanez paged. Patient signature Date Dr. Emre Yanez DPM, VIRAJ Date Revised: 10-05[facility]02[facility] Evaluation + Plan note Extracted from: Title:ANES Post-operative Note---General Author: Joe Jade MD Date:02/27/24 Plan Transfer/Discharge: Transfer/Discharge Discharge when meets criteria ( To home ). Extracted from: Title:ANES Pre-operative Note 2022 Author:Joe Sifuentes Date:02/27/24 Plan [place] [employer]hesi[employer] (ASA) physical status classification: Class III. Anesthetic Preoperative Plan: Anesthesia Monitored anethesia care. Future Appointments Appointment Date:03/05/2024 12:30:00 PM Scheduled Provider:Emre Yanez DPM Location:FT[facility] Appointment Type: New Patient 30 (FT) Diagnostic Tests Pending * Wound Culture 02/27/24 [facility]07-02-2024 NoteProgress Note-Physician Patient: CHAU MOISE Age: 28 years Sex: Female : 1995 Associated Diagnoses: None Author: Emre Yanez DPM Postoperative Information Preoperative Diagnosis: non healing wound right leg > 2 years olce. Postoperative Diagnosis: same. Performed by: Emre Yanez DPM. Complications: None. wound prep for vac right leg wound biopsy right legWvumedicine Harrison Community HospitalComment on above:Result Comment: Electronically Signed By: Emre Yanez DPM.lucrecia\Date and Time Signed: 02/27/24 13:32 [id number] NoteProgress Note-Physician Patient: CHAU MOISE Age: 28 [...] All Problems Extreme obesity / SNOMED CT [id number] / Confirmed Resolved: denies / SNOMED CT 955359877 Resolved: DVT (deep venous thrombosis) / SNOMED CT [id number] Resolved: Pulmonary embolism / SNOMED CT 14208118, Active Problems (1) Extreme obesity , Factor V Leiden deficiency Histories Past Medical History: Resolved denies (106317442): Resolved. Pulmonary embolism (92994036): Resolved. DVT (deep venous thrombosis) ([id number]): Resolved. Family History: Primary malignant neoplasm of lung Father Depression Father Mother Procedure history: Denies. Social History Social & Psychosocial Habits Alcohol 02/27/2024 Risk Assessment: No Risk Comment: denies - 05/07/2018 15:52 Padmaja Lara RN Substance Abuse 02/27/2024 Risk Assessment: No Risk Comment: denies - 05/07/2018 15:53 Padmaja Lara RN Tobacco 02/27/2024 Risk Assessment: Denies Tobacco Use 02/27/2024 Tobacco Use: Never (less than 100 in l Ready to change: No Concerns about tobacco use in household: No Comment: denies - 05/07/2018 15:Padmaja Witt RN . Physical Examination No qualifying data available Airway: Mallampati classification: II (soft palate, fauces, uvula visible). Respiratory: Lungs are clear to auscultation, Respirations are non-labored, adequate air exchange. Cardiovascular: Regular rhythm, No murmur, no edema. Review / Management Results review: No qualifying data available . Plan [place] [employer] Anesthesiologists (ASA) physical status classification: Class III. Anesthetic Preoperative Plan: Anesthesia Monitored anethesia care.[facility] HospitalComment on above:Result Comment: Electronically Signed By: Yasmany SEGOVIA, Joe Castellanos\.br\Date and Time Signed: 02/27/24 12:00 [id number] Note [id number]2024 NoteMicrobiology PROCEDURE: Wound Culture [R1] SOURCE: Abscess BODY SITE: Leg R COLLECTED DATE/TIME: 02/12/2024 08:35 EDT RECEIVED DATE/TIME: 02/12/2024 11:47 EDT START DATE/TIME: 02/12/2024 11:47 EDT FREE TEXT SOURCE: Emre Yanez DPM, DPM, Emre Charles FINAL REPORTS Final Report [] Verified Date/Time: 02/14/2024 12:36 EDT 1+ Staphylococcus species coagulase negative STAINS Gram Stain Report [] Verified Date/Time: 02/13/2024 07:03 EDT No organisms seen. Performing Locations R1: This test was performed at: [facility], [address] [place] [address], [id number]- , [place], RlhaemWvumedicine Harrison Community HospitalComment on above:Performed By: #### [id number] #### [facility] [address] [place] [address] [id number] Evaluation + Plan note Diagnostic Tests Pending * Wound Culture 02/12/24 [facility]06-02-2021 NoteHNO ID: [id number] Author: Michelle Purcell RD Service: ? Author [...] she had very little desire to eat. [place] Body Weight: 61.6kg Estimated kilocalorie needs: 1848 kilocalories determined by 30 kcal/kg Estimated protein needs: 62-74 grams determined by 1.0-1.2 g/kg [place] weight Estimated fluid needs: 1848 milliliters based [...] MNT Billing Type: Ini (more content not included)...[facility] 01-27-2021 NoteEducation (NUTRSA) CLINT MOISE ([id number]) 1995 F Date Time Provider Department 01/27/21 9:45 AM MICHELLE PURCELL Reason for Visit: Nutrition Assessment [1591] Progress Notes: Michelle Purcell RD 01/29/2021 1:13 [...] she had very little desire to eat. [place] Body Weight: 61.6kg Estimated kilocalorie needs: 1848 kilocalories determined by 30 kcal/kg Estimated protein needs: 62-74 grams determined by 1.0-1.2 g/kg [place] weight Estimated fluid needs: 1848 milliliters based [...] ORAL) Take b (more content not included)... [facility]05-24-2021 NoteHNO ID: [id number] Author: Suhail Pantoja MD Service: ? Author Type: Physician Type: Progress Notes Filed: 01/19/2021 9:49 AM Note Text: NAME: Clint Moise CLINIC NO.: [id number] DATE OF SERVICE: January 18, 2021 Referring Provider: Venkata Grajeda DO. Consultation requested by Dr. Grajeda for an opinion regarding Ms. Clint Moise, and my final recommendations will be communicated back to the requesting physician by way of shared medical record or letter via [place] mail. Additional Clinicians involved in Clint Moise's care: CC: History of DVT and pulmonary embolus in 2014, hypercoagulable state. 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 DVT was previously associated with oral contraceptive pills. She currently has plans for an IUD placement. PLAN: Overall, is to decrease her reversible risk factors. 1. Consult our Degreaser Operator for aggressive weight loss 2. Sleep Study [...] is to place an IUD. Works at [employer] Broke Up with [employer] recently and is starting to lose weight. [...] Cancer Paternal Grandfather Suhail Pantoja MD, CPE [place], [place] CC: Venkata Grajeda, DO [address] [place] [address] Jazzy Le, DO [address] [place] [address]GaahnjpooUniversity Hospitals Geauga Medical CenterEvaluation + Plan note No data available for this section [facility] Future Appointments Appointment Date:03/08/2024 10:00:00 AM Scheduled Provider: Location:FT[facility] Appointment Type:WC Assessment (FT) Appointment Date:03/12/2024 02:00:00 PM Scheduled Provider:Emre Yanez DPM Location:[facility] Appointment Type:WC Follow [facility] ([facility]) [facility] Future Appointments Appointment Date:03/12/2024 08:30:00 AM Scheduled Provider: Location:[facility] Appointment Type:WC Assessment (FT) Appointment Date:03/12/2024 02:00:00 PM Scheduled Provider:Emre Yanez DPM Location:[facility] Appointment Type:WC Follow Up Visit (FT) Appointment Date:03/15/2024 08:30:00 AM Scheduled Provider: Location:[facility] Appointment Type:WC Assessment (FT) [facility] Future Appointments Appointment Date:03/15/2024 08:30:00 AM Scheduled Provider: Location:[facility] Appointment Type:WC Assessment (FT) Appointment Date:03/19/2024 02:15:00 PM Scheduled Provider:Emre Yanez DPM Location:[facility] Appointment Type:WC Follow Up Visit (FT) Appointment Date:04/01/2024 08:45:00 AM Scheduled Provider:Luis Felipe Mack DO Location:[facility] Appointment Type:Pain Management - New (FT) [facility] Future Appointments Appointment Date:03/19/2024 02:15:00 PM Scheduled Provider:Emre Yanez DPM Location:[facility] Appointment Type:WC Follow Up Visit (FT) Appointment Date:04/01/2024 08:45:00 AM Scheduled Provider:Luis Felipe Mack DO Location:[facility] Appointment Type:Pain Management - New (FT) [facility] Future Appointments Appointment Date:03/22/2024 08:30:00 AM Scheduled Provider: Location:[facility] Appointment Type:WC Assessment (FT) Appointment Date:03/26/2024 08:30:00 AM Scheduled Provider: Location:[facility] Appointment Type:WC Assessment (FT) Appointment Date:04/01/2024 08:45:00 AM Scheduled Provider:Luis Felipe Mack DO Location:FT.[facility] Appointment Type:Pain Management - New (FT) Appointment Date:04/02/2024 12:30:00 PM Scheduled Provider:Emre Yanez DPM Location:FT[facility] Appointment Type:WC Follow Up Visit (FT) [facility] Future Appointments Appointment Date:03/26/2024 08:30:00 AM Scheduled Provider: Location:FT[facility] Appointment Type:WC Assessment (FT) Appointment Date:04/01/2024 08:45:00 AM Scheduled Provider:Luis Felipe Mack DO Location:[facility] Appointment Type:Pain Management - New (FT) Appointment Date:04/02/2024 12:30:00 PM Scheduled Provider:Emre Yanez DPM Location:[facility] Appointment Type:WC Follow Up Visit (FT) [facility] Evaluation + Plan note Future Appointments Appointment Date:04/01/2024 08:45:00 AM Scheduled Provider:Luis Felipe Mack DO Location:[facility] Appointment Type:Pain Management - New (FT) Appointment Date:04/02/2024 12:30:00 PM Scheduled Provider:Emre Yanez DPM Location:[facility] Appointment Type:WC Follow Up Visit (FT) [facility] Evaluation + Plan note Future Appointments Appointment Date:04/12/2024 11:00:00 AM Scheduled Provider: Location:[facility] Appointment Type:WC Assessment (FT) Appointment Date:04/16/2024 04:15:00 PM Scheduled Provider:Emre Yanez DPM Location:[facility] Appointment Type:WC Follow Up Visit (FT) [facility] Evaluation + Plan note Future Appointments Appointment Date:04/16/2024 04:15:00 PM Scheduled Provider:Emre Yanez DPM Location:[facility] Appointment Type:WC Follow Up Visit (FT) [facility] Evjared + Plan note Future Appointments Appointment Date:04/24/2024 02:00:00 PM Scheduled Provider: Location:[facility] Appointment Type:WC Assessment (FT) Appointment Date:04/30/2024 12:30:00 PM Scheduled Provider:Emre Yanez DPM Location:[facility] Appointment Type:WC Follow Up Visit (FT) [facility] Evaluation + Plan note Future Appointments Appointment Date:04/30/2024 12:30:00 PM Scheduled Provider:Emre Yanez DPM Location:[facility] Appointment Type:WC Follow Up Visit (FT) [facility] Evjared + Plan note Future Appointments Appointment Date:05/07/2024 01:45:00 PM Scheduled Provider:Emre Yanez DPM Location:[facility] Appointment Type:WC Follow Up Visit (FT) Appointment Date:05/21/2024 01:30:00 PM Scheduled Provider: Location:[facility] Appointment Type:Surgery FT Appointment Date:06/17/2024 08:00:00 AM Scheduled Provider:April Daniels PA-C Location:[facility] Appointment Type:Pain Management - Follow Up (FT) [facility] Evjared + Plan note Future Appointments Appointment Date:05/15/2024 01:00:00 PM Scheduled Provider: Location:[facility] Appointment Type:WC Assessment (FT) Appointment Date:05/21/2024 01:30:00 PM Scheduled Provider: Location:[facility] Appointment Type:Surgery FT Appointment Date:05/21/2024 03:00:00 PM Scheduled Provider:Emre Yanez DPM Location:[facility] Appointment Type:WC Follow Up Visit (FT) Appointment Date:06/17/2024 08:00:00 AM Scheduled Provider:April Daniels PA-C Location:[facility] Appointment Type:Pain Management - Follow Up (FT) [facility] evelpidioation + Plan note Future Appointments Appointment Date:05/21/2024 01:30:00 PM Scheduled Provider: Location:[facility] Appointment Type:Surgery FT Appointment Date:05/21/2024 03:00:00 PM Scheduled Provider:Emre Yanez DPM Location:[facility] Appointment Type:WC Follow Up Visit (FT) Appointment Date:05/23/2024 11:45:00 AM Scheduled Provider:Karthik Johnson MD Location:[facility] Appointment Type:WC HBO Eval - Established (FT) Appointment Date:05/28/2024 08:30:00 AM Scheduled Provider: Location:.[facility] Appointment Type:WC HBO (FT) Appointment Date:05/31/2024 08:30:00 AM Scheduled Provider: Location:.[facility] Appointment Type:WC HBO (FT) Appointment Date:06/17/2024 08:00:00 AM Scheduled Provider:April Daniels PA-C Location[facility] Appointment Type:Pain Management - Follow Up (FT) [facility] evaluation + Plan note Future Appointments Appointment Date:05/23/2024 [...] Diagnostic Tests Pending * Wound Culture 05/21/24 [facility] evaluation + Plan note Future Appointments Appointment Date:05/28/2024 09:00:00 AM Scheduled Provider: Location[facility] Appointment Type:WC Assessment (FT) Appointment Date:05/31/2024 08:30:00 AM Scheduled Provider: Location:.[facility] Appointment Type:WC HBO (FT) Appointment Date:06/03/2024 08:30:00 AM Scheduled Provider: Location:[facility] Appointment Type:WC HBO (FT) Appointment Date:06/04/2024 [...] Provider: Location:.[facility] Appointment Type:WC HBO (FT) [facility] Evaluation + Plan note Future Appointments Appointment Date:05/31/2024 08:30:00 AM Scheduled Provider: Location:[facility] Appointment Type:WC HBO (FT) Appointment Date:06/03/2024 08:30:00 AM Scheduled Provider: Location:.[facility] Appointment Type:WC HBO (FT) Appointment Date:06/04/2024 08:30:00 AM Scheduled Provider: Location:.[facility] Appointment Type:WC HBO (FT) Appointment Date:06/04/2024 03:30:00 PM Scheduled Provider:Emre Yanez DPM Location:.[facility] Appointment Type:WC Follow Up Visit (FT) Appointment Date:06/05/2024 01:00:00 PM Scheduled Provider: Location:.[facility] Appointment Type:WC HBO (FT) Appointment Date:06/07/2024 08:30:00 AM Scheduled Provider: Location:[facility] Appointment Type:WC HBO (FT) Appointment Date:06/10/2024 [...] Provider: Location:.[facility] Appointment Type:WC HBO (FT) [facility] Evaluation + Plan note Future Appointments Appointment Date:06/05/2024 01:00:00 PM Scheduled Provider: Location:[facility] Appointment Type:WC HBO (FT) Appointment Date:06/07/2024 08:30:00 AM Scheduled Provider: Location:.[facility] Appointment Type:WC HBO (FT) Appointment Date:06/10/2024 11:45:00 AM Scheduled Provider:Karthik Johnson MD Location:[facility] Appointment Type:WC HBO Re-Eval (FT) Appointment Date:06/11/2024 04:15:00 PM Scheduled Provider:Emre Yanez DPM Location:[facility] Appointment Type:WC Follow Up Visit (FT) Appointment Date:06/12/2024 01:00:00 PM Scheduled Provider: Location:[facility] Appointment Type:WC HBO (FT) Appointment Date:06/14/2024 08:30:00 AM Scheduled Provider: Location:[facility] Appointment Type:WC HBO (FT) Appointment Date:06/17/2024 08:00:00 AM Scheduled Provider:April Daniels PA-C Location:[facility] [place] Appointment Type:Pain Management - Follow Up (FT) Appointment Date:06/19/2024 01:00:00 PM Scheduled Provider: Location:[facility] Appointment Type:WC HBO (FT) Appointment Date:06/21/2024 08:30:00 AM Scheduled Provider: Location:[facility] Appointment Type:WC HBO (FT) Appointment Date:06/26/2024 01:00:00 PM Scheduled Provider: Location:[facility] Appointment Type:WC HBO (FT) [facility] evaluation + Plan note Future Appointments Appointment Date:06/17/2024 08:00:00 AM Scheduled Provider:April Daniels PA-C Location:[facility] Appointment Type:Pain Management - Follow Up (FT) Appointment Date:06/19/2024 11:30:00 AM Scheduled Provider:Rohit Yanez DPM Location:[facility] Appointment Type:WC Follow Up Visit (FT) [facility] Evaluation + Plan note Future Appointments Appointment Date:06/26/2024 09:00:00 AM Scheduled Provider:Rohit Yanez DPM Location:[facility] Appointment Type:WC Follow Up Visit (FT) Appointment Date:06/26/2024 11:15:00 AM Scheduled Provider:April Daniels PA-C Location:[facility] Appointment Type:Pain Management - Follow Up (FT) [facility] Evaluation + Plan note Future Appointments Appointment Date:07/03/2024 11:00:00 AM Scheduled Provider:Rohit Yanez DPM Location:[facility] Appointment Type:WC Follow Up Visit (FT) [facility] Evjared + Plan note Future Appointments Appointment Date:07/10/2024 08:45:00 AM Scheduled Provider:Rohit Yanez DPM Location:[facility] Appointment Type:WC Follow Up Visit (FT) Appointment Date:07/22/2024 11:15:00 AM Scheduled Provider: Location:[facility] Appointment Type:Surgery FT Appointment Date:08/06/2024 01:30:00 PM Scheduled Provider:April Daniels PA-C Location:[facility] Appointment Type:Pain Management - Follow Up (FT) [facility] Evjared + Plan note Future Appointments Appointment Date:07/22/2024 11:15:00 AM Scheduled Provider: Location:[facility] Appointment Type:Surgery FT Appointment Date:07/31/2024 09:15:00 AM Scheduled Provider:Rohit Yanez DPM Location:[facility] Appointment Type:WC Follow Up Visit (FT) Appointment Date:08/06/2024 01:30:00 PM Scheduled Provider:April Daniels PA-C Location:[facility] Appointment Type:Pain Management - Follow Up (FT) [facility] evjared + Plan note Future Appointments Appointment Date:08/06/2024 01:30:00 PM Scheduled Provider:April Daniels PA-C Location:[facility] Appointment Type:Pain Management - Follow Up (FT) Appointment Date:08/07/2024 10:00:00 AM Scheduled Provider:Rohit Yanez DPM Location:[facility] Appointment Type:WC Follow Up Visit (FT) [facility] evjared + Plan note Future Appointments Appointment Date:08/22/2024 08:30:00 AM Scheduled Provider: Location:[facility] Appointment Type:WC Assessment (FT) Appointment Date:08/27/2024 10:15:00 AM Scheduled Provider:April Daniels PA-C Location:[facility] Appointment Type:Pain Management - Follow Up (FT) Appointment Date:09/04/2024 11:30:00 AM Scheduled Provider:Rohit Yanez DPM Location:[facility] Appointment Type:WC Follow Up Visit (FT) Diagnostic Tests Pending * Wound Culture 08/14/24 [facility] evaluation + Plan note Future Appointments Appointment Date:08/27/2024 10:15:00 AM Scheduled Provider:April Daniels PA-C Location:[facility] Appointment Type:Pain Management - Follow Up (FT) Appointment Date:09/04/2024 11:30:00 AM Scheduled Provider:Rohit Yanez DPM Location:[facility] Appointment Type:WC Follow Up Visit (FT) [facility] evaluation + Plan note Future Appointments Appointment Date:09/05/2024 03:00:00 PM Scheduled Provider: Location:[facility] Appointment Type:Surgery FT Appointment Date:09/18/2024 10:30:00 AM Scheduled Provider:Rohit Yanez DPM Location:[facility] Appointment Type:WC Follow Up Visit (FT) Appointment Date:10/04/2024 12:45:00 PM Scheduled Provider:April Daniels PA-C Location:[facility] Appointment Type:Pain Management - Follow Up (FT) [facility] Evelpidioation + Plan note Future Appointments Appointment Date:10/02/2024 11:30:00 AM Scheduled Provider:Rohit Yanez DPM Location:[facility] Appointment Type:WC Follow Up Visit (FT) Appointment Date:10/04/2024 10:30:00 AM Scheduled Provider:April Daniels PA-C Location:[facility] Appointment Type:Pain Management - Follow Up (FT) [facility] evaluation note* Diagnosis Cellulitis of right leg- Primary [facility] No data [facility] for this section [facility] data available for this section [facility] Summary Purpose Family History No Family History [...] this section No Family History Records Found Advance Directives No [...] and content) DATE CREATED AUTHOR 09/17/2020 Carisa Douglass spinakul DATE CREATED AUTHOR AUTHOR'S ORGANIZ ATION 09/28/2021 [facility] DATE CREATED AUTHOR AUTHOR'S ORGANIZ ATION 11/25/2022 [facility] DATE CREATED AUTHOR AUTHOR'S ORGANIZ ATION 02/13/2024 [facility] DATE CREATED AUTHOR AUTHOR'S ORGANIZ ATION 02/14/2024 [facility] DATE CREATED AUTHOR AUTHOR'S ORGANIZ ATION 02/15/2024 [facility] DATE CREATED AUTHOR AUTHOR'S ORGANIZ ATION 02/22/2024 [facility] DATE CREATED AUTHOR AUTHOR'S ORGANIZ ATION 02/23/2024 [facility] DATE CREATED AUTHOR AUTHOR'S ORGANIZ ATION 02/28/2024 [facility] DATE CREATED AUTHOR AUTHOR'S ORGANIZ ATION 03/01/2024 [facility] DATE CREATED AUTHOR AUTHOR'S ORGANIZ ATION 06/10/2024 [facility] DATE CREATED AUTHOR AUTHOR'S ORGANIZ ATION 06/29/2024 [facility] DATE CREATED AUTHOR AUTHOR'S ORGANIZ ATION 09/10/2024 [facility] DATE CREATED AUTHOR AUTHOR'S ORGANIZ ATION 09/27/2024 [facility] Source Comments (unrecognize d section and content) In the event this informatio n is protected by the Federal Confidentiality of Alcohol and Drug Abuse Patient Records regulations: The Federal rules restrict any use of the information to criminally investigate or prosecute any alcohol or drug abuse patient.[facility] the event this information is protected by the Federal Confidentiality of Alcohol and Drug Abuse Patient Records regulations: The Federal rules restrict any use of the information to criminally investigate or prosecute any alcohol or drug abuse patient.[facility] the event this information is protected by the Federal Confidentiality of Alcohol and Drug Abuse Patient Records regulations: The Federal rules restrict any use of the information to criminally investigate or prosecute any alcohol or drug abuse patient.[facility] the event this information is protected by the Federal Confidentiality of Alcohol and Drug Abuse Patient Records regulations: The Federal rules restrict any use of the information to criminally investigate or prosecute any alcohol or drug abuse patient.[facility] Patient Care team informatio n (unrecognized section and content) Puppet Maker Relationship Specialty Start Date End Date Julieta Curtis MD [address] [place] [phone] PCP - General Family Medicine 10/06/23 Puppet Maker Relationship Specialty Start Date End Date Julieta Curtis MD [address] [place] [phone] PCP - General Family Medicine 10/06/23 Puppet Maker Relationship Specialty Start Date End Date Julieta Curtis MD [address] [place] [phone] PCP - [facility] 10/06/23 Puppet Maker Relationship Specialty Start Date End Date Julieta Curtis MD [address] [place] [phone] PCP - [facility] 10/06/23 FOR RECORDS PERTAINING TO PATIENTS [...] ON THE PRIMARY CLINICAL RECORDS. [facility] [employer] [facility]. provides no warranty or guarantee of the accuracy or completeness of information in this document.
[2024-09-27 10:10] VITALS: BMI 52.0
--- NOTE | 2024-09-27 10:10 | VEINCLINIC_ITS ---
Vital Signs 09/27/24 10:10 Height 5 ft 8 in Weight 155 kg BMI 52.0 Varicose Veins Patient in today for follow up ultrasound of right lower extremity following EVLT of right SSV completed on 09/23/24. Jameson Hines MD personally performed the services described in this documentation, as scribed by Latosha Anthony RDMS in my presence and it is both accurate and complete. Latosha Hines RDMS, am scribing for, and in the presence of, Dr. Jameson Seo and in the presence of the patient. thigh: bilateral (symptoms equally bilateral), knee: bilateral, calf: bilateral, ankle: bilateral and andersen: bilateral aching, burning, cramping, dull and tender 8 6 months Worsened in recent months: Yes standing compression stockings and exercise Reports muscle spasms of leg, fatigue, heaviness, restless legs, limb pain, edema and leg edema History of lower extremity trauma: No Superficial thrombophlebitis: Yes Family history of varicose veins: yes Has patient had previous lower extremity venous surgery: No Patient has previously received the following treatment(s) for lower extremity varicose veins: Reports none Does patient have a history of : no Does patient intend to have future pregnancies: no Has patient had lower extremity venous scan with relux testing: No Support hose used: Yes Problems walking or doing physical activity: Yes How does it affect you: often has to sit and rest due to pain Do you walk much: Yes Do you stand much: Yes Review of Systems ROS Narrative Jameson Hines MD personally performed the services described in this documentation, as scribed by Latosha Anthony RDMS in my presence and it is both accurate and complete. Latosha Hines RDMS, am scribing for, and in the presence of, Dr. Jameson Seo and in the presence of the patient. Status of ROS 10 or more systems reviewed and unremark able except as noted in history and below Cardiovascular Reports: edema Integumentary/Breast Reports: skin pain, skin tenderness, skin swelling, non- healing lesion and changes in skin color Neurological Reports: weakness in extremities [facility] Medical History (Updated 09/13/24 @ 07:32 by Oj Garibay) Phlebitis of superficial vein of right lower extremity ?I80.01 - Phlebitis and thrombophlebitis of superficial vessels of right lower extremity (ICD-10) Varicose veins of bilateral lower extremities with pain ?I83.813 - Varicose veins of bilateral lower extremities with pain (ICD-10) Arthritis of neck ?M47.812 - Spondylosis without myelopathy or radiculopathy, cervical region (ICD-10) Morbid obesity due to excess calories ?E66.01 - Morbid (severe) obesity due to excess calories (ICD-10) Pulmonary embolism ?I26.99 - Other pulmonary embolism without acute cor pulmonale (ICD-10) Anxiety ?F41.9 - Anxiety disorder, unspecified (ICD-10) Depression ?F32.A - Depression, unspecified (ICD-10) Factor 5 Leiden mutation, heterozygous ?D68.51 - Activated protein C resistance (ICD-10) Lymphedema due to venous disease ?I89.0 - Lymphedema, not elsewhere classified (ICD-10) ?I99.9 - Unspecified disorder of circulatory system (ICD-10) Venous insufficiency ?I87.2 - Venous insufficiency (chronic) (peripheral) (ICD-10) Wound of right leg ?S81.801A - Unspecified open wound, right lower leg, initial encounter (ICD- 10) Surgical History (Updated 09/23/24 @ 14:42 by Oj Garibay) Status post laser ablation of incompetent vein ?Z98.890 - Other specified postprocedural states (ICD-10) Status post laser ablation of incompetent vein ?Z98.890 - Other specified postprocedural states (ICD-10) S/P sclerotherapy of varicose veins ?Z98.890 - Other specified postprocedural states (ICD-10) ?Z86.79 - Personal history of other diseases of the circulatory system (ICD- 10) H/O skin graft ?Z94.5 - Skin transplant status (ICD-10) Family History (Updated 07/17/24 @ 10:28 by Oj Garibay) Other Family history of cancer Family history of hypertension Family history of stroke Pain due to varicose veins of both lower extremities Social History (Updated 07/17/24 @ 10:29 by Oj Garibay) Within the past year, how often did you have a drink containing alcohol: 2-4 times a month Smoking status: Never smoker Non-prescribed substance use: denies use Meds Home Medications and Allergies Home Medications ?Medication ?Instructions ?Recorded ?Confirmed ?Type cyclobenzaprine 10 mg tablet 10 mg PO BID 07/17/24 07/17/24 History escitalopram oxalate 20 mg tablet 10 mg PO DAILY 07/17/24 07/17/24 History (Lexapro) gabapentin 600 mg tablet 300 mg PO TID 07/17/24 07/17/24 History aspirin 325 mg capsule 325 mg PO DAILY 09/18/24 09/18/24 History Allergies Allergy/AdvReac Type Severity Reaction Status Date / Time No Known Drug Allergies Allergy Verified 07/16/24 14:16 Exam Narrative Exam Narrative: Patient states she had swelling in right lower extremity for 2 days following procedure, but was improved today. Jameson Hines MD personally performed the services described in this documentation, as scribed by Latosha Anthony RDMS in my presence and it is both accurate and complete. Latosha Hines RDMS am scribing for, and in the presence of, Dr. Jameson Seo and in the presence of the patient. Constitutional Documenting provider has reviewed patient's vital signs: yes Common normals: oriented x3 Nutritional appearance: overweight Cardio Peripheral pulses: posterior tibial pulses present and dorsalis pedis pulses present Extremity Common normals: normal capillary refill General: calf tenderness and edema Right lower extremity: lower leg Right lower leg: inspection and palpation Left lower extremity: lower leg Left lower leg: inspection and palpation Neuro Common normals: oriented x3 Results Imaging Venous US: Radiologist's impression: Heat induced thrombus in right SSV up to but not into the popliteal vein. Jameson Hines MD personally performed the services described in this documentation, as scribed by Latosha Anthony RDMS in my presence and it is both accurate and complete. Latosha Hines RDMS, am scribing for, and in the presence of, Dr. Jameson Seo and in the presence of the patient. Assessment and Plan Assessment and Plan (1) Phlebitis of superficial vein of right lower extremity: Plan Plan is for patient to return for EVLT of left GSV. Jameson Hines MD personally performed the services described in this documentation, as scribed by Latosha Anthony RDMS in my presence and it is both accurate and complete. I, Latosha Bollenbacher RDMS, am scribing for, and in the presence of, Dr. Jameson Seo and in the presence of the patient.
--- NOTE | 2024-09-27 14:34 | W.VEIN ---
Discharge Plan Discharge Disposition: Home, Self-Care Outpatient Diagnostics: VC Endovenous Ablation 1VeinLT (Routine) Timeframe: 2 Weeks Facility: [facility] - Location[facility] Ordered By: Jameson Seo Plan of Treatment: EVLT of left leg GSV Print Language: Cambodian Discharge Date/Time: 09/27/24 14:35
== END 2024-09-27 14:35 | disposition home or self-care (01) ==
PROVIDERS: PCP Podiatrist Foot & Ankle Surgery; Visit Provider Radiology Diagnostic Radiology
DX: I80.01 Phlebitis and thrombophlebitis of superficial vessels of right lower extremity (principal)
CPT/HCPCS: 93971; G0463